=== PATIENT | female | born 1985 | race Caucasian/White ===

== ENCOUNTER 2017-12-17 16:00 | Outpatient (RCR) | payer OTHER, SELFPAY ==
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
--- NOTE | 2017-08-26 15:08 | HP.PTREVAL_ITS ---
Daniel Cee, It has been my pleasure to treat EUGENIA DASH over the last 7 visits for L TKA. Please see the progress note below for an update on the physical therapy plan of care! Subjective: Pt. arrives today walking without AD. Pt. continues to have decreased knee flexion during swing phase and increased L lateral lean during L stance phase of gait. Pt. continues to report increased pain with prolonged walking. Objective/Function: ROM- 0-2-112 deg. Increased pain limiting further end ranges of motion. MMT: LLE- ankle 5/5 throughout; knee- flexion 4+/5, ext 4+/5 mild increase NW; hip- flexion 4/5, abd 4/5, ext 4/5. Pt. had suture tape over incision, she has area where she reports opening mid incision. Did not appear to be opening today. Instructed patient to keep eye on this. No issues with all ROM with tension on skin. GAIT- pt. ambulates without AD with slight lack in knee ext during stance phase, but decreased hip lateral translation. STAIRS: PT. is able to negotiate with reciprocal pattern to ascend and descend, functional weakness noted with descending. 1 HR to complete. Plan Plan: Cont. with POC with focus on ROM, and functional strengthening as tolerated. Progress pt. in walking routine. Goals Goal 1:: Pt. to be I with HEP. Goal Time Frame: 4-6 Weeks Goal Progress: Goal Met Goal 2:: Pt. to have increased ROM of L knee to 0-0-120deg allowing for increased ability to complete all functional monbility without restrictions. Goal Time Frame: 4-6 Weeks Goal Progress: Progressing Goal 3:: Pt. to have increased LLE strength to atleast 4/5 throughout effected musculature reducing stress applied to L knee with all functional mobility. Goal Time Frame: 4-6 Weeks Goal Progress: Goal Met Goal 4:: Pt. to sleep throughout the night without increase in symptoms allowing for increased quality of life. Goal Time Frame: 4-6 Weeks Goal Progress: Progressing Goal 5:: Pt. to ambulate without AD unlimited distances with normal gait pattern without increase in L knee pain. Goal Time Frame: 4-6 Weeks Goal Progress: Progressing Goal 6:: Pt. to negotiate steps with reciprocal pattern with 1 HR independently. Goal Time Frame: 4-6 Weeks Goal Progress: Progressing Anticipated Interventions Patient/Client Instruction: Educate patient on: Condition, Plan of Care, Risk Factors, Benefits of Fitness Program For the Purpose of:: To improve safety, To improve health and function, To foster healthy habits, To improve decision making, To facilitate caregiver knowledge, To improve self management, To prevent re-injury, To improve ability to perform tasks related to life management, To improve tolerance to ADL's Therapeutic Exercise to Include: Strength training, Power training, Endurance training, Balance training, Body mechanics, Postural training, Flexibilty training, Gait and locomotor training, Passive ROM, Active ROM For the Purpose of:: To decrease pain, To decrease swelling/inflammation, To increase ROM, To improve nutrient delivery to tissue, To increase oxygenation perfusion, To improve muscle performance and motor function, To improve ability to perform ADL's, To increase tolerance to activity/condition/position, To improve performance and independence with ADL's, To decrease level of supervision to perform tasks, To improve ability of physical actions for home/ community/work/leisure, To improve gait and locomotor functions, To improve health of tissue, To decrease soft tissue restriction, To increase flexibility/ ROM, To improve endurance, To improve balance, To improve safety with gait Manual Therapy Techniques to Include: Scar massage, Mobilization, Passive ROM, Soft tissue mobilization For the Purpose of:: To decrease pain, To decrease swelling/inflammation, To increase ROM, To improve nutrient delivery to tissue, To increase oxygenation perfusion IF ES: Yes Cryotherapy (ice pack, ice massage): Yes Vasopneumatic device: Yes For the Purpose of:: To decrease pain, To decrease swelling/inflammation, To increase ROM, To improve nutrient delivery to tissue, To increase oxygenation perfusion Please do not hesitate to contact me at [phone] by phone or Fax: if you have questions or concerns regarding this new plan of care! Sincerely, Dhaval Kohler
--- NOTE | 2017-12-30 07:46 | HP.PTDCSUM ---
HP - PT D/C Summary It has been my pleasure to treat EUGENIA DASH under orders from Daniel Cee, for the diagnosis of L TKA for a total of 18 visit(s). Discharge Date: 12/17/17 Please see the following information for a summary of their discharge status. - Subjective Subjective: Pt. reports I am doing so much better. I was able to go up and down the stairs at the [employer] without issues.' Pt. reprots being HEP compliant without issues. - Pain L knee Pain Intensity (Out of 10): 0 - Overall Improvement % Improvement: 90 - Objective Objective/Function: ROM- 0-0-124deg. No pain noted. MMT- 5/5 throughout no pain noted. Pt. is able to ambulate without issues with improved gait pattern. No AD. STAIRS: reciprocal pattern without HR. Pt. is no longer having pain and is being HEP compliant. - Goals Goal 1:: Pt. to be I with HEP. Goal Progress: Goal Met Goal 2:: Pt. to have increased ROM of L knee to 0-0-120deg allowing for increased ability to complete all functional monbility without restrictions. Goal Progress: Goal Met Goal 3:: Pt. to have increased LLE strength to atleast 4/5 throughout effected musculature reducing stress applied to L knee with all functional mobility. Goal Progress: Goal Met Goal 4:: Pt. to sleep throughout the night without increase in symptoms allowing for increased quality of life. Goal Progress: Goal Met Goal 5:: Pt. to ambulate without AD unlimited distances with normal gait pattern without increase in L knee pain. Goal Progress: Goal Met Goal 6:: Pt. to negotiate steps with reciprocal pattern with 1 HR independently. Goal Progress: Goal Met - Plan Plan: Pt. to be DC to HEP at this point in time. - D/C Information Discharge Comments: Pt. has met her goals with PT at this point in time. She progressed to expected ROM and increased stability/strength. Pt. is pleased and continues to be consistent with strengthening. Pt. will be DC to independent HEP and gyme exercises at this point in time. If there are questions or concerns regarding this patient's physical therapy, please feel free to call me at [phone]. Thank you for the referral of this patient. Sincerely, Dhaval Kohler
== END 2017-12-17 19:00 | disposition home or self-care (01) ==
LOC: PT 16:00
PROVIDERS: Family Provider Internal Medicine; PCP Internal Medicine; Visit Provider Orthopaedic Surgery
DX: Z98.890 Other specified postprocedural states (principal)
CPT/HCPCS: 97014; 97110; 97140; 97161; 97530; G0283

== ENCOUNTER 2018-11-11 11:00 | Outpatient (RCR) | payer OTHER, SELFPAY ==
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
--- NOTE | 2018-11-14 10:03 | HP.PTREVAL ---
Daniel Cee, DO, It has been my pleasure to treat EUGENIA DASH over the last 17 visits for R shoulder acromial decompression and debridment. Please see the progress note below for an update on the physical therapy plan of care! Subjective: Pt. has been making good progress with ROM and joint mobilizations. Pt. has recently made good progress. Pt. reports no pain this date. Pt. was able to make dinner without issues. Pt. reports icing some at home, but has been focusing more on heat. Pt. is conserned about her ability to continue with PT as she is running low on her available visits. Objective/Function: ROM R shoulder: flexion 160deg, abd 155deg, functional ER C3, functional IR L3. PROM: flexion 170deg mild increase NW at end range, abd 165deg mild increase NW at end range, ER 90deg with multiple degrees of abd. MMT: 4/5 throughout, mild increase NW with all testing. Pt. has progressed with multiple motions of AROM and PROM. Pt. is not fully pain free, but has made good strides going forward. Pt. reports being able to resume some daily activities, including making dinner. No N/T noted. Plan Plan: Asking for more PT visits through insurance. I would recommend more visits with priogressipon of joint mobilizations, PROM, stretching and AROM. Goals Goal 1:: Pt. to be I with HEP. Goal Time Frame: 4-6 Weeks Goal Progress: Progressing Goal 2:: Pt. to have full R shoulder ROM without increase in symptoms. Goal Time Frame: 4-6 Weeks Goal Progress: Progressing Goal 3:: Pt. to sleep throughout the night withotu increase in symptoms. Goal Time Frame: 4-6 Weeks Goal Progress: Progressing Goal 4:: Pt. to have increased strength of RUE by 1/2 grade of all effected musculature. Goal Time Frame: 4-6 Weeks Goal Progress: Progressing Goal 5:: Pt. to complete all ADls without increase in symptoms. Goal Time Frame: 4-6 Weeks Goal Progress: Progressing Anticipated Interventions Patient/Client Instruction: Educate patient on: Condition, Plan of Care, Risk Factors, Benefits of Fitness Program For the Purpose of:: To facilitate caregiver knowledge, To improve self management, To prevent re-injury, To improve ability to perform tasks related to life management, To improve tolerance to ADL's Therapeutic Exercise to Include: Strength training, Power training, Endurance training, Postural training, Flexibilty training, Passive ROM, Active ROM, Scapular Strength/Stabilization For the Purpose of:: To decrease pain, To decrease swelling/inflammation, To increase ROM, To improve nutrient delivery to tissue, To increase oxygenation perfusion, To improve muscle performance and motor function, To improve health of tissue, To decrease soft tissue restriction Manual Therapy Techniques to Include: Mobilization, Passive ROM, Soft tissue mobilization For the Purpose of:: To decrease pain, To decrease swelling/inflammation, To increase ROM TENS: Yes IF ES: Yes Cryotherapy (ice pack, ice massage): Yes Thermo therapy (hot pack): Yes For the Purpose of:: To decrease pain, To decrease swelling/inflammation, To increase ROM Please do not hesitate to contact me at [phone] by phone or if you have questions or concerns regarding this new plan of care! Sincerely, Dhaval Kohler DPT
== END 2018-11-11 19:00 | disposition home or self-care (01) ==
LOC: PT 11:00
PROVIDERS: Family Provider Internal Medicine; PCP Internal Medicine; Referring Provider Orthopaedic Surgery; Visit Provider Orthopaedic Surgery
DX: M25.511 Pain in right shoulder (principal); S43.491D Other sprain of right shoulder joint, subsequent encounter; S43.421D Sprain of right rotator cuff capsule, subsequent encounter; M65.811 Other synovitis and tenosynovitis, right shoulder
CPT/HCPCS: 97035; 97110; 97161

== ENCOUNTER 2018-11-30 15:44 | Emergency (ER) | payer OTHER, SELFPAY ==
[2018-11-30 15:44] VITALS: BP 155/98; PULSE 84; RESP 16; O2SAT 98
[2018-11-30 15:45] VITALS: BP 162/105; PULSE 82; RESP 16; TEMP 36.4; O2SAT 99; BMI 48.0
--- NOTE | 2018-11-30 16:27 | ED.DCSUM_ITS ---
History of Present Illness Chief Complaint: Abd Pain Informant: Patient Onset: Today Context: Gradual Onset Timing: Waxes and wanes Current Severity: Mild Maximum Severity: Severe Narrative: Patient presents with lower abdominal pain along the area where she believes her ovaries will be located. Pain started today. She denies vaginal discharge or bleeding. She does have an IUD in place. Patient does report dysuria and frequency. She also had some low back pain that was not reproducible with palpation. Past Medical History - Allergies and Home Meds Allergies/Adverse Reactions: Allergies baclofen Allergy (Verified 11/30/18 15:45) Unknown morphine Allergy (Verified 11/30/18 15:45) Unknown duloxetine [From Cymbalta] Adverse Reaction (Verified 11/30/18 15:45) Unknown ATB Adverse Reaction (Uncoded 11/30/18 15:45) Nausea/Vom/Diarrhea Primary Care Physician: Marlen Mary MD [Primary Care Provider] - Prior records reviewed: Yes Past Medical History: - - Reviewed Smoking Status: Never smoker Review of Systems General: Denies: Chills, Fever ENT: Denies: Bilateral ear pain Cardiovascular: Denies: Chest pain Respiratory: Denies: Dyspnea, Cough Gastrointestinal: Reports: Abdominal pain. Denies: Nausea, Vomiting, Diarrhea, Constipation Genitourinary: Reports: Dysuria, Frequency Musculoskeletal: Reports: Back pain Neurological: Denies: Headache, Weakness, Parasthesia Endocrine: Denies: Polyuria, Polydipsia Hematologic: Denies: Easy bleeding Allergy: Denies: Uticaria Physical Exam Vital Signs/Narrative: Vital Signs Temp Pulse Resp BP Pulse Ox 11/30/18 15:45 97.6 F L 82 16 162/105 H 99 11/30/18 15:44 84 16 155/98 H 98 Inital Vital Signs reviewed: Yes General: Well nourished, Well developed Head: Normocephalic ENT: Moist mucous membranes Cardiovascular: Regular rate, Regular rhythm Respiratory: No distress, CTA bilaterally Abdomen: Soft, Normal bowel sounds, Tender - Mild suprapubic tenderness. Back: Nontender Extremities: Nontender Skin: Normal color Neurological: Alert, Oriented x3 Psychological: Normal affect Diagnostic/Tx/Re-eval Impressions Pelvis X-Ray 11/30/18 16:52 IMPRESSION: Normal x-ray examination of the pelvis. Electronically Signed: Eliazar Queen MD at 17:10 EDT , Service support , 11/30/18 16:52 Pelvis 1 or 2 Views [RAD] Stat Laboratory Results 11/30/18 16:35 Urine Color Yellow Urine Clarity Clear Urine pH 7.0 Ur Specific [place] 1.005 Urine Protein 15 H Urine Glucose (UA) Normal Urine Ketones Negative Urine Occult Blood 150 H Urine Nitrite Negative Urine Bilirubin Negative Urine Urobilinogen Normal Ur Leukocyte Esterase Negative Urine RBC 10-25 SEEN Urine WBC 0 SEEN Ur Squamous Epith Cells 0 SEEN Urine Bacteria 0 SEEN Urine Mucus 0 SEEN - Medical Decision Making On repeat evaluation patient is resting comfortably. She does have some blood noted in her urine. Patient states earlier the pain was so severe she was rolling around on the floor. I question whether she may have passed a small kidney stone. We discussed the possibility of further imaging with CAT scan, but she would prefer to wait and return if pain worsens. She will follow-up with her PCP as well as her [facility] as well. ED Disposition - Plan for ED Patient: Disposition: Home or Assisted Living Diagnosis: Pelvic pain Instructions: PELVIC PAIN, Unknown Cause Referrals: Marlen Mary MD [Primary Care Provider] -
[2018-11-30 16:45] LABS: Bacteria 0 SEEN /hpf (None Seen); Mucous, Urine 0 SEEN /hpf (<or=2+); Squamous Epithelial Cells - UA 0 SEEN /hpf (5-10); White Blood Cells 0 SEEN /hpf (0-5)
--- NOTE | 2018-11-30 16:52 | RAD_ITS ---
STUDY: X-RAY - PELVIS REASON FOR EXAM: Female, 33 years old. Left-sided pelvic pain TECHNIQUE: One view of the pelvis was obtained. COMPARISON: None. FINDINGS: There is a non-specific bowel gas pattern. Normal visualized soft tissue structures. IUD projects just left of midline in the central pelvis. Normal bilateral iliac wings, sacroiliac joints and visualized sacrum. Normal visualized bilateral superior and inferior pubic rami. Normal pubic symphysis. Normal ischial tuberosities. Normal visualized right femoral head. Normal right acetabulum. Normal right hip joint. Normal visualized left femoral head. Normal left acetabulum. Normal left hip joint. RAD/Pelvis 1 or 2 Views IMPRESSION: Normal x-ray examination of the pelvis. Electronically Signed: Eliazar Queen MD at 17:10 EDT , Service support ,
[2018-11-30 17:07] LABS: Color, Urine Yellow (Yellow); Glucose, Dipstick Normal (Normal); Ketone-Dipstick Negative (Negative); Leukocyte Esterase-Dipstick Negative /ul (Negative); Nitrite-Dipstick Negative (Negative); Occult Blood-Urine 150 /ul (Negative); Protein-Dipstick 15 mg/dl (Negative); Specific Gravity, Urine 1.005 (1.002-1.030); Urine Bilirubin Dipstick Negative (Negative); Urine Clarity Clear (Clear); Urine Urobilinogen Normal (Normal)
[2018-11-30 17:15] LABS: Red Blood Cells-Urine 10-25 SEEN /hpf (0-5)
[2018-11-30 18:50] VITALS: BP 142/88; PULSE 76; RESP 16; O2SAT 97
[2018-11-30 18:52] VITALS: BP 142/88; PULSE 76; RESP 16; O2SAT 97
== END 2018-11-30 18:52 | disposition home or self-care (01) ==
PROVIDERS: Emergency Provider Emergency Medicine; Family Provider Internal Medicine; PCP Internal Medicine
DX: R10.2 Pelvic and perineal pain (principal); Z97.5 Presence of (intrauterine) contraceptive device
CPT/HCPCS: 72170; 81001; 99282

== ENCOUNTER 2018-12-06 16:38 | Emergency (ER) | payer OTHER, SELFPAY ==
[2018-12-06 16:39] VITALS: BP 159/111; PULSE 72; RESP 15; TEMP 36.6; O2SAT 97; BMI 47.8
--- NOTE | 2018-12-06 17:04 | CT_ITS ---
STUDY: CT ABDOMEN AND PELVIS WITHOUT CONTRAST REASON FOR EXAM: Female, 33 years old. Right flank pain RADIATION DOSAGE (If Supplied By Facility): CTDIvol = ( 23.77 ) mGy, DLP = ( 1253.11 ) mGycm TECHNIQUE: Transaxial images were obtained from the dome of the diaphragm to the symphysis pubis without oral contrast, and without intravenous contrast. Sagittal and coronal images were reconstructed. Individualized dose optimization techniques were used for this CT. COMPARISON: None. FINDINGS: The visualized lung bases are unremarkable. The visualized portions of the heart are within normal limits. There is decreased attenuation of the liver consistent with steatosis. Normal gallbladder and extrahepatic biliary system. Normal spleen. Severe pancreatic atrophy with linear fatty replacement of the pancreatic head. Normal bilateral adrenal glands. Mild right hydronephrosis with right perinephric fat stranding and edema. Proximal right hydroureter. Punctate 2 mm stone seen in the right UVJ. Additional nonobstructing 2 mm stone in the right lower pole kidney. Normal left kidney. Normal visualized stomach. Normal small intestine. Normal colon. The appendix is visualized and appears normal. Normal abdominal aorta. Normal inferior vena cava. Normal retroperitoneum. Normal urinary bladder. Normal visualized uterus. Metallic IUD in the endometrium. Normal abdominal wall. Normal osseous structures. CT/Abdomen/Pelvis without Cont IMPRESSION: Right hydronephrosis, right hydroureter and right perinephric fat stranding. Punctate stone seen at the right UVJ. Remainder as above Electronically Signed: Albaro Gaming DO at 18:35 EDT Tel , Service support ,
--- NOTE | 2018-12-06 17:05 | ED.VISSUMM ---
- ER Visit Summary Date of Service: 12/06/18 Chief Complaint: Right flank and right upper quadrant pain History of Present Illness: The patient is a 33 F who presents with right flank and right upper quadrant abdominal pain that began again today. Patient was seen here last week and was noted to have some blood in her urine. Patient had x-rays done at that time which were negative. Patient states that she thought she may have passed a kidney stone at her last visit. Patient states the pain became worse again today. Patient states the pain is over the right upper quadrant and right flank area. Patient states the pain improved a little bit with taking a hot shower. Patient denies any nausea or vomiting. Patient denies any diarrhea, melena, or hematochezia. Patient does admit to some dysuria but denies any hematuria. Patient states she is currently on her menstrual cycle. Patient states she has an IUD in place as well. Physical Examination: Vital signs are stable except for mildly elevated blood pressure 159/111. Patient is afebrile. Patient is in no acute distress. Oral mucosa is pink and moist. Neck is supple. Trachea is midline. There is no JVD noted. Heart was regular rate and rhythm. Lungs are clear and equal bilaterally. Abdomen is soft. Bowel sounds are normal. There is right upper quadrant tenderness. There is some right CVA tenderness as well. There is no rebound or guarding noted. Cranial nerves II through XII are intact. There are no focal motor or sensory deficits noted. Test Results: CBC shows a mild leukocytosis of 12.5. Urinalysis shows 10-25 red blood cells with occult blood of 250. Creatinine was slightly elevated at 1.36. CT scan of the abdomen and pelvis was obtained. There is a punctate stone at the right UVJ with hydronephrosis and hydroureter. Emergency Department Course and Treatment: Patient was given an injection of Toradol. Patient was given IV fluids. Patient states her pain improved after the Toradol. Patient states pain started to return. Patient was given a dose of Dilaudid here. Patient was instructed to drink plenty of fluids at home. Patient was instructed to continue her pain medicine at home. Patient was given a prescription for Zofran. Patient was instructed to follow-up with her primary care physician in 5 to 7 days. Patient understood and was agreeable with the plan. All questions were answered. Disposition: Discharge home Impression: Right ureteral calculus This note was generated with [employer] dictation software. It may contain incorrect words, spelling, and punctuation that were not noted in review of the chart prior to signing ED Disposition - Plan for ED Patient: Disposition: Home or Assisted Living Diagnosis: Right distal ureteral calculus Instructions: KIDNEY STONE w/ Colic Prescriptions: Ondansetron [Zofran Odt] 4 mg PO Q8H PRN PRN #10 tab PRN Reason: Nausea Prescription Printed Referrals: Marlen Mary MD [Primary Care Provider] - 5-7 Days
[2018-12-06 17:13] LABS: Absolute Lymphocyte Count 2.44 X10^3/uL (0.83-4.51); Absolute Neutrophil Count 8.9 X10^3/uL (2.0-7.7); Basophil# 0.07 X10^3/uL; Basophil% 0.6 % (0-1); Eosinophil# 0.13 X10^3/uL; Hematocrit 41.7 % (37-47); Hemoglobin 13.7 g/dL (12.0-15.0); Lymphocyte # 2.44 X10^3/ul (4.0); Lymphocyte % 19.6 % (19-41); Mean Corp Hgb Conc 32.9 g/dL (32-36); Mean Corpuscular Hgb 26.8 pg (27.0-32.0); Mean Corpuscular Volume 81.6 fL (81-99); Mean Platelet Vol. 9.5 fl (6.2-12.0); Monocyte# 0.89 X10^3/uL; Monocyte% 7.1 % (0-10); NRBC Flagged by Analyzer 0 % (0-5); Neutrophil # 8.87 X10^3/uL (2.7-7.7); Neutrophil % 71.2 % (47-70); Platelet Count 339 K/mm3 (150-450); RBC Distribution Width SD 38.7 fl (35.1-43.9); Red Blood Count 5.11 M/mm3 (4.2-5.4); White Blood Count 12.5 K/mm3 (4.4-11.0)
[2018-12-06] MEDS: Ketorolac 30 MG/ML Syringe IV (17:14)
[2018-12-06] MEDS: Ondansetron 4 MG/2 ML Vial IV (17:14)
[2018-12-06] MEDS: 0.9% Normal Saline 1,000 ML 250 ML IV (17:14)
[2018-12-06 17:18] VITALS: TEMP 37
[2018-12-06 17:19] LABS: Mucous, Urine 0 SEEN /hpf (<or=2+)
[2018-12-06 17:20] LABS: Color, Urine Yellow (Yellow); Glucose, Dipstick Normal (Normal); Ketone-Dipstick Negative (Negative); Leukocyte Esterase-Dipstick 25 /ul (Negative); Nitrite-Dipstick Negative (Negative); Occult Blood-Urine 250 /ul (Negative); Protein-Dipstick 30 mg/dl (Negative); Specific Gravity, Urine 1.025 (1.002-1.030); Urine Bilirubin Dipstick Negative (Negative); Urine Clarity Sl. Cloudy (Clear); Urine Urobilinogen Normal (Normal)
[2018-12-06 17:26] LABS: Bacteria RARE /hpf (None Seen); Red Blood Cells-Urine 10-25 SEEN /hpf (0-5); Squamous Epithelial Cells - UA 5-10 SEEN /hpf (5-10); White Blood Cells 0-5 SEEN /hpf (0-5)
[2018-12-06 17:30] LABS: Anion Gap 8 (5-15); BUN 26 mg/dL (7-18); BUN/Creat Ratio 19.1 RATIO (10-20); Calcium,Total 9.6 mg/dL (8.5-10.1); Chloride 106 mmol/L (98-107); Creatinine, Serum 1.36 mg/dL (0.55-1.02); EST Glomerular Filtration Rate 47 mL/min (>60); Est Glom Filt Rate - Afr Amer 57 mL/min (>60); Estimated Creatinine Clearance 47.76 ml/min; Glucose 97 mg/dL (74-106); Potassium 4.1 mmol/L (3.5-5.1); Sodium Level 138 mmol/L (136-145)
[2018-12-06 17:53] LABS: Internal QC Validated? YES +Cl - CLEAR BKGD; Pregnancy, Serum, hCG Quali. NEGATIVE Negative
[2018-12-06 18:50] VITALS: BP 166/109; PULSE 72; RESP 16; O2SAT 98
[2018-12-06] MEDS: HYDROmorphone 0.5 MG/0.5 ML SYRINGE IV (19:29)
[2018-12-06 20:11] VITALS: BP 151/78; PULSE 92; RESP 18; O2SAT 99
--- NOTE | 2018-12-06 20:12 | ED.RN ---
THIS NURSE REVIEWED D/C INSTRUCTIONS WITH PT. PT VERBALIZED UNDERSTANDING OF INSTRUCTIONS. IV D/C. IV CATHETER INTACT. PT TOLERATED WELL. PT DENIES FURTHER NEEDS OR QUESTIONS AT THIS TIME
== END 2018-12-06 20:13 | disposition home or self-care (01) ==
PROVIDERS: Emergency Provider Emergency Medicine; Family Provider Internal Medicine; PCP Internal Medicine
DX: N13.2 Hydronephrosis with renal and ureteral calculous obstruction (principal); I10 Essential (primary) hypertension; M79.7 Fibromyalgia; Z97.5 Presence of (intrauterine) contraceptive device; Z79.82 Long term (current) use of aspirin; Z79.899 Other long term (current) drug therapy
CPT/HCPCS: 74176; 80048; 81001; 84703; 85025; 96361; 96374; 96375; 99283; J7030; A4216; J2405

== ENCOUNTER 2020-04-05 18:58 | Emergency (ER) | payer OTHER, SELFPAY ==
[2020-04-05 18:59] VITALS: BP 175/110; PULSE 76; RESP 18; TEMP 36.1; O2SAT 100; BMI 48.8
--- NOTE | 2020-04-05 19:26 | ED.DCSUM_ITS ---
- ER Visit Summary Date of Service: 04/05/20 Chief Complaint: Right flank pain History of Present Illness: The patient is a 34 F presenting with right flank pain. She states this started suddenly a couple of hours ago. She has history of kidney stones and states this feels similar. She has nausea with no vomiting. She denies urinary complaints. Denies fever. She tried methadone at home that she takes chronically for pain. Denies other complaints. Physical Examination: Vitals are stable. Patient is afebrile. Alert no acute distress. HEENT exam is unremarkable. Neck is supple. Lungs are clear and equal bilaterally. Heart is regular rate and rhythm. Abdomen is soft nontender nondistended. No guarding or rebound Back: Right CVA tenderness Extremities are unremarkable. Skin is warm and dry. No focal neurologic deficit. Remainder of exam is unremarkable. Emergency Department Course and Treatment: Patient was given Dilaudid, Zofran IV with improvement. Urinalysis shows 25-50 white blood cells, 10-25 red blood cells, 2+ bacteria. Urine culture was sent. CT abdomen pelvis shows 2 mm right UVJ calculus with mild hydronephrosis. Right nephrolithiasis. On reevaluation, patient is resting comfortably. She is already on methadone at home for chronic pain. She will continue to take this for pain. She states she has Zofran at home for nausea. She is given a prescription for Keflex. She has a listed allergy to unknown antibiotic but states she has taken Keflex in the past. She is given a dose of Toradol in the ED. She is comfortable with discharge home. Advised to follow-up with her primary care physician and urology. Advised return to ED for worsening complaints. Disposition: Discharge home Impression: Urolithiasis This note was generated with [employer] dictation software. It may contain incorrect words, spelling, and punctuation that were not noted in review of the chart prior to signing ED Disposition - Plan for ED Patient: Instructions: ED Renal Stone w Colic Prescriptions: Cephalexin [Keflex] 500 mg PO Q6 #40 cap Prescription Printed Referrals: Joselito Fishman MD [STAFF PHYSICIAN] - Marlen Mary MD [Primary Care Provider] -
[2020-04-05] MEDS: Ondansetron 4 MG/2 ML Vial IV (19:47)
[2020-04-05] MEDS: HYDROmorphone 1 MG/ML Syringe IV (19:47)
--- NOTE | 2020-04-05 19:51 | CT_ITS ---
STUDY: CT ABDOMEN AND PELVIS WITHOUT CONTRAST REASON FOR EXAM: Female, 34 years old. right sided flank pain that radiates to back. hx of kidney stones RADIATION DOSAGE (If Supplied By Facility): CTDIvol = ( 24.17 ) mGy, DLP = ( 1195.79 ) mGycm TECHNIQUE: Transaxial images were obtained from the dome of the diaphragm to the symphysis pubis without oral contrast, and without intravenous contrast. Sagittal and coronal images were reconstructed. Individualized dose optimization techniques were used for this CT. COMPARISON: None. FINDINGS: The visualized lung bases are unremarkable. The visualized portions of the heart are within normal limits. There is decreased attenuation of the liver consistent with steatosis. Normal gallbladder and extrahepatic biliary system. Normal spleen. There is diffuse atrophy of the pancreas. Normal bilateral adrenal glands. Small punctate calculi in the bilateral kidneys. There is mild right hydronephrosis with a 2 mm calculus in the region of the right UVJ. Normal visualized stomach. Normal small intestine. Normal colon. The appendix is visualized and appears normal. Normal abdominal aorta. Normal inferior vena cava. Normal retroperitoneum. Normal urinary bladder. IUD noted within the uterus. Normal abdominal wall. Normal osseous structures. CT/Abdomen/Pelvis without Cont IMPRESSION: 2 mm right UVJ calculus with mild hydronephrosis. Right nephrolithiasis. Electronically Signed: Eliazar Queen MD (Brooks) at 20:11 EST , Service support ,
[2020-04-05 19:54] LABS: Mucous, Urine 0 SEEN /hpf (<or=2+)
[2020-04-05 20:12] LABS: Color, Urine Yellow (Yellow); Glucose, Dipstick Normal (Normal); Ketone-Dipstick Negative (Negative); Leukocyte Esterase-Dipstick Negative /ul (Negative); Nitrite-Dipstick Negative (Negative); Occult Blood-Urine 250 /ul (Negative); Protein-Dipstick 15 mg/dl (Negative); Urine Bilirubin Dipstick Negative (Negative); Urine Clarity Clear (Clear); Urine Urobilinogen Normal (Normal)
[2020-04-05 20:21] LABS: White Blood Cells 25-50 SEEN /hpf (0-5)
[2020-04-05 20:22] LABS: Bacteria 2+ /hpf (None Seen); Red Blood Cells-Urine 10-25 SEEN /hpf (0-5); Squamous Epithelial Cells - UA 5-10 SEEN /hpf (5-10)
--- NOTE | 2020-04-05 21:23 | ED.DEP ---
ED Disposition - Plan for ED Patient: Instructions: ED Renal Stone w Colic Prescriptions: Cephalexin [Keflex] 500 mg PO Q6 #40 cap Prescription Printed Referrals: Marlen Mary MD [Primary Care Provider] - Joselito Fishman MD [STAFF PHYSICIAN] -
[2020-04-05] MEDS: Cephalexin 250 MG Capsule 500 MG PO (21:55)
[2020-04-05] MEDS: Ketorolac 30 MG/ML Syringe IV (21:55)
[2020-04-05 21:59] VITALS: BP 161/94; PULSE 72; RESP 16; O2SAT 100
--- NOTE | 2020-04-05 22:20 | ED.DEP ---
ED Disposition - Plan for ED Patient: Instructions: ED Renal Stone w Colic Prescriptions: Cephalexin [Keflex] 500 mg PO Q6 #40 cap Prescription Printed Ondansetron [Zofran Odt] 4 mg PO Q8H PRN PRN #10 tab PRN Reason: Nausea Prescription Printed Referrals: Joselito Fishman MD [STAFF PHYSICIAN] - Marlen Mary MD [Primary Care Provider] -
[2020-04-05 22:22] VITALS: BP 161/94; PULSE 72; RESP 16; O2SAT 100
== END 2020-04-05 22:24 | disposition home or self-care (01) ==
PROVIDERS: Emergency Provider Emergency Medicine; PCP Internal Medicine
DX: N13.2 Hydronephrosis with renal and ureteral calculous obstruction (principal); Z87.442 Personal history of urinary calculi
CPT/HCPCS: 74176; 81001; 87086; 87088; 96374; 96375; 99282; A4216; J2405

== ENCOUNTER 2022-07-10 03:03 | Emergency (ER) | payer BC, SELFPAY ==
[2022-07-10 03:04] VITALS: BP 154/139; PULSE 73; RESP 16; TEMP 36.8; O2SAT 97; BMI 46.4
--- NOTE | 2022-07-10 03:22 | CT_ITS ---
STUDY: CT ABDOMEN AND PELVIS WITH CONTRAST REASON FOR EXAM: Female, 37 years old. Left-sided abdominal pain with nausea and diarrhea. Hypertension. TECHNIQUE: IV Contrast: IV 100mL [id number] Enteric contrast: None administered. Axial images obtained. Coronal and sagittal reformatted images provided. Individualized dose optimization techniques were used for this CT. COMPARISON: 04/05/2020 CT abdomen pelvis. FINDINGS: Partially visualized lower chest: Lung bases unremarkable. Liver: Diffuse steatosis again demonstrated. No focal lesions. Gallbladder and biliary tree: No visible gallstones. No pericholecystic inflammation. No biliary ductal dilation. Pancreas: No pancreatic lesions or inflammation. Pancreatic body and head partially fatty replaced. Similar to prior. Spleen: Normal size, no splenic lesions. Adrenal glands: No concerning masses. Kidneys and ureters: Punctate 1 mm stone left UVJ with mild more proximal left hydronephrosis and hydroureter. 2 small residual stones in the lower pole of the left kidney, and 3 small nonobstructing stones in the lower and mid pole calyces of the right kidney. No right hydronephrosis or right ureteral stone. Bowel: Normal appendix. No obstruction or inflammation of the bowel. Urinary bladder: No other stones or wall thickening. Reproductive:Normal uterus and ovaries. IUD in place. Vascular: No abdominal aortic aneurysm. Retroperitoneal and peritoneal spaces: No ascites or free air. No retroperitoneal lesions. Osseous: No acute osseous abnormality. Abdominal and pelvic wall: No concerning findings. Any findings described in the findings sections and not included in the impression are incidental and do not require imaging follow-up. CT/Abdomen/Pelvis W IV Cont ONLY IMPRESSION: 1 mm left UVJ stone with mild obstruction. Small bilateral residual renal stones. Hepatic steatosis. Electronically Signed: George Ordonez MD at 5:47 EST Reading Location ID and State: [id number] MD Tel , Service support ,
--- NOTE | 2022-07-10 03:24 | ED.VIS.GI ---
HPI HPI - GI History of Present Illness Chief Complaint: Abd Pain Informant: patient and spouse/S.O. Narrative Narrative: Patient presents with abdominal pain, nausea vomiting and diarrhea. She states 1 month ago she had an episode where she had crampy abdominal pain with nausea vomiting diarrhea that lasted for 24 hours. She thought it was something she ate. It then recurred about 2 weeks ago. She was seen in urgent care. There is no specific solution. About 6 days ago and then came back. That second episode also lasted for 24 hours. She now is on Prilosec Pepcid and taking Phenergan which does help with the nausea. Her first episode of diarrhea was watery but now it is just poorly formed. No blood seen. She is still nauseated but has not vomited this week. But her appetite is down and she is not drinking a lot. She is eating only applesauce. No fevers. No chest pain. Of note, the patient did have an ulcer back when she was a teenager after knee injuries thought to be related to Celebrex. She is now been back on Celebrex for the last year or 2. [facility] Medical History Arthritis Back pain Fatigue Knee pain Migraines Shoulder pain Home Medications B-complex with vitamin C 1 cap PO QDAY 08/12/17 [History Last Taken Unknown] ascorbic acid (vitamin C) 500 mg chewable tablet 500 mg PO QDAY 08/12/17 [History Last Taken Unknown] aspirin 81 mg chewable tablet PO 08/12/17 [History Last Taken Unknown] atenolol 25 mg tablet 25 mg PO ONCE 08/12/17 [History Last Taken Unknown] biotin 1 mg capsule 1 mg PO QDAY 08/12/17 [History Last Taken Unknown] bupropion HCl 150 mg 24 hr tablet, extended release (Wellbutrin XL) 150 mg PO QAM 08/12/17 [History Last Taken Unknown] celecoxib 50 mg capsule (Celebrex) 100 mg PO BID 08/12/17 [History Last Taken Unknown] cetirizine 10 mg capsule (Allergy Relief (cetirizine)) 10 mg PO QDAY 08/12/17 [History Last Taken Unknown] cholecalciferol (vitamin D3) 25 mcg (1,000 unit) capsule 1,000 unit PO ONCE 08/12/17 [History Last Taken Unknown] desoximetasone 0.05 % topical cream (Topicort) 1 applic topical QDAY 08/12/17 [History Last Taken Unknown] diclofenac sodium 1 % topical gel (Voltaren) 2 g topical ONCE 08/12/17 [History Last Taken Unknown] gabapentin 100 mg capsule (Neurontin) 100 mg PO QDAY 08/12/17 [History Last Taken Unknown] hydrochlorothiazide 12.5 mg capsule 12.5 mg PO QAM 08/12/17 [History Last Taken Unknown] hydroxyzine HCl 25 mg tablet 25 mg PO 6XD 08/12/17 [History Last Taken Unknown] levonorgestrel 21 mcg/24 hours (8 yrs) 52 mg intrauterine device (Mirena) 1 insert intrauterine ONCE 08/12/17 [History Last Taken Unknown] lidocaine 5 % topical patch (Lidoderm) 1 patch topical ONCE 08/12/17 [History Last Taken Unknown] melatonin 10 mg capsule 10 mg PO HS PRN 08/12/17 [History Last Taken Unknown] methadone 5 mg tablet 5 mg PO Q6H 08/12/17 [History Last Taken Unknown] multivitamin 1 cap PO QAM 08/12/17 [History Last Taken Unknown] pregabalin 25 mg capsule (Lyrica) 50 mg PO TID 08/12/17 [History Last Taken Unknown] tizanidine 2 mg capsule (Zanaflex) 2 mg PO ONCE 08/12/17 [History Last Taken Unknown] topiramate 25 mg tablet (Topamax) 25 mg PO QDAY 08/12/17 [History Last Taken Unknown] zolpidem 5 mg tablet (Ambien) 5 mg PO HS PRN 08/12/17 [History Last Taken Unknown] ondansetron 4 mg disintegrating tablet 4 mg PO Q8H PRN PRN Nausea #10 tabs 12/06/18 [Rx Last Taken Unknown] cephalexin 500 mg capsule 500 mg PO Q6 #40 caps 04/05/20 [Rx Last Taken Unknown] ondansetron 4 mg disintegrating tablet 4 mg PO Q8H PRN PRN Nausea #10 tabs 04/05/20 [Rx Last Taken Unknown] ondansetron 4 mg disintegrating tablet 4 mg PO Q8H PRN PRN Nausea #10 tabs 07/10/22 [Rx Last Taken Unknown] tamsulosin 0.4 mg capsule (Flomax) 0.4 mg PO DAILY #7 caps 07/10/22 [Rx Last Taken Unknown] Allergy/AdvReac Type Severity Reaction Status Date / Time baclofen Allergy Unknown Verified 04/05/20 18:59 morphine Allergy Unknown Verified 04/05/20 18:59 duloxetine [From Cymbalta] AdvReac Unknown Verified 04/05/20 18:59 ATB AdvReac Nausea/Vom/ Uncoded 04/05/20 18:59 Diarrhea Family History Father Hypertension Arthritis Mother Asthma Arthritis Surgical History History of partial knee replacement History of tonsillectomy Hx of knee surgery Social History Smoking Status: Never smoker alcohol intake: current alcohol intake frequency: holidays/special occasions only ROS ROS ED Constitutional Constitutional ED: Denies fever(s) ENT ENT ED: Denies rhinorrhea Cardiovascular Cardiovascular: Denies chest pain or palpitations Respiratory/Chest Respiratory/Chest: Denies cough or dyspnea Gastrointestinal Gastrointestinal: Reports abdominal pain, diarrhea, nausea, vomiting and other Details: See history of present illness. ; Denies constipation or melena Genitourinary Genitourinary ED: Reports dysuria and urinary frequency; Denies hematuria Musculoskeletal Musculoskeletal: Denies back pain Integumentary Denies rash Neurologic Neurologic: Denies paresthesias Endocrine Endocrinology: Denies polydipsia or polyuria Hematologic/Lymphatic Hematologic/Lymphatic: Denies easy bleeding or easy bruising Allergic/Immunologic Allergic/Immunologic ED: Denies urticaria EXAM Physical Exam Narrative Exam Narrative: Patient is sitting up in bed. Awake alert appropriate. She is nontoxic in appearance. HEENT shows minimally dry mucous membranes. No sign of trauma. Lungs are clear bilaterally Heart is regular no murmur gallop or rub. Abdomen is obese. There is some mild nonfocal tenderness or longer left side. It varies somewhat. No rebound or guarding. No masses able to be felt. shows no notable suprapubic or CVA tenderness. She has had kidney stones but does not think this is like 1 of those. Extremities show no tenderness. No asymmetry. Neurologically patient awake alert appropriate with no focal deficit. Const Vital Signs: 07/10/22 03:04 Temperature 98.3 F Temperature Source Temporal Pulse Rate 73 Respiratory Rate 16 Blood Pressure 154/139 H Blood Pressure Mean 144 Pulse Ox 97 Oxygen Delivery Method Room Air MDM MDM MDM Narrative Medical decision making narrative: My independent interpretation of the patient's CT of the abdomen is suspicious for some mild left hydro-. There is questions of a distal small UVJ stone. Final reading by radiology does state that there is that small 1 mm UVJ stone. When I talk with her she then states she has had kidney stones before but was not sure if this was the same. Her blood work shows normal CBC. Her electrolytes are normal. Glucose is minimally up at 115. Lipase in the test are normal at is negative. Urine is negative pending final micro. I think her symptoms are likely due to the stone. She states she got excellent improvement with the fentanyl. She states she has gotten good relief from pain with Toradol. I will give her a dose of Toradol because it is longer lasting. This patient is on prescribed gabapentin and prescribed methadone routinely. I did access and review her online prescribing report by the [facility]. Because she gets regular prescriptions I really cannot give her further scripts to go. She needs to contact her primary prescriber. I will add some Flomax. I will also add some Zofran. She is already on nonsteroidal. We discussed reasons to return and follow-up. However, this stone statistically has a very high probability of passing. Lab Data Attestation: I reviewed the patient's lab results. Labs: Laboratory Results - last 24 hr 07/10/22 07/10/22 07/10/22 03:13 03:13 03:13 WBC 8.8 RBC 5.31 Hgb 14.3 Hct 44.4 MCV 83.6 MCH 26.9 L MCHC 32.2 RDW Std Deviation 39.7 RDW Coeff of Maria 13.2 Plt Count 335 MPV 10.1 Immature Gran % (Auto) 0.500 Neut % (Auto) 62.7 Lymph % (Auto) 27.7 [place] % (Auto) 6.7 Eos % (Auto) 1.7 Baso % (Auto) 0.7 Absolute Neuts (auto) 5.5 Absolute Lymphs (auto) 2.44 Nucleated RBC % 0 Sodium 138 Potassium 3.7 Chloride 107 Carbon Dioxide 26.0 Anion Gap 5 BUN 16 Creatinine 1.02 Estim Creat Clear Calc 61.25 Est GFR (MDRD) Af Amer 78 Est GFR (MDRD) Non-Af 64 BUN/Creatinine Ratio 15.7 Glucose 115 H Calcium 9.7 Total Bilirubin 0.80 AST 26 ALT 43 Alkaline Phosphatase 94 Total Protein 8.2 Albumin 4.0 Globulin 4.2 Albumin/Globulin Ratio 1.0 Lipase 100 Serum , Qual NEGATIVE Urine Color Urine Clarity Urine pH Ur Specific [place] Urine Protein Urine Glucose (UA) Urine Ketones Urine Occult Blood Urine Nitrite Urine Bilirubin Urine Urobilinogen Ur Leukocyte Esterase 07/10/22 06:20 WBC RBC Hgb Hct MCV MCH MCHC RDW Std Deviation RDW Coeff of Maria Plt Count MPV Immature Gran % (Auto) Neut % (Auto) Lymph % (Auto) [place] % (Auto) Eos % (Auto) Baso % (Auto) Absolute Neuts (auto) Absolute Lymphs (auto) Nucleated RBC % Sodium Potassium Chloride Carbon Dioxide Anion Gap BUN Creatinine Estim Creat Clear Calc Est GFR (MDRD) Af Amer Est GFR (MDRD) Non-Af BUN/Creatinine Ratio Glucose Calcium Total Bilirubin AST ALT Alkaline Phosphatase Total Protein Albumin Globulin Albumin/Globulin Ratio Lipase Serum , Qual Urine Color Yellow Urine Clarity Clear Urine pH 7.0 Ur Specific [place] 1.010 Urine Protein Negative Urine Glucose (UA) Normal Urine Ketones Negative Urine Occult Blood 10 H Urine Nitrite Negative Urine Bilirubin Negative Urine Urobilinogen Normal Ur Leukocyte Esterase Negative Radiography Diagnostic Testing: Clinical Impression(s) from Imaging Studies Abdomen/Pelvis CT 07/10/22 03:22 IMPRESSION: 1 mm left UVJ stone with mild obstruction. Small bilateral residual renal stones. Hepatic steatosis. Electronically Signed: George Ordonez MD at 5:47 EST Reading Location ID and State: [facility] [place] Tel , Service support , Discharge Plan Triage Chief Complaint: Abd Pain ED Provider: Tone Rutledge Dx/Rx/DC Orders Clinical Impression: Kidney stone on left side Instructions: ED Kidney Stone w/ Colic Prescriptions: New tamsulosin [Flomax] 0.4 mg capsule 0.4 mg PO DAILY Qty: 7 0RF ondansetron [ondansetron] 4 mg tablet,disintegrating 4 mg PO Q8H PRN PRN (Reason: Nausea) Qty: 10 0RF No Action topiramate [Topamax] 25 mg tablet 25 mg PO QDAY pregabalin [Lyrica] 25 mg capsule 50 mg PO TID bupropion HCl [Wellbutrin XL] 150 mg tablet extended release 24 hr 150 mg PO QAM tizanidine [Zanaflex] 2 mg capsule 2 mg PO ONCE lidocaine [Lidoderm] 5 % adhesive patch,medicated 1 patch TOPICAL ONCE atenolol 25 mg tablet 25 mg PO ONCE gabapentin [Neurontin] 100 mg capsule 100 mg PO QDAY levonorgestrel [Mirena] 20 mcg/24 hr (5 years) intrauterine device 1 insert Intrauterine ONCE methadone 5 mg tablet 5 mg PO Q6H celecoxib [Celebrex] 50 mg capsule 100 mg PO BID aspirin 81 mg tablet,chewable PO zolpidem [Ambien] 5 mg tablet 5 mg PO HS PRN hydroxyzine HCl 25 mg tablet 25 mg PO 6XD hydrochlorothiazide 12.5 mg capsule 12.5 mg PO QAM multivitamin capsule capsule 1 cap PO QAM cholecalciferol (vitamin D3) 1,000 unit capsule 1,000 unit PO ONCE biotin 1 mg capsule 1 mg PO QDAY ascorbic acid (vitamin C) 500 mg tablet,chewable 500 mg PO QDAY B-complex with vitamin C capsule capsule 1 cap PO QDAY melatonin 10 mg capsule 10 mg PO HS PRN cetirizine [Allergy Relief (cetirizine)] 10 mg capsule 10 mg PO QDAY desoximetasone [Topicort] 0.05 % cream 1 applic TOPICAL QDAY diclofenac sodium [Voltaren] 1 % gel 2 g TOPICAL ONCE ondansetron 4 MG tablet 4 mg PO Q8H PRN PRN (Reason: Nausea) Qty: 10 0RF cephalexin 500 MG capsule 500 mg PO Q6 Qty: 40 0RF ondansetron 4 MG tablet 4 mg PO Q8H PRN PRN (Reason: Nausea) Qty: 10 0RF Primary Care Provider: Marlen Mary Referrals: Shara Bautista MD [Med Staff - Active Staff] - 3-5 Days if not improving Marlen Mary MD [Primary Care Provider] - As Needed Disposition Disposition: Home, Self Care
[2022-07-10] MEDS: Ondansetron 4 MG/2 ML Vial IV (03:33)
[2022-07-10 03:34] LABS: Absolute Lymphocyte Count 2.44 X10^3/uL (0.83-4.51); Absolute Neutrophil Count 5.5 X10^3/uL (2.0-7.7); Basophil# 0.06 X10^3/uL; Basophil% 0.7 % (0-1); Eosinophil# 0.15 X10^3/uL; Eosinophils% 1.7 % (0-5); Hematocrit 44.4 % (37-47); Hemoglobin 14.3 g/dL (12.0-15.0); Lymphocyte # 2.44 X10^3/ul (0.83-4.51); Lymphocyte % 27.7 % (19-41); Mean Corp Hgb Conc 32.2 g/dL (32-36); Mean Corpuscular Hgb 26.9 pg (27.0-32.0); Mean Corpuscular Volume 83.6 fL (81-99); Mean Platelet Vol. 10.1 fl (6.2-12.0); Monocyte# 0.59 X10^3/uL; Monocyte% 6.7 % (0-10); NRBC Flagged by Analyzer 0 % (0-5); Neutrophil # 5.54 X10^3/uL (2.7-7.7); Neutrophil % 62.7 % (47-70); Platelet Count 335 K/mm3 (150-450); RBC Distribution Width CV 13.2 % (11.6-14.6); RBC Distribution Width SD 39.7 fl (35.1-43.9); Red Blood Count 5.31 M/mm3 (4.2-5.4); White Blood Count 8.8 K/mm3 (4.4-11.0)
[2022-07-10] MEDS: 0.9% Normal Saline 1,000 ML 1000 ML IV (03:34)
[2022-07-10] MEDS: fentaNYL 100 MCG/2 ML Ampul 50 MCG IV (03:53)
[2022-07-10 03:58] LABS: AST(SGOT) 26 U/L (15-37); Alanine Aminotransfer ALT/SGPT 43 U/L (13-56); Alkaline Phosphatase 94 U/L (45-117); Anion Gap 5 (5-15); BUN 16 mg/dL (7-18); BUN/Creat Ratio 15.7 RATIO (10-20); Calcium,Total 9.7 mg/dL (8.5-10.1); Chloride 107 mmol/L (98-107); Creatinine, Serum 1.02 mg/dL (0.55-1.02); EST Glomerular Filtration Rate 64 mL/min (>60); Est Glom Filt Rate - Afr Amer 78 mL/min (>60); Estimated Creatinine Clearance 61.25 ml/min; Globulin 4.2 g/dL (2.2-4.2); Glucose 115 mg/dL (74-106); Lipase 100 U/L (73-393); Potassium 3.7 mmol/L (3.5-5.1); Protein, Total 8.2 g/dL (6.4-8.2); Sodium Level 138 mmol/L (136-145)
[2022-07-10 04:28] LABS: Internal QC Validated? YES +Cl - CLEAR BKGD; Pregnancy, Serum, hCG Quali. NEGATIVE Negative
[2022-07-10 06:30] LABS: Bacteria 0 SEEN /hpf (None Seen); Mucous, Urine 0 SEEN /hpf (<or=2+); Red Blood Cells-Urine 0 SEEN /hpf (0-5); Squamous Epithelial Cells - UA 0 SEEN /hpf (5-10); White Blood Cells 0 SEEN /hpf (0-5)
[2022-07-10 06:31] LABS: Color, Urine Yellow (Yellow); Glucose, Dipstick Normal (Normal); Ketone-Dipstick Negative (Negative); Leukocyte Esterase-Dipstick Negative /ul (Negative); Nitrite-Dipstick Negative (Negative); Occult Blood-Urine 10 /ul (Negative); Protein-Dipstick Negative (Negative); Urine Bilirubin Dipstick Negative (Negative); Urine Clarity Clear (Clear); Urine Urobilinogen Normal (Normal)
[2022-07-10] MEDS: Ketorolac 15 MG/ML Vial IV (07:06)
== END 2022-07-10 07:09 | disposition home or self-care (01) ==
PROVIDERS: Emergency Provider Emergency Medicine; PCP Internal Medicine; Visit Provider Emergency Medicine
DX: N20.2 Calculus of kidney with calculus of ureter (principal)
CPT/HCPCS: 74177; 80053; 81001; 83690; 84703; 85025; 96361; 96374; 96375; 99282; Q9967; A4216; J2405

== ENCOUNTER 2024-11-09 00:38 | Emergency (ER) | payer BC, OTHER, SELFPAY ==
[2024-11-09 00:40] VITALS: BP 175/110; PULSE 68; RESP 24; TEMP 36.8; O2SAT 97
[2024-11-09 00:42] VITALS: BMI 47.5
--- NOTE | 2024-11-09 01:02 | CT_ITS ---
PROCEDURE: ABDOMEN/PELVIS WITHOUT CONT 11/09/2024 REASON FOR EXAM: RIGHT FLANK PAIN TECHNIQUE: ABDOMEN/PELVIS WITHOUT CONT Noncontrast technique limits evaluation of the abdominal and pelvic viscera. Coronal and Sagittal reconstruction series were provided. One or more dose reduction techniques were used (e.g., Automated exposure control, adjustment of the mA and/or kV according to patient size, use of iterative reconstruction technique). RADIATION DOSE SUMMARY: CTDlvol: 24 mGy DLP: 1258 mGycm COMPARISON: 07/10/2022 FINDINGS: 3 mm noncalcified left base nodule. 2 mm noncalcified right base nodule. Normal heart size. Liver is upper limits of normal for size with diffuse hepatic steatosis. Normal gallbladder. Diffuse fatty replacement of the pancreas. Normal spleen, adrenal glands. Bilateral renal calcifications measuring up to 5 mm. On the right, mild proximal hydronephrosis. 3 mm proximal ureteral stone. Normal bladder. IUD in uterus. Normal ovaries. No retroperitoneal or pelvic adenopathy. No free air. Nonobstructed bowel. Normal appendix. No acute large bowel findings. No acute abdominal wall findings. CT/Abdomen/Pelvis without Cont IMPRESSION: 3 mm proximal right ureteral stone, mild upstream hydronephrosis. Reading Location: [place] [address]
--- NOTE | 2024-11-09 01:04 | EX.ED.DYSGE1 ---
HPI History of Present Illness Chief Complaint: Flank Pain Detail of Chief Complaint: Right flank pain Informant: patient Narrative Narrative: Patient presents with right flank pain that started about an hour ago. She states she had pain yesterday as well and came and sat in the hospital parking lot but the pain eased so she went home. She was seen in the emergency department about a week ago and had a CT scan when she had pain on her left side and had a small 1 mm UVJ stone at that time. She that time also was noted to have some small stones in the right kidney. Patient yesterday describes some frequency. Urine was dark yesterday. She denies fever. She has had some nausea but no vomiting. Currently rates her pain an 8 out of 10. [facility] Medical History Arthritis Back pain Fatigue Knee pain Migraines Shoulder pain Home Medications ?Medication ?Instructions ?Recorded ?Last Taken ?Type B-complex with vitamin C 1 cap PO QDAY 08/12/17 Unknown History bupropion HCl 150 mg 24 hr tablet, 300 mg PO QAM 08/12/17 Unknown History extended release (Wellbutrin XL) celecoxib 50 mg capsule (Celebrex) 100 mg PO BID 08/12/17 Unknown History cetirizine 10 mg capsule (Allergy 10 mg PO QDAY 08/12/17 Unknown History Relief (cetirizine)) cholecalciferol (vitamin D3) 25 1,000 unit PO ONCE 08/12/17 Unknown History mcg (1,000 unit) capsule hydroxyzine HCl 25 mg tablet 25 mg PO Q4H 08/12/17 Unknown History levonorgestrel (Mirena) 1 insert intrauterine ONCE 08/12/17 Unknown History melatonin 10 mg capsule 10 mg PO HS PRN sleep 08/12/17 Unknown History methadone 5 mg tablet 5 mg PO Q6H 08/12/17 Unknown History pregabalin 25 mg capsule (Lyrica) 100 mg PO TID 08/12/17 Unknown History tizanidine 2 mg capsule (Zanaflex) 4 mg PO ONCE 08/12/17 Unknown History zolpidem 5 mg tablet (Ambien) 5 mg PO HS PRN sleep 08/12/17 Unknown History ondansetron 4 mg disintegrating 4 mg PO Q8H PRN PRN Nausea #10 tabs 12/06/18 Unknown Rx tablet tamsulosin 0.4 mg capsule (Flomax) 0.4 mg PO DAILY #7 caps 07/10/22 Unknown Rx atenolol 100 mg tablet 100 mg PO DAILY 11/09/24 Unknown History buspirone 30 mg tablet 30 mg PO BID 11/09/24 Unknown History diphenhydramine HCl 50 mg capsule 50 mg PO QHS 11/09/24 Unknown History (Banophen) eszopiclone 3 mg tablet 3 mg PO QHS 11/09/24 Unknown History furosemide 20 mg tablet (Lasix) 20 mg PO DAILY 11/09/24 Unknown History gabapentin 600 mg tablet 1,200 mg PO BID 11/09/24 Unknown History ketorolac 10 mg tablet 10 mg PO Q8H PRN pain 1 day #10 11/09/24 Unknown Rx tabs levothyroxine 25 mcg capsule 25 mcg PO DAILY 11/09/24 Unknown History omeprazole 40 mg capsule,delayed 40 mg PO DAILY 11/09/24 Unknown History release promethazine 25 mg tablet 25 mg PO Q6H PRN nausea and 11/09/24 Unknown History vomiting sertraline 100 mg tablet 100 mg PO DAILY 11/09/24 Unknown History sucralfate 1 gram tablet 1 g PO BID 11/09/24 Unknown History sulfamethoxazole 800 1 tab PO BID #6 tabs 11/09/24 Unknown Rx mg-trimethoprim 160 mg tablet (Bactrim DS) topiramate 100 mg tablet (Topamax) 100 mg PO DAILY 11/09/24 Unknown History Allergy/AdvReac Type Severity Reaction Status Date / Time baclofen Allergy Unknown Verified 11/09/24 00:39 morphine Allergy Unknown Verified 11/09/24 00:39 duloxetine (From Cymbalta) AdvReac Unknown Verified 11/09/24 00:39 Family History Father Hypertension Arthritis Mother Asthma Arthritis Surgical History History of partial knee replacement History of tonsillectomy Hx of knee surgery Social History Smoking Status: Never smoker alcohol intake: current alcohol intake frequency: holidays/special occasions only ROS ROS ED Review of Systems ROS Unobtainable: other Constitutional Constitutional ED: Reports lethargy; Denies chills, fever(s), sweats or weight loss Eyes Eyes: Denies blurry vision, change in vision or diplopia ENT ENT ED: Denies rhinorrhea or sore throat Cardiovascular Cardiovascular: Denies chest pain, orthopnea or racing heartbeat Respiratory/Chest Respiratory/Chest: Denies cough, dyspnea, dyspnea on exertion, orthopnea or sputum Gastrointestinal Gastrointestinal: Reports abdominal pain and nausea; Denies diarrhea or vomiting Genitourinary Genitourinary ED: Denies dysuria, hematuria or urinary frequency Musculoskeletal Musculoskeletal: Reports back pain; Denies arthralgias, myalgias or neck pain Integumentary Denies abscess, Abrasions or rash Neurologic Neurologic: Denies headache(s) or weakness Psychiatric Psychiatric: Denies anxiety, depression or suicidal thoughts Endocrine Endocrinology: Denies polydipsia, polyphagia or polyuria Hematologic/Lymphatic Hematologic/Lymphatic: Denies easy bleeding, easy bruising or lymphadenopathy Allergic/Immunologic Allergic/Immunologic ED: Denies mouth swelling, tongue swelling or urticaria EXAM Physical Exam Const Vital Signs: 11/09/24 00:40 Temperature 98.2 F Temperature Source Oral Pulse Rate 68 Respiratory Rate 24 H Blood Pressure 175/110 H Blood Pressure Mean 131 Pulse Ox 97 Oxygen Delivery Method Room Air Positive well nourished and well developed General Appearance ED: well developed and NAD HEENT Reports TM's clear and moist mucous membranes normocephalic and atraumatic; Negative for trauma or tenderness Tympanic Membrane ED: Yes TM's clear Eyes PERRL and EOMs intact bilaterally General Eye ED: Negative for pale conjunctiva or scleral icterus Neck no lymphadenopathy, supple and no JVD General: Negative for tenderness Chest Wall inspection of chest normal and palpation of chest normal Chest: Negative for tenderness Resp normal respiratory effort and clear to auscultation bilaterally Effort and Inspection: Negative for respiratory distress or pain with movement Auscultation: Negative for rhonchi, wheezes or diminished lung sounds Cardio regular rate, regular rhythm, S1 normal heart sound, S2 normal heart sound and no murmurs Peripheral Pulses: pulses 2+ throughout GI normal to inspection, nondistended, normoactive bowel sounds, soft to palpation, non-tender, non-distended and no masses Back/Spine no thoracic nor lumbar tenderness Back/Spine Narrative: Mild CVA tenderness on the right Extremity normal to inspection General Extremety ED: Negative for edema General Extremity: Negative for edema Neuro oriented x3, CN's II-XII intact bilaterally, no sensory deficits noted and gait normal Sensorium / Orientation: awake, alert, oriented to person, oriented to place and oriented to time Motor Exam: strength 5/5 throughout and strength abnormal Psych mental status grossly normal Skin no rashes or lesions noted and no wounds MDM MDM MDM Narrative Medical decision making narrative: Patient with history of kidney stones presents with right flank pain that began yesterday. She complains of some urinary frequency. She has had some nausea. IV line established on arrival. She was medicated with Dilaudid as well as Toradol and Zofran. She had good pain relief with that. CBC with differential obtained showed white count 7.8 with hemoglobin 13.8 and platelet count of 292. Chemistries unremarkable. hCG was negative. Urinalysis positive for greater than 100 RBCs and 10-25 WBCs with +3 bacteria and +[address] scan of the abdomen pelvis showed a 3 mm right proximal ureteral stone with mild upstream hydronephrosis. This point patient will be sent home with urine strainers as well as a prescription for Toradol as she does take methadone. Patient will also be covered with 3 days of Bactrim antibiotic. Advised the follow-up with her urologist whom she has an appointment within 12 days. She is to return if worsening pain, fever, vomiting, or condition worsening way. Lab Data Attestation: I reviewed the patient's lab results. Labs: Laboratory Results - last 24 hr 11/09/24 11/09/24 01:05 01:15 WBC 7.8 RBC 4.98 Hgb 13.8 Hct 41.6 MCV 83.5 MCH 27.7 MCHC 33.2 RDW Std Deviation 40.2 RDW Coeff of Maria 13.3 Plt Count 292 MPV 10.1 Immature Gran % (Auto) 0.500 Neut % (Auto) 55.0 Lymph % (Auto) 32.9 [place] % (Auto) 8.0 Eos % (Auto) 3.0 Baso % (Auto) 0.6 Absolute Neuts (auto) 4.3 Absolute Lymphs (auto) 2.56 Nucleated RBC % 0 Sodium 139 Potassium 3.8 Chloride 106 Carbon Dioxide 21.7 Anion Gap 12 BUN 17 Creatinine 0.90 Estim Creat Clear Calc 103.99 Est GFR (MDRD) Non-Af 82 BUN/Creatinine Ratio 18.7 Glucose 123 H Calcium 9.6 Serum , Qual NEGATIVE Urine Color Yellow Urine Clarity Clear Urine pH 6.0 Ur Specific [place] 1.025 Urine Protein 30 H Urine Glucose (UA) Normal Urine Ketones Negative Urine Occult Blood 250 H Urine Nitrite Negative Urine Bilirubin Negative Urine Urobilinogen Normal Ur Leukocyte Esterase 25 H Urine RBC > 100 SEEN Urine WBC 10-25 SEEN Ur Squamous Epith Cells 10-25 SEEN Calcium Oxalate Crystal 3+ Urine Bacteria 3+ Urine Mucus 4+ Radiography Diagnostic Testing: Clinical Impression(s) from Imaging Studies Abdomen/Pelvis CT 11/09/24 01:02 IMPRESSION: 3 mm proximal right ureteral stone, mild upstream hydronephrosis. Reading Location: [place] [id number] Discharge Plan Triage Chief Complaint: Flank Pain ED Provider: Fatimah Villalobos Dx/Rx/DC Orders Clinical Impression: Urolithiasis Instructions: ED Kidney Stone with Pain Prescriptions: New ketorolac 10 mg tablet 10 mg PO Q8H PRN (Reason: pain) 1 Days Qty: 10 0RF sulfamethoxazole-trimethoprim [Bactrim DS] 800-160 mg tablet 1 tab PO BID Qty: 6 0RF No Action pregabalin [Lyrica] 25 mg capsule 100 mg PO TID bupropion HCl [Wellbutrin XL] 150 mg tablet extended release 24 hr 300 mg PO QAM tizanidine [Zanaflex] 2 mg capsule 4 mg PO ONCE levonorgestrel [Mirena] 20 mcg/24 hr (5 years) intrauterine device 1 insert Intrauterine ONCE methadone 5 mg tablet 5 mg PO Q6H celecoxib [Celebrex] 50 mg capsule 100 mg PO BID zolpidem [Ambien] 5 mg tablet 5 mg PO HS PRN (Reason: sleep) hydroxyzine HCl 25 mg tablet 25 mg PO Q4H cholecalciferol (vitamin D3) 1,000 unit capsule 1,000 unit PO ONCE B-complex with vitamin C capsule 1 cap PO QDAY melatonin 10 mg capsule 10 mg PO HS PRN (Reason: sleep) cetirizine [Allergy Relief (cetirizine)] 10 mg capsule 10 mg PO QDAY ondansetron 4 MG tablet 4 mg PO Q8H PRN PRN (Reason: Nausea) Qty: 10 0RF tamsulosin [Flomax] 0.4 mg capsule 0.4 mg PO DAILY Qty: 7 0RF eszopiclone 3 mg tablet 3 mg PO QHS omeprazole 40 mg capsule,delayed release(DR/EC) 40 mg PO DAILY sertraline 100 mg tablet 100 mg PO DAILY atenolol 100 mg tablet 100 mg PO DAILY gabapentin 600 mg tablet 1,200 mg PO BID levothyroxine 25 mcg capsule 25 mcg PO DAILY topiramate [Topamax] 100 mg tablet 100 mg PO DAILY buspirone 30 mg tablet 30 mg PO BID sucralfate 1 gram tablet 1 g PO BID diphenhydramine HCl [Banophen] 50 mg capsule 50 mg PO QHS promethazine 25 mg tablet 25 mg PO Q6H PRN (Reason: nausea and vomiting) furosemide [Lasix] 20 mg tablet 20 mg PO DAILY Primary Care Provider: Marlen Mary Referrals: Marlen Mary MD [Primary Care Provider] - Activity Restrictions/Additional Instructions: Keep your appointment with urology Print Language: Uzbek Disposition Disposition: Home, Self Care
[2024-11-09] MEDS: 0.9% Normal Saline (1000mL) 1,000 ML 150 ML IV (01:15)
[2024-11-09] MEDS: HYDROmorphone 1 MG/ML Syringe 0.5 MG IV (01:16)
[2024-11-09] MEDS: Ketorolac 30 MG/ML Syringe IV (01:16)
[2024-11-09 01:28] LABS: Absolute Lymphocyte Count 2.56 X10^3/uL (0.83-4.51); Absolute Neutrophil Count 4.3 X10^3/uL (2.0-7.7); Basophil# 0.05 X10^3/uL; Basophil% 0.6 % (0-1); Eosinophil# 0.23 X10^3/uL; Hematocrit 41.6 % (37-47); Hemoglobin 13.8 g/dL (12.0-15.0); Lymphocyte # 2.56 X10^3/ul (0.83-4.51); Lymphocyte % 32.9 % (19-41); Mean Corp Hgb Conc 33.2 g/dL (32-36); Mean Corpuscular Hgb 27.7 pg (27.0-32.0); Mean Corpuscular Volume 83.5 fL (81-99); Mean Platelet Vol. 10.1 fl (6.2-12.0); Monocyte# 0.62 X10^3/uL; NRBC Flagged by Analyzer 0 % (0-5); Neutrophil # 4.27 X10^3/uL (2.7-7.7); Platelet Count 292 K/mm3 (150-450); RBC Distribution Width CV 13.3 % (11.6-14.6); RBC Distribution Width SD 40.2 fl (35.1-43.9); Red Blood Count 4.98 M/mm3 (4.2-5.4); White Blood Count 7.8 K/mm3 (4.4-11.0)
[2024-11-09 01:32] LABS: Color, Urine Yellow (Yellow); Glucose, Dipstick Normal (Normal); Ketone-Dipstick Negative (Negative); Leukocyte Esterase-Dipstick 25 /ul (Negative); Nitrite-Dipstick Negative (Negative); Occult Blood-Urine 250 /ul (Negative); Protein-Dipstick 30 mg/dl (Negative); Specific Gravity, Urine 1.025 (1.002-1.030); Urine Bilirubin Dipstick Negative (Negative); Urine Clarity Clear (Clear); Urine Urobilinogen Normal (Normal)
--- OUTSIDE RECORDS SUMMARY | 2024-11-09 01:42 | XMS RPT_ITS | CCD ---
Author Organization [facility] Care Team Providers Care Chief Investigator Name Role Phone Daniel Cee Attending Unavailable Talampas, Anila Primary Care Unavailable Rodampas Anila MARROQUIN Primary Care Provider Anila Campos MD Primary Care Provider Anila Campos MD Primary Care Provider Anila Campos MD Primary Care Provider Moore SENIOR MAINFRAME PROGRAMMER ANALYST.SEBD TEACHER, Jude Unavailable Johny SENIOR MAINFRAME PROGRAMMER ANALYST.PLATE MAKER, Nadine Unavailable Johny SENIOR MAINFRAME PROGRAMMER ANALYST.PLATE MAKER, Nadine Unavailable Johny SENIOR MAINFRAME PROGRAMMER ANALYST.PLATE MAKER, Nadine Unavailable Johny SENIOR MAINFRAME PROGRAMMER ANALYST.PLATE MAKER, Nadine Unavailable TALAMPAS, ANILA D Primary Care Unavailable PREBISH, BONNIE Attending Unavailable TALAMPAS, ANILA D Primary Care Unavailable PREBISH, BONNIE Attending Unavailable SANDY BHARDWAJ Attending Unavailab le TALAMPAS, ANILA D Primary Care Unavailable PREBISH, BONNIE Attending Unavailable TALAMPAS, ANILA D Primary Care Unavailable MEEK LI Attending Unavailable TALAMPAS, ANILA D Primary Care Unavailable PREBISH, BONNIE Referring Unavailable TALAMPAS, ANILA D Primary Care Unavailable PREBISH, BONNIE Attending Unavailable TALAMPAS, ANILA D Primary Care Unavailable MEEK LI Attending Unavailable PREBISH, BONNIE Referring Unavailable TALAMPAS, ANILA D Primary Care Unavailable PREBISH, BONNIE Attending Unavailable MEEK LI Attending Unavailable TALAMPAS, ANILA D Primary Care Unavailable PREBISH, BONNIE Referring Unavailable Moore SENIOR MAINFRAME PROGRAMMER ANALYST.SEBD TEACHER, Jude Unavailable TALAMPAS, ANILA D Attending Unavailable TALAMPAS, ANILA D Primary Care Unavailable TALAMPAS, ANILA D Primary Care Unavailable SANDY BHARDWAJ Referring Unavailab le TALAMPAS, ANILA D Primary Care Unavailable LENNOX GRAY Referring Unavailable TALAMPAS, ANILA D Primary Care Unavailable TALAMPAS, ANILA D Referring Unavailable TALAMPAS, ANILA D Primary Care Unavailable TALAMPAS, ANILA D Attending Unavailable TALAMPAS, ANILA D Primary Care Unavailable SANDY BHARDWAJ Referring Unavailab le TALAMPAS, ANILA D Primary Care Unavailable TALAMPAS, ANILA D Attending Unavailable TALAMPAS, ANILA D Primary Care Unavailable TALAMPAS, ANILA D Primary Care Unavailable TALAMPAS, ANILA D Attending Unavailable TALAMPAS, ANILA D Primary Care Unavailable MOOREJUDE Attending Unavailable TALAMPAS, ANILA D Primary Care Unavailable MOORE, JUDE Referring Unavailable TALAMPAS, ANILA D Primary Care Unavailable NADINE MCCLAIN Attending Unavailable TALAMPAS, ANILA D Primary Care Unavailable NADINE MCCLAIN Referring Unavailable TALAMPAS, ANILA D Primary Care Unavailable PROVIDER, UNKNOWN Referring Unavailable TALAMPAS, ANILA D Primary Care Unavailable Talampas, Anila D Primary Care Unavailable Ungur, Remus Attending Unavailable Allergies Allergy Classification Reported Allergen(s) Allergy Type Date of Onset Reaction(s) Facility (17 sources) Arnica extract; Translations: [ARNICA (ARNICA [place])] Drug Allergy 9 [facility] (20 sources) Baclofen; Translations: [BACLOFEN] Drug Allergy 4 Vomiting, [facility] (20 sources) DULoxetine; Translations: [DULOXETINE] Drug Allergy 6 Unknown [facility] Work Phone: (20 sources) metaxalone; Translations: [METAXALONE] Drug Allergy 0 Intolerance [facility] Work Phone: (20 sources) Morphine; Translations: [MORPHINE] Drug Allergy 5 Vomiting, Unknown [facility] Work Phone: (20 sources) Arnica [place] Extract Drug Allergy 9 [facility] (1 source) ATB Propensity to adverse reactions 0 Nausea/Vom/Diar nani [facility] (1 source) Baclofen Drug Allergy 5 [facility] (1 source) DULoxetine Drug Allergy 5 [facility] (1 source) Morphine Drug Allergy 5 [facility] Medications Current Medications Medication Drug Class(es) Dates Sig (Normalized) Sig (Original) amoxicillin 875 mg oral tablet (20 sources) Penicillin-class Antibacterial Start: 04-18-2022 End: 04-28-2022 take 1 tablet by mouth twice daily amoxicillin (AMOXIL) 875 mg tablet Take 1 tablet by mouth twice daily for 10 days. For sinus infection as directed 20 tablet 0 04/18/2022 04/28/2022 Active Start: 07-14-2019 Amoxicillin 50 0 mg tablet TAKE 4 PILLS 1 HOUR PRIOR TO DENTAL PROCEDURE 4 tablet 3 07/14/2019 Active Comment on above: TAKE 4 PILLS 1 HOUR PRIOR TO DENTAL PROCEDURE Take 1 tablet by renae th twice daily for 10 days. For sinus infection as directed amoxicillin 875 mg / clavulanate 125 mg oral tablet (6 sources) Penicillin-class Antibacterial Start: 4 End: 4 take 1 tablet by mouth twice daily amoxicillin-clavul anate potassium (AUGMENTIN) 875-125 mg per tablet Take 1 tablet by mouth two times a day for 5 days. 10 tablet 04/28/2024 05/03/2024 Active Start: 02-01-2023 End: 02-04-2023 take 1 tablet by mouth twice daily amoxicillin-clavulanic acid (AUGMENTIN) 875-125 mg per tablet Take 1 tablet by mouth twice daily for 3 days. 6 tablet 0 02/01/2023 02/04/2023 Comment on above: Take 1 tablet by renae th twice daily for 3 days. ascorbic acid 500 mg chewable tablet (1 source) Vitamin C Start: 8 take 500 mg by mouth once daily Ascorbic Acid (Vitamin C) Active 500 MG PO daily August 11, 2017 11:00pm aspirin 81 mg chewable tablet (1 source) Platelet Aggregation Inhibitor, Nonsteroidal Anti-inflammatory Drug Start: 8 Aspirin Active PO August 11, 2017 11:00pm atenolol 100 mg oral tablet (20 sources) beta-Adrenergic Marisela Start: 4 End: 4 take 1 tablet by mouth once daily as needed for headache, then take 1 tablet by mouth once daily as needed for headache atenolol (TENORMIN) 100 mg tablet Take 1 tablet by mouth once daily. May also take 1 tablet once daily as needed (Extra dose as needed for breakthrough headache). 180 tablet 3 04/30/2024 Active Start: 06-20-2022 End: 06-02-2023 take 1 tablet by mouth once daily as needed for headache, then take 1 tablet by mouth once daily as needed for headache atenolol (TENORMIN) 100 mg tablet Take 1 tablet by mouth once daily. May also take 1 tablet once daily as needed (Extra dose as needed for breakthrough headache). 180 tablet 3 06/20/2022 06/02/2023 Discontinued Start: 04-28-2021 End: 05-29-2022 atenolol (TENORMIN) 100 mg t ablet Take one-half (1/2) to one (1) tablet daily to prevent migraine headache 90 tablet 3 05/29/2022 Active Start: 08-12-2017 take 25 mg by mouth once Ateno lol Active 25 MG PO ONCE August 11, 2017 11:00pm Comment on above: Take 1 tablet by renae th once daily. May also take 1 tablet once daily as needed (Extra dose as needed for breakthrough headache). Take one-half (1/2) to one (1) tablet daily to prevent migraine headache Take 1 tablet by renae th once daily. Take one-half (1/2) to one (1) tablet daily to prevent migraine headache B-complex with vitamin C capsule (1 source) Start: 08-13-19 18 take 1 capsule by mouth once daily B-complex with vitamin C capsule Active 1 CAP PO daily August 11, 2017 11:00pm biotin 1 mg oral capsule (1 source) Start: 08-13-19 18 take 1 mg by mouth once daily Biotin Active 1 MG PO daily August 11, 2017 11:00pm 24 hr buPROPion hydrochloride 300 mg extended release oral tablet (20 sources) Aminoketone Start: 06-04-19 24 End: 05-04-20 24 take 1 tablet by mouth once daily buPROPion XL (WELLBUTRIN XL) 300 mg 24 hr tablet Indications: Depression, unspecified depression type Take 1 tablet by mouth once daily. (Note: cannot take budeprion) 30 tablet 11 05/04/2024 Active Start: 06-05-2021 End: 06-02-2023 take 1 tablet by mouth once daily buPROPion XL (WELLBUTRIN XL) 300 mg 24 hr tablet Indications: Depression, unspecified depression type Take 1 tablet by mouth once daily. (Note: cannot take budeprion) 90 tablet 3 05/29/2022 06/02/2023 Discontinued Start: 08-12-2017 take 1 tablet by renae th once daily in the morning Bupropion Hcl (Wellbutrin Xl) 150 mg tablet extended release 24 hr Active 150 MG PO EVERY MORNING August 11, 2017 11:00pm Comment on above: Take 1 tablet by renae th once daily. (Note: cannot take budeprion) busPIRone hydrochloride 30 mg oral tablet (20 sources) Start: End: take 1 tablet by mouth twice daily busPIRone HCl 30 mg tablet Take 1 tablet by mouth two times a day. Awaiting for mail away pharmacy to send script. 180 tablet 3 04/30/2024 Active Start: 06-04-2023 End: 10-12-2023 take 1 tablet by mouth twice daily busPIRone HCl 30 mg tablet Take 1 tablet by mouth two times a day. Awaiting for mail away pharmacy to send script. 60 tablet 0 06/04/2023 10/12/2023 Discontinued Start: 04-30-2023 End: 05-01-2023 take 1 tablet by mouth twice daily busPIRone HCl 30 mg tablet Take 1 tablet by mouth two times a day. 180 tablet 3 04/30/2023 05/01/2023 Discontinued Start: 02-01-2023 End: 04-10-2023 take 1 tablet by mouth twice daily busPIRone HCl 30 mg tablet Indications: Anxiety Take 1 tablet by mouth two times a day. 60 tablet 1 04/10/2023 Active Start: 01-11-2023 End: 02-01-2023 take 1 tablet by mouth three times daily busPIRone (BUSPAR) 10 mg tablet Indications: Anxiety Take 1 tablet by mouth three times daily. 90 tablet 2 01/11/2023 02/01/2023 Discontinued Start: 09-21-2022 End: 01-11-2023 take 1 tablet by mouth twice daily busPIRone (BUSPAR) 5 mg tablet Take 1 tablet by mouth twice daily. 60 tablet 2 09/21/2022 01/11/2023 Discontinued Comment on above: Take 1 tablet by renae th twice daily. Take 1 tablet by renae th three times daily. Take 1 tablet by renae th two times a day. Take 1 tablet by renae th two times a day. Awaiting for mail away pharmacy to send script. celecoxib 200 mg oral capsule (20 sources) Nonsteroidal Anti-inflammatory Drug Start: End: take 1 capsule by mouth twice daily celecoxib (CELEBREX) 200 mg capsule Indications: Generalized OA Take 1 capsule by mouth two times a day. 180 capsule 3 04/30/2024 Active Start: 06-04-2023 End: 09-27-2023 take 1 capsule by mouth twice daily celecoxib (CELEBREX) 200 mg capsule Take 1 capsule by mouth two times a day. 180 capsule 3 06/04/2023 09/27/2023 Discontinued Start: 06-20-2022 End: 06-02-2023 take 1 capsule by mouth twice daily celecoxib (CELEBREX) 200 mg capsule Take 1 capsule by mouth twice daily. 180 capsule 3 06/20/2022 06/02/2023 Discontinued Start: 09-27-2021 End: 03-21-2022 take 1 capsule by mouth twice daily celecoxib (CELEBREX) 200 mg capsule Take 1 capsule by mouth twice daily. 60 capsule 5 03/21/2022 Active Start: 04-01-2021 take 1 capsule by mo [facility] twice daily celecoxib (CELEBREX) 200 mg capsule Take 1 capsule by mouth twice daily. 60 capsule 5 04/01/2021 Active Start: 08-12-2017 take 2 capsules by m [facility] twice daily Celecoxib (Celebrex) 50 mg capsule Active 100 MG PO TWICE A DAY August 11, 2017 11:00pm Comment on above: Take 1 capsule by mo uth twice daily. Take 1 capsule by mo uth two times a day. cephalexin 500 mg oral capsule (1 source) Cephalosporin Antibacterial Start: 04-05-20 take 500 mg by mouth every six hours Cephalexin Active 500 MG PO EVERY 6 HOURS 40 November 24th, 2020 12:00am cetirizine hydrochloride 10 mg oral capsule (20 sources) Histamine-1 Receptor Antagonist Start: 08-13-19 18 take 1 capsule by mouth once daily Cetirizine (Allergy Relief (Cetirizine)) 10 mg capsule Active 10 MG PO daily August 11, 2017 11:00pm Start: 07-09-2017 cetirizine (ZY RTEC) 10 mg tablet Takes 1 tab daily as needed 07/09/2017 Active Comment on above: Takes 1 tab daily as needed cholecalciferol 0.025 mg oral capsule (20 sources) Vitamin D Start: 8 take 1000 [IU] by mouth once Cholecalciferol (Vitamin D3) Active 1000 UNIT PO ONCE August 11, 2017 11:00pm Start: 11-25-2013 take 1 capsule by [facility] once daily Cholecalciferol, Vitamin D3, 5,000 unit cap Take 1 capsule by mouth once daily. 11/25/2013 Active Comment on above: Take 1 capsule by [facility] once daily. diclofenac sodium 0.01 mg/mg topical gel (20 sources) Nonsteroidal Anti-inflammatory Drug Start: 8 apply 2 g topically once Diclofenac Sodium (Voltaren) 1 % gel Active 2 GM TOPICAL ONCE August 11, 2017 11:00pm Start: 07-02-2017 apply 4 g topically four times daily diclofenac sodium (VOLTAREN) 1 % topical gel Indications: Primary osteoarthritis of both knees Apply 4 g to affected area four times daily. For knees 100 g 11 07/02/2017 Active Comment on above: Apply 4 g to affecte d area four times daily. For knees diphenhydrAMINE hydrochloride 25 mg oral capsule (20 sources) Histamine-1 Receptor Antagonist take 2 capsules by mouth every twenty-four hours as needed diphenhydrAMINE (BENADRYL) 25 mg capsule Take 50 mg by mouth at bedtime as needed. Active Comment on above: Take 50 mg by mouth at bedtime as needed. enteric contrast (will be provided with radiology test) (1 source) Start: End: enteric contrast (will be provided with radiology test) Indications: Abdominal pain, left lateral For CT ABD/PEL W IVCON Routine order Administer, As Directed One Time Only, via Oral, Rectal, both Oral and Rectal, Enteric Tube, Stoma or Indwelling Catheter, Enteric Contrast as designated per enteric contrast guidelines 1 Each 0 11/01/2022 11/02/2022 Active Comment on above: For CT ABD/PEL W IVC ON Routine order Administer, As Directed One Time Only, via Oral, Rectal, both Oral and Rectal, Enteric Tube, Stoma or Indwelling Catheter, Enteric Contrast as designated per enteric contrast guidelines eszopiclone 2 mg oral tablet (20 sources) Start: 024 End: 025 take 1 tablet by mouth at bedtime as needed eszopiclone (LUNESTA) 2 mg Indications: Psychophysiological insomnia Take 1 tablet by mouth at bedtime as needed for up to 180 days. 90 tablet 1 02/25/2024 08/23/2024 Active Start: 09-27-2023 End: 11-26-2023 take 1 tablet by mouth at bedtime as needed eszopiclone (LUNESTA) 2 mg Indications: Psychophysiological insomnia Take 1 tablet by mouth at bedtime as needed for up to 60 days. 30 tablet 1 09/27/2023 11/26/2023 eszopiclone (DELIA ESTA) 3 mg tab Take by mouth daily at bedtime. Active furosemide 20 mg oral tablet (20 sources) Loop Diuretic Start: 04-28-2021 take 1 tablet by mouth once daily as needed for edema furosemide (LASIX) 20 mg tablet Take 1 tablet by mouth once daily as needed (fluid retention and swelling). 30 tablet 1 04/28/2021 Active Comment on above: Take 1 tablet by renae once daily as needed (fluid retention and swelling). gabapentin 600 mg oral tablet (20 sources) Anti-epileptic Agent Start: 05-29-2022 End: 11-25-2022 take 1 tablet by mouth four times daily gabapentin (NEURONTIN) 600 mg tablet Indications: Chondromalacia of patella Take 1 tablet by mouth four times daily for 180 days. 120 tablet 5 05/29/2022 11/25/2022 Active Start: 03-31-2022 End: 04-25-2025 take 2 tablets by mouth twice daily gabapentin (NEURONTIN) 600 mg tablet Indications: Generalized OA Take 2 tablets by mouth two times a day for 360 days. 360 tablet 3 04/30/2024 04/25/2025 Active Start: 04-01-2021 End: 03-26-2022 take 2 tablets by mouth twice daily gabapentin (NEURONTIN) 600 mg tablet Indications: Generalized OA Take 2 tablets by mouth twice daily for 180 days. 120 tablet 5 09/27/2021 03/21/2022 Discontinued Start: 08-12-2017 take 1 capsule by [facility] once daily Gabapentin (Neurontin) 100 mg capsule Active 100 MG PO daily August 11, 2017 11:00pm Comment on above: Take 2 tablets by [facility] twice daily for 180 days. Take 2 tablets by [facility] twice daily for 180 days. Do not start before March 31, 2022. Take 1 tablet by [facility] four times daily for 180 days. Take 2 tablets by [facility] two times a day for 180 days. hydrOXYzine hydrochloride 50 mg oral tablet (20 sources) Antihistamine Start: 06-07-19 End: 04-30-20 24 take 25-50 mg by mouth every four hours as needed hydrOXYzine HCl (ATARAX) 50 mg tablet Take 0.5-1 tablets by mouth every 4 hours as needed for itching/rash. For 90 days 140 tablet 3 04/30/2024 Active Start: 05-29-2022 End: 05-29-2022 take 25-50 mg by mouth every four hours as needed hydrOXYzine HCl (ATARAX) 50 mg tablet Take 0.5-1 tablets by mouth every 4 hours as needed for itching/rash. 140 tablet 3 05/29/2022 Active Start: 07-07-2021 End: 03-21-2022 take 25-50 mg by mouth every four hours as needed hydrOXYzine HCl (ATARAX) 50 mg tablet Take 0.5-1 tablets by mouth every 4 hours as needed for itching/rash. 90 tablet 11 07/07/2021 03/21/2022 Discontinued Start: 08-12-2017 Hydroxyzine Hc l Active 25 MG PO 6 times per day August 11, 2017 11:00pm Comment on above: Take 0.5-1 tablets b y mouth every 4 hours as needed for itching/rash. Take 0.5-1 tablets b y mouth every 4 hours as needed for itching/rash. For 90 days iv contrast (will be provided with radiology test) (1 source) Start: 2022 End: 2022 iv contrast (will be provided with radiology test) Indications: Abdominal pain, left lateral CT ABD/PEL -Inject, intravenously, once for 1 dose.No IV access, insert saline lock prior to the beginning of sedation, infusion, injection of imaging exam. Discontinue saline lock post exam. If Pt. has a central line or IVAD, may access for administration according to line specific nursing protocol. Once exam is complete flush line and de-access according to line specific nursing protocol in the CT contrast administration guidelines link. 1 Each 0 11/01/2022 11/02/2022 Active Comment on above: CT ABD/PEL -Inject, intravenously, once for 1 dose.No IV access, insert saline lock prior to the beginning of sedation, infusion, injection of imaging exam. Discontinue saline lock post exam. If Pt. has a central line or IVAD, may access for administration according to line specific nursing protocol. Once exam is complete flush line and de-access according to line specific nursing protocol in the CT contrast administration guidelines link. levonorgestrel 0.684491 mg/hr intrauterine system (1 source) Progestin, Progestin-containing Intrauterine Device Start: 2017 Levonorgestrel (Mirena) 20 mcg/24 hr (5 years) intrauterine device Active 1 INSERT INTRA-UTER ONCE August 11, 2017 11:00pm levothyroxine sodium 0.025 mg oral tablet (20 sources) l-Thyroxine Start: 2023 End: 2023 take 1 tablet by mouth once daily for thyroid dysfunction levothyroxine (SYNTHROID) 25 mcg tablet Indications: Elevated TSH Take 1 tablet by mouth once daily. Take on empty stomach. For thyroid. 90 tablet 3 04/30/2024 Active melatonin 10 mg oral capsule (20 sources) Start: 2017 take 10 mg by mouth at bedtime Melatonin Active 10 MG PO BEDTIME August 11, 2017 11:00pm Start: 07-09-2017 take 1 tablet by renae th once daily at bedtime melatonin 5 mg tablet Take 1 tablet by mouth daily at bedtime. 07/09/2017 Active Comment on above: Take 1 tablet by renae th daily at bedtime. methadone hydrochloride 5 mg oral tablet (20 sources) Opioid Agonist Start: 5 End: take 1 tablet by mouth three times daily as needed methadone (DOLOPHINE) 5 mg tablet Indications: Generalized OA , Primary osteoarthritis of both knees , Morbid obesity with BMI of 45.0-49.9, adult (HCC) , Plantar fasciitis of right foot , Chronic midline low back pain with bilateral sciatica , Kidney stone Take 1 tablet by mouth three times a day as needed for up to 30 days. Patient should start on November 20, 2024. 90 tablet 11/20/2024 12/20/2024 Active Start: 07-04-2024 End: 08-03-2024 take 1 tablet by mouth three times daily as needed methadone (DOLOPHINE) 5 mg tablet Indications: Generalized OA , Primary osteoarthritis of both knees , Morbid obesity with BMI of 45.0-49.9, adult (HCC) , Plantar fasciitis of right foot , Chronic midline low back pain with bilateral sciatica , Kidney stone Take 1 tablet by mouth three times a day as needed for up to 30 days. Patient should start on July 04, 2024. 85 tablet 07/04/2024 07/28/2024 Discontinued Start: 03-19-2024 End: 2024 take 1 tablet by mouth three times daily as needed methadone (DOLOPHINE) 5 mg tablet Indications: Generalized OA , Primary osteoarthritis of both knees , Morbid obesity with BMI of 45.0-49.9, adult (HCC) , Plantar fasciitis of right foot , Chronic midline low back pain with bilateral sciatica , Kidney stone Take 1 tablet by mouth three times a day as needed for up to 30 days. Patient should start on May 24, 2024. 85 tablet 05/24/2024 2024 Discontinued Start: 09-14-2023 End: 02-28-2024 take 1 tablet by mouth three times daily as needed methadone (DOLOPHINE) 5 mg tablet Indications: Generalized OA , Primary osteoarthritis of both knees , Morbid obesity with BMI of 45.0-49.9, adult (HCC) , Plantar fasciitis of right foot , Chronic midline low back pain with bilateral sciatica , Kidney stone Take 1 tablet by mouth three times a day as needed for up to 30 days. 85 tablet 01/01/2024 01/29/2024 Discontinued Start: 08-08-2023 End: 07-31-2023 take 1 tablet by mouth three times daily as needed methadone (DOLOPHINE) 5 mg tablet Indications: Generalized OA , Primary osteoarthritis of both knees , Morbid obesity with BMI of 45.0-49.9, adult (HCC) , Plantar fasciitis of right foot , Chronic midline low back pain with bilateral sciatica , Kidney stone Take 1 tablet by mouth three times a day as needed for up to 30 days. Do not start before August 08, 2023. 85 tablet 0 08/08/2023 07/31/2023 Discontinued Start: 08-08-2023 End: 09-07-2023 take 1 tablet by mouth three times daily as needed methadone (DOLOPHINE) 5 mg tablet Indications: Generalized OA , Primary osteoarthritis of both knees , Morbid obesity with BMI of 45.0-49.9, adult (HCC) , Plantar fasciitis of right foot , Chronic midline low back pain with bilateral sciatica , Kidney stone Take 1 tablet by mouth three times a day as needed for up to 30 days. Do not start before August 08, 2023. 85 tablet 0 08/08/2023 09/07/2023 Active Start: 08-08-2023 End: 07-31-2023 take 1 tablet by mouth three times daily as needed methadone (DOLOPHINE) 5 mg tablet Indications: Generalized OA , Primary osteoarthritis of both knees , Morbid obesity with BMI of 45.0-49.9, adult (HCC) , Plantar fasciitis of right foot , Chronic midline low back pain with bilateral sciatica , Kidney stone Take 1 tablet by mouth three times a day as needed for up to 30 days. Do not start before August 08, 2023. 85 tablet 0 08/08/2023 07/31/2023 Discontinued Start: 08-08-2023 End: 07-31-2023 take 1 tablet by mouth three times daily as needed methadone (DOLOPHINE) 5 mg tablet Indications: Generalized OA , Primary osteoarthritis of both knees , Morbid obesity with BMI of 45.0-49.9, adult (HCC) , Plantar fasciitis of right foot , Chronic midline low back pain with bilateral sciatica , Kidney stone Take 1 tablet by mouth three times a day as needed for up to 30 days. Do not start before August 08, 2023. 85 tablet 0 08/08/2023 07/31/2023 Discontinued Start: 03-12-2023 End: 09-27-2023 take 1 tablet by mouth three times daily as needed methadone (DOLOPHINE) 5 mg tablet Indications: Generalized OA , Primary osteoarthritis of both knees , Morbid obesity with BMI of 45.0-49.9, adult (HCC) , Plantar fasciitis of right foot , Chronic midline low back pain with bilateral sciatica , Kidney stone Take 1 tablet by mouth three times a day as needed for up to 30 days. 85 tablet 0 05/22/2023 09/27/2023 Discontinued Start: 06-20-2022 End: 03-03-2023 take 1 tablet by mouth three times daily as needed methadone (DOLOPHINE) 5 mg tablet Indications: Generalized OA , Primary osteoarthritis of both knees , Morbid obesity with BMI of 45.0-49.9, adult (HCC) , Plantar fasciitis of right foot , Chronic midline low back pain with bilateral sciatica , Kidney stone Take 1 tablet by mouth three times daily as needed for up to 30 days. 85 tablet 10/17/2022 11/25/2022 Discontinued Start: 06-17-2022 End: 05-29-2022 methadone (DOLOPHINE) 5 mg t ablet Indications: Generalized OA , Primary osteoarthritis of both knees , Morbid obesity with BMI of 45.0-49.9, adult (HCC) , Plantar fasciitis of right foot , Chronic midline low back pain with bilateral sciatica Take 1 tablet by mouth three times daily as needed for up to 30 days. Do not start before June 17, 2022. 85 tablet 0 06/17/2022 05/29/2022 Discontinued Start: 04-18-2022 End: 07-17-2022 take 1 tablet by mouth three times daily as needed methadone (DOLOPHINE) 5 mg tablet Indications: Generalized OA , Primary osteoarthritis of both knees , Morbid obesity with BMI of 45.0-49.9, adult (HCC) , Plantar fasciitis of right foot , Chronic midline low back pain with bilateral sciatica Take 1 tablet by mouth three times daily as needed for up to 30 days. 85 tablet 0 05/29/2022 06/20/2022 Discontinued Start: 07-07-2021 End: 04-05-2022 take 1 tablet by mouth three times daily as needed methadone (DOLOPHINE) 5 mg tablet Indications: Generalized OA , Primary osteoarthritis of both knees , Morbid obesity with BMI of 45.0-49.9, adult (HCC) , Plantar fasciitis of right foot , Chronic midline low back pain with bilateral sciatica Take 1 tablet by mouth three times daily as needed for up to 30 days. Do not start before March 06, 2022. 85 tablet 0 03/06/2022 03/21/2022 Discontinued Start: 08-12-2017 take 5 mg by mouth e very six hours Methadone Active 5 MG PO EVERY 6 HOURS August 11, 2017 11:00pm Comment on above: Take 1 tablet by renae th three times daily as needed for up to 30 days. Take 1 tablet by renae th three times daily as needed for up to 30 days. Do not start before August 06, 2021. Take 1 tablet by renae th three times daily as needed for up to 30 days. Do not start before December 02, 2021. Take 1 tablet by renae th three times daily as needed for up to 30 days. Do not start before October 03, 2021. Take 1 tablet by renae th three times daily as needed for up to 30 days. Do not start before November 02, 2021. Take 1 tablet by renae th three times daily as needed for up to 30 days. Do not start before February 04, 2022. Take 1 tablet by renae th three times daily as needed for up to 30 days. Do not start before March 06, 2022. Take 1 tablet by renae th three times daily as needed for up to 30 days. Do not start before April 18, 2022. Take 1 tablet by renae th three times daily as needed for up to 30 days. Do not start before May 18, 2022. Take 1 tablet by renae th three times daily as needed for up to 30 days. Do not start before June 17, 2022. Take 1 tablet by renae th three times a day as needed for up to 30 days. Take 1 tablet by renae th three times a day as needed for up to 30 days. Do not start before June 21, 2023. Take 1 tablet by renae th three times a day as needed for up to 30 days. Do not start before July 21, 2023. Take 1 tablet by renae th three times a day as needed for up to 30 days. Do not start before August 08, 2023. methylPREDNISolone (6 sources) Corticosteroid Start: 2023 End: 2023 methylPREDNISolone (MEDROL, LESTER,) 4 mg Dose-Pack As lester directs 21 tablet 04/23/2024 04/29/2024 Active mometasone furoate 0.05 mg/actuat metered dose nasal spray (20 sources) Corticosteroid Start: 2024 take 2 spray(s) nasal route once daily mometasone (NASONEX) 50 mcg/actuation nasal spray Use 2 Sprays in each nostril once daily. 17 g 3 07/28/2024 Active Start: 01-15-2018 take 2 spray(s) by out once daily mometasone (NASONEX) 50 mcg/actuation nasal spray Indications: Allergic rhinitis, unspecified seasonality, unspecified trigger Use 2 Sprays in the nose once daily. Rinse mouth after use. 1 Bottle 5 01/15/2018 Active Comment on above: Use 2 Sprays in the nose once daily. Rinse mouth after use. dzdfkzla-ipx-kjlef acid-biotin 66.7-1,000 mcg tab (20 sources) Start: 12-26-19 17 sgnnbqez-nej-uwkqh acid-biotin 66.7-1,000 mcg tab Take by mouth. 0 12/25/2016 Active Comment on above: Take by mouth. multivitamin capsule (1 source) Start: 08-13-19 18 take 1 capsule by mouth once daily in the morning multivitamin capsule Active 1 CAP PO EVERY MORNING August 11, 2017 11:00pm nirmatrelvir tablet 300 mg (150 mg x 2) and ritonavir tablet 100 mg in a dose pack (PAXLOVID) (1 source) Start: 08-21-19 23 End: 08-26-19 23 nirmatrelvir tablet 300 mg (150 mg x 2) and ritonavir tablet 100 mg in a dose pack (PAXLOVID) Indications: COVID-19 Administer TWO pink nirmatrelvir 150 mg tablets and ONE white ritonavir 100 mg tablet for a total of three tablets twice daily. 30 tablet 0 08/20/2022 08/25/2022 Active Comment on above: Administer TWO pink nirmatrelvir 150 mg tablets and ONE white ritonavir 100 mg tablet for a total of three tablets twice daily. omeprazole 40 mg delayed release oral capsule (20 sources) Proton Pump Inhibitor Start: 06-04-19 24 End: 12-23-20 24 take 1 capsule by mouth once daily omeprazole (PRILOSEC) 40 mg capsule Indications: Gastritis without bleeding, unspecified chronicity, unspecified gastritis type Take 1 capsule by mouth once daily. 30 capsule 11 05/04/2024 Active Start: 11-29-2020 End: 06-02-2023 take 1 capsule by mouth once daily omeprazole (PRILOSEC) 40 mg capsule Indications: Gastritis without bleeding, unspecified chronicity, unspecified gastritis type Take 1 capsule by mouth once daily. 90 capsule 3 05/29/2022 06/02/2023 Discontinued Comment on above: Take 1 capsule by mo uth once daily. ondansetron 4 mg disintegrating oral tablet (20 sources) Serotonin-3 Receptor Antagonist Start: 09-08-19 take 1 tablet by mouth every six hours as needed ondansetron orally disintegrating (ZOFRAN ODT) 4 mg disintegrating tablet Take 1 tablet by mouth every 6 hours as needed for nausea/vomiting. 120 tablet 1 09/07/2022 Active Start: 12-06-2018 take 4 mg by mouth e very eight hours as needed Ondansetron Active 4 MG PO EVERY 8 HOURS NEEDED July 10, 2022 12:00am Comment on above: Take 1 tablet by renae every 6 hours as needed for nausea/vomiting. pregabalin 100 mg oral capsule (20 sources) Start: 06-04-19 End: 04-22-20 take 1 capsule by mouth twice daily pregabalin (LYRICA) 100 mg capsule Indications: Generalized OA Take 1 capsule by mouth two times a day for 180 days. Patient should start on October 24, 2024. 180 capsule 1 10/24/2024 04/22/2025 Active Start: 10-06-2021 End: 05-25-2023 take 1 capsule by mouth twice daily pregabalin (LYRICA) 100 mg capsule Indications: Generalized OA Take 1 capsule by mouth twice daily for 180 days. Do not start before July 07, 2022. 180 capsule 3 07/07/2022 11/25/2022 Discontinued Start: 04-01-2021 End: 09-28-2021 take 1 capsule by mouth twice daily pregabalin (LYRICA) 100 mg capsule Indications: Generalized OA Take 1 capsule by mouth twice daily for 180 days. 60 capsule 5 04/01/2021 09/28/2021 Active Start: 08-12-2017 take 2 capsules by [facility] three times daily Pregabalin (Lyrica) 25 mg capsule Active 50 MG PO THREE TIMES A DAY August 11, 2017 11:00pm Comment on above: Take 1 capsule by mo [facility] twice daily for 180 days. Take 1 capsule by mo [facility] twice daily for 180 days. Do not start before October 06, 2021. Take 1 capsule by [facility] twice daily for 180 days. Do not start before March 31, 2022. Take 1 capsule by [facility] twice daily for 30 days. Take 1 capsule by [facility] twice daily for 180 days. Do not start before July 07, 2022. Take 1 capsule by [facility] two times a day for 180 days. Take 1 capsule by [facility] two times a day for 30 days. promethazine hydrochloride 25 mg oral tablet (20 sources) Phenothiazine Start: 07-06-19 take 1 tablet by mouth every six hours as needed promethazine (PHENERGAN) 25 mg tablet Take 1 tablet by mouth every 6 hours as needed for nausea/vomiting. 60 tablet 1 07/06/2022 Active Start: 05-31-2022 End: 06-03-2022 take 1 tablet by mouth every eight hours as needed for nausea and nausea promethazine (PHENERGAN) 25 mg tablet Indications: Nausea Take 1 tablet by mouth every 8 hours as needed for up to 3 days. 9 tablet 0 05/31/2022 06/03/2022 Comment on above: Take 1 tablet by renae every 8 hours as needed for up to 3 days. Take 1 tablet by renae every 6 hours as needed for nausea/vomiting. sertraline 100 mg oral tablet (20 sources) Serotonin Reuptake Inhibitor Start: 07-30-2023 End: 05-04-2024 take 1 tablet by mouth once daily sertraline (ZOLOFT) 100 mg tablet Indications: Anxiety Take 1 tablet by mouth once daily. 30 tablet 11 05/04/2024 Active Start: 01-11-2023 End: 07-30-2023 take 1 tablet by mouth once daily sertraline (ZOLOFT) 50 mg tablet Indications: Anxiety Take 1 tablet by mouth once daily. 90 tablet 3 04/30/2023 06/02/2023 Discontinued Comment on above: Take 1 tablet by renae once daily. Start with a half pill daily up to x2 weeks then if tolerating well increase this to a whole pill daily Take 1 tablet by renae once daily. Start half pill daily x2 weeks then increase to a whole pill daily Take 1 tablet by renae once daily. sucralfate 1000 mg oral tablet (20 sources) Aluminum Complex Start: 06-04-2023 take 1 tablet by mouth at bedtime sucralfate (CARAFATE) 1 gram tablet Take 1 tablet by mouth before meals and at bedtime. 56 tablet 1 06/04/2023 Active Start: 06-20-2022 End: 06-02-2023 take 1 tablet by mouth at bedtime sucralfate (CARAFATE) 1 gram tablet Take 1 tablet by mouth before meals and at bedtime. 56 tablet 1 06/20/2022 06/02/2023 Discontinued Start: 11-29-2020 End: 01-05-2022 take 1 tablet by mouth at bedtime sucralfate (CARAFATE) 1 gram tablet Take 1 tablet by mouth before meals and at bedtime. 56 tablet 1 01/05/2022 Active Comment on above: Take 1 tablet by renae before meals and at bedtime. tamsulosin hydrochloride 0.4 mg oral capsule (8 sources) alpha-Adrenergic Marisela Start: 5 take 1 capsule by mouth once daily at bedtime tamsulosin (FLOMAX) 0.4 mg Take 1 capsule by mouth daily at bedtime. 30 capsule 10/30/2024 Active Start: 07-30-2022 End: 08-20-2022 take 1 capsule by mouth once daily tamsulosin (FLOMAX) 0.4 mg Indications: Kidney stones Take 1 capsule by mouth once daily. 30 capsule 1 07/30/2022 08/20/2022 Discontinued (Course of therapy completed) Start: 07-10-2022 take 1 capsule by [facility] once daily Tamsulosin (Flomax) 0.4 mg capsule Active 0.4 MG PO DAILY July 10, 2022 12:00am Comment on above: Take 1 capsule by [facility] once daily. tiZANidine 4 mg oral tablet (20 sources) Central alpha-2 Adrenergic Agonist Start: 3 End: 12-19-202 4 take 2 tablets by mouth once daily at bedtime as needed for muscle spasms, then take 0.5-1 tablets by mouth twice daily as needed for muscle spasms tiZANidine (ZANAFLEX) 4 mg tablet Indications: Generalized OA , Primary osteoarthritis of both knees Take 2 tablets by mouth daily at bedtime. May also take 0.5-1 tablets two times a day as needed (muscle spasms during the day). For 90 days. 270 tablet 3 04/30/2024 Active Start: 07-07-2021 End: 05-29-2022 take 2 tablets by mouth once daily at bedtime as needed for muscle spasms, then take 0.5-1 tablets by mouth twice daily as needed for muscle spasms tiZANidine (ZANAFLEX) 4 mg tablet Indications: Generalized OA , Primary osteoarthritis of both knees Take 2 tablets by mouth daily at bedtime. May also take 0.5-1 tablets twice daily as needed (muscle spasms during the day). 270 tablet 3 05/30/2022 Active Start: 08-12-2017 take 1 capsule by mouth once T izanidine (Zanaflex) 2 mg capsule Active 2 MG PO ONCE August 11, 2017 11:00pm Comment on above: TAKE TWO TABLETS BY MOUTH DAILY AT BEDTIME, MAY TAKE 1/2-1 tablet TWICE DAILY during THE DAY max 24mg PER DAY Take 2 tablets by mo uth daily at bedtime. May also take 0.5-1 tablets twice daily as needed (muscle spasms during the day). Take 2 tablets by mo uth daily at bedtime. May also take 0.5-1 tablets twice daily as needed (muscle spasms during the day). For 90 days. Take 2 tablets by mo uth daily at bedtime. May also take 0.5-1 tablets two times a day as needed (muscle spasms during the day). For 90 days. topiramate 100 mg oral tablet (20 sources) Start: 06-07-2022 End: 04-30-2024 take 1 tablet by mouth once daily at bedtime topiramate (TOPAMAX) 100 mg tablet Indications: Migraine without aura and without status migrainosus, not intractable Take 1 tablet by mouth daily at bedtime. 90 tablet 3 04/30/2024 Active Start: 05-29-2022 End: 05-29-2022 take 3 tablets by mouth once daily at bedtime topiramate (TOPAMAX) 50 mg tablet Take 3 tablets by mouth daily at bedtime. 270 tablet 3 05/29/2022 Active Start: 04-28-2021 End: 03-21-2022 take 1 tablet by mouth once daily at bedtime topiramate (TOPAMAX) 100 mg tablet Indications: Migraine without aura and without status migrainosus, not intractable Take 1 tablet by mouth daily at bedtime. 30 tablet 11 03/21/2022 Active Start: 08-12-2017 take 1 tablet by renae th once daily Topiramate (Topamax) 25 mg tablet Active 25 MG PO daily August 11, 2017 11:00pm Comment on above: Take 1 tablet by renae th daily at bedtime. Take 3 tablets by mo uth daily at bedtime. 1 ml triamcinolone acetonide 40 mg/ml injection (1 source) Corticosteroid Start: 06-05-19 End: 07-05-19 triamcinolone acetonide 60 mg injection (KeNALog 40) Vitamin B Complex (20 sources) Start: 04-21-20 vitamin b complex(B COMPLETE TAB) Take one(1) tablet daily. 0 04/21/2009 Active Comment on above: Take one(1) tablet d aily. zolpidem tartrate 10 mg oral tablet (20 sources) gamma-Aminobutyric Acid-ergic Agonist Start: 07-29-19 End: 08-28-19 take 0.5-1 tablets by mouth every 30 days at bedtime as needed zolpidem (AMBIEN) 10 mg Indications: Primary insomnia Take 0.5-1 tablets by mouth at bedtime as needed for up to 30 days. Taken instead of Lunesta if not able to sleep more than 6 hours of sleep. 30 tablet 07/28/2024 Active Start: 06-04-2023 End: 11-05-2023 take 0.5-1 tablets by mouth every 30 days at bedtime as needed zolpidem (AMBIEN) 10 mg Indications: Primary insomnia Take 0.5-1 tablets by mouth at bedtime as needed for up to 30 days. Take if not able to sleep more than 6 hours of sleep 30 tablet 0 06/04/2023 11/05/2023 Discontinued Start: 01-31-2021 End: 06-02-2023 take 0.5-1 tablets by mouth every 30 days at bedtime as needed zolpidem (AMBIEN) 10 mg Indications: Primary insomnia Take 0.5-1 tablets by mouth at bedtime as needed for up to 30 days. Take if not able to sleep more than 6 hours of sleep 30 tablet 09/21/2022 06/02/2023 Discontinued Start: 08-12-2017 take 1 tablet by renae th at bedtime Zolpidem (Ambien) 5 mg tablet Active 5 MG PO BEDTIME August 11, 2017 11:00pm Comment on above: Take 0.5-1 tablets b y mouth at bedtime as needed for up to 30 days. Take if not able to sleep more than 6 hours of sleep Completed/Discontinued Medications Medication Drug Class(es) Dates Sig (Normalized) Sig (Original) 0.9% NaCl 10 mL flush (2 sources) Start: 08-24-2024 End: 08-24-2024 0.9% NaCl 10 mL flush Start: 08-24-2024 End: 08-24-2024 10 mL, OTHER, ONCE, 1 dose, On Sat08/24/24 at 1500 azithromycin 250 mg oral tablet (4 sources) Macrolide Antimicrobial Start: 04-30-2024 End: 05-05-2024 take 2 tablets by mouth once daily, then take 1 tablet by mouth once daily azithromycin (ZITHROMAX) 250 mg tablet Take 2 tablets by mouth once daily for 1 day, THEN 1 tablet once daily for 4 days. 6 tablet 04/30/2024 05/05/2024 20 ml bupivacaine hydrochloride 7.5 mg/ml injection (4 sources) Amide Local Anesthetic Start: 07-13-2024 End: 07-13-2024 bupivacaine(PF) 0.75 % (7.5 mg/mL) 7.5 mg injection (MARCAINE PF) Start: 07-13-2024 End: 07-13-2024 7.5 mg, OTHER, ONCE, 1 dose, On Sat07/13/24 at 1300 Start: 07-01-2024 End: 07-01-2024 bupivacaine(PF) 0.75 % (7.5 mg/mL) 7.5 mg injection (MARCAINE PF) Start: 07-01-2024 End: 07-01-2024 7.5 mg, OTHER, ONCE, 1 dose, On Sat07/01/24 at 1030 codeine phosphate 2 mg/ml / guaiFENesin 20 mg/ml oral solution (7 sources) Opioid Agonist Start: 04-28-2024 End: 05-04-2024 take 5 mL by mouth four times daily as needed for cough codeine-guaiFENesin (GUAIFENESIN AC) 10-100 mg/5 mL syrup Indications: Acute cough Take 5 mL by mouth four times a day as needed for cough for up to 6 days. 118 mL 04/28/2024 05/04/2024 desoximetasone 0.0025 mg/mg topical ointment (16 sources) Corticosteroid Start: 07-14-2019 desoximetasone (TOPICORT) 0.25 % Indications: Hand eczema Apply 1 application to affected area twice daily as needed. 60 g 0 07/14/2019 Active Start: 08-12-2017 Desoximetasone (Topicort) 0.05 % cream Active 1 APPLIC TOPICAL daily August 11, 2017 11:00pm Comment on above: Apply 1 application to affected area twice daily as needed. 1 ml dexamethasone phosphate 10 mg/ml injection (2 sources) Corticosteroid Start: 08-24-2024 End: 08-24-2024 dexAMETHasone sodium phosphate 10 mg injection (DECADRON) Start: 08-24-2024 End: 08-24-2024 10 mg, OTHER, ONCE, 1 dose, On Sat08/24/24 at 1500, Administer over 5 minutes. doxycycline monohydrate 100 mg oral tablet (4 sources) Tetracycline-class Drug Start: 04-28-2024 End: 05-03-2024 take 1 tablet by mouth twice daily doxycycline monohydrate 100 mg tablet Take 1 tablet by mouth two times a day for 5 days. 10 tablet 04/28/2024 04/30/2024 Discontinued (Adverse Reaction) famotidine 40 mg oral tablet (20 sources) Histamine-2 Receptor Antagonist Start: 07-06-2022 End: 04-30-2024 take 1 tablet by mouth once daily famotidine (PEPCID) 40 mg tablet Take 1 tablet by mouth once daily. 30 tablet 1 07/06/2022 04/30/2024 Discontinued (Course of therapy completed) Comment on above: Take 1 tablet by renae th once daily. hydroCHLOROthiazide 25 mg oral tablet (9 sources) Thiazide Diuretic Start: 09-07-2020 End: 03-21-2022 take 1 tablet by mouth once daily as needed hydroCHLOROthiazide (HYDRODIURIL, ESIDRIX) 25 mg tablet Take 1 tablet by mouth once daily. as needed for swelling 30 tablet 0 09/07/2020 03/21/2022 Discontinued (Other) Start: 08-12-2017 take 12.5 mg by mout h once daily in the morning Hydrochlorothiazide Active 12.5 MG PO EVERY MORNING August 11, 2017 11:00pm Comment on above: Take 1 tablet by renae th once daily. as needed for swelling iohexol 300 mg injection (OMNIPAQUE 300) (2 sources) Start: 08-24-2024 End: 08-24-2024 iohexol 300 mg injection (OMNIPAQUE 300) Start: 08-24-2024 End: 08-24-2024 300 mg, OTHER, ONCE, 1 dose, On Sat08/24/24 at 1500 ketoconazole 20 mg/ml topical cream (15 sources) Azole Antifungal Start: 03-11-2020 ketoconazole (NIZORAL) 2 % cream Indications: Rash and nonspecific skin eruption Apply 1 application to affected area twice daily. As directed 30 g 0 03/11/2020 Active Comment on above: Apply 1 application to affected area twice daily. As directed ketorolac tromethamine 10 mg oral tablet (1 source) Nonsteroidal Anti-inflammatory Drug, Cyclooxygenase Inhibitor Start: 05-01-2023 End: 04-30-2023 take 1 tablet by mouth every six hours as needed for pain keTORolac (TORADOL) 10 mg tablet Indications: Chronic midline low back pain without sciatica Take 1 tablet by mouth every 6 hours as needed for pain for up to 4 days. Do not take Celebrex while taking this. 16 tablet 05/01/2023 04/30/2023 Discontinued Start: 05-01-2023 End: 04-30-2023 take 1 tablet by mouth every six hours as needed for pain keTORolac (TORADOL) 10 mg tablet Indications: Chronic midline low back pain without sciatica Take 1 tablet by mouth every 6 hours as needed for pain for up to 4 days. Do not take Celebrex while taking this. 16 tablet 05/01/2023 04/30/2023 Discontinued 10 ml lidocaine hydrochloride 10 mg/ml injection (20 sources) Antiarrhythmic, Amide Local Anesthetic Start: 08-24-2024 End: 08-24-2024 lidocaine (PF) 10 mg/mL (1 %) 100 mg injection (XYLOCAINE) Start: 08-24-2024 End: 08-24-2024 100 mg, OTHER, ONCE, 1 dose, On Sat08/24/24 at 1500 Start: 07-13-2024 End: 07-13-2024 lidocaine (PF) 10 mg/mL (1 % ) 100 mg injection (XYLOCAINE) Start: 07-13-2024 End: 07-13-2024 100 mg, OTHER, ONCE, 1 dose, On Sat07/13/24 at 1300 Start: 07-01-2024 End: 07-01-2024 lidocaine (PF) 10 mg/mL (1 % ) 100 mg injection (XYLOCAINE) Start: 07-01-2024 End: 07-01-2024 100 mg, OTHER, ONCE, 1 dose, On Sat07/01/24 at 1030 Start: 07-07-2021 apply 1 dose transde rmal route every twenty-four hours, then apply 1 dose transdermal route every twelve hours lidocaine (LIDODERM) 5 % Apply 1 Patch as directed every 24 hours. Remove old patch after 12 hours prior to placing new patch. Location: back or leg 30 Patch 2 07/07/2021 Active Start: 06-12-2018 End: 03-21-2022 lidocaine viscous (XYLOCAINE ) 2 % solution Indications: Acute pharyngitis, unspecified etiology Gargle and swallow 5 cc every 3 hours as needed for sore throat. If 2% not available, okay to give 4% solution. 250 mL 0 06/12/2018 03/21/2022 Discontinued Start: 08-12-2017 apply 1 dose topically once Li docaine (Lidoderm) 5 % adhesive patch,medicated Active 1 PATCH TOPICAL ONCE August 11, 2017 11:00pm Comment on above: Gargle and swallow 5 cc every 3 hours as needed for sore throat. If 2% not available, okay to give 4% solution. Apply 1 Patch as dir ected every 24 hours. Remove old patch after 12 hours prior to placing new patch. Location: back or leg metaxalone 800 mg oral tablet (14 sources) Start: End: take 400-800 mg by mouth every twelve hours as needed metaxalone (SKELAXIN) 800 mg tablet Take 0.5-1 tablets by mouth two times a day as needed for pain (muscle spasm). 30 tablet 1 09/27/2023 03/31/2024 Discontinued qnihkjcf-tfo-lvggx acid-biotin (HAIR,SKIN AND NAILS,FA-BIOTIN,) 66.7-1,000 mcg tab (5 sources) Start: phccgtiu-tnb-mepxs acid-biotin (HAIR,SKIN AND NAILS,FA-BIOTIN,) 66.7-1,000 mcg tab Take by mouth. 0 12/25/2016 Active Comment on above: Take by mouth. naloxone hydrochloride 40 mg/ml nasal spray (20 sources) Opioid Antagonist Start: End: naloxone 4 mg/actuation nasal spray (NARCAN) Use 1 spray in one nostril. May repeat every 2 to 3 minutes as needed in alternating nostrils until medical assistance becomes available. 1 Box 0 12/30/2018 08/20/2022 Discontinued (Course of therapy completed) Comment on above: Use 1 spray in one n ostril. May repeat every 2 to 3 minutes as needed in alternating nostrils until medical assistance becomes available. predniSONE 10 mg oral tablet (2 sources) Start: End: predniSONE (DELTASONE) 10 mg tablet Indications: Chronic midline low back pain with bilateral sciatica Take 4 tabs daily x 3 days, then 3 tabs x 3 days, 2 tabs x 3 days, then 1 tab x3 days with food. 30 tablet 01/29/2024 02/10/2024 sulfamethoxazole 800 mg / trimethoprim 160 mg oral tablet (3 sources) Dihydrofolate Reductase Inhibitor Antibacterial, Sulfonamide Antimicrobial Start: 025 End: take 1 tablet by mouth twice daily at mealtime sulfamethoxazole-tr imethoprim (BACTRIM DS) 800-160 mg per tablet Take 1 tablet by mouth two times a day for 3 days. Take with food 6 tablet 10/30/2024 11/02/2024 Problems Active Problems Problem Classification Problem Date Documented Da te Episodic/Chronic Abdominal pain (11 sources) Abdominal pain; Translations: [Unspecified abdominal pain] Onset: 5 Episodic Administrative/social admission (1 source) Advice given; Translations: [Other specified counseling] Episodic Anxiety disorders (8 sources) Anxiety; Translations: [Anxiety disorder, unspecified] Chronic Asthma (20 sources) Unspecified asthma, uncomplicated; Translations: [Asthma, unspecified type, unspecified] 11-03-2009 Chronic Calculus of urinary tract (20 sources) Ureteric stone of lower third of ureter; Translations: [Calculus of ureter] Onset: 5 12-07-2018 Episodic Cardiac dysrhythmias (20 sources) Paroxysmal supraventricular tachycardia; Translations: [Supraventricular tachycardia] 05-17-2005 Chronic Diabetes mellitus without complication (2 sources) Increased glucose level; Translations: [Other abnormal glucose] Episodic Gastritis and duodenitis (5 sources) Gastritis; Translations: [Gastritis, unspecified, without bleeding] Episodic Genitourinary symptoms and ill-defined conditions (8 sources) Urgent desire to urinate; Translations: [Urgency of urination] Onset: 5 Episodic Headache; including migraine (20 sources) Refractory migraine; Translations: [Migraine, unspecified, intractable, without status migrainosus] Onset: 5 Resolved: 0 03-26-2016 Chronic Immunizations and screening for infectious disease (1 source) Needs influenza immunization; Translations: [Encounter for immunization] 01-29-2024 Episodic Joint disorders and dislocations; trauma-related (20 sources) Chondromalacia of patella; Translations: [Chondromalacia patellae, unspecified knee] Onset: 6 05-18-2005 Chronic Miscellaneous mental health disorders (5 sources) Primary insomnia; Translations: [Primary insomnia] Chronic Mood disorders (20 sources) Depressive disorder; Translations: [Depression] Onset: 6 03-26-2016 Chronic Nausea and vomiting (3 sources) Nausea; Translations: [Nausea] Onset: 5 Episodic Nonmalignant breast conditions (8 sources) Lump in upper inner quadrant of right breast; Translations: [Unspecified lump in the right breast, upper inner quadrant] Onset: 5 08-14-2024 Episodic Nutritional deficiencies (5 sources) Vitamin D deficiency; Translations: [Vitamin D deficiency, unspecified] Chronic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 Note from payer: GRAYSON Case: [id number], Status: Denied. Notification: Completed. Payer: Wyatt Electronic appeal: Not supported View History Notes Time User Attachment Attachment received from payer. 03/23/2024 2:44 PM Cchs, Rx Priorauth In Document Pharmacy Benefits Open Encounter NIMISHA BEAL BB [facility]-N [id number] ([facility]) Covered: Retail, Mail Order, Specialty Unknown: Long-Term Care BIN: [id number] : 1985 Group ID: [id number] PCN: [id number] Legal sex: F Group name: [facility] [employer] Address: [address] [place], [place] [id number] Medication Being Authorized methadone (DOLOPHINE) 5 mg tablet Take 1 tablet by mouth three times a day as needed for up to 30 days. Dispense: 85 tablet Refills: 0 Start: 03/19/2024 End: 04/18/2024 Class: Normal Diagnoses: Generalized OA; Primary osteoarthritis of both knees; Morbid obesity with BMI of 45.0-49.9, adult (HCC); Plantar fasciitis of right foot; Chronic midline low back pain with bilateral sciatica; Kidney stone This order has been released to its destination. To be filled at: [facility] [address] [place] [address] Liliane Juan - [phone] Allergies As of Date: 03/23/2024 Noted Allergy Reaction ARNICA (ARNICA MONTANA) 04/14/2019 2 - Rash BACLOFEN 11/25/2013 11 - Vomiting 16 - Unknown DULOXETINE 01/07/2006 16 - Unknown Comments: numbness and tingling MORPHINE 01/11/2005 11 - Vomiting 16 - Unknown SKELAXIN (METAXALONE) 05/08/2010 5 - Intolerance Comments: headache; also made her sleepy for 3 days and then woke up with a headache Date Reviewed: 01/29/2024 Reviewed by: Tamela Chiu LPN - Fully Assessed Reason for Visit: Insurance Authorization [1693] Prescriptions as of 03/23/2024 - methadone (DOLOPHINE) 5 mg tablet Take 1 tablet by mouth three times a day as needed for up to 30 days. - eszopiclone (LUNESTA) 2 mg Take 1 tablet by mouth at bedtime as needed for up to 180 days. - pregabalin (LYRICA) 100 mg capsule Take 1 capsule by mouth two times a day for 180 days. - celecoxib (CELEBREX) 200 mg capsule Take 1 capsule by mouth two times a day. - busPIRone HCl 30 mg tablet Take 1 tablet by mouth two times a day. Awaiting for mail away pharmacy to send script. - sertraline (ZOLOFT) 100 mg tablet Take 1 tablet by mouth once daily. - levothyroxine (SYNTHROID) 25 mcg tablet Take 1 tablet by mouth once daily. Take on empty stomach. For thyroid. - metaxalone (SKELAXIN) 800 mg tablet Take 0.5-1 tablets by mouth two times a day as needed for pain (muscle spasm). - gabapentin (NEURONTIN) 600 mg tablet Take 2 tablets by mouth two times a day for 360 days. - omeprazole (PRILOSEC) 40 mg capsule Take 1 capsule by mouth once daily. - buPROPion XL (WELLBUTRIN XL) 300 mg 24 hr tablet Take 1 tablet by mouth once daily. (Note: cannot take budeprion) - sucralfate (CARAFATE) 1 gram tablet Take 1 tablet by mouth before meals and at bedtime. - atenolol (TENORMIN) 100 mg tablet Take 1 tablet by mouth once daily. May also take 1 tablet once daily as needed (Extra dose as needed for breakthrough headache). - topiramate (TOPAMAX) 100 mg tablet Take 1 tablet by mouth daily at bedtime. - tiZANidine (ZANAFLEX) 4 mg tablet Take 2 tablets by mouth daily at bedtime. May also take 0.5-1 tablets two times a day as needed (muscle spasms during the day). For 90 days. - hydrOXYzine HCl (ATARAX) 50 mg tablet Take 0.5-1 tablets by mouth every 4 hours as needed for itching/rash. For 90 days - diphenhydrAMINE (BENADRYL) 25 mg capsule Take 50 mg by mouth at bedtime as needed. - ondansetron orally disintegrating (ZOFRAN ODT) 4 mg disintegrating tablet Take 1 tablet by mouth every 6 hours as needed for nausea/vomiting. - promethazine (PHENERGAN) 25 mg tablet Take 1 tablet by mouth every 6 hours as needed for nausea/vomiting. - famotidine (PEPCID) 40 mg tablet Take 1 tablet by mouth once daily. - furosemide (LASIX) 20 mg tablet Take 1 tablet by mouth once daily as needed (fluid retention and swelling). - Omeprazole Magnesium (PRILOSEC OTC) 20 mg tablet (Discontinued) Take 1 tablet by mouth daily before breakfast. 1/2 hr before meal. - Amoxicillin 500 mg tablet TAKE 4 PILLS 1 HOUR PRIOR TO DENTAL PROCEDURE - cetirizine (ZYRTEC) 10 mg tablet Takes 1 tab daily as needed - melatonin 5 mg tablet Take 1 tablet by mouth daily at bedtime. - diclofenac sodium (VOLTAREN) 1 % topical gel Apply 4 g to affected area four times daily. For knees - [id number]-sfw-qmmgs a (more content not included)... Normal [facility] 02-03-2024 [facility] Telephone (INTMWS) NIMISHA BEAL ([id number]) 1985 F Date Time Provider Department 02/03/24 ANILA CAMPOS INTMWS During your visit today, we recorded the following information about you: Annika Schulz LPN 02/03/2024 2:03 PM Signed Electronic PA rec'd and completed for methadone 5mg. This was completed 01/29/24. Rec'd fax from [facility]. They report they need more info. To call them at [phone]. This was done. Answered their questions the PA number /call reference number is [id number]. They will fax a response. It could take 132.32 hours for a response. Annika Schulz LPN 02/03/2024 2:43 PM Signed Denial rec'd. Note from payer: GRAYSON Case: [id number], Status: Denied. Notification: Completed. Payer: Wyatt Electronic appeal: Not supported View History Notes Time User Attachment Attachment received from payer. 02/03/2024 2:08 PM Cchs, Rx Priorauth In Document Pharmacy Benefits Open Encounter CORNELIUSNIMISHA GLEZ BB [facility] [id number] ([facility]) Covered: Retail, Mail Order, Specialty Unknown: Long-Term Care BIN: [id number] : 1985 Group ID: [id number] PCN: WG Legal sex: F Group name: [employer] [employer] Address: [address] [place] [address] Medication Being Authorized methadone (DOLOPHINE) 5 mg tablet Take 1 tablet by mouth three times a day as needed for up to 30 days. Dispense: 85 tablet Refills: 0 Start: 01/29/2024 End: 02/28/2024 Class: Normal Diagnoses: Generalized OA; Primary osteoarthritis of both knees; Morbid obesity with BMI of 45.0-49.9, adult (HCC); Plantar fasciitis of right foot; Chronic midline low back pain with bilateral sciatica; Kidney stone This order has been released to its destination. To be filled at: [facility] [address] [place], [place] Pt notified via my chart. Allergies As of Date: 02/03/2024 Noted Allergy Reaction ARNICA (ARNICA MONTANA) 04/14/2019 2 - Rash BACLOFEN 11/25/2013 11 - Vomiting 16 - Unknown DULOXETINE 01/07/2006 16 - Unknown Comments: numbness and tingling MORPHINE 01/11/2005 11 - Vomiting 16 - Unknown SKELAXIN (METAXALONE) 05/08/2010 5 - Intolerance Comments: headache; also made her sleepy for 3 days and then woke up with a headache Date Reviewed: 01/29/2024 Reviewed by: Tamela Chiu LPN - Fully Assessed Reason for Visit: Insurance Authorization [1693] Prescriptions as of 02/25/2024 - methadone (DOLOPHINE) 5 mg tablet Take 1 tablet by mouth three times a day as needed for up to 30 days. - pregabalin (LYRICA) 100 mg capsule Take 1 capsule by mouth two times a day for 180 days. - celecoxib (CELEBREX) 200 mg capsule Take 1 capsule by mouth two times a day. - busPIRone HCl 30 mg tablet Take 1 tablet by mouth two times a day. Awaiting for mail away pharmacy to send script. - sertraline (ZOLOFT) 100 mg tablet Take 1 tablet by mouth once daily. - levothyroxine (SYNTHROID) 25 mcg tablet Take 1 tablet by mouth once daily. Take on empty stomach. For thyroid. - metaxalone (SKELAXIN) 800 mg tablet Take 0.5-1 tablets by mouth two times a day as needed for pain (muscle spasm). - gabapentin (NEURONTIN) 600 mg tablet Take 2 tablets by mouth two times a day for 360 days. - omeprazole (PRILOSEC) 40 mg capsule Take 1 capsule by mouth once daily. - buPROPion XL (WELLBUTRIN XL) 300 mg 24 hr tablet Take 1 tablet by mouth once daily. (Note: cannot take budeprion) - sucralfate (CARAFATE) 1 gram tablet Take 1 tablet by mouth before meals and at bedtime. - atenolol (TENORMIN) 100 mg tablet Take 1 tablet by mouth once daily. May also take 1 tablet once daily as needed (Extra dose as needed for breakthrough headache). - topiramate (TOPAMAX) 100 mg tablet Take 1 tablet by mouth daily at bedtime. - tiZANidine (ZANAFLEX) 4 mg tablet Take 2 tablets by mouth daily at bedtime. May also take 0.5-1 tablets two times a day as needed (muscle spasms during the day). For 90 days. - hydrOXYzine HCl (ATARAX) 50 mg tablet Take 0.5-1 tablets by mouth every 4 hours as needed for itching/rash. For 90 days - diphenhydrAMINE (BENADRYL) 25 mg capsule Take 50 mg by mouth at bedtime as needed. - ondansetron orally disintegrating (ZOFRAN ODT) 4 mg disintegrating tablet Take 1 tablet by mouth every 6 hours as needed for nausea/vomiting. - promethazine (PHENERGAN) 25 mg tablet Take 1 tablet by mouth every 6 hours as needed for nausea/vomiting. - famotidine (PEPCID) 40 mg tablet Take 1 tablet by mouth once daily. - furosemide (LASIX) 20 mg tablet Take 1 tablet by mouth once daily as needed (fluid retention and swelling). - Omeprazole Magnesium (PRILOSEC OTC) 20 mg tablet (Discontinued) Take 1 tablet by mouth daily before breakfast. 1/2 hr before meal. - Amoxicillin 500 mg tablet TAKE 4 PILLS 1 HOUR PRIOR TO DENTAL PROCEDURE - cetirizine (ZYRTEC) 10 mg tablet Tony (more content not included)... Normal [facility] CNOVon 01-29-2024 CNOV Office Visit (INTMWS ) NIMISHA BEAL ([id number]) 1985 F Date Time Provider Department 01/29/24 3:40 PM ANILA CAMPOS INTMWS During your visit today, we recorded the following information about you: Pulse Blood pressure Weight 94/minute 133/81 116.6 kg Anila Campos MD 03/08/2024 6:21 PM Signed This note was created using Jobzellariter. Subjective Nimisha Beal is a 38 year old female. Patient presents with: Recheck: medication follow up Immunizations: Flu vaccination SUBJECTIVE: Nimisha Beal is a 38 year old year old lady here today for follow up appointment for review of medical conditions. The patient is a 38-year-old female with a history of chronic back pain, presenting for a regular check-up and management of worsening back pain. The patient reports chronic back pain localized to the lower lumbar spine, described as a distinct and severe pain that radiates from the rib cage down to the tailbone area. The pain is bilateral and has been progressively worsening, with daily flare-ups. She notes that some days are relatively better, but the pain is consistently present. The pain is exacerbated by activities such as walking and standing for extended periods. She recounts a recent episode at a store where the pain became so severe that her vision went fuzzy, and she experienced a sensation similar to an electric shock, followed by a spasm that rendered her immobile. These episodes are becoming more frequent, leading to a fear of leaving the house due to the potential inability to return to the car or complete errands. The patient has been taking methadone and Zanaflex for pain management but reports needing to increase the dosage due to the severity of the pain. She has not filled her prescription for Skelaxin due to insurance authorization issues. She is also on gabapentin 200 mg BID and pregabalin 25 mg BID, with the latter needing a refill as it times out today. She expresses frustration with the increasing medication regimen and is seeking alternative solutions. She has tried using an inversion table at home but reports that it does not provide relief and may potentially worsen the pain. The patient has a history of mild osteophyte formation in the spine, as noted in previous imaging studies. She has not yet seen a painting contractor and is considering this option. She has not tried prednisone or Solu-Medrol for pain management but has used prednisone in the past for other conditions such as bronchitis and poison tiara. In addition to back pain, the patient reports tightness in her shoulders with popping and catching sensations, as well as numbness in the outer two fingers, which she attributes to potential nerve pinching. She also experiences tightness in her rib cage, which she can usually alleviate with stretching. The patient has been trying to lose weight and reports a gradual decrease in weight since 2021, with her current weight stable between 240-257 lbs. She has been attempting to move more but finds it challenging due to the back pain. She also reports symptoms of rhinitis, including nasal drip and a sensation of something moving in her chest, which occurs every few days. She is unsure if these symptoms are related to environmental factors or her cat's bladder issues, which have led to frequent urination on the carpet. The patient recently acquired a new bed, which she hopes will help with her back and neck issues. She expresses a desire for a more effective treatment plan to manage her pain and improve her quality of life. 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 Depressive disorder, not elsewhere classified 01/28/2006 Encounter for insertion or removal of intrauterine contraceptive device 03/01/2003; 02/2008 Was replaced in 02/2008; due 2013 Generalized osteoarthrosis, unspecified site 05/18/2005 Kidney stone Migraine, unspecified, with intractable migraine, so stated, without mention of status migrainosus Migraine Morbid obesity with BMI of 45.0-49.9, adult (HCC) Obesity Paroxysmal supraventricular tachycardia (HCC) Supraventricular tachycardia PMH - PAST MEDICAL HISTORY OF Heel Spurs Sciatica 05/18/2005 Unspecified asthma(493.90) Current Outpatient Medications Medication Sig celecoxib (CELEBREX) 200 mg capsule Take 1 capsule by mouth two times a day. methadone (DOLOPHINE) 5 mg tablet Take 1 tablet by mouth three times a day as needed for up to 30 days. busPIRone HCl 30 mg tablet Take 1 tablet by mouth two times a day. Awaiting for mail away pharmacy to send script. sertraline (ZOLOFT) 100 mg tablet Take 1 tablet by mouth once daily. levothyroxine (SYNTHROID) 25 mcg tablet Take 1 tablet by mouth once daily. Take on empty stomach. For thyroid. gabapentin (NEURONTIN) 600 mg tablet Take 2 tablets (more content not included)... Normal [facility] 01-21-2024 [facility] Telephone (INTMWS) NIMISHA BEAL ([id number]) 1985 F Date Time Provider Department 01/21/24 ANILA CAMPOS INTMWS During your visit today, we recorded the following information about you: Elisha Shannon 01/21/2024 9:28 AM Signed Patient wants to know why her Celebrex rx was discontinued. Said she tried to get a refill and was told the doctor discontinued it. Please advise at [phone]. Tamela Chiu LPN 01/21/2024 9:34 AM Signed Celebrex was discontinued on 09/27/23 during an office visit but no mention to as why it was discontinued. Nadine Mcclain APRN.DAMARIS 01/23/2024 8:42 AM Signed Please let her know I see no reason why this might have been discontinued, I will send in a new script. Мария Mcgraw LPN 01/23/2024 8:53 AM Signed Patient notified, verbalized understanding. Мария Mcgraw LPN Allergies As of Date: 01/21/2024 Noted Allergy Reaction ARNICA (ARNICA [place]) 04/14/2019 2 - Rash BACLOFEN 11/25/2013 11 - Vomiting 16 - Unknown DULOXETINE 01/07/2006 16 - Unknown Comments: numbness and tingling MORPHINE 01/11/2005 11 - Vomiting 16 - Unknown SKELAXIN (METAXALONE) 05/08/2010 5 - Intolerance Comments: headache; also made her sleepy for 3 days and then woke up with a headache Date Reviewed: 11/05/2023 Reviewed by: Nadine Mcclain APRN.PLATE MAKER - Fully Assessed Reason for Visit: Medication Question [2308] Primary Visit Diagnosis:Generalized OA [M15.9] Order(s):celecoxib (CELEBREX) 200 mg capsuleTake 1 capsule by mouth two times a day.Disp: 180 capsuleRfl: 3 Prescriptions as of 01/23/2024 - celecoxib (CELEBREX) 200 mg capsule Take 1 capsule by mouth two times a day. - methadone (DOLOPHINE) 5 mg tablet Take 1 tablet by mouth three times a day as needed for up to 30 days. - busPIRone HCl 30 mg tablet Take 1 tablet by mouth two times a day. Awaiting for mail away pharmacy to send script. - sertraline (ZOLOFT) 100 mg tablet Take 1 tablet by mouth once daily. - levothyroxine (SYNTHROID) 25 mcg tablet Take 1 tablet by mouth once daily. Take on empty stomach. For thyroid. - metaxalone (SKELAXIN) 800 mg tablet Take 0.5-1 tablets by mouth two times a day as needed for pain (muscle spasm). - gabapentin (NEURONTIN) 600 mg tablet Take 2 tablets by mouth two times a day for 360 days. - methadone (DOLOPHINE) 5 mg tablet Take 1 tablet by mouth three times a day as needed for up to 30 days. - pregabalin (LYRICA) 100 mg capsule Take 1 capsule by mouth two times a day for 180 days. - omeprazole (PRILOSEC) 40 mg capsule Take 1 capsule by mouth once daily. - buPROPion XL (WELLBUTRIN XL) 300 mg 24 hr tablet Take 1 tablet by mouth once daily. (Note: cannot take budeprion) - sucralfate (CARAFATE) 1 gram tablet Take 1 tablet by mouth before meals and at bedtime. - atenolol (TENORMIN) 100 mg tablet Take 1 tablet by mouth once daily. May also take 1 tablet once daily as needed (Extra dose as needed for breakthrough headache). - topiramate (TOPAMAX) 100 mg tablet Take 1 tablet by mouth daily at bedtime. - tiZANidine (ZANAFLEX) 4 mg tablet Take 2 tablets by mouth daily at bedtime. May also take 0.5-1 tablets two times a day as needed (muscle spasms during the day). For 90 days. - hydrOXYzine HCl (ATARAX) 50 mg tablet Take 0.5-1 tablets by mouth every 4 hours as needed for itching/rash. For 90 days - diphenhydrAMINE (BENADRYL) 25 mg capsule Take 50 mg by mouth at bedtime as needed. - ondansetron orally disintegrating (ZOFRAN ODT) 4 mg disintegrating tablet Take 1 tablet by mouth every 6 hours as needed for nausea/vomiting. - promethazine (PHENERGAN) 25 mg tablet Take 1 tablet by mouth every 6 hours as needed for nausea/vomiting. - famotidine (PEPCID) 40 mg tablet Take 1 tablet by mouth once daily. - furosemide (LASIX) 20 mg tablet Take 1 tablet by mouth once daily as needed (fluid retention and swelling). - Omeprazole Magnesium (PRILOSEC OTC) 20 mg tablet (Discontinued) Take 1 tablet by mouth daily before breakfast. 1/2 hr before meal. - Amoxicillin 500 mg tablet TAKE 4 PILLS 1 HOUR PRIOR TO DENTAL PROCEDURE - cetirizine (ZYRTEC) 10 mg tablet Takes 1 tab daily as needed - melatonin 5 mg tablet Take 1 tablet by mouth daily at bedtime. - diclofenac sodium (VOLTAREN) 1 % topical gel Apply 4 g to affected area four times daily. For knees - gzsiptqi-dib-myfel acid-biotin 66.7-1,000 mcg tab Take by mouth. - Cholecalciferol, Vitamin D3, 5,000 unit cap Take 1 capsule by mouth once daily. - vitamin b complex(B COMPLETE TAB) Take one(1) tablet daily. Problem List As Of Date 01/21/2024 Noted Resolved Mgrn Wo Aura w Intrc Mgrn [G43.019] 01/11/2005 11/03/2009 PAROX ATRIAL TACHYCARDIA [I47.10] Intractable migraine [G43.919] CHONDROMALACIA PATELLAE [M22.40] 05/18/2005 Spasm of Muscle [M62.838] 05/18/2005 11/03/2009 Primary osteoarthritis of both knees (more content not included)... [facility] NIMISHA BEAL ([id number]) 1985 F Date Time Provider Department 11/06/23 NADINE MCCLAIN INTLIEN During your visit today, we recorded the following information about you: Nadine Mcclain APRN.CNP 11/06/2023 9:05 AM Signed Addended by: NADINE MCCLAIN on: 11/06/2023 09:05 AM Modules accepted: Orders Allergies As of Date: 11/06/2023 Noted Allergy Reaction ARNICA (ARNICA [place]) 04/14/2019 2 - Rash BACLOFEN 11/25/2013 11 - Vomiting 16 - Unknown DULOXETINE 01/07/2006 16 - Unknown Comments: numbness and tingling MORPHINE 01/11/2005 11 - Vomiting 16 - Unknown SKELAXIN (METAXALONE) 05/08/2010 5 - Intolerance Comments: headache; also made her sleepy for 3 days and then woke up with a headache Date Reviewed: 11/05/2023 Reviewed by: Nadine Mcclain APRN.PLATE MAKER - Fully Assessed Reason for Visit: Results [95] Primary Visit Diagnosis:Elevated TSH [R79.89] Other Visit Diagnosis:Anxiety [F41.9] Order(s):busPIRone HCl 30 mg tabletTake 1 tablet by mouth two times a day. Awaiting for mail away pharmacy to send script.Disp: 180 tabletRfl: 3 sertraline (ZOLOFT) 100 mg tabletTake 1 tablet by mouth once daily.Disp: 90 tabletRfl: 3 levothyroxine (SYNTHROID) 25 mcg tabletTake 1 tablet by mouth once daily. Take on empty stomach. For thyroid.Disp: 30 tabletRfl: 2 Prescriptions as of 11/06/2023 - methadone (DOLOPHINE) 5 mg tablet Take 1 tablet by mouth three times a day as needed for up to 30 days. Do not start before November 13, 2023. - busPIRone HCl 30 mg tablet Take 1 tablet by mouth two times a day. Awaiting for mail away pharmacy to send script. - sertraline (ZOLOFT) 100 mg tablet Take 1 tablet by mouth once daily. - levothyroxine (SYNTHROID) 25 mcg tablet Take 1 tablet by mouth once daily. Take on empty stomach. For thyroid. - metaxalone (SKELAXIN) 800 mg tablet Take 0.5-1 tablets by mouth two times a day as needed for pain (muscle spasm). - eszopiclone (LUNESTA) 2 mg Take 1 tablet by mouth at bedtime as needed for up to 60 days. - gabapentin (NEURONTIN) 600 mg tablet Take 2 tablets by mouth two times a day for 360 days. - methadone (DOLOPHINE) 5 mg tablet Take 1 tablet by mouth three times a day as needed for up to 30 days. - pregabalin (LYRICA) 100 mg capsule Take 1 capsule by mouth two times a day for 180 days. - omeprazole (PRILOSEC) 40 mg capsule Take 1 capsule by mouth once daily. - buPROPion XL (WELLBUTRIN XL) 300 mg 24 hr tablet Take 1 tablet by mouth once daily. (Note: cannot take budeprion) - sucralfate (CARAFATE) 1 gram tablet Take 1 tablet by mouth before meals and at bedtime. - atenolol (TENORMIN) 100 mg tablet Take 1 tablet by mouth once daily. May also take 1 tablet once daily as needed (Extra dose as needed for breakthrough headache). - topiramate (TOPAMAX) 100 mg tablet Take 1 tablet by mouth daily at bedtime. - tiZANidine (ZANAFLEX) 4 mg tablet Take 2 tablets by mouth daily at bedtime. May also take 0.5-1 tablets two times a day as needed (muscle spasms during the day). For 90 days. - hydrOXYzine HCl (ATARAX) 50 mg tablet Take 0.5-1 tablets by mouth every 4 hours as needed for itching/rash. For 90 days - diphenhydrAMINE (BENADRYL) 25 mg capsule Take 50 mg by mouth at bedtime as needed. - ondansetron orally disintegrating (ZOFRAN ODT) 4 mg disintegrating tablet Take 1 tablet by mouth every 6 hours as needed for nausea/vomiting. - promethazine (PHENERGAN) 25 mg tablet Take 1 tablet by mouth every 6 hours as needed for nausea/vomiting. - famotidine (PEPCID) 40 mg tablet Take 1 tablet by mouth once daily. - furosemide (LASIX) 20 mg tablet Take 1 tablet by mouth once daily as needed (fluid retention and swelling). - Omeprazole Magnesium (PRILOSEC OTC) 20 mg tablet (Discontinued) Take 1 tablet by mouth daily before breakfast. 1/2 hr before meal. - Amoxicillin 500 mg tablet TAKE 4 PILLS 1 HOUR PRIOR TO DENTAL PROCEDURE - cetirizine (ZYRTEC) 10 mg tablet Takes 1 tab daily as needed - melatonin 5 mg tablet Take 1 tablet by mouth daily at bedtime. - diclofenac sodium (VOLTAREN) 1 % topical gel Apply 4 g to affected area four times daily. For knees - tkgddwic-gbr-zawzz acid-biotin 66.7-1,000 mcg tab Take by mouth. - Cholecalciferol, Vitamin D3, 5,000 unit cap Take 1 capsule by mouth once daily. - vitamin b complex(B COMPLETE TAB) Take one(1) tablet daily. Problem List As Of Date 11/06/2023 Noted Resolved Mgrn Wo Aura w Intrc Mgrn [G43.019] 01/11/2005 11/03/2009 PAROX ATRIAL TACHYCARDIA [I47.10] Intractable migraine [G43.919] CHONDROMALACIA PATELLAE [M22.40] 05/18/2005 Spasm of Muscle [M62.838] 05/18/2005 11/03/2009 Primary osteoarthritis of both knees [M17.0] 05/18/2005 SCIATICA [M54.30] 05/18/2005 Depression [F32.A] 01/28/2006 Pain in Soft Tissues of Limb [M79.609] 05/15/2006 11/03/2009 PLANTAR Fasciitis [M72.2] 05/24/2006 (more content not included)... Normal [facility] CBC W Auto Differential pane l (Bld)on 11-05-2023 Basophils (Bld) [#/Vol] 0.05 10*3/uL Normal <0.11 [facility] Comment on above: Order Comment: Speci men Type: BLOOD SPECIMENOrdering Facility: [facility] Address: [address] [place] [address] Performed By: #### 5 7021-8 ####[facility] LABCLIA [id number] [place] [address] [place] Basophils/100 WBC (Bld) 0.6 % Normal [facility] Comment on above: Order Comment: Speci men Type: BLOOD SPECIMENOrdering Facility: [facility] Address: [address] [place] [address]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 05-02-2023 IMPRESSION: Unremark able thoracic spine X-ray. Medical Administrative: [facility] Transcribe Date/Time: May 02 2023 1:07P Dictated by : NEWTON HUDDLESTON MD This examination was interpreted and the report reviewed and electronically signed by: NEWTON HUDDLESTON MD on May 02 2023 1:09PM EST DIVISION OF RADIOLOGY * * *Final Report* * * DATE OF EXAM: Apr 30 2023 4:30PM WOX [id number] - XR THORACIC 2V AP/LAT / PROCEDURE REASON: multiple diagnoses * * * * Physician Interpretation * * * * EXAM TITLE: XR THORACIC 2V AP/LAT EXAM DATE/TIME: 04/30/2023 4:30 PM COMPARISON: None. CLINICAL INDICATION/HISTORY: Mid back pain TECHNIQUE: AP and lateral views of the thoracic spine are presented FINDINGS: No fractures or subluxations are noted. The disc spaces are well preserved. There is minimal osteophyte formation. There is no paraspinal mass or bony destructive process. DIVISION OF RADIOLOGY Provider, [facility] - 05/02/2023 * * *Final Report* * * DATE OF EXAM: Apr 30 2023 4:30PM WOX [id number] - XR THORACIC 2V AP/LAT / PROCEDURE REASON: multiple diagnoses * * * * Physician Interpretation * * * * EXAM TITLE: XR THORACIC 2V AP/LAT EXAM DATE/TIME: 04/30/2023 4:30 PM COMPARISON: None. CLINICAL INDICATION/HISTORY: Mid back pain TECHNIQUE: AP and lateral views of the thoracic spine are presented FINDINGS: No fractures or subluxations are noted. The disc spaces are well preserved. There is minimal osteophyte formation. There is no paraspinal mass or bony destructive process. IMPRESSION IMPRESSION: Unremarkable thoracic spine X-ray. Medical Administrative: [facility] Transcribe Date/Time: May 02 2023 1:07P Dictated by : NEWTON HUDDLESTON MD This examination was interpreted and the report reviewed and electronically signed by: NEWTON HUDDLESTON MD on May 02 2023 1:09PM EST [facility] XR Thoracic spine AP and Lat eralOrdered By: [facility]cf Provider on 05-02-2023 [facility] No Panel Informationon 04-30 Radiology Study observation (narrative) [facility] CT ABD/PEL W IVCONon 023 [facility] XR Lumbar spine Views W flex ion and W extensionon 10-23-2022 IMPRESSION: Lumbar s pine mild degenerative changes. Medical Administrative: PSCLeatha Transcribe Date/Time: Oct 23 2022 5:13P Dictated by : NEWTON HUDDLESTON MD This examination was interpreted and the report reviewed and electronically signed by: NEWTON HUDDLESTON MD on Oct 23 2022 5:15PM EST DIVISION OF RADIOLOGY * * *Final Report* * * DATE OF EXAM: Oct 23 2022 4:53PM WOX [id number] - XR LUMBAR 4V AP/LAT/ FLEX/EXT / PROCEDURE REASON: Acute bilateral low back pain without sciatica * * * * Physician Interpretation * * * * EXAM TITLE: XR LUMBAR 4V AP/LAT/ FLEX/EXT EXAM DATE/TIME: 10/23/2022 4:53 PM COMPARISON: None. CLINICAL INDICATION/HISTORY: Low back pain. TECHNIQUE: AP, lateral, lateral extension, lateral flexion and cone down lateral views of the lumbar spine are presented. FINDINGS: There are five rhh-gnq-jnqkazc lumbar vertebrae. No acute fracture seen. There is minimal L4 on L5 anterolisthesis. No change in alignment of the lumbar spine with lateral extension and lateral flexion. The disc spaces are well preserved. There is mild osteophyte formation. DIVISION OF RADIOLOGY Provider, [facility] [place] - 10/23/2022 * * *Final Report* * * DATE OF EXAM: Oct 23 2022 4:53PM WOX [id number] - XR LUMBAR 4V AP/LAT/ FLEX/EXT / PROCEDURE REASON: Acute bilateral low back pain without sciatica * * * * Physician Interpretation * * * * EXAM TITLE: XR LUMBAR 4V AP/LAT/ FLEX/EXT EXAM DATE/TIME: 10/23/2022 4:53 PM COMPARISON: None. CLINICAL INDICATION/HISTORY: Low back pain. TECHNIQUE: AP, lateral, lateral extension, lateral flexion and cone down lateral views of the lumbar spine are presented. FINDINGS: There are five qdw-oux-ormggzn lumbar vertebrae. No acute fracture seen. There is minimal L4 on L5 anterolisthesis. No change in alignment of the lumbar spine with lateral extension and lateral flexion. The disc spaces are well preserved. There is mild osteophyte formation. IMPRESSION IMPRESSION: Lumbar spine mild degenerative changes. Medical Administrative: PSCB Transcribe Date/Time: Oct 23 2022 5:13P Dictated by : NEWTON HUDDLESTON MD This examination was interpreted and the report reviewed and electronically signed by: NEWTON HUDDLESTON MD on Oct 23 2022 5:15PM EST [facility] Radiology Study observation (narrative) [facility] XR Lumbar spine Views W flex ion and W extensionOrdered By: [facility]cf Provider on 10-23-2022 [facility] 2019 NOVEL CORONAVIRUS (COVI D-19)on 08-19-2022 SARS-CoV-2 (COVID-19) RNA RITO+probe Ql (Unsp spec) Positive [facility] US KIDNEY/BLADDERon 07-14-19 [facility] Absolute lymphocyte countOrd ered By: Dr. Rutledge on 07-10-2022 Lymphocytes Auto (Unsp spec) [#/Vol] 2.44 10*3/uL 0.83-4.51 [facility] Basophil percentageOrdered B y: Dr. Rutledge on 07-10-2022 Basophil percentage 0 SEEN /hpf 0-5 [facility] Basophils/100 WBC (Bld) 0.7 % 0-1 [facility] Bilirubin [Mass/Vol] 0.80 mg/dL 0.20-1.00 [facility] Comment on above: For patients on eltr ombopag therapy, use of [facility] [place] TBIL is not recommended. Chloride [Moles/Vol] 107 mmol/L 98-107 [facility] Eosinophils/100 WBC (Bld) 1.7 % 0-5 [facility] Glucose [Mass/Vol] 115 mg/dL 74-106 [facility] Comment on above: Fasting Glucose resu lt from 100 to 125 mg/dL suggests IMPAIRED HOMEOSTASIS per A.D.A. criteria. Neutrophils (Bld) [#/Vol] 5.5 10*3/uL 2.0-7.7 [facility] Neutrophils/100 WBC (Bld) 62.7 % 47-70 [facility] Potassium [Moles/Vol] 3.7 mmol/L 3.5-5.1 [facility] Protein [Mass/Vol] 8.2 g/dL 6.4-8.2 [facility] Sodium [Moles/Vol] 138 mmol/L 136-145 [facility] WBC (Bld) [#/Vol] 8.8 10*3/uL 4.4-11.0 [facility] Beta hCG serum qualOrdered B y: Dr. Rutledge on 07-10-2022 Beta HCG ( test) Ql Negative [facility] Bilirubin Test strip Ql (U)O rdered By: Dr. Rutledge on 07-10-2022 Bilirubin Ql (U) Negative Negative [facility] Blood erythrocytes count (nu mber/volume)Ordered By: Dr. Rutledge on 07-10-2022 RBC (Bld) [#/Vol] 5.31 10*6/uL 4.2-5.4 [facility] Blood hemoglobin measurement (mass/volume)Ordered By: Dr. Rutledge on 07-10-2022 Hemoglobin (Bld) [Mass/Vol] 14.3 g/dL 12.0-15.0 [facility] Blood lymphocytes/100 leukoc ytesOrdered By: Dr. Rutledge on 07-10-2022 Lymphocytes/100 WBC (Bld) 27.7 % 19-41 [facility] Blood monocytes/100 leukocyt esOrdered By: Dr. Rutledge on 07-10-2022 Monocytes/100 WBC (Bld) 6.7 % 0-10 [facility] Blood platelet mean volumeOr dered By: Dr. Rutledge on 07-10-2022 Platelet mean volume (Bld) [Entitic vol] 10.1 fL 6.2-12.0 [facility] Determination of erythrocyte mean corpuscular volume (MCV)Ordered By: Dr. Rutledge on 07-10-2022 MCV (RBC) [Entitic vol] 83.6 fL 81-99 [facility] Hematocrit Auto (Bld) [Volum e fraction]Ordered By: Dr. Rutledge on 07-10-2022 Hematocrit (Bld) [Volume fraction] 44.4 % 37-47 [facility] Ketones Test strip Ql (U)Ord ered By: Dr. Rutledge on 07-10-2022 Ketones Ql (U) Negative Negative [facility] Laboratory - Chemistry and C hemistry - challengeOrdered By: Dr. Rutledge on 07-10-2022 ALP [Catalytic activity/Vol] 94 U/L 45-117 [facility] ALT [Catalytic activity/Vol] 43 U/L 13-56 [facility] CO2 [Moles/Vol] 26.0 mmol/L 21.0-32.0 [facility] Globulin (S) [Mass/Vol] 4.2 g/dL 2.2-4.2 [facility] Lipase [Catalytic activity/Vol] 100 U/L 73-393 [facility] Urea nitrogen/Creatinine [Mass ratio] 15.7 mg/mg 10-20 [facility] - Hematology and Cell countsOrdered By: Dr. Rutledge on 07-10-2022 Erythrocyte distribution width (RBC) [Entitic vol] 39.7 fL 35.1-43.9 [facility] Erythrocyte distribution width (RBC) [Ratio] 13.2 % 11.6-14.6 [facility] Immature granulocytes/100 WBC (Bld) 0.500 % 0.0-0.9 [facility] Comment on above: IG% - Immature Granu locytes (promyelocytes, myelocytes and metamyelocytes) > 1% indicates that a LEFT SHIFT is Present. MCH (RBC) [Entitic mass] 26.9 pg 27.0-32.0 [facility] Nucleated RBC/100 WBC (Bld) [Ratio] 0 % 0-5 [facility] MCHC Auto (RBC) [Mass/Vol]Or dered By: Dr. Rutledge on 07-10-2022 MCHC (RBC) [Mass/Vol] 32.2 g/dL 32-36 [facility] Mucus LM Ql (Urine sed)Order ed By: Dr. Rutledge on 07-10-2022 Mucus Ql (Urine sed) 0 SEEN /hpf [facility] Nitrite Test strip Ql (U)Ord ered By: Dr. Rutledge on 07-10-2022 Nitrite Ql (U) Negative Negative [facility] No Panel InformationOrdered By: Dr. Rutledge on 07-10-2022 Estimated Creatinine Clearance Calc 61.25 ml/min [facility] Estimated GFR (MDRD) Amer 78 mL/min >60 [facility] Comment on above: GFR Calc Estimated GFR (MDRD) Non-Af Amer 64 mL/min >60 [facility] Comment on above: Non- GFR Calc Platelets bldOrdered By: Dr. Rutledge on 07-10-2022 Platelets (Bld) [#/Vol] 335 10*3/uL 150-450 [facility] Protein Test strip Ql (U)Ord ered By: Dr. Rutledge on 07-10-2022 Protein Ql (U) Negative Negative [facility] Serum or plasma albumin abhinav urement (mass/volume)Ordered By: Dr. Rutledge on 07-10-2022 Albumin [Mass/Vol] 4.0 g/dL 3.2-5.0 [facility] Serum or plasma albumin/glob ulin mass ratioOrdered By: Dr. Rutledge on 07-10-2022 Albumin/Globulin [Mass ratio] 1.0 {ratio} 0.9-2.4 [facility] Serum or plasma calcium abhinav urement (mass/volume)Ordered By: Dr. Rutledge on 07-10-2022 Calcium [Mass/Vol] 9.7 mg/dL 8.5-10.1 [facility] Serum or plasma creatinine m easurement (mass/volume)Ordered By: Dr. Rutledge on 07-10-2022 Creatinine [Mass/Vol] 1.02 mg/dL 0.55-1.02 [facility] Comment on above: The validity of the calculated GFR & GFRAA in patients over 70 years has not been determined. Clinical correlation is essential. Serum or plasma urea nitroge n measurement (mass/volume)Ordered By: Dr. Rutledge on 07-10-2022 Urea nitrogen [Mass/Vol] 16 mg/dL 7-18 [facility] Squamous epithelial cells de tection in urine sediment by light microscopyOrdered By: Dr. Rutledge on 07-10-2022 Epithelial cells.squamous LM Ql (Urine sed) 0 SEEN /hpf 5-10 [facility] Thin prep Papanicolaou smear with manual screeningOrdered By: Dr. Rutledge on 07-10-2022 Thin prep Papanicolaou smear with manual screening 26 U/L 15-37 [facility] Thin prep Papanicolaou smear with manual screening 5 5-15 [facility] Urine blood detectionOrdered By: Dr. Rutledge on 07-10-2022 RBC Ql (U) 10 /ul Negative [facility] RBC Ql (U) 0 SEEN /hpf 0-5 [facility] Urine clarityOrdered By: Dr. Rutledge on 07-10-2022 Clarity (U) Clear Clear [facility] Urine color determinationOrd ered By: Dr. Rutledge on 07-10-2022 Color (U) Yellow Yellow [facility] Urine glucose detectionOrder ed By: Dr. Rutledge on 07-10-2022 Glucose Ql (U) Normal mg/dl Normal [facility] Urine leukocyte esterase det ection by dipstickOrdered By: Dr. Rutledge on 07-10-2022 Leukocyte esterase Test strip Ql (U) Negative Negative [facility] Urine pHOrdered By: Dr. Sona gracia on 07-10-2022 pH (U) 7.0 [pH] 5.0 - 8.0 [facility] Urine sediment bacteria coun t by microscopy (number/high power field)Ordered By: Dr. Rutledge on 07-10-2022 Bacteria LM.HPF (Urine sed) [#/Area] 0 /[HPF] None Seen [facility] Urine specific gravity measu rementOrdered By: Dr. Rutledge on 07-10-2022 Specific gravity (U) [Rel density] 1.010 1.002-1.03 0 [facility] Urobilinogen Auto test strip Ql (U)Ordered By: Dr. Rutledge on 07-10-2022 Urobilinogen Ql (U) Normal mg/dl Normal [facility] UA DIP, URINE (POC)on 2022 BILIRUBIN UA (POCT) Negative Negative [facility] CLARITY UA (POCT) Cloudy [facility] COLOR UA (POCT) Yellow [facility] GLUCOSE UA (POCT) Negative Negative mg/dL [facility] HEMOGLOBIN/BLOOD UA (POCT) Negative Negative [facility] KETONE UA (POCT) Trace Negative mg/dL [facility] LEUKOCYTES [facility] (POCT) [facility] NITRITE UA (POCT) Negative Negative [facility] PH UA (POCT) 6.0 4.5 - 8.0 [facility] Protein Ql (U) 30 mg/dL Abnormal Negative mg/dL [facility] SPECIFIC GRAVITY UA (POCT) 1.010 1.005 - 1.030 [facility] UROBILINOGEN UA (POCT) 0.2 E.U./dL Normal E.U./dL [facility] XR FOOT GENERAL 3V AP/LAT/OB L RIGHTon 01-05-2022 [facility] XR Foot - right AP and Later al and obliqueon 01-05-2022 IMPRESSION: Calcaneal spurs. No acute bony process. Medical Administrative: JOSE Transcribe Date/Time: Jan 05 2022 5:11P Dictated by : CHIQUIS JAY MD This examination was interpreted and the report reviewed and electronically signed by: CHIQUIS JAY MD on Jan 05 2022 5:15PM [facility] DIVISION OF RADIOLOGY * * *Final Report* * * DATE OF EXAM: Jan 05 2022 5:09PM WOX [id number] - XR FOOT 3V AP/LAT/OBL RT / PROCEDURE REASON: Right foot pain * * * * Physician Interpretation * * * * EXAMINATION: XR FOOT 3V AP/LAT/OBL RT HISTORY: Right foot pain. Medial arch and heel pain. TECHNIQUE: XR FOOT 3V AP/LAT/OBL RT Laterality: RIGHT Number of different views (projections): 3 M: XB_1 COMPARISON: Comparison is made to prior foot study dated 15 May 2006 RESULT: Standing frontal radiographs of the bilateral feet with oblique and lateral weightbearing views of the right foot show no acute osseous, articular or soft tissue process. Joint spaces are preserved and there are no erosive changes. Lateral view demonstrates moderately large calcaneal spurs at the plantar fascial Achilles tendon insertions. DIVISION OF RADIOLOGY Provider, [facility] Demarco Jasmine - 01/05/2022 * * *Final Report* * * DATE OF EXAM: Jan 05 2022 5:09PM WOX [id number] - XR FOOT 3V AP/LAT/OBL RT / PROCEDURE REASON: Right foot pain * * * * Physician Interpretation * * * * EXAMINATION: XR FOOT 3V AP/LAT/OBL RT HISTORY: Right foot pain. Medial arch and heel pain. TECHNIQUE: XR FOOT 3V AP/LAT/OBL RT Laterality: RIGHT Number of different views (projections): 3 M: XB_1 COMPARISON: Comparison is made to prior foot study dated 15 May 2006 RESULT: Standing frontal radiographs of the bilateral feet with oblique and lateral weightbearing views of the right foot show no acute osseous, articular or soft tissue process. Joint spaces are preserved and there are no erosive changes. Lateral view demonstrates moderately large calcaneal spurs at the plantar fascial Achilles tendon insertions. IMPRESSION IMPRESSION: Calcaneal spurs. No acute bony process. Medical Administrative: PSCB Transcribe Date/Time: Jan 05 2022 5:11P Dictated by : CHIQUIS JAY MD This examination was interpreted and the report reviewed and electronically signed by: CHIQUIS JAY MD on Jan 05 2022 5:15PM EST [facility] Radiology Study observation (narrative) [facility] XR Foot - right AP and Later al and obliqueOrdered By: [facility] Provider on 01-05-2022 [facility] CBC panel Auto (Bld)on 10-04 Erythrocyte distribution width (RBC) [Ratio] 13.2 % 11.5 - 15.0 % [facility] Hematocrit (Bld) [Volume fraction] 43.9 % 36.0 - 46.0 % [facility] Hemoglobin (Bld) [Mass/Vol] 13.9 g/dL 11.5 - 15.5 g/dL [facility] MCH (RBC) [Entitic mass] 26.1 pg 26.0 - 34.0 pg [facility] MCHC (RBC) [Mass/Vol] 31.7 g/dL 30.5 - 36.0 g/dL [facility] MCV (RBC) [Entitic vol] 82.5 fL 80.0 - 100.0 fL [facility] Nucleated RBC (Bld) [#/Vol] 10*3/uL <0.01 k/uL [facility] Platelet mean volume (Bld) [Entitic vol] 10.4 fL 9.0 - 12.7 fL [facility] Platelets (Bld) [#/Vol] 347 10*3/uL 150 - 400 k/uL [facility] RBC (Bld) [#/Vol] 5.32 10*6/uL High 3.90 - 5.20 m/uL [facility] WBC (Bld) [#/Vol] 7.35 10*3/uL 3.70 - 11.00 k/uL [facility] Comprehensive metabolic 2000 panelon 10-04-2021 Albumin [Mass/Vol] 4.5 g/dL 3.9 - 4.9 g/dL [facility] ALP [Catalytic activity/Vol] 95 U/L 34 - 123 U/L [facility] ALT [Catalytic activity/Vol] 22 U/L 7 - 38 U/L [facility] Anion gap [Moles/Vol] 10 mmol/L 9 - 18 mmol/L [facility] AST [Catalytic activity/Vol] 21 U/L 13 - 35 U/L [facility] Bilirubin [Mass/Vol] 0.3 mg/dL 0.2 - 1 .3 mg/dL [facility] Calcium [Mass/Vol] 9.9 mg/dL 8.5 - 10. 2 mg/dL [facility] Chloride [Moles/Vol] 105 mmol/L 97 - 10 5 mmol/L [facility] CO2 [Moles/Vol] 25 mmol/L 22 - 30 mmol/L [facility] Creatinine [Mass/Vol] 0.82 mg/dL 0.58 - 0.96 mg/dL [facility] Estimated Glomerular Filtration Rate 94 mL/min/1.73m >=60 mL/min/1.7 3m [facility] Glucose [Mass/Vol] 101 mg/dL High 74 - 99 mg/dL [facility] Potassium [Moles/Vol] 3.9 mmol/L 3.7 - 5.1 mmol/L [facility] Protein [Mass/Vol] 7.6 g/dL 6.3 - 8.0 g/dL [facility] Sodium [Moles/Vol] 140 mmol/L 136 - 144 mmol/L [facility] Urea nitrogen [Mass/Vol] 24 mg/dL High 7 - 21 mg/dL [facility] T3 FREE BLDon 10-04-2021 Free T3 [Mass/Vol] 2.9 pg/mL 2.3 - 4.1 pg/mL [facility] T4 FREE/FREE THYROXon 2021 Free T4 [Mass/Vol] 1.1 ng/dL 0.9 - 1.7 ng/dL [facility] TSH BLDon 10-04-2021 TSH Qn 6.680 m[IU]/L High 0.270 - 4.200 mIU/L [facility] VITAMIN D 25 HYDROXYon 10-04 25-hydroxyvitamin D3 [Mass/Vol] 42.7 ng/mL 31.0 - 80.0 ng/mL [facility] ORon 08-29-2018 OPERATIVE REPORT Normal [facility] [place] OR DATE OF SERVICE: PREOPERATIVE DIAGNOSES: Adhesive capsulitis, impingement syndrome of the right shoulder. POSTOPERATIVE DIAGNOSES: Adhesive capsulitis, impingement syndrome of the right shoulder with partial thickness less than 20% tear of the subscapularis tendon. OPERATION: Exam under anesthesia, manipulation under anesthesia, diagnostic and operative arthroscopy of the right shoulder with extensive intra-articular and extra-articular debridement and subacromial decompression. SURGEON: Daniel Cee DO ASSISTANTS: Guerrero Chau, PGY5, Fang Caballero PA-C. ANESTHESIA: General with interscalene block for postoperative pain management. ESTIMATED BLOOD LOSS: Minimal. COMPLICATIONS: None. INDICATIONS: Nimisha is a 33-year-old white female with significant improvements with inflammatory processes involving her entire body, has had substantial problems with restricted motion and adhesive capsulitis that is chronic of the right shoulder without improvement with conservative modalities including physical therapy and injections. She is here for surgical intervention. We did discuss the procedure, risks, benefits, postoperative management, and rehabilitation efforts required postoperatively. She is aware of that and consent was signed. PROCEDURE: The patient was brought down to the OR, placed in a supine position with all bony prominences well padded. After induction of general anesthesia, exam and manipulation were performed under anesthesia. The 3 portals were infiltrated with 0.5 Marcaine with epinephrine; 20 mL were utilized. The right shoulder was then sterilely prepped and draped in the usual orthopedic fashion. A posterior portal was made. Then, under direct visualization, the anterior portal was made, intra-articularly revealed a significant amount of inflammatory processes anteriorly with a partial tear of the superior 20% of the subscapularis from the humeral head attachment. Biceps anchoring mechanism was intact. There were no abnormalities of the supraspinatus and infraspinatus tendons. We extensively debrided the adhesions, did a capsulorrhaphy. We then put the scope in the subacromial space and made a lateral portal. Here, we found a significant amount of inflammatory bursitis and adhesions in the subacromial chamber. These were extensively debrided until the rotator cuff mechanism was observed. Palpation produced no abnormalities. We then released the coracoacromial ligament. This exposed a downward sloping acromion and [facility] REC #: [id number] [place] [address] ADMIT DATE: DISCHARGE DATE: OPERATIVE REPORT ATTENDING PHY: Daniel Cee DO utilizing a 5.5 acromionizer bur through the lateral portal subacromial decompression was performed. No AC joint violation was noted. Instruments were removed. The 3 portals were closed with 4-0 nylon suture followed by a bulky dressing and a sling for comfortable. The patient tolerated the procedure quite well, was brought up out of anesthesia, transported to her bed and to the recovery room in stable condition. Daniel Cee DO [id number] SSI File#: [id number] Verified/Reviewed by 08/30/18 0842 LYKMI [facility] PATIENT [facility] MEDICAL REC #: [id number] [place] [id number] ADMIT DATE: DISCHARGE DATE: OPERATIVE REPORT ATTENDING PHY: Daniel Cee DO Normal [facility] URINE PREGNANCYon 08-29-2018 HCG.beta subunit ( test) Ql (U) Negative Normal NEGATIVE [facility] Comment on above: Order Comment: Jamaalu s: M Performed By: #### L [id number] #### [facility] [address] [id number] UR SPEC GRAV 1.025 Normal 1.005-1.03 0 [facility] Comment on above: Order Comment: Jamaalu s: M Performed By: #### L [id number] #### [facility] [id number] Basic Metabolic Panlon 08-15 Anion gap molar conc 11 mmol/L Normal 9-18 [facility] Comment on above: Performed By: #### B MP #### [facility] Routine Lab [address] [address] Calcium mass conc 9.6 mg/dL Normal 8.5-10.2 [facility] Comment on above: Performed By: #### B MP #### [facility] Routine Lab [address] [place] [address] Chloride molar conc 104 mmol/L Normal 97-105 [facility] Reference [facility] Comment on above: Performed By: #### B MP #### [facility] Routine Lab [address] [place], [place] [address] CO2 molar conc 23 mmol/L Normal 22-30 [facility] Reference Lab Comment on above: Performed By: #### B MP #### [facility] Routine Lab [address] [place], [place] [address] Creatinine mass conc 0.88 mg/dL Normal 0.58-0.96 [facility] Comment on above: Performed By: #### B MP #### [facility] Routine Lab [address] [place], [place] [address] eGFR- Amer. >60 Normal [facility] Reference Lab Comment on above: Performed By: #### B MP #### [facility] Routine Lab [address] [place], [place] [id number] GFR/1.73 sq M predicted among non-blacks MDRD vol rate/area (S/P/Bld) mL/min/{1.73_m2} Normal [facility] Reference Lab Comment on above: Performed By: #### B MP #### [facility] Routine Lab [address] [place] [address] Glucose mass conc 100 mg/dL High 74-99 [facility] Reference Lab Comment on above: Performed By: #### B MP #### [facility] Routine Lab [address] [place] [address] Potassium molar conc 3.8 mmol/L Normal 3.7-5.1 [facility] Comment on above: Performed By: #### B MP #### [facility] Routine Lab [address] [place] [address] Sodium molar conc 138 mmol/L Normal 136-144 [facility] Reference [facility] Comment on above: Performed By: #### B MP #### [facility] Routine Lab [address] [place] [id number] Urea nitrogen mass conc 18 mg/dL Normal 7-21 [facility] Reference Lab Comment on above: Performed By: #### B MP #### [facility] Routine Lab [address] [place] [address] Vital Signs Date Time Vital Sign Value Performing Clinician Facility 10-30-2024 12:01-0400 Body mass index (BMI) [Ratio] 45.41 kg/m2 Jude Moore APRN.SEBD TEACHER Work Phone: [facility] 10-30-2024 12:01-0400 Body weight 120 kg Jude Moore SENIOR MAINFRAME PROGRAMMER ANALYST.SEBD TEACHER Work Phone: [facility] 10-30-2024 12:01-0400 Diastolic blood pressure 82 mm[Hg] Jude Moore SENIOR MAINFRAME PROGRAMMER ANALYST.SEBD TEACHER Work Phone: [facility] 10-30-2024 12:01-0400 Heart rate 69 /min Jude Moore SENIOR MAINFRAME PROGRAMMER ANALYST.SEBD TEACHER Work Phone: [facility] 10-30-2024 12:01-0400 Respiratory rate 16 /min Jude Moore SENIOR MAINFRAME PROGRAMMER ANALYST.SEBD TEACHER Work Phone: [facility] 10-30-2024 12:01-0400 Systolic blood pressure 117 mm[Hg] Jude Moore SENIOR MAINFRAME PROGRAMMER ANALYST.SEBD TEACHER Work Phone: [facility] 08-24-2024 15:04-0400 Diastolic blood pressure 81 mm[Hg] Meek Li MD Work Phone: [facility] 08-24-2024 15:04-0400 Heart rate 74 /min Meek Li MD Work Phone: [facility] 08-24-2024 15:04-0400 Respiratory rate 18 /min Meek Li MD Work Phone: [facility] 08-24-2024 15:04-0400 SaO2% (BldA) [Mass fraction] 96 % Meek Li MD Work Phone: [facility] 08-24-2024 15:04-0400 Systolic blood pressure 125 mm[Hg] Meek Li MD Work Phone: [facility] 08-09-2024 11:52-0400 Body mass index (BMI) [Ratio] 46.47 kg/m2 Krislyn Aberegg PA Work Phone: [facility] 08-09-2024 11:52-0400 Body temperature 97.9 [degF] Krislyn Aberegg PA Work Phone: [facility] 08-09-2024 11:52-0400 Body weight 122.8 kg Krislyn Aberegg PA Work Phone: [facility] 08-09-2024 11:52-0400 Diastolic blood pressure 82 mm[Hg] Krislyn Aberegg PA Work Phone: [facility] 08-09-2024 11:52-0400 Heart rate 66 /min Krislyn Aberegg PA Work Phone: [facility] 08-09-2024 11:52-0400 Respiratory rate 16 /min Krislyn Aberegg PA Work Phone: [facility] 08-09-2024 11:52-0400 SaO2% (BldA) [Mass fraction] 97 % Krislyn Aberegg PA Work Phone: [facility] 08-09-2024 11:52-0400 Systolic blood pressure 142 mm[Hg] Krislyn Aberegg PA Work Phone: [facility] 07-28-2024 15:25-0400 Body height 162.6 cm Anila Campos MD Work Phone: [facility] 07-28-2024 15:25-0400 Body mass index (BMI) [Ratio] 45.79 kg/m2 Anila Campos MD Work Phone: [facility] 07-28-2024 15:25-0400 Body weight 121 kg Anila Campos MD Work Phone: [facility] 07-28-2024 15:25-0400 Diastolic blood pressure 80 mm[Hg] Anila Campos MD Work Phone: [facility] 07-28-2024 15:25-0400 Heart rate 78 /min Anila Campos MD Work Phone: [facility] 07-28-2024 15:25-0400 Respiratory rate 16 /min Anila Campos MD Work Phone: [facility] 07-28-2024 15:25-0400 Systolic blood pressure 140 mm[Hg] Anila Campos MD Work Phone: [facility] 07-16-2024 15:11-0500 Heart rate 72 /min Bonnie Prebish SENIOR MAINFRAME PROGRAMMER ANALYST.PLATE MAKER Work Phone: [facility] 07-16-2024 15:11-0500 Respiratory rate 16 /min Bonnie Prebish SENIOR MAINFRAME PROGRAMMER ANALYST.PLATE MAKER Work Phone: [facility] 07-16-2024 15:11-0500 SaO2% (BldA) [Mass fraction] 96 % Bonnie Prebish SENIOR MAINFRAME PROGRAMMER ANALYST.PLATE MAKER Work Phone: [facility] 07-13-2024 13:10-0500 Diastolic blood pressure 78 mm[Hg] Meek Li MD Work Phone: [facility] 07-13-2024 13:10-0500 Heart rate 71 /min Meek Li MD Work Phone: [facility] 07-13-2024 13:10-0500 Respiratory rate 18 /min Meek Li MD Work Phone: [facility] 07-13-2024 13:10-0500 SaO2% (BldA) [Mass fraction] 96 % Meek Li MD Work Phone: [facility] 07-13-2024 13:10-0500 Systolic blood pressure 119 mm[Hg] Meek Li MD Work Phone: [facility] 07-02-2024 15:20-0500 Heart rate 72 /min Bonnie Prebish SENIOR MAINFRAME PROGRAMMER ANALYST.PLATE MAKER Work Phone: [facility] 07-02-2024 15:20-0500 Respiratory rate 16 /min Bonnie Prebish SENIOR MAINFRAME PROGRAMMER ANALYST.PLATE MAKER Work Phone: [facility] 07-02-2024 15:20-0500 SaO2% (BldA) [Mass fraction] 98 % Bonnie Prebish SENIOR MAINFRAME PROGRAMMER ANALYST.PLATE MAKER Work Phone: [facility] 07-01-2024 10:48-0500 Diastolic blood pressure 89 mm[Hg] Meek Li MD Work Phone: [facility] 07-01-2024 10:48-0500 Heart rate 65 /min Meek Li MD Work Phone: [facility] 07-01-2024 10:48-0500 Respiratory rate 16 /min Meek Li MD Work Phone: [facility] 07-01-2024 10:48-0500 SaO2% (BldA) [Mass fraction] 97 % Meek Li MD Work Phone: [facility] 07-01-2024 10:48-0500 Systolic blood pressure 135 mm[Hg] Meek Li MD Work Phone: [facility] 04-30-2024 14:30-0500 Diastolic blood pressure 91 mm[Hg] Anila Campos MD Work Phone: [facility] 04-30-2024 14:30-0500 Heart rate 62 /min Anila Campos MD Work Phone: [facility] 04-30-2024 14:30-0500 Systolic blood pressure 158 mm[Hg] Anila Campos MD Work Phone: [facility] 04-30-2024 14:27-0500 Body mass index (BMI) [Ratio] 46.71 kg/m2 Anila Campos MD Work Phone: [facility] 04-30-2024 14:27-0500 Body temperature 97.39 [degF] Anila Campos MD Work Phone: [facility] 04-30-2024 14:27-0500 Body weight 119.6 kg Anila Campos MD Work Phone: [facility] 04-30-2024 14:27-0500 Respiratory rate 16 /min Anila Campos MD Work Phone: [facility] 04-30-2024 14:27-0500 SaO2% (BldA) [Mass fraction] 97 % Anila Campos MD Work Phone: [facility] 04-23-2024 15:36-0500 Heart rate 65 /min Bonnie Prebish SENIOR MAINFRAME PROGRAMMER ANALYST.PLATE MAKER Work Phone: [facility] 04-23-2024 15:36-0500 Respiratory rate 16 /min Bonnie Prebish SENIOR MAINFRAME PROGRAMMER ANALYST.PLATE MAKER Work Phone: [facility] 04-23-2024 15:36-0500 SaO2% (BldA) [Mass fraction] 96 % Bonnie Prebish SENIOR MAINFRAME PROGRAMMER ANALYST.PLATE MAKER Work Phone: [facility] 03-31-2024 13:54-0500 Body height 160 cm [facility] SENIOR MAINFRAME PROGRAMMER ANALYST.PLATE MAKER Work Phone: [facility] 03-31-2024 13:54-0500 Body mass index (BMI) [Ratio] 45.53 kg/m2 [facility] SENIOR MAINFRAME PROGRAMMER ANALYST.PLATE MAKER Work Phone: [facility] 03-31-2024 13:54-0500 Body weight 116.57 kg [facility] SENIOR MAINFRAME PROGRAMMER ANALYST.PLATE MAKER Work Phone: [facility] 01-29-2024 15:51-0400 Body mass index (BMI) [Ratio] 45.54 kg/m2 Anila Campos MD Work Phone: [facility] 01-29-2024 15:51-0400 Body weight 116.6 kg Anila Campos MD Work Phone: [facility] 01-29-2024 15:51-0400 Diastolic blood pressure 81 mm[Hg] Anila Campos MD Work Phone: [facility] 01-29-2024 15:51-0400 Heart rate 94 /min Anila Campos MD Work Phone: [facility] 01-29-2024 15:51-0400 SaO2% (BldA) [Mass fraction] 97 % Anila Campos MD Work Phone: [facility] 01-29-2024 15:51-0400 Systolic blood pressure 133 mm[Hg] Anila Campos MD Work Phone: [facility] 11-05-2023 15:16-0400 Body mass index (BMI) [Ratio] 45.35 kg/m2 Nadine Johny SENIOR MAINFRAME PROGRAMMER ANALYST.PLATE MAKER Work Phone: [facility] 11-05-2023 15:16-0400 Body weight 116.12 kg Nadine Johny SENIOR MAINFRAME PROGRAMMER ANALYST.PLATE MAKER Work Phone: [facility] 11-05-2023 15:16-0400 Diastolic blood pressure 86 mm[Hg] Nadine Johny SENIOR MAINFRAME PROGRAMMER ANALYST.PLATE MAKER Work Phone: [facility] 11-05-2023 15:16-0400 Heart rate 70 /min Nadine Johny SENIOR MAINFRAME PROGRAMMER ANALYST.PLATE MAKER Work Phone: [facility] 11-05-2023 15:16-0400 SaO2% (BldA) [Mass fraction] 98 % Nadine Johny SENIOR MAINFRAME PROGRAMMER ANALYST.PLATE MAKER Work Phone: [facility] 11-05-2023 15:16-0400 Systolic blood pressure 124 mm[Hg] Nadine Johny SENIOR MAINFRAME PROGRAMMER ANALYST.PLATE MAKER Work Phone: [facility] 09-27-2023 11:19-0400 Body height 160 cm Anila Campos MD Work Phone: [facility] 09-27-2023 11:19-0400 Body mass index (BMI) [Ratio] 44.99 kg/m2 Anila Campos MD Work Phone: [facility] 09-27-2023 11:19-0400 Body weight 115.21 kg Anila Campos MD Work Phone: [facility] 09-27-2023 11:19-0400 Diastolic blood pressure 72 mm[Hg] Anila Campos MD Work Phone: [facility] 09-27-2023 11:19-0400 Heart rate 72 /min Anila Campos MD Work Phone: [facility] 09-27-2023 11:19-0400 Respiratory rate 14 /min Anila Campos MD Work Phone: [facility] 09-27-2023 11:19-0400 SaO2% (BldA) [Mass fraction] 96 % Anila Campos MD Work Phone: [facility] 09-27-2023 11:19-0400 Systolic blood pressure 128 mm[Hg] Anila Campos MD Work Phone: [facility] 07-30-2023 15:34-0400 Body height 160 cm Nadine Johny SENIOR MAINFRAME PROGRAMMER ANALYST.PLATE MAKER Work Phone: [facility] 07-30-2023 15:34-0400 Body weight 115.49 kg Nadine Johny SENIOR MAINFRAME PROGRAMMER ANALYST.PLATE MAKER Work Phone: [facility] 07-30-2023 15:34-0400 Diastolic blood pressure 80 mm[Hg] Nadine Johny SENIOR MAINFRAME PROGRAMMER ANALYST.PLATE MAKER Work Phone: [facility] 07-30-2023 15:34-0400 Respiratory rate 16 /min Nadine Johny SENIOR MAINFRAME PROGRAMMER ANALYST.PLATE MAKER Work Phone: [facility] 07-30-2023 15:34-0400 Systolic blood pressure 134 mm[Hg] Nadine Johny SENIOR MAINFRAME PROGRAMMER ANALYST.PLATE MAKER Work Phone: [facility] 11-01-2022 13:17-0400 Body weight 119.3 kg Jude Moore SENIOR MAINFRAME PROGRAMMER ANALYST.SEBD TEACHER Work Phone: [facility] 11-01-2022 13:17-0400 Diastolic blood pressure 88 mm[Hg] Jude Moore SENIOR MAINFRAME PROGRAMMER ANALYST.SEBD TEACHER Work Phone: [facility] 11-01-2022 13:17-0400 Heart rate 73 /min Jude Moore SENIOR MAINFRAME PROGRAMMER ANALYST.SEBD TEACHER Work Phone: [facility] 11-01-2022 13:17-0400 Respiratory rate 16 /min Jude Moore SENIOR MAINFRAME PROGRAMMER ANALYST.SEBD TEACHER Work Phone: [facility] 11-01-2022 13:17-0400 SaO2% (BldA) [Mass fraction] 96 % Jude Moore SENIOR MAINFRAME PROGRAMMER ANALYST.SEBD TEACHER Work Phone: [facility] 11-01-2022 13:17-0400 Systolic blood pressure 122 mm[Hg] Jude Moore SENIOR MAINFRAME PROGRAMMER ANALYST.SEBD TEACHER Work Phone: [facility] 07-10-2022 03:04-0500 Body height 160.02 cm [facility] 07-10-2022 03:04-0500 Body mass index (BMI) [Ratio] 46.4 kg/m2 [facility] 07-10-2022 03:04-0500 Body temperature 98.3 [degF] [facility] 07-10-2022 03:04-0500 Body weight 118.9 kg [facility] 07-10-2022 03:04-0500 Diastolic blood pressure 139 mm[Hg] [facility] 07-10-2022 03:04-0500 Heart rate 73 /min [facility] 07-10-2022 03:04-0500 Respiratory rate 16 /min [facility] 07-10-2022 03:04-0500 SaO2% (BldA) [Mass fraction] 97 % [facility] 07-10-2022 03:04-0500 Systolic blood pressure 154 mm[Hg] [facility] 05-31-2022 17:14-0500 Body temperature 98.91 [degF] Cynthia Praisler-Wood SENIOR MAINFRAME PROGRAMMER ANALYST.PLATE MAKER Work Phone: [facility] 05-31-2022 17:14-0500 Diastolic blood pressure 86 mm[Hg] Cynthia Praisler-Wood SENIOR MAINFRAME PROGRAMMER ANALYST.PLATE MAKER Work Phone: [facility] 05-31-2022 17:14-0500 Heart rate 110 /min Cynthia Praisler-Wood SENIOR MAINFRAME PROGRAMMER ANALYST.PLATE MAKER Work Phone: [facility] 05-31-2022 17:14-0500 Respiratory rate 18 /min Cynthia Praisler-Wood SENIOR MAINFRAME PROGRAMMER ANALYST.PLATE MAKER Work Phone: [facility] 05-31-2022 17:14-0500 SaO2% (BldA) [Mass fraction] 98 % Cynthia Praisler-Wood SENIOR MAINFRAME PROGRAMMER ANALYST.PLATE MAKER Work Phone: [facility] 05-31-2022 17:14-0500 Systolic blood pressure 128 mm[Hg] Cynthia Praisler-Wood SENIOR MAINFRAME PROGRAMMER ANALYST.PLATE MAKER Work Phone: [facility] 03-21-2022 08:40-0500 Body weight 122.47 kg Anila Campos MD Work Phone: [facility] 03-21-2022 08:40-0500 Diastolic blood pressure 88 mm[Hg] Anila Campos MD Work Phone: [facility] 03-21-2022 08:40-0500 Heart rate 72 /min Anila Campos MD Work Phone: [facility] 03-21-2022 08:40-0500 SaO2% (BldA) [Mass fraction] 97 % Anila Campos MD Work Phone: [facility] 03-21-2022 08:40-0500 Systolic blood pressure 138 mm[Hg] Anila Campos MD Work Phone: [facility] 01-05-2022 15:33-0400 Body weight 124.56 kg Anila Campos MD Work Phone: [facility] 01-05-2022 15:33-0400 Diastolic blood pressure 88 mm[Hg] Anila Campos MD Work Phone: [facility] 01-05-2022 15:33-0400 Heart rate 70 /min Anila Campos MD Work Phone: [facility] 01-05-2022 15:33-0400 Systolic blood pressure 134 mm[Hg] Anila Campos MD Work Phone: [facility] 10-03-2021 14:49-0400 Body weight 122.47 kg Anila Campos MD Work Phone: [facility] 10-03-2021 14:49-0400 Diastolic blood pressure 90 mm[Hg] Anila Campos MD Work Phone: [facility] 10-03-2021 14:49-0400 Heart rate 76 /min Anila Campos MD Work Phone: [facility] 10-03-2021 14:49-0400 Systolic blood pressure 132 mm[Hg] Anila Campos MD Work Phone: [facility] Encounters Encounter Date Encounter Type Care Provider Facility Start: 11-09-2024 ambulatory Anila Campos Facilit y:[facility] Start: 11-02-2024 End: 11-02-2024 Follow-up encounter Jude Moore APRN.SEBD TEACHER Work Phone: [facility] [place] Start: 10-31-2024 ambulatory UNKNOWN PROVIDER Facili ty:[facility] Start: 10-31-2024 End: 10-31-2024 Subsequent hospital visit by physician Ct [facility] Radiology Comment on above: UTI symptoms [R39.9] Start: 10-30-2024 End: 10-30-2024 Office outpatient visit 25 minutes Jude Moore APRN.SEBD TEACHER Work Phone: [facility] [place] Comment on above: UTI symptoms (Primar y Dx); History of kidney stones; Acute left flank pain; Nausea; Family history of kidney stone Start: 10-30-2024 End: 10-30-2024 ambulatory Anila Campos MD Work Phone: [facility] [place] Comment on above: UTI Start: 10-19-2024 End: 10-19-2024 Office outpatient visit 25 minutes Anila Campos MD Work Phone: [facility] [place] Comment on above: Brachial neuritis of left upper extremity (Primary Dx); Primary osteoarthritis of both knees; Generalized OA; Plantar fasciitis of right foot; Chronic midline low back pain with bilateral sciatica; Kidney stone; Morbid obesity with BMI of 45.0-49.9, adult (HCC) Start: 10-19-2024 End: 10-19-2024 ambulatory ANILA CAMPOS Facility:[facility] Start: 09-23-2024 ambulatory ANILA CAMPOS Facilit y:[facility] Start: 09-23-2024 End: 09-23-2024 Subsequent hospital visit by physician Diagnostic Mammo [facility] M[facility] Comment on above: Mass of upper inner quadrant of right breast [N63.12] Start: 09-10-2024 End: 09-10-2024 Telephone encounter Bonnie Prebish SENIOR MAINFRAME PROGRAMMER ANALYST.PLATE MAKER Work Phone: [facility] [place] Comment on above: Appointment Start: 09-10-2024 End: 09-10-2024 Patient encounter procedure Bonnie Ricks APRN.PLATE MAKER Work Phone: [facility] Comment on above: Spinal stenosis of l umbar region with neurogenic claudication (Primary Dx); 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 or lower extremity pain; Lumbosacral spondylosis without myelopathy Start: 09-10-2024 End: 09-10-2024 Telemedicine consultation with patient Bonnie Ricks APRN.PLATE MAKER Work Phone: [facility] Start: 09-10-2024 End: 09-10-2024 ambulatory BONNIE RICKS Facility:[facility] Start: 08-24-2024 End: 08-24-2024 Patient encounter procedure Meek Li MD Work Phone: [facility] [place] Start: 08-24-2024 End: 08-24-2024 ambulatory Meek Li MD Work Phone: [facility] [place] Comment on above: Procedure (ilesi); B ack Pain (Lower - bilateral - left is worse) Start: 08-09-2024 End: 08-09-2024 ambulatory ANILA CAMPOS Facility:[facility] Start: 08-09-2024 End: 08-09-2024 Office outpatient visit 15 minutes Des GALICIA Work Phone: [facility] Comment on above: Not up to date with diphtheria-tetanus vaccination (Primary Dx); Abrasion of left hand, initial encounter Start: 07-29-2024 End: 07-29-2024 Refill Anila Campos MD Work Phone: [facility] [place] Comment on above: Med Change Request Start: 07-28-2024 End: 07-28-2024 ambulatory ANILA CAMPOS Facility:[facility] Start: 07-28-2024 End: 07-28-2024 Patient encounter status Anila Campos MD Work Phone: [facility] Start: 07-28-2024 End: 07-28-2024 Periodic preventive med est patient 40-64yrs Anila Campos MD Work Phone: [facility] [place] Comment on above: Routine medical exam (Primary Dx); Generalized OA; Primary insomnia; Primary osteoarthritis of both knees; Morbid obesity with BMI of 45.0-49.9, adult (HCC); Plantar fasciitis of right foot; Chronic midline low back pain with bilateral sciatica; Kidney stone; Chronic rhinitis; Mass of upper inner quadrant of right breast; Encounter for long-term current use of medication; Elevated TSH; Vitamin D deficiency Start: 07-16-2024 End: 07-16-2024 Patient encounter procedure Bonnie Ricks APRN.CNP Work Phone: [facility] Comment on above: Spinal stenosis of l umbar region with neurogenic claudication (Primary Dx); 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 or lower extremity pain; Lumbosacral spondylosis without myelopathy Start: 07-16-2024 End: 07-16-2024 ambulatory ANILA CAMPOS Facility:[facility] Start: 07-16-2024 End: 07-16-2024 Telephone encounter Bonnie Ricks APRN.CNP Work Phone: [facility] Comment on above: Injections Start: 07-13-2024 End: 07-13-2024 Patient encounter procedure Meek Li MD Work Phone: [facility] [place] Start: 07-13-2024 End: 07-13-2024 ambulatory Meek Li MD Work Phone: [facility] [place] Comment on above: Procedure (MBB L3-4 4-5) Start: 07-07-2024 End: 08-07-2024 ambulatory Anila Campos MD Work Phone: [facility] [place] Start: 07-03-2024 End: 07-03-2024 Telephone encounter Meek Li MD Work Phone: [facility] [place] Comment on above: Procedure Follow Up (MBB) Start: 07-02-2024 End: 07-02-2024 Patient encounter procedure Bonnie Renee FALUKNERN.PLATE MAKER Work Phone: [facility] Comment on above: Lumbosacral spondylo sis without myelopathy (Primary Dx); 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 or lower extremity pain; Spinal stenosis of lumbar region with neurogenic claudication Start: 07-02-2024 End: 07-02-2024 ambulatory ANILA CAMPOS Facility:[facility] Start: 07-01-2024 End: 07-01-2024 Patient encounter procedure Meek Li MD Work Phone: [facility] Start: 07-01-2024 End: 07-01-2024 ambulatory Meek Li MD Work Phone: [facility] [place] Comment on above: Procedure (MBB) Start: 2024 End: 2024 Refill Anila Campos MD Work Phone: [facility] [place] Comment on above: Refill Request Start: 05-27-2024 End: 06-15-2024 ambulatory Anila Campos MD Work Phone: [facility] [place] Start: 05-27-2024 End: 06-15-2024 Patient encounter procedure Anila Campos MD Work Phone: [facility] [place] Comment on above: [facility] Start: 05-07-2024 End: 05-07-2024 Telephone encounter Bonnie Renee FAULKNERN.PLATE MAKER Work Phone: [facility] [place] Comment on above: Injections (Question s ) Start: 05-05-2024 End: 05-05-2024 Telemedicine consultation with patient Bonnie Brandilavell SENIOR MAINFRAME PROGRAMMER ANALYST.PLATE MAKER Work Phone: [facility] [place] Start: 05-05-2024 End: 05-05-2024 ambulatory Bonnie Renee SENIOR MAINFRAME PROGRAMMER ANALYST.PLATE MAKER Work Phone: [facility] [place] Comment on above: Chronic midline thor acic back pain (Primary Dx); 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 or lower extremity pain; Lumbosacral spondylosis without myelopathy Start: 05-04-2024 End: 05-15-2024 Refill Anila Campos MD Work Phone: [facility] [place] Comment on above: Refill Request Start: 05-02-2024 End: 05-04-2024 ambulatory Anila Campos MD Work Phone: [facility] [place] Comment on above: Medication sent to [facility] Start: 04-30-2024 End: 04-30-2024 ambulatory ANILA CAMPOS Facility:[facility] Start: 04-30-2024 End: 04-30-2024 Office outpatient visit 25 minutes Anila Campos MD Work Phone: [facility] [place] Comment on above: Pneumonia of right u pper lobe due to infectious organism (Primary Dx); Depression, unspecified depression type; Generalized OA; Elevated TSH; Gastritis without bleeding, unspecified chronicity, unspecified gastritis type; Primary osteoarthritis of both knees; Anxiety; Migraine without aura and without status migrainosus, not intractable; Morbid obesity with BMI of 45.0-49.9, adult (HCC); Plantar fasciitis of right foot; Chronic midline low back pain with bilateral sciatica; Kidney stone; Epidural lipomatosis Start: 04-29-2024 End: 04-29-2024 Telephone encounter Dasha Garcia APRN.PLATE MAKER Work Phone: [facility] Comment on above: Results Start: 04-28-2024 End: 04-28-2024 ambulatory SANDY GARRETT DARIANA Facility:[facility] Start: 04-28-2024 End: 04-28-2024 Subsequent hospital visit by physician Mri Radio [facility] (I-Stat/1.5t) Work Phone: Radiology Comment on above: Spinal stenosis of l umbar region with neurogenic claudication [M48.062] Acute cough [R05.1] Start: 04-28-2024 End: 04-28-2024 Telephone encounter Dasha Garcia APRN.PLATE MAKER Work Phone: [facility] Comment on above: Results Insurance Authorizat ion Start: 04-26-2024 End: 04-26-2024 ambulatory ANILA D TALAMPAS Facility:[facility] Start: 04-23-2024 End: 04-23-2024 Patient encounter procedure Bonnie Pazlavell GAMEZ.PLATE MAKER Work Phone: [facility] Comment on above: Chronic midline thor acic back pain (Primary Dx); Lumbosacral spondylosis without myelopathy; Spinal stenosis of lumbar region with neurogenic claudication Start: 04-23-2024 End: 04-23-2024 ambulatory ANILA D TALAMPAS Facility:[facility] Start: 04-22-2024 End: 04-24-2024 Refill Anila Campos MD Work Phone: [facility] [place] Comment on above: Refill Request Start: 04-13-2024 End: 04-13-2024 ambulatory Sandy Bhardwaj APRN.PLATE MAKER Work Phone: [facility] [place] Comment on above: MRI Start: 04-13-2024 End: 04-13-2024 Subsequent hospital visit by physician Xr [facility] [place] Work Phone: Radiology Comment on above: Chronic midline thor acic back pain [M54.6, G89.29] Start: 04-01-2024 End: 04-01-2024 Telephone encounter Sandy Bhardwaj APRN.CNP Work Phone: [facility] [place] Comment on above: Appointment Start: 03-31-2024 End: 03-31-2024 Telemedicine consultation with patient Sandy Bhardwaj APRN.PLATE MAKER Work Phone: [facility] [place] Start: 03-31-2024 End: 03-31-2024 ambulatory Sandy Bhardwaj APRN.PLATE MAKER Work Phone: [facility] [place] Comment on above: Chronic midline thor acic back pain (Primary Dx); Lumbosacral spondylosis without myelopathy; Spinal stenosis of lumbar region with neurogenic claudication Start: 03-23-2024 End: 03-23-2024 Telephone encounter Anila Campos MD Work Phone: [facility] [place] Comment on above: Insurance Authorizat ion Start: 03-18-2024 End: 03-19-2024 Refill Anila Campos MD Work Phone: [facility] [place] Comment on above: Refill Request Start: 02-28-2024 End: 04-16-2024 ambulatory Anila Campos MD Work Phone: [facility] [place] Comment on above: My back Start: 02-25-2024 End: 02-26-2024 Refill Anila Campos MD Work Phone: [facility] [place] Comment on above: Refill Request Start: 02-03-2024 End: 02-03-2024 Telephone encounter Anila Campos MD Work Phone: [facility] [place] Comment on above: Insurance Authorizat ion Start: 01-29-2024 End: 01-29-2024 ambulatory ANILA CAMPOS Facility:[facility] Start: 01-29-2024 End: 01-29-2024 Office outpatient visit 25 minutes Anila Campos MD Work Phone: [facility] [place] Comment on above: Chronic midline low back pain with bilateral sciatica (Primary Dx); Morbid obesity with BMI of 45.0-49.9, adult (HCC); Rhinitis, unspecified type; Plantar fasciitis of right foot; Kidney stone; Primary osteoarthritis of both knees; Generalized OA; Need for influenza vaccination Start: 01-21-2024 End: 01-23-2024 Telephone encounter Anila Campos MD Work Phone: [facility] [place] Comment on above: Medication Question Start: 01-01-2024 End: 01-02-2024 Refill Anila Campos MD Work Phone: [facility] [place] Comment on above: Refill Request Start: 11-06-2023 Telephone encounter Nadine boyle APRN.CNP Work Phone: [facility] [place] Comment on above: Results Start: 11-05-2023 End: 11-05-2023 ambulatory NADINE JOHNY Facility:[facility] Start: 11-05-2023 End: 11-05-2023 Patient encounter procedure Nadine Johny SENIOR MAINFRAME PROGRAMMER ANALYST.PLATE MAKER Work Phone: [facility] [place] Comment on above: Chronic midline low back pain with bilateral sciatica (Primary Dx); Generalized OA; Primary osteoarthritis of both knees; Elevated TSH; Psychophysiological insomnia; Encounter for therapeutic drug monitoring Refill Request Start: 10-12-2023 Refill Nadine Pittr SENIOR MAINFRAME PROGRAMMER ANALYST.PLATE MAKER Work Phone: [facility] [place] Comment on above: Refill Request Start: 09-30-2023 Telephone encounter Anila stone MD Work Phone: [facility] [place] Comment on above: Insurance Authorizat ion Start: 09-27-2023 End: 09-27-2023 Office outpatient visit 25 minutes Anila Campos MD Work Phone: [facility] [place] Comment on above: Psychophysiological insomnia (Primary Dx); Generalized OA; Primary osteoarthritis of both knees; Morbid obesity with BMI of 45.0-49.9, adult (HCC); Plantar fasciitis of right foot; Chronic midline low back pain with bilateral sciatica; Kidney stone; Class 3 severe obesity due to excess calories with body mass index (BMI) of 45.0 to 49.9 in adult, unspecified whether serious comorbidity present (HCC) Start: 09-26-2023 Telephone encounter Anila stone MD Work Phone: [facility] [place] Comment on above: Anxiety/Insomnia Start: 09-25-2023 Refill Nadine Pittr SENIOR MAINFRAME PROGRAMMER ANALYST.PLATE MAKER Work Phone: [facility] Comment on above: Refill Request Start: 09-12-2023 Refill Anila miles MD Work Phone: [facility] [place] Comment on above: Refill Request Start: 07-31-2023 ambulatory Anila miles MD Work Phone: [facility] Start: 07-30-2023 End: 07-30-2023 Patient encounter procedure Nadine Mcclain APRN.PLATE MAKER Work Phone: [facility] [place] Comment on above: Anxiety (Primary Dx) ; Depression, unspecified depression type; Generalized OA; Primary osteoarthritis of both knees; Morbid obesity with BMI of 45.0-49.9, adult (HCC); Chronic midline low back pain with bilateral sciatica Refill Request Start: 07-02-2023 Orders Only Anila miles MD Work Phone: [facility] [place] Start: 04-30-2023 End: 04-30-2023 Subsequent hospital visit by physician Xr [facility] [place] Work Phone: Radiology Comment on above: Chronic midline low back pain with bilateral sciatica [M54.41, M54.42, G89.29] Start: 04-10-2023 Refill Anila miles MD Work Phone: [facility] [place] Comment on above: Refill Request Start: 02-10-2023 ambulatory Anila miles MD Work Phone: [facility] [place] Start: 02-10-2023 Follow-up encounter Anila stone MD Work Phone: [facility] [place] Comment on above: Surgery and follow u p on our plan Start: 02-02-2023 ambulatory Anila miles MD Work Phone: [facility] [place] Comment on above: My dad Start: 02-01-2023 End: 02-01-2023 Office outpatient visit 25 minutes Anila Campos MD Work Phone: [facility] [place] Comment on above: Anxiety (Primary Dx) ; Primary osteoarthritis of both knees; Hair thinning; Vitamin D deficiency; Elevated TSH; Elevated glucose; Generalized OA; Morbid obesity with BMI of 45.0-49.9, adult (HCC); Plantar fasciitis of right foot; Chronic midline low back pain with bilateral sciatica; Kidney stone; Encounter for long-term current use of medication Start: 01-11-2023 ambulatory Nadine Mcclain APRN.PLATE MAKER Work Phone: [facility] [place] Comment on above: Zoloft Start: 01-10-2023 ambulatory Anila miles MD Work Phone: [facility] [place] Comment on above: Anxiety Start: 12-31-2022 ambulatory Daniel salvador MD Work Phone: Urology Comment on above: Tst you suggested Start: 12-29-2022 Refill Anila miles MD Work Phone: [facility] [place] Comment on above: Refill Request Start: 11-25-2022 Refill Anila miles MD Work Phone: [facility] [place] Comment on above: Refill Request Start: 11-06-2022 End: 11-06-2022 Subsequent hospital visit by physician Ct Prep [facility] Cat Scan Comment on above: Abdominal pain, left lateral [R10.9] Start: 11-01-2022 End: 11-01-2022 Office outpatient visit 15 minutes Jude Moore APRN.CNS Work Phone: [facility] [place] Comment on above: Abdominal pain, left lateral (Primary Dx) Start: 10-23-2022 End: 10-23-2022 Subsequent hospital visit by physician Xr [facility] [place] Work Phone: Radiology Comment on above: Acute bilateral low back pain without sciatica [M54.50] Start: 10-17-2022 Refill Anila miles MD Work Phone: [facility] [place] Comment on above: Refill Request Start: 09-21-2022 End: 09-21-2022 Office outpatient visit 25 minutes Anila Campos MD Work Phone: [facility] [place] Comment on above: Generalized OA (Prim fernanda Dx); Post-COVID syndrome; Acute bilateral low back pain without sciatica; Anxiety; Primary insomnia; Elevated glucose; Encounter for long-term current use of medication; Elevated TSH; Vitamin D deficiency; Class 3 severe obesity due to excess calories with body mass index (BMI) of 45.0 to 49.9 in adult, unspecified whether serious comorbidity present (HCC) Start: 09-17-2022 Patient encounter procedure [facility] Prov ider [facility] Department Start: 09-14-2022 Refill Anila imles MD Work Phone: [facility] [place] Comment on above: Refill Request Start: 09-11-2022 Telephone encounter Daniel Lyn MD Work Phone: Urology Comment on above: Orders Start: 09-02-2022 ambulatory Anila miles MD Work Phone: [facility] [place] Comment on above: After covid Start: 08-20-2022 End: 08-20-2022 ambulatory Xenia Gaitan SENIOR MAINFRAME PROGRAMMER ANALYST.PLATE MAKER Work Phone: Telemedicine Comment on above: COVID-19 (Primary Dx ); Advice given about COVID-19 virus infection Start: 08-20-2022 End: 08-20-2022 Telemedicine consultation with patient Xenia Gaitan SENIOR MAINFRAME PROGRAMMER ANALYST.PLATE MAKER Work Phone: [facility] Start: 08-08-2022 Telephone encounter Anila stone MD Work Phone: [facility] [place] Comment on above: Insurance Authorizat ion (Methadone ) Refill Request Start: 07-16-2022 ambulatory Nadine Mcclain SENIOR MAINFRAME PROGRAMMER ANALYST.PLATE MAKER Work Phone: [facility] [place] Comment on above: Results Start: 07-16-2022 E-mail encounter fro m caregiver Nadine Mcclain SENIOR MAINFRAME PROGRAMMER ANALYST.PLATE MAKER Work Phone: [facility] Start: 07-13-2022 End: 07-13-2022 Subsequent hospital visit by physician [facility] Work Phone: Radiology Comment on above: Abdominal pain, unsp ecified abdominal location [R10.9] Start: 07-10-2022 End: 07-10-2022 [facility] Start: 07-09-2022 Telephone encounter Anila stone MD Work Phone: [facility] [place] Comment on above: Insurance Authorizat ion Start: 07-05-2022 Orders Only Anila miles MD Work Phone: [facility] [place] Start: 07-04-2022 Refill Nadine Johny SENIOR MAINFRAME PROGRAMMER ANALYST.PLATE MAKER Work Phone: [facility] [place] Comment on above: Refill Request Start: 07-02-2022 ambulatory Nadine Johny SENIOR MAINFRAME PROGRAMMER ANALYST.PLATE MAKER Work Phone: [facility] [place] Comment on above: Results Start: 07-02-2022 E-mail encounter fro m caregiver Nadine Pittr SENIOR MAINFRAME PROGRAMMER ANALYST.PLATE MAKER Work Phone: [facility] [place] Start: 06-20-2022 Refill Anila miles MD Work Phone: [facility] [place] Comment on above: Refill Request; Refi ll Request Start: 06-04-2022 Telephone encounter Cynthia Moreland APRN.PLATE MAKER Work Phone: [facility] Comment on above: Patient Update Start: 05-31-2022 End: 05-31-2022 Patient encounter procedure Cynthia Pham APRN.PLATE MAKER Work Phone: [facility] Comment on above: Diarrhea of presumed infectious origin (Primary Dx); Nausea; Urinary urgency Start: 05-29-2022 Refill Anila miles MD Work Phone: [facility] [place] Comment on above: Refill Request Start: 04-18-2022 ambulatory Anila miles MD Work Phone: [facility] [place] Comment on above: Sinus infection Start: 04-13-2022 ambulatory Anila miles MD Work Phone: [facility] [place] Comment on above: Handicap placard Start: 04-04-2022 ambulatory Nadine Johny SENIOR MAINFRAME PROGRAMMER ANALYST.PLATE MAKER Work Phone: [facility] [place] Comment on above: Results Start: 04-04-2022 E-mail encounter fro m caregiver Nadine Pittr SENIOR MAINFRAME PROGRAMMER ANALYST.PLATE MAKER Work Phone: [facility] [place] Start: 03-21-2022 Telephone encounter Anila stone MD Work Phone: [facility] [place] Comment on above: Insurance Authorizat ion Start: 03-21-2022 End: 03-21-2022 Office outpatient visit 40 minutes Anila Campos MD Work Phone: [facility] [place] Comment on above: Degenerative joint d isease of left acromioclavicular joint (Primary Dx); Generalized OA; Primary osteoarthritis of both knees; Morbid obesity with BMI of 45.0-49.9, adult (HCC); Plantar fasciitis of right foot; Chronic midline low back pain with bilateral sciatica; Migraine without aura and without status migrainosus, not intractable; Depression, unspecified depression type; Encounter for immunization; Elevated TSH; Hair thinning; Encounter for long-term current use of medication; Vitamin D deficiency Start: 02-27-2022 Telephone encounter Anila stone MD Work Phone: [facility] [place] Comment on above: Insurance Authorizat ion Start: 01-05-2022 End: 01-05-2022 Subsequent hospital visit by physician [facility] [place] Work Phone: Radiology Comment on above: Right foot pain [[id number] .671] Start: 01-05-2022 End: 01-05-2022 Office outpatient visit 25 minutes Anila Campos MD Work Phone: [facility] [place] Comment on above: Right foot pain (Cherry ana m Dx); Generalized OA; Primary osteoarthritis of both knees; Morbid obesity with BMI of 45.0-49.9, adult (HCC); Plantar fasciitis of right foot; Chronic midline low back pain with bilateral sciatica Start: 12-03-2021 Refill Anila miles MD Work Phone: [facility] [place] Comment on above: Refill Request Start: 10-03-2021 End: 10-03-2021 Office outpatient visit 25 minutes Anila Campos MD Work Phone: [facility] [place] Comment on above: Hair thinning (Prima ry Dx); Encounter for long-term current use of medication; Vitamin D deficiency; Gastritis without bleeding, unspecified chronicity, unspecified gastritis type; Generalized OA; Primary osteoarthritis of both knees; Morbid obesity with BMI of 45.0-49.9, adult (HCC); Plantar fasciitis of right foot; Chronic midline low back pain with bilateral sciatica Start: 08-28-2021 ambulatory Anila miles MD Work Phone: [facility] [place] Start: 08-28-2021 Patient encounter procedure Jemma Campos MD Work Phone: [facility] [place] Comment on above: Next appointment not scheduled again Refill Request Start: 01-31-2021 Refill Anila miles MD Work Phone: [facility] [place] Start: 08-29-2018 Evaluation and manag ement of inpatient [facility] Facility:[facility] Procedures Date Procedure Procedure Detail Performing Clinician Start: 10-31-2024 Ct abdomen & pelvis w/o contrast material Jude Moore SENIOR MAINFRAME PROGRAMMER ANALYST.SEBD TEACHER Work Phone: Start: 10-30-2024 Urnls dip stick/tabl et rgnt auto w/o microscopy Jude Moore SENIOR MAINFRAME PROGRAMMER ANALYST.SEBD TEACHER Work Phone: Start: 09-23-2024 Us breast uni real t jesika with image limited Tahir Easley MD Work Phone: Start: 09-23-2024 Digital breast tomos ynthesis bilateral Anila Campos MD Work Phone: Start: 04-28-2024 Mri spinal canal lum bar w/o contrast material Sandy Bhardwaj SENIOR MAINFRAME PROGRAMMER ANALYST.PLATE MAKER Work Phone: Start: 04-28-2024 Radiologic exam ches t 2 views Lennox Gray SENIOR MAINFRAME PROGRAMMER ANALYST.PLATE MAKER Work Phone: Start: 04-23-2024 Follow-up visit Follow Up BONNIE TELLES Start: 04-30-2023 Radex spine lumbosac ral 2/3 views Nadine Mcclain SENIOR MAINFRAME PROGRAMMER ANALYST.PLATE MAKER Work Phone: Start: 11-06-2022 Ct abdomen & pelvis w/contrast material Jude Moore SENIOR MAINFRAME PROGRAMMER ANALYST.SEBD TEACHER Work Phone: Start: 10-23-2022 Radex spine lumbosac ral minimum 4 views Anila Campos MD Work Phone: Start: 08-19-2022 2019 NOVEL CORONAVIR US (COVID-19) [facility] Provider Start: 07-13-2022 Us retroperitoneal r eal time w/image complete Nadine Mcclain PLATE MAKER Work Phone: Start: 07-10-2022 Computed tomography of abdomen and pelvis with intravenous contrast Start: 05-31-2022 Urnls dip stick/tabl et rgnt auto w/o microscopy [facility] Start: 03-21-2022 INFLUENZA VACCINE QUADRIVALENT 6 MO - 64 YRS IM Anila Campos MD Work Phone: Start: 01-05-2022 Radex foot complete minimum 3 views Anila Campos MD Work Phone: Plan of Treatment Date Care Activity Detail Author Start: 08-09-2034 Urine microalbumin profile DTa P,Tdap,Td Vaccine (3 - Td or Tdap) [facility] Start: 09-23-2025 Screening for malign ant neoplasm of breast Mammogram Screening [facility] Start: 08-03-2025 End: 08-03-2025 Patient encounter procedure 08/03/2025 3:40 PM EDT Office Visit [facility] [place] [address] [place], [place] [phone] Anila Campos MD [address] [place], [place] [phone] 3 MONTH FOLLOW UP [facility] [place] Comment on above: 3 MONTH FOLLOW UP Start: 04-30-2025 End: 04-30-2025 Patient encounter procedure 04/30/2025 4:40 PM EST Office Visit [facility] [place] [address] [place], [place] [phone] Anila Campos MD [address] [place], [place] [phone] 3 month follow up-med [facility] [place] Comment on above: 3 month follow up-me d Start: 01-29-2025 End: 01-29-2025 Patient encounter procedure 01/29/2025 3:40 PM EDT Office Visit [facility] [place] [address] [place] [address] Anila Campos MD [address] [place] [address] 3 month follow up [facility] [place] Comment on above: 3 month follow up Start: 12-17-2024 End: 12-17-2024 Patient encounter procedure 12/17/2024 3:30 PM EDT Office Visit [facility] [address] [place] [address] Bonnie Ricks APRN.PLATE MAKER [address] [place] [address] 3 mos ov [facility] Comment on above: 3 mos ov Start: 11-30-2024 End: 11-30-2024 Patient encounter procedure 11/30/2024 2:00 PM EDT Office Visit [facility] [address] [place] [address] Awais Villeda MD [address] [place] [address] FLANK PAIN [facility] Comment on above: FLANK PAIN Start: 10-31-2024 End: 10-31-2024 Patient encounter procedure 10/31/2024 2:00 PM EDT Appointment Radiology [address] [place] [address] UTI symptoms [R39.9]; History of kidney stones [Z87.442]; Acute left flank pain [R10.9] Radiology Comment on above: UTI symptoms [R39.9] ; History of kidney stones [Z87.442]; Acute left flank pain [R10.9] Start: 10-30-2024 End: 01-29-2025 Comprehensive metabolic 2000 panel - Serum or Plasma [facility] Comment on above: Expected: 10/30/2024 , Expires: 01/29/2025 Start: 10-19-2024 End: 10-19-2024 Patient encounter procedure 10/19/2024 4:20 PM EDT Office Visit [facility] [place] [address] [place] [address] Anila Campos MD [address] [place] [address] 3 month follow up [facility] [place] Comment on above: 3 month follow up Start: 09-27-2024 End: 12-27-2024 25-hydroxyvitamin D3 [Mass/volume] in Serum or Plasma VITAMIN D 25 HYDROXY Lab Routine Encounter for long-term current use of medication Vitamin D deficiency Expected: 09/27/2024 (Approximate), Expires: 12/27/2024 [facility] Comment on above: Expected: 09/27/2024 (Approximate), Expires: 12/27/2024 Start: 09-27-2024 End: 12-27-2024 CBC panel - Blood by Automated count COMPLETE BLOOD COUNT Lab Routine Encounter for long-term current use of medication Expected: 09/27/2024 (Approximate), Expires: 12/27/2024 [facility] Comment on above: Expected: 09/27/2024 (Approximate), Expires: 12/27/2024 Start: 09-27-2024 End: 12-27-2024 Comprehensive metabolic 2000 panel - Serum or Plasma COMPREHENSIVE METABOLIC PANEL Lab Routine Encounter for long-term current use of medication Expected: 09/27/2024 (Approximate), Expires: 12/27/2024 [facility] Comment on above: Expected: 09/27/2024 (Approximate), Expires: 12/27/2024 Start: 09-27-2024 End: 12-27-2024 Thyrotropin [Units/volume] in Serum or Plasma THYROID STIMULATING HORMONE Lab Routine Encounter for long-term current use of medication Elevated TSH Expected: 09/27/2024 (Approximate), Expires: 12/27/2024 [facility] Comment on above: Expected: 09/27/2024 (Approximate), Expires: 12/27/2024 Start: 09-27-2024 End: 12-27-2024 Thyroxine (T4) free [Mass/volume] in Serum or Plasma T4 FREE/FREE THYROXINE Lab Routine Encounter for long-term current use of medication Elevated TSH Expected: 09/27/2024 (Approximate), Expires: 12/27/2024 [facility] Comment on above: Expected: 09/27/2024 (Approximate), Expires: 12/27/2024 Start: 09-27-2024 End: 12-27-2024 TOXICOLOGY SCREEN, ROUTINE URINE TOXICOLOGY SCREEN, ROUTINE URINE Lab Routine Encounter for long-term current use of medication Expected: 09/27/2024 (Approximate), Expires: 12/27/2024 [facility] Comment on above: Expected: 09/27/2024 (Approximate), Expires: 12/27/2024 Start: 09-27-2024 End: 12-27-2024 Triiodothyronine (T3) Free [Mass/volume] in Serum or Plasma T3, FREE Lab Routine Encounter for long-term current use of medication Elevated TSH Expected: 09/27/2024 (Approximate), Expires: 12/27/2024 [facility] Comment on above: Expected: 09/27/2024 (Approximate), Expires: 12/27/2024 Start: 09-23-2024 End: 09-23-2024 Patient encounter procedure Mammogram Comment on above: Mass of upper inner quadrant of right breast [N63.12] Comp- Mass of upper inner quadrant of right breast [N63.12], Baseline Start: 09-10-2024 End: 09-10-2024 Follow-up encounter 09/10/2024 11:30 AM EDT [facility] [address] [place] [address] Bonnie Ricks APRN.PLATE MAKER [address] [place] [address] ILESI follow up [facility] Comment on above: ILESI follow up Start: 08-24-2024 End: 08-24-2024 ambulatory 08/24/2024 3:10 PM EDT Procedure [facility] [address] [place], [place] [address] Meek Li MD [address] [place] [address] ILESI w fluoro NONE at L4-5 [facility] Comment on above: ILESI w fluoro NONE at L4-5 Start: 07-28-2024 End: 07-28-2024 Patient encounter procedure [facility] [place] Comment on above: 3 month follow up-me ds Wellness/3 month fol low up-meds Okay per LDT Start: 07-16-2024 End: 07-16-2024 Patient encounter procedure 07/16/2024 3:15 PM EST Office Visit [facility] [address] [place], [place] [phone] Bonnie Ricks APRN.PLATE MAKER [address] [place], [place] [id number] follow up from 2nd B [facility] Comment on above: follow up from 2nd BB Start: 07-13-2024 End: 07-13-2024 ambulatory 07/13/2024 1:10 PM EST Procedure [facility] [address] [place] [address] Meek Li MD [address] [place] [address] Medial Branch Block (Diagnostic only, NO STEROIDS) under fluoroscopic guidance BILATERAL SIDES at L3-4 and L4-5 [facility] Comment on above: Medial Branch Block (Diagnostic only, NO STEROIDS) under fluoroscopic guidance BILATERAL SIDES at L3-4 and L4-5 Start: 07-02-2024 End: 07-02-2024 Patient encounter procedure 07/02/2024 3:30 PM EST [facility] [address] [place] [address] Bonnie Ricks APRN.PLATE MAKER [address] [place], [place] [phone] follow up from 1st MBB [facility] Comment on above: follow up from 1st M BB Start: 07-01-2024 End: 07-01-2024 ambulatory 07/01/2024 10:30 AM EST Procedure [facility] [address] [place] [address] Meek Li MD [address] [facility] [address] [facility] [address] [place], [place] [id number] AUTH [facility] [employer] (06/29/24 - 07/10/24) Medial Branch Block (Diagnostic only, NO STEROIDS) under fluoroscopic guidance BILATERAL SIDES at L3-4 and L4-5 [facility] Comment on above: AUTH GOOD CAD ( - 07/10/24) Medial Branch Block (Diagnostic only, NO STEROIDS) under fluoroscopic guidance BILATERAL SIDES at L3-4 and L4-5 Start: 06-29-2024 End: 06-29-2024 ambulatory 06/29/2024 2:30 PM EST Procedure [facility] [address] [facility] [address] [facility] [address] [place], [place] [phone] Meek Li MD [address] [facility] [address] [place], [place] [phone] Medial Branch Block (Diagnostic only, NO STEROIDS) under fluoroscopic guidance BILATERAL SIDES at L3-4 and L4-5 [facility] Comment on above: Medial Branch Block (Diagnostic only, NO STEROIDS) under fluoroscopic guidance BILATERAL SIDES at L3-4 and L4-5 Start: 05-05-2024 End: 05-05-2024 Follow-up encounter 05/05/2024 7:45 AM EST [facility] [address] [place], [place] [phone] Bonnie Ricks APRN.PLATE MAKER [address] [place] [address] Follow up MRI- OK per LP [facility] Comment on above: Follow up MRI- OK pe r LP Start: 04-30-2024 End: 04-30-2024 Patient encounter procedure 04/30/2024 2:20 PM EST Office Visit [facility] [place] [address] [facility] [place] [address] Anila Campos MD [address] [facility] [place] [address] 3 month follow u-[facility] [place] Comment on above: 3 month follow ujp-m eds Start: 04-29-2024 End: 04-29-2024 Patient encounter procedure 04/29/2024 4:00 PM EST Office Visit [facility] [place] [address] [facility] [place] [address] Anila Campos MD [address] [facility] [place] [address] 3 month follow u-[facility] [place] Comment on above: 3 month follow ujp-m eds Start: 04-28-2024 End: 04-28-2024 Patient encounter procedure 04/28/2024 4:00 PM EST Appointment Radiology [address] [place] [address] Spinal stenosis of lumbar region with neurogenic claudication [M48.062] Radiology Comment on above: Spinal stenosis of l umbar region with neurogenic claudication [M48.062] Start: 04-23-2024 End: 04-23-2024 Patient encounter procedure 04/23/2024 3:15 PM EST Office Visit [facility] [address] [place] [address] Bonnie Ricks APRN.PLATE MAKER [address] [place] [address] follow up following imaging [facility] Comment on above: follow up following imaging Start: 01-29-2024 End: 01-29-2024 Patient encounter procedure 01/29/2024 3:40 PM EDT Office Visit [facility] [place] [address] [place] [address] Anila Campos MD [address] [facility] [place] [place] [address] 3 month follow up-meds [facility] [place] Comment on above: 3 month follow up-tx ds Start: 01-12-2024 Covid-19 Vaccine () Covid-19 Vaccine () [facility] Start: 01-12-2024 Covid-19 Vaccine () Covid-19 Vaccine () [facility] Start: 01-12-2024 Influenza vaccination C [facility] Start: 01-07-2024 HPV TESTING HPV TESTING [facility] Start: 01-07-2024 PAP TESTING PAP TESTING [facility] Start: 01-07-2024 Screening for malign ant neoplasm of cervix [facility] Start: 11-10-2023 Influenza vaccination Influenza Vacc ine (#1) [facility] Comment on above: Postponed from 01/11 (Declined at this time) Start: 11-05-2023 End: 02-04-2024 CBC W Auto Differential panel - Blood [facility] Comment on above: Expected: 11/05/2023 , Expires: 02/04/2024 Start: 11-05-2023 End: 02-04-2024 Comprehensive metabolic 2000 panel - Serum or Plasma [facility] Comment on above: Expected: 11/05/2023 , Expires: 02/04/2024 Start: 11-05-2023 End: 02-04-2024 Thyrotropin [Units/volume] in Serum or Plasma [facility] Work Phone: Comment on above: Expected: 11/05/2023 , Expires: 02/04/2024 Start: 11-05-2023 End: 02-04-2024 Thyroxine (T4) free [Mass/volume] in Serum or Plasma [facility] Comment on above: Expected: 11/05/2023 , Expires: 02/04/2024 Start: 11-05-2023 End: 02-04-2024 TOXICOLOGY SCREEN, ROUTINE URINE [facility] Comment on above: Expected: 11/05/2023 , Expires: 02/04/2024 Start: 11-05-2023 End: 02-04-2024 Triiodothyronine (T3) Free [Mass/volume] in Serum or Plasma [facility] Comment on above: Expected: 11/05/2023 , Expires: 02/04/2024 Start: 11-01-2023 End: 11-01-2023 Patient encounter procedure 11/01/2023 4:40 PM EDT Office Visit [facility] [place] [address] [place], [place] [address] Anila Campos MD [address] [place] [address] 3 month follow up [facility] [place] Comment on above: 3 month follow up Start: 2023 Screening for malign ant neoplasm of breast Mammogram Screening [facility] Start: 03-03-2023 End: 05-03-2023 25-hydroxyvitamin D3 [Mass/volume] in Serum or Plasma VITAMIN D 25 HYDROXY Lab Routine Vitamin D deficiency Encounter for long-term current use of medication Expected: 03/03/2023 (Approximate), Expires: 05/03/2023 [facility] Work Phone: Comment on above: Expected: 03/03/2023 (Approximate), Expires: 05/03/2023 Start: 03-03-2023 End: 05-03-2023 CBC panel - Blood by Automated count CBC Lab Routine Encounter for long-term current use of medication Expected: 03/03/2023 (Approximate), Expires: 05/03/2023 [facility] Work Phone: Comment on above: Expected: 03/03/2023 (Approximate), Expires: 05/03/2023 Start: 03-03-2023 End: 05-03-2023 Comprehensive metabolic 2000 panel - Serum or Plasma COMP METABOLIC PANEL Lab Routine Encounter for long-term current use of medication Elevated glucose Expected: 03/03/2023 (Approximate), Expires: 05/03/2023 [facility] Work Phone: Comment on above: Expected: 03/03/2023 (Approximate), Expires: 05/03/2023 Start: 03-03-2023 End: 05-03-2023 Hemoglobin A1c in Blood HGB A1C Lab Routine Elevated glucose Expected: 03/03/2023 (Approximate), Expires: 05/03/2023 [facility] Work Phone: Comment on above: Expected: 03/03/2023 (Approximate), Expires: 05/03/2023 Start: 03-03-2023 End: 05-03-2023 Thyrotropin [Units/volume] in Serum or Plasma TSH BLD Lab Routine Hair thinning Elevated TSH Encounter for long-term current use of medication Expected: 03/03/2023 (Approximate), Expires: 05/03/2023 [facility] Work Phone: Comment on above: Expected: 03/03/2023 (Approximate), Expires: 05/03/2023 Start: 03-03-2023 End: 05-03-2023 Thyroxine (T4) free [Mass/volume] in Serum or Plasma T4 FREE/FREE THYROX Lab Routine Hair thinning Elevated TSH Encounter for long-term current use of medication Expected: 03/03/2023 (Approximate), Expires: 05/03/2023 [facility] Work Phone: Comment on above: Expected: 03/03/2023 (Approximate), Expires: 05/03/2023 Start: 03-03-2023 End: 05-03-2023 Triiodothyronine (T3) Free [Mass/volume] in Serum or Plasma T3 FREE BLD Lab Routine Hair thinning Elevated TSH Encounter for long-term current use of medication Expected: 03/03/2023 (Approximate), Expires: 05/03/2023 [facility] Work Phone: Comment on above: Expected: 03/03/2023 (Approximate), Expires: 05/03/2023 Start: 01-11-2023 Covid-19 Vaccine () Covid-19 Vaccine () [facility] Start: 01-11-2023 Influenza vaccination C [facility] Start: 12-31-2022 End: 03-02-2023 [facility] CKD PROGRAM [facility]ITH[facility] CKD PROGRAM Lab Routine Kidney stones Expected: 12/31/2022, Expires: 03/02/2023 [facility] Work Phone: Comment on above: Expected: 12/31/2022 , Expires: 03/02/2023 Start: 11-01-2022 End: 01-01-2023 CREATININE BLD CREATININE BLD Lab Routine Abdominal pain, left lateral Expected: 11/01/2022, Expires: 01/01/2023 [facility] Work Phone: Comment on above: Expected: 11/01/2022 , Expires: 01/01/2023 Start: 09-21-2022 End: 11-21-2022 25-hydroxyvitamin D3 [Mass/volume] in Serum or Plasma VITAMIN D 25 HYDROXY Lab Routine Encounter for long-term current use of medication Vitamin D deficiency Expected: 09/21/2022, Expires: 11/21/2022 [facility] Work Phone: Comment on above: Expected: 09/21/2022 , Expires: 11/21/2022 Start: 09-21-2022 End: 11-21-2022 Hemoglobin A1c in Blood HGB A1C Lab Routine Elevated glucose Encounter for long-term current use of medication Expected: 09/21/2022, Expires: 11/21/2022 [facility] Work Phone: Comment on above: Expected: 09/21/2022 , Expires: 11/21/2022 Start: 09-21-2022 End: 11-21-2022 Thyrotropin [Units/volume] in Serum or Plasma TSH BLD Lab Routine Encounter for long-term current use of medication Expected: 09/21/2022, Expires: 11/21/2022 [facility] Work Phone: Comment on above: Expected: 09/21/2022 , Expires: 11/21/2022 Start: 09-21-2022 End: 11-21-2022 Thyroxine (T4) free [Mass/volume] in Serum or Plasma T4 FREE/FREE THYROX Lab Routine Encounter for long-term current use of medication Elevated TSH Expected: 09/21/2022, Expires: 11/21/2022 [facility] Work Phone: Comment on above: Expected: 09/21/2022 , Expires: 11/21/2022 Start: 09-21-2022 End: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 status: Never Smokeless tobacco: Never Vaping Use Vaping status: Never Used Substance Use Topics Alcohol use: Yes Comment: Seldom Drug use: No Current Outpatient Medications on File Prior to Visit Medication Sig eszopiclone (LUNESTA) 3 mg tab Take by mouth daily at bedtime. [START ON 10/24/2024] pregabalin (LYRICA) 100 mg capsule Take 1 capsule by mouth two times a day for 180 days. Patient should start on October 24, 2024. zolpidem (AMBIEN) 10 mg Take 0.5-1 tablets by mouth at bedtime as needed for up to 30 days. Taken instead of Lunesta if not able to sleep more than 6 hours of sleep. methadone (DOLOPHINE) 5 mg tablet Take 1 tablet by mouth three times a day as needed for up to 30 days. Patient should start on August 05, 2024. [START ON 09/04/2024] methadone (DOLOPHINE) 5 mg tablet Take 1 tablet by mouth three times a day as needed for up to 30 days. Patient should start on September 04, 2024. mometasone (NASONEX) 50 mcg/actuation nasal spray Use 2 Sprays in each nostril once daily. buPROPion XL (WELLBUTRIN XL) 300 mg 24 hr tablet Take 1 tablet by mouth once daily. (Note: cannot take budeprion) omeprazole (PRILOSEC) 40 mg capsule Take 1 capsule by mouth once daily. sertraline (ZOLOFT) 100 mg tablet Take 1 tablet by mouth once daily. atenolol (TENORMIN) 100 mg tablet Take 1 tablet by mouth once daily. May also take 1 tablet once daily as needed (Extra dose as needed for breakthrough headache). celecoxib (CELEBREX) (more content not included)... [facility] 08-24-2024 History of Present illness Narrative [facility] Date: 08/24/2024 Patient name: Nimisha Beal Physician performing procedure: Meek Li MD Diagnosis: (M48.062) Spinal stenosis of lumbar region with neurogenic claudication (primary encounter diagnosis) Procedure: Epidural Steroid Injection - Interlaminar Approach (ILESI) under fluoroscopic guidance MIDLINE at L4-5 Injectate: A total of 5 ml volume was injected The injectate consisted of: 1 ml of Dexamethasone (10mg/ml), 1 ml of Lidocaine 1%, The remainder consisting of Normal Saline Comments: None Improvement after today's procedure: as per nursing report HPI: Nimisha Beal is an 39 year old FEMALE who presents today, in pain, for the procedure noted above. Review of Systems: Pertinent Positives: MSK: pain in the region being treated Neuro: no weakness or numbness in the region being treated Skin: Negative (No itching) Eyes: Negative (No blurred or double vision) Respiratory: Negative (No Cough, Unrdsyyet-pb-hgwygz, Dyspnea on exertion, wheezing) Cardiovascular: Negative (No Chest Pain, Tightness, Pressure, Palpitations) Gastrointestinal: Negative (No Abdominal pain, Nausea, Vomiting, Constipation, Diarrhea) Genitourinary: Negative (No dysuria) Hematologic: Negative (No bleeding, bruising) OB: is Denied or Not Applicable Endocrine: Negative (No hot/cold intolerance) Psychiatric: Negative (No depression, anxiety or suicidal ideation) 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 Depressive disorder, not elsewhere classified 01/28/2006 Encounter for insertion or removal of intrauterine contraceptive device 03/01/2003; 02/2008 Was replaced in 02/2008; due 2013 Generalized osteoarthrosis, unspecified site 05/18/2005 Kidney stone Migraine, unspecified, with intractable migraine, so stated, without mention of status migrainosus Migraine Morbid obesity with BMI of 45.0-49.9, adult (HCC) Obesity Paroxysmal supraventricular tachycardia (HCC) Supraventricular tachycardia PMH - PAST MEDICAL HISTORY OF Heel Spurs Sciatica 05/18/2005 Unspecified asthma(493.90) PAST SURGICAL HISTORY Procedure Laterality Date IUD INSERTION (RN FLOAT DEPT)_*FL 03/11/08 mirena IUD REMOVAL (RN FLOAT DEPT)_*FL 03/11/08 PAST SURGICAL HISTORY OF Left left knee surgery x6, MCL repair and extensive surgery on left lower leg and knee cap PAST SURGICAL HISTORY OF 2002 Heart ablation PAST SURGICAL HISTORY OF Left Knee surgery (Dr. Daniel Cee) PAST SURGICAL HISTORY OF 08/2018 right shoulder repair TONSILLECTOMY PRIMARY/SECONDARY <AGE 10 Tonsillectomy FAMILY HISTORY Problem Relation Age of Onset Hypertension Mother Plus High Cholesterol Arthritis Mother Asthma Mother Arthritis Father Hypertension Father and high cholesterol Osteoporosis Maternal Grandmother Heart Maternal Grandmother MVP Diabetes Maternal Grandfather Heart Maternal Grandfather [place] X-2, arrythmia, a fib, pacemaker Hypertension Paternal Grandmother Plus High Cholesterol Coronary Artery Disease Paternal Grandmother Cancer Paternal Grandfather lung and brain Breast Cancer Paternal Aunt 2 paternal great aunts Heart Maternal Uncle pacemaker Social History Tobacco Use Smoking status: Never Smokeless tobacco: Never Vaping Use Vaping status: Never Used Substance Use Topics Alcohol use: Yes Comment: Seldom Drug use: No Current Outpatient Medications on File Prior to Visit Medication Sig eszopiclone (LUNESTA) 3 mg tab Take by mouth daily at bedtime. [START ON 10/24/2024] pregabalin (LYRICA) 100 mg capsule Take 1 capsule by mouth two times a day for 180 days. Patient should start on October 24, 2024. zolpidem (AMBIEN) 10 mg Take 0.5-1 tablets by mouth at bedtime as needed for up to 30 days. Taken instead of Lunesta if not able to sleep more than 6 hours of sleep. methadone (DOLOPHINE) 5 mg tablet Take 1 tablet by mouth three times a day as needed for up to 30 days. Patient should start on August 05, 2024. [START ON 09/04/2024] methadone (DOLOPHINE) 5 mg tablet Take 1 tablet by mouth three times a day as needed for up to 30 days. Patient should start on September 04, 2024. mometasone (NASONEX) 50 mcg/actuation nasal spray Use 2 Sprays in each nostril once daily. buPROPion XL (WELLBUTRIN XL) 300 mg 24 hr tablet Take 1 tablet by mouth once daily. (Note: cannot take budeprion) omeprazole (PRILOSEC) 40 mg capsule Take 1 capsule by mouth once daily. sertraline (ZOLOFT) 100 mg tablet Take 1 tablet by mouth once daily. atenolol (TENORMIN) 100 mg tablet Take 1 tablet by mouth once daily. May also take 1 tablet once daily as needed (Extra dose as needed for breakthrough headache). celecoxib (CELEBREX) 200 mg capsule Take 1 capsule by mouth two times a day. gabapentin (NEURONTIN) 600 mg tablet Take 2 tablets by mouth two times a day for 360 days. hydrOXYzine HCl (ATARAX) 50 mg tablet Take 0.5-1 tablets by mouth every 4 hours as needed for itching/rash. For 90 days levothyroxine (SYNTHROID) 25 mcg tablet Take 1 tablet by mouth once daily. Take on empty stomach. For thyroid. tiZANidine (ZANAFLEX) 4 mg tablet Take 2 tablets by mouth daily at bedtime. May also take 0.5-1 tablets two times a day as needed (muscle spasms during the day). For 90 days. topiramate (TOPAMAX) 100 mg tablet Take 1 tablet by mouth daily at bedtime. busPIRone HCl 30 mg tablet Take 1 tablet by mouth two times a day. Awaiting for mail away pharmacy to send script. sucralfate (CARAFATE) 1 gram tablet Take 1 tablet by mouth before meals and at bedtime. diphenhydrAMINE (BENADRYL) 25 mg capsule Take 50 mg by mouth at bedtime as needed. ondansetron orally disintegrating (ZOFRAN ODT) 4 mg disintegrating tablet Take 1 tablet by mouth every 6 hours as needed for nausea/vomiting. promethazine (PHENERGAN) 25 mg tablet Take 1 tablet by mouth every 6 hours as needed for nausea/vomiting. furosemide (LASIX) 20 mg tablet Take 1 tablet by mouth once daily as needed (fluid retention and swelling). Amoxicillin 500 mg tablet TAKE 4 PILLS 1 HOUR PRIOR TO DENTAL PROCEDURE cetirizine (ZYRTEC) 10 mg tablet Takes 1 tab daily as needed melatonin 5 mg tablet Take 1 tablet by mouth daily at bedtime. diclofenac sodium (VOLTAREN) 1 % topical gel Apply 4 g to affected area four times daily. For knees jimcdtcm-aye-iktjr acid-biotin 66.7-1,000 mcg tab Take by mouth. Cholecalciferol, Vitamin D3, 5,000 unit cap Take 1 capsule by mouth once daily. vitamin b complex(B COMPLETE TAB) Take one(1) tablet daily. [DISCONTINUED] Omeprazole Magnesium (PRILOSEC OTC) 20 mg tablet Take 1 tablet by mouth daily before breakfast. 1/2 hr before meal. No current facility-administered medications on file prior to visit. Objective Exam: Vitals: As per nursing documentation Constitutional: Normal Appearance, Oriented to Time, Place and Person Head: No lacerations, no external signs of trauma Eyes: Conjunctiva clear. No discharge from the eyes Cardiovascular: Appears well-perfused Pulmonary: Non-labored respirations Abdominal: Non-distended Skin: No visible rashes or ecchymosis Psychiatric: Mood appropriate for given condition Neurological: Gross movements are limited by pain, but otherwise unremarkable Data Reviewed: Nursing note and vitals reviewed. Additional imaging reviewed as appropriate Assessment and Plan: As noted above [facility] protocol documentation / Pre-Procedure Checklist: Consent: Obtained in writing prior to procedure I had a nice discussion with the patient today about their current pain and the pathology that could be causing it We discussed different treatment options, including risks, benefits and alternatives. We agreed to proceed as previously discussed, or the plan was modified in accordance with the comments noted above Unless stated otherwise in the procedure note, the risks include but are not limited to infection, allergic reaction, increased pain, lack of therapeutic benefit, steroid reaction, nerve damage, paralysis, stroke, epidural hematoma, syncope, headache, respiratory or cardiac arrest, pneumothorax, and scar formation Once the plan was agreed upon, the patient gave written consent to proceed and was transported into the procedure room Surgical/Procedure pause or Time Out : Time Out was led by the physician in the procedure room, with the patient and all staff present and participating The following information was verified during the Time Out process: Patient name, patient date of , procedure site (marked), laterality, anticoagulants and allergies Procedure: The patient was prepped and draped in a sterile fashion in the prone position after informed consent was signed and all the patient's questions were answered including the risks, benefits, alternative treatment options, and prognosis. The risks are as mentioned above. Using the approach mentioned above, the region overlying the inferior lamina was localized under fluoroscopic visualization and the soft tissues overlying this structure were infiltrated with 2-4 cc. of 1% Lidocaine without Epinephrine. A #20 gauge, 4.5 inch Tuohy needle was inserted into the epidural space using the approach mentioned above. The epidural space was localized using loss of resistance after negative aspirate for air, blood, and CSF. A 2 cc volume of Omnipaque 300 was injected into the epidural space and the flow of contrast was observed to be epidural. Needle placement was confirmed with AP, oblique, and contralateral oblique imaging. The above injectate was injected without complication. Please see the nursing note for exact times (time out, procedure start, procedure end). After careful removal of the needle, there was minimal bleeding. The injection site was covered with appropriate sterile dressing. The patient was noted to have tolerated the procedure well and was discharged after an appropriate period of post-procedure observation. The patient was instructed to contact us if there were any complications. The patient was advised to follow-up with the requesting physician within one to two weeks or as per their requested follow-up plan. Post procedure visit summary with written instructions was offered to the patient. Meek Li MD Pain Management [facility] Order has been placed in the patient's chart with the following parameters for discharge from the physician: Patient is alert and oriented Vitals: Diastolic/Systolic +/- 20mmHg Respirations: 12-18 Pulse: 60-100 SpO2 is greater than or equal to 90% Patient has no nausea or vomiting Patient has no dizziness Pain level is +/- 2 from initial evaluation Dressing, dry and intact with no evidence of bleeding Criteria has been met, patient is okay to be discharged per the physician. Physician has gone in and evaluated the patient. Dressing dry and intact. No drainage noted. The patient denies nausea, numbness, tingling, weakness, shortness of breath, dizziness, or headache. Pain level 0/10. Vital signs within normal limits. Patient denied needing walked out by clinical staff and denied needing a wheelchair. Patient given discharge instructions and sent to transportation via ambulatory method. Patient left in good condition. Procedure to be performed: L4/L5 LUMBAR INTERLAMINAR EPIDURAL INJECTION Patient was wheeled on stretcher from pre op bay to procedure room and assisted onto the procedure tablePatient s procedure was performed [facility] Pause completed at each level by provider to verify correct level and laterality placement Pressure was applied to patient s injection site(s) and bleeding was minimal. Patient had no complaint of shortness of breath, dizziness, headache, numbness, tingling, weakness or complications from procedure. Patient was assisted from the procedure table onto the stretcher and wheeled into a post op bay. Patient was advised a clinician will be to obtain another set of vitals. Time Out: 1456 Confirmed patient name, date of , procedure site, laterality, and allergies Procedure Start: 1459 Procedure End: 1501 Review of Systems Constitutional: Positive for activity change. Negative for chills, fever and unexpected weight change. Gastrointestinal: Negative for bowel retention or incontinence Genitourinary: Negative for difficulty urinating. Negative for bladder retention or incontinence Musculoskeletal: Positive for arthralgias, back pain, gait problem and myalgias. Negative for joint swelling, neck pain and neck stiffness. Neurological: Positive for weakness, numbness and headaches. Psychiatric/Behavioral: Positive for dysphoric mood and sleep disturbance. Negative for suicidal ideas. The patient is nervous/anxious. Diver Assistant's Name: amanda Are you on a blood thinner: n If yes, is a hold required: n Last dose of blood thinner: n INR Result today: n Do you require a Lovenox bridge:n Are you a diabetic:n Are you/or could you be : n Are you taking Xanax for the procedure: n Are you currently on a steroid? n Are you currently on an antibiotic: n documented in this encounter [facility] 08-24-2024 Note HNO ID: [id number] Author: CELIA HU LPN Service: ? Author Type: LICENSED NURSE Type: Progress Notes Filed: 08/24/2024 15:14 Note Text: Order has been placed in the patient's chart with the following parameters for discharge from the physician: Patient is alert and oriented Vitals: Diastolic/Systolic +/- 20mmHg Respirations: 12-18 Pulse: 60-100 SpO2 is greater than or equal to 90% Patient has no nausea or vomiting Patient has no dizziness Pain level is +/- 2 from initial evaluation Dressing, dry and intact with no evidence of bleeding Criteria has been met, patient is okay to be discharged per the physician. Physician has gone in and evaluated the patient. Dressing dry and intact. No drainage noted. The patient denies nausea, numbness, tingling, weakness, shortness of breath, dizziness, or headache. Pain level 0/10. Vital signs within normal limits. Patient denied needing walked out by clinical staff and denied needing a wheelchair. Patient given discharge instructions and sent to transportation via ambulatory method. Patient left in good condition. [facility] 08-24-2024 Note HNO ID: [id number] Author: RISHBAH ZHU LPN Service: ? Author Type: LICENSED NURSE Type: Progress Notes Filed: 08/24/2024 15:14 Note Text: Procedure to be performed: L4/L5 LUMBAR INTERLAMINAR EPIDURAL INJECTION Patient was wheeled on stretcher from pre op bay to procedure room and assisted onto the procedure tablePatient?s procedure was performed in [facility]. Pause completed at each level by provider to verify correct level and laterality placement Pressure was applied to patient?s injection site(s) and bleeding was minimal. Patient had no complaint of shortness of breath, dizziness, headache, numbness, tingling, weakness or complications from procedure. Patient was assisted from the procedure table onto the stretcher and wheeled into a post op bay. Patient was advised a clinician will be to obtain another set of vitals. Time Out: 1456 Confirmed patient name, date of , procedure site, laterality, and allergies Procedure Start: 145 Procedure End: 1501 [facility] 08-24-2024 Instructions Celia Hu LPN - 08/24/2024 2:48 PM EDT PROCEDURE DISCHARGE INSTRUCTIONS 08/24/2024 Nimisha Enoch Beal 1985 Physician: Meek Li MD Procedure: LUMBAR INTERLAMINAR EPIDURAL INJECTION Post Procedure Instructions: If sedation not given, no driving for 3 hours after the procedure., Rest the day of the procedure., You may resume normal activities the day after the procedure, as tolerated., Pain should gradually subside over the next 2-3 weeks., Avoid movements that may aggravate pain., Apply cold compresses to injection site if needed., If medically acceptable, take over the counter anti-inflammatories such as ibuprofen or Aleve if needed for post procedure discomfort., and No hot baths, hot tubs or hot compresses for 24 hours. If you have any of the following signs or symptoms, please call our office at Fever and/or chills Swelling and/or drainage from injection site New pain that is different than your normal pain (other than soreness at the site of the procedure) Stiff neck Shortness of breath Severe increase in pain Motor dysfunctions, such as difficulty walking, bowel or bladder dysfunction and/or incontinence Headache that is severe, light sensitive or develops when changing positions (positional headache) Nausea and/or vomiting accompanied by headache that started 24-48 hours after the procedure If you have any emergent concerns, please call 911 or go to your local emergency room. Please also contact our office to let us know you will be seeking emergency care and why. documented in this encounter [facility] 08-24-2024 Note HNO ID: [id number] Author: JENN VERA LPN Service: ? Author Type: LICENSED NURSE Type: Progress Notes Filed: 08/24/2024 15:14 Note Text: Review of Systems Constitutional: Positive for activity change. Negative for chills, fever and unexpected weight change. Gastrointestinal: Negative for bowel retention or incontinence Genitourinary: Negative for difficulty urinating. Negative for bladder retention or incontinence Musculoskeletal: Positive for arthralgias, back pain, gait problem and myalgias. Negative for joint swelling, neck pain and neck stiffness. Neurological: Positive for weakness, numbness and headaches. Psychiatric/Behavioral: Positive for dysphoric mood and sleep disturbance. Negative for suicidal ideas. The patient is nervous/anxious. [facility] 08-24-2024 Note HNO ID: [id number] Author: JENN VERA LPN Service: ? Author Type: LICENSED NURSE Type: Progress Notes Filed: 08/24/2024 15:14 Note Text: Diver Assistant's Name: amanda Are you on a blood thinner: n If yes, is a hold required: n Last dose of blood thinner: n INR Result today: n Do you require a Lovenox bridge:n Are you a diabetic:n Are you/or could you be : n Are you taking Xanax for the procedure: n Are you currently on a steroid? n Are you currently on an antibiotic: n [facility] 08-09-2024 History of Present illness Narrative Images from the original note were not included. [facility] Subjective Nimisha Beal is a 39 year old female. Patient presents with: Laceration: left hand with selvin metal x 1 day, last tetanus 04/23 HPI 39-year-old female presents for tetanus vaccination. Patient states that she cut her hand on a selvin fence yesterday. She was not wearing gloves. She had small abrasion to the hand. No active bleeding. No pain in the hand. She states the area was itching slightly last night. She is not up-to-date on tetanus, last tetanus was in 2011. She is here today to update that. No fevers. 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 Depressive disorder, not elsewhere classified 01/28/2006 Encounter for insertion or removal of intrauterine contraceptive device 03/01/2003; 02/2008 Was replaced in 02/2008; due 2013 Generalized osteoarthrosis, unspecified site 05/18/2005 Kidney stone Migraine, unspecified, with intractable migraine, so stated, without mention of status migrainosus Migraine Morbid obesity with BMI of 45.0-49.9, adult (HCC) Obesity Paroxysmal supraventricular tachycardia (HCC) Supraventricular tachycardia PMH - PAST MEDICAL HISTORY OF Heel Spurs Sciatica 05/18/2005 Unspecified asthma(493.90) PAST SURGICAL HISTORY Procedure Laterality Date IUD INSERTION (RN FLOAT DEPT)_*FL 03/11/08 mirena IUD REMOVAL (RN FLOAT DEPT)_*FL 03/11/08 PAST SURGICAL HISTORY OF Left left knee surgery x6, MCL repair and extensive surgery on left lower leg and knee cap PAST SURGICAL HISTORY OF 2002 Heart ablation PAST SURGICAL HISTORY OF Left Knee surgery (Dr. Daniel Cee) PAST SURGICAL HISTORY OF 08/2018 right shoulder repair TONSILLECTOMY PRIMARY/SECONDARY <AGE 10 Tonsillectomy ALLERGIES Arnica (Arnica [place]), Baclofen, Duloxetine, Morphine, and Skelaxin [Metaxalone] MEDICATIONS [START ON 10/24/2024] pregabalin (LYRICA) 100 mg capsule Take 1 capsule by mouth two times a day for 180 days. Patient should start on October 24, 2024. zolpidem (AMBIEN) 10 mg Take 0.5-1 tablets by mouth at bedtime as needed for up to 30 days. Taken instead of Lunesta if not able to sleep more than 6 hours of sleep. methadone (DOLOPHINE) 5 mg tablet Take 1 tablet by mouth three times a day as needed for up to 30 days. Patient should start on August 05, 2024. [START ON 09/04/2024] methadone (DOLOPHINE) 5 mg tablet Take 1 tablet by mouth three times a day as needed for up to 30 days. Patient should start on September 04, 2024. mometasone (NASONEX) 50 mcg/actuation nasal spray Use 2 Sprays in each nostril once daily. buPROPion XL (WELLBUTRIN XL) 300 mg 24 hr tablet Take 1 tablet by mouth once daily. (Note: cannot take budeprion) omeprazole (PRILOSEC) 40 mg capsule Take 1 capsule by mouth once daily. sertraline (ZOLOFT) 100 mg tablet Take 1 tablet by mouth once daily. atenolol (TENORMIN) 100 mg tablet Take 1 tablet by mouth once daily. May also take 1 tablet once daily as needed (Extra dose as needed for breakthrough headache). celecoxib (CELEBREX) 200 mg capsule Take 1 capsule by mouth two times a day. gabapentin (NEURONTIN) 600 mg tablet Take 2 tablets by mouth two times a day for 360 days. hydrOXYzine HCl (ATARAX) 50 mg tablet Take 0.5-1 tablets by mouth every 4 hours as needed for itching/rash. For 90 days levothyroxine (SYNTHROID) 25 mcg tablet Take 1 tablet by mouth once daily. Take on empty stomach. For thyroid. tiZANidine (ZANAFLEX) 4 mg tablet Take 2 tablets by mouth daily at bedtime. May also take 0.5-1 tablets two times a day as needed (muscle spasms during the day). For 90 days. topiramate (TOPAMAX) 100 mg tablet Take 1 tablet by mouth daily at bedtime. busPIRone HCl 30 mg tablet Take 1 tablet by mouth two times a day. Awaiting for mail away pharmacy to send script. eszopiclone (LUNESTA) 2 mg Take 1 tablet by mouth at bedtime as needed for up to 180 days. sucralfate (CARAFATE) 1 gram tablet Take 1 tablet by mouth before meals and at bedtime. diphenhydrAMINE (BENADRYL) 25 mg capsule Take 50 mg by mouth at bedtime as needed. ondansetron orally disintegrating (ZOFRAN ODT) 4 mg disintegrating tablet Take 1 tablet by mouth every 6 hours as needed for nausea/vomiting. promethazine (PHENERGAN) 25 mg tablet Take 1 tablet by mouth every 6 hours as needed for nausea/vomiting. furosemide (LASIX) 20 mg tablet Take 1 tablet by mouth once daily as needed (fluid retention and swelling). Amoxicillin 500 mg tablet TAKE 4 PILLS 1 HOUR PRIOR TO DENTAL PROCEDURE cetirizine (ZYRTEC) 10 mg tablet Takes 1 tab daily as needed melatonin 5 mg tablet Take 1 tablet by mouth daily at bedtime. diclofenac sodium (VOLTAREN) 1 % topical gel Apply 4 g to affected area four times daily. For knees jevqszkz-voy-sgqun acid-biotin 66.7-1,000 mcg tab Take by mouth. Cholecalciferol, Vitamin D3, 5,000 unit cap Take 1 capsule by mouth once daily. vitamin b complex(B COMPLETE TAB) Take one(1) tablet daily. [DISCONTINUED] Omeprazole Magnesium (PRILOSEC OTC) 20 mg tablet Take 1 tablet by mouth daily before breakfast. 1/2 hr before meal. FAMILY HISTORY Problem Relation Age of Onset Hypertension Mother Plus High Cholesterol Arthritis Mother Asthma Mother Arthritis Father Hypertension Father and high cholesterol Osteoporosis Maternal Grandmother Heart Maternal Grandmother MVP Diabetes Maternal Grandfather Heart Maternal Grandfather [place] X-2, arrythmia, a fib, pacemaker Hypertension Paternal Grandmother Plus High Cholesterol Coronary Artery Disease Paternal Grandmother Cancer Paternal Grandfather lung and brain Breast Cancer Paternal Aunt 2 paternal great aunts Heart Maternal Uncle pacemaker Social History Tobacco Use Smoking status: Never Smokeless tobacco: Never Vaping Use Vaping status: Never Used Substance Use Topics Alcohol use: Yes Comment: Seldom Drug use: No Review of Systems Constitutional: Negative for chills and fever. Skin: Positive for wound. Neurological: Negative for numbness. Objective BP 142/82 Pulse 66 Temp 36.6 C (97.9 F) Resp 16 Wt 122.8 kg (270 lb 11.6 oz) LMP 02/10/2015 SpO2 97% BMI 46.47 kg/m Physical Exam Vitals and nursing note reviewed. Constitutional: General: She is not in acute distress. Appearance: Normal appearance. She is not toxic-appearing. Cardiovascular: Rate and Rhythm: Normal rate and regular rhythm. Pulmonary: Effort: Pulmonary effort is normal. Breath sounds: Normal breath sounds. Skin: General: Skin is warm and dry. Findings: Abrasion present. Comments: Approximately 0.5 cm superficial abrasion/scratch to the dorsum of the left hand. Normal ROM of the hand. 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 No tenderness. No bruising. No drainage. No fluctuance or abscess Neurological: Mental Status: She is alert. {ASSESSMENT/PLAN: 1. Not up to date with diphtheria-tetanus vaccination - ICD9: V49.89, ICD10: Z28.39 (primary diagnosis) -Tetanus updated today. -Wound shows no signs of infection. Wound care instructions given. Keep area clean and dry, may apply apply triple antibiotic ointment as needed. 2. Abrasion of left hand, initial encounter - ICD9: 914.0, ICD10: S60.512A -See above Diagnosis and treatment plan were discussed and questions were answered to the patient's satisfaction. Pt acknowledged understanding of concepts and follow up plan. Specific signs and symptoms that would indicate the need for higher level of care were discussed in detail warranting prompt ER evaluation. GRAYSON Shannon History and Record Review External record(s) reviewed: immunization history. Differential Diagnoses - Abrasion is more likely for the following reason(s): suggested by H&P - Cellulitis/skin infection is less likely for the following reason(s): H&P not suggestive Disposition The patient was discharged. Procedures documented in this encounter [facility] 08-09-2024 Note HNO ID: [id number] Author: DES LOWERY PA Service: ? Author Type: Physician Hand Loom Weaver Type: Progress Notes Filed: 08/09/2024 12:01 Note Text: [facility] Subjective Nimisha Beal is a 39 year old female. Patient presents with: Laceration: left hand with selvin metal x 1 day, last tetanus 04/23 HPI 39-year-old female presents for tetanus vaccination. Patient states that she cut her hand on a selvin fence yesterday. She was not wearing gloves. She had small abrasion to the hand. No active bleeding. No pain in the hand. She states the area was itching slightly last night. She is not up-to-date on tetanus, last tetanus was in 2011. She is here today to update that. No fevers. 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 Depressive disorder, not elsewhere classified 01/28/2006 Encounter for insertion or removal of intrauterine contraceptive device 03/01/2003; 02/2008 Was replaced in 02/2008; due 2013 Generalized osteoarthrosis, unspecified site 05/18/2005 Kidney stone Migraine, unspecified, with intractable migraine, so stated, without mention of status migrainosus Migraine Morbid obesity with BMI of 45.0-49.9, adult (HCC) Obesity Paroxysmal supraventricular tachycardia (HCC) Supraventricular tachycardia PMH - PAST MEDICAL HISTORY OF Heel Spurs Sciatica 05/18/2005 Unspecified asthma(493.90) PAST SURGICAL HISTORY Procedure Laterality Date IUD INSERTION (RN FLOAT DEPT)_*FL 03/11/08 mirena IUD REMOVAL (RN FLOAT DEPT)_*FL 03/11/08 PAST SURGICAL HISTORY OF Left left knee surgery x6, MCL repair and extensive surgery on left lower leg and knee cap PAST SURGICAL HISTORY OF 2002 Heart ablation PAST SURGICAL HISTORY OF Left Knee surgery (Dr. Daniel Cee) PAST SURGICAL HISTORY OF 08/2018 right shoulder repair TONSILLECTOMY PRIMARY/SECONDARY Tonsillectomy ALLERGIES Arnica (Arnica [place]), Baclofen, Duloxetine, Morphine, and Skelaxin [Metaxalone] MEDICATIONS [START ON 10/24/2024] pregabalin (LYRICA) 100 mg capsule Take 1 capsule by mouth two times a day for 180 days. Patient should start on October 24, 2024. zolpidem (AMBIEN) 10 mg Take 0.5-1 tablets by mouth at bedtime as needed for up to 30 days. Taken instead of Lunesta if not able to sleep more than 6 hours of sleep. methadone (DOLOPHINE) 5 mg tablet Take 1 tablet by mouth three times a day as needed for up to 30 days. Patient should start on August 05, 2024. [START ON 09/04/2024] methadone (DOLOPHINE) 5 mg tablet Take 1 tablet by mouth three times a day as needed for up to 30 days. Patient should start on September 04, 2024. mometasone (NASONEX) 50 mcg/actuation nasal spray Use 2 Sprays in each nostril once daily. buPROPion XL (WELLBUTRIN XL) 300 mg 24 hr tablet Take 1 tablet by mouth once daily. (Note: cannot take budeprion) omeprazole (PRILOSEC) 40 mg capsule Take 1 capsule by mouth once daily. sertraline (ZOLOFT) 100 mg tablet Take 1 tablet by mouth once daily. atenolol (TENORMIN) 100 mg tablet Take 1 tablet by mouth once daily. May also take 1 tablet once daily as needed (Extra dose as needed for breakthrough headache). celecoxib (CELEBREX) 200 mg capsule Take 1 capsule by mouth two times a day. gabapentin (NEURONTIN) 600 mg tablet Take 2 tablets by mouth two times a day for 360 days. hydrOXYzine HCl (ATARAX) 50 mg tablet Take 0.5-1 tablets by mouth every 4 hours as needed for itching/rash. For 90 days levothyroxine (SYNTHROID) 25 mcg tablet Take 1 tablet by mouth once daily. Take on empty stomach. For thyroid. tiZANidine (ZANAFLEX) 4 mg tablet Take 2 tablets by mouth daily at bedtime. May also take 0.5-1 tablets two times a day as needed (muscle spasms during the day). For 90 days. topiramate (TOPAMAX) 100 mg tablet Take 1 tablet by mouth daily at bedtime. busPIRone HCl 30 mg tablet Take 1 tablet by mouth two times a day. Awaiting for mail away pharmacy to send script. eszopiclone (LUNESTA) 2 mg Take 1 tablet by mouth at bedtime as needed for up to 180 days. sucralfate (CARAFATE) 1 gram tablet Take 1 tablet by mouth before meals and at bedtime. diphenhydrAMINE (BENADRYL) 25 mg capsule Take 50 mg by mouth at bedtime as needed. ondansetron orally disintegrating (ZOFRAN ODT) 4 mg disintegrating tablet Take 1 tablet by mouth every 6 hours as needed for nausea/vomiting. promethazine (PHENERGAN) 25 mg tablet Take 1 tablet by mouth every 6 hours as needed for nausea/vomiting. furosemide (LASIX) 20 mg tablet Take 1 tablet by mouth once daily as needed (fluid retention and swelling). Amoxicillin 500 mg tablet TAKE 4 PILLS 1 HOUR PRIOR TO DENTAL PROCEDURE cetirizine (ZYRTEC) 10 mg tablet Takes 1 tab daily as needed melatonin 5 mg tablet Take 1 tablet by mouth daily at bedtime. diclofenac sodium (VOLTAREN) 1 % topical gel Apply 4 g to affected area four times daily. For knees [id number] acid-biotin 66.7-1,000 mcg tab (more content not included)... [facility] 07-29-2024 Telephone encounter Note [facility] pharmacy aware and no new scripts are needed at this time. [facility] 07-29-2024 Miscellaneous Notes [facility] pharmacy aware and no new scripts are needed at this time. Patient takes both medications. Not sure what to do with the medication pended. Does she need this filled now? Please review pharmacy's question as is they are asking if pt is taking both gabapentin and pregabalin. documented in this encounter [facility] 07-29-2024 Telephone encounter Note Patient takes both medications. Not sure what to do with the medication pended. Does she need this filled now? [facility] 07-29-2024 Telephone encounter Note Please review pharmacy's question as is they are asking if pt is taking both gabapentin and pregabalin. [facility] 07-28-2024 Note HNO ID: [id number] Author: ANILA CAMPOS MD Service: ? Author Type: Physician Type: Progress Notes Filed: 08/14/2024 00:10 Note Text: This note was created using Jobzellariter. Subjective Nimisha Beal is a 39 year old female. HISTORY Nimisha Beal is a 39 year old lady here for yearly exam and follow up appointment. Juan is a 39-year-old female with a history of chronic back pain, presenting for a wellness visit and 3-month follow-up. Juan reports an increased need for methadone to manage her chronic back pain. She recently underwent two rounds of lidocaine-like injections targeting the two problematic joints in her back. The first round provided over 80% relief, allowing her to clean her entire basement, but the second round was only about 25% effective. Due to the insufficient relief from the second round, her treatment plan is being adjusted to include an epidural with prednisone. She notes that as she tries to increase her activity level, she finds herself taking more methadone. She typically takes 2 pills per day, but occasionally needs 3 pills twice a week and 4 pills once a week. She denies experiencing any respiratory issues, mental effects, or other side effects from the increased methadone use. She is also taking Lyrica, with her last 90-day supply filled on July 26. She requests a refill for Ambien, which she takes approximately once a week, usually half a pill, and sometimes the other half if needed to go back to sleep. She prefers Ambien over Lunesta due to less hangover effect, noting that Lunesta causes her to sleep longer each day if taken consecutively, so she limits its use to once or twice a week. Juan reports chronic post-nasal drip for over 3 months, which she describes as thick and bothersome. She has tried various antihistamines, including Claritin, Zyrtec, Martha, and Xyzal, with minimal relief. She also tried Mucinex, which loosened the mucus but did not reduce its production. She denies facial pressure or throat clearing but continues to cough up mucus. She suspects the symptoms may have been exacerbated by a new cat, which has since been rehomed, but the symptoms persist despite thorough cleaning of her home. She also reports a firm spot in her right breast, which she noticed a few days ago, along with a much softer spot. She experiences some tenderness under her arm but denies any lumps or bumps elsewhere. She has not had a mammogram in over a year and acknowledges the need for one. She mentions that her mother had thick breast tissue, which made certain tests difficult. Additionally, she reports that her thumbs are starting to hurt, affecting her ability to do crafts. She also notes frequent urination but tries to drink as much water as possible during the day. She mentions that her vision is okay but probably needs to be checked, as her eyes get really tired. She has not had an eye exam in 7-8 years. She also reports that her TSH levels increased after starting levothyroxine, which she took for about a week before discontinuing due to headaches. She also mentions that her vitamin D levels were previously low. 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 Depressive disorder, not elsewhere classified 01/28/2006 Encounter for insertion or removal of intrauterine contraceptive device 03/01/2003; 02/2008 Was replaced in 02/2008; due 2013 Generalized osteoarthrosis, unspecified site 05/18/2005 Kidney stone Migraine, unspecified, with intractable migraine, so stated, without mention of status migrainosus Migraine Morbid obesity with BMI of 45.0-49.9, adult (HCC) Obesity Paroxysmal supraventricular tachycardia (HCC) Supraventricular tachycardia PMH - PAST MEDICAL HISTORY OF Heel Spurs Sciatica 05/18/2005 Unspecified asthma(493.90) Current Outpatient Medications Medication Sig buPROPion XL (WELLBUTRIN XL) 300 mg 24 hr tablet Take 1 tablet by mouth once daily. (Note: cannot take budeprion) omeprazole (PRILOSEC) 40 mg capsule Take 1 capsule by mouth once daily. sertraline (ZOLOFT) 100 mg tablet Take 1 tablet by mouth once daily. atenolol (TENORMIN) 100 mg tablet Take 1 tablet by mouth once daily. May also take 1 tablet once daily as needed (Extra dose as needed for breakthrough headache). celecoxib (CELEBREX) 200 mg capsule Take 1 capsule by mouth two times a day. gabapentin (NEURONTIN) 600 mg tablet Take 2 tablets by mouth two times a day for 360 days. hydrOXYzine HCl (ATARAX) 50 mg tablet Take 0.5-1 tablets by mouth every 4 hours as needed for itching/rash. For 90 days levothyroxine (SYNTHROID) 25 mcg tablet Take 1 tablet by mouth once daily. Take on empty stomach. For thyroid. tiZANidine (ZANAFLEX) 4 mg tablet Take 2 tablets by mouth daily at bedtime. May also take 0.5-1 tablets two times a day as needed (muscle spasms during the day). For 90 days. topiramate (TOPAMAX) 100 mg ta (more content not included)... [facility] 07-28-2024 History of Present illness Narrative Images from the original note were not included. This note was created using Jobzellariter. Subjective Nimisha Beal is a 39 year old female. HISTORY Nimisha Beal is a 39 year old lady here for yearly exam and follow up appointment. Juan is a 39-year-old female with a history of chronic back pain, presenting for a wellness visit and 3-month follow-up. Juan reports an increased need for methadone to manage her chronic back pain. She recently underwent two rounds of lidocaine-like injections targeting the two problematic joints in her back. The first round provided over 80% relief, allowing her to clean her entire basement, but the second round was only about 25% effective. Due to the insufficient relief from the second round, her treatment plan is being adjusted to include an epidural with prednisone. She notes that as she tries to increase her activity level, she finds herself taking more methadone. She typically takes 2 pills per day, but occasionally needs 3 pills twice a week and 4 pills once a week. She denies experiencing any respiratory issues, mental effects, or other side effects from the increased methadone use. She is also taking Lyrica, with her last 90-day supply filled on July 26. She requests a refill for Ambien, which she takes approximately once a week, usually half a pill, and sometimes the other half if needed to go back to sleep. She prefers Ambien over Lunesta due to less hangover effect, noting that Lunesta causes her to sleep longer each day if taken consecutively, so she limits its use to once or twice a week. Juan reports chronic post-nasal drip for over 3 months, which she describes as thick and bothersome. She has tried various antihistamines, including Claritin, Zyrtec, Martha, and Xyzal, with minimal relief. She also tried Mucinex, which loosened the mucus but did not reduce its production. She denies facial pressure or throat clearing but continues to cough up mucus. She suspects the symptoms may have been exacerbated by a new cat, which has since been rehomed, but the symptoms persist despite thorough cleaning of her home. She also reports a firm spot in her right breast, which she noticed a few days ago, along with a much softer spot. She experiences some tenderness under her arm but denies any lumps or bumps elsewhere. She has not had a mammogram in over a year and acknowledges the need for one. She mentions that her mother had thick breast tissue, which made certain tests difficult. Additionally, she reports that her thumbs are starting to hurt, affecting her ability to do crafts. She also notes frequent urination but tries to drink as much water as possible during the day. She mentions that her vision is okay but probably needs to be checked, as her eyes get really tired. She has not had an eye exam in 7-8 years. She also reports that her TSH levels increased after starting levothyroxine, which she took for about a week before discontinuing due to headaches. She also mentions that her vitamin D levels were previously low. 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 Depressive disorder, not elsewhere classified 01/28/2006 Encounter for insertion or removal of intrauterine contraceptive device 03/01/2003; 02/2008 Was replaced in 02/2008; due 2013 Generalized osteoarthrosis, unspecified site 05/18/2005 Kidney stone Migraine, unspecified, with intractable migraine, so stated, without mention of status migrainosus Migraine Morbid obesity with BMI of 45.0-49.9, adult (HCC) Obesity Paroxysmal supraventricular tachycardia (HCC) Supraventricular tachycardia PMH - PAST MEDICAL HISTORY OF Heel Spurs Sciatica 05/18/2005 Unspecified asthma(493.90) Current Outpatient Medications Medication Sig buPROPion XL (WELLBUTRIN XL) 300 mg 24 hr tablet Take 1 tablet by mouth once daily. (Note: cannot take budeprion) omeprazole (PRILOSEC) 40 mg capsule Take 1 capsule by mouth once daily. sertraline (ZOLOFT) 100 mg tablet Take 1 tablet by mouth once daily. atenolol (TENORMIN) 100 mg tablet Take 1 tablet by mouth once daily. May also take 1 tablet once daily as needed (Extra dose as needed for breakthrough headache). celecoxib (CELEBREX) 200 mg capsule Take 1 capsule by mouth two times a day. gabapentin (NEURONTIN) 600 mg tablet Take 2 tablets by mouth two times a day for 360 days. hydrOXYzine HCl (ATARAX) 50 mg tablet Take 0.5-1 tablets by mouth every 4 hours as needed for itching/rash. For 90 days levothyroxine (SYNTHROID) 25 mcg tablet Take 1 tablet by mouth once daily. Take on empty stomach. For thyroid. tiZANidine (ZANAFLEX) 4 mg tablet Take 2 tablets by mouth daily at bedtime. May also take 0.5-1 tablets two times a day as needed (muscle spasms during the day). For 90 days. topiramate (TOPAMAX) 100 mg tablet Take 1 tablet by mouth daily at bedtime. busPIRone HCl 30 mg tablet Take 1 tablet by mouth two times a day. Awaiting for mail away pharmacy to send script. eszopiclone (LUNESTA) 2 mg Take 1 tablet by mouth at bedtime as needed for up to 180 days. sucralfate (CARAFATE) 1 gram tablet Take 1 tablet by mouth before meals and at bedtime. ondansetron orally disintegrating (ZOFRAN ODT) 4 mg disintegrating tablet Take 1 tablet by mouth every 6 hours as needed for nausea/vomiting. promethazine (PHENERGAN) 25 mg tablet Take 1 tablet by mouth every 6 hours as needed for nausea/vomiting. furosemide (LASIX) 20 mg tablet Take 1 tablet by mouth once daily as needed (fluid retention and swelling). Amoxicillin 500 mg tablet TAKE 4 PILLS 1 HOUR PRIOR TO DENTAL PROCEDURE cetirizine (ZYRTEC) 10 mg tablet Takes 1 tab daily as needed melatonin 5 mg tablet Take 1 tablet by mouth daily at bedtime. diclofenac sodium (VOLTAREN) 1 % topical gel Apply 4 g to affected area four times daily. For knees igymltty-xkv-frsut acid-biotin 66.7-1,000 mcg tab Take by mouth. Cholecalciferol, Vitamin D3, 5,000 unit cap Take 1 capsule by mouth once daily. vitamin b complex(B COMPLETE TAB) Take one(1) tablet daily. [START ON 10/24/2024] pregabalin (LYRICA) 100 mg capsule Take 1 capsule by mouth two times a day for 180 days. Patient should start on October 24, 2024. zolpidem (AMBIEN) 10 mg Take 0.5-1 tablets by mouth at bedtime as needed for up to 30 days. Taken instead of Lunesta if not able to sleep more than 6 hours of sleep. methadone (DOLOPHINE) 5 mg tablet Take 1 tablet by mouth three times a day as needed for up to 30 days. Patient should start on August 05, 2024. [START ON 09/04/2024] methadone (DOLOPHINE) 5 mg tablet Take 1 tablet by mouth three times a day as needed for up to 30 days. Patient should start on September 04, 2024. mometasone (NASONEX) 50 mcg/actuation nasal spray Use 2 Sprays in each nostril once daily. diphenhydrAMINE (BENADRYL) 25 mg capsule Take 50 mg by mouth at bedtime as needed. No current facility-administered medications for this visit. ALLERGIES Allergen Reactions Arnica (Arnica Chao* Rash Baclofen Vomiting, Unknown Duloxetine Unknown numbness and tingling Morphine Vomiting, Unknown Skelaxin [Metaxalon* Intolerance headache; also made her sleepy for 3 days and then woke up with a headache FAMILY HISTORY Problem Relation Age of Onset Hypertension Mother Plus High Cholesterol Arthritis Mother Asthma Mother Arthritis Father Hypertension Father and high cholesterol Osteoporosis Maternal Grandmother Heart Maternal Grandmother MVP Diabetes Maternal Grandfather Heart Maternal Grandfather [place] X-2, arrythmia, a fib, pacemaker Hypertension Paternal Grandmother Plus High Cholesterol Coronary Artery Disease Paternal Grandmother Cancer Paternal Grandfather lung and brain Breast Cancer Paternal Aunt 2 paternal great aunts Heart Maternal Uncle pacemaker Social History Tobacco Use Smoking status: Never Smokeless tobacco: Never Vaping Use Vaping status: Never Used Substance Use Topics Alcohol use: Yes Comment: Seldom Drug use: No Review of Systems Objective BP 140/80 Pulse 78 Resp 16 Ht 162.6 cm (5' 4) Wt 121 kg (266 lb 12.1 oz) LMP 02/10/2015 BMI 45.79 kg/m Physical Exam Vitals reviewed. Constitutional: Appearance: She is well-developed. HENT: Head: Normocephalic and atraumatic. Right Ear: External ear normal. Left Ear: External ear normal. Nose: Nose normal. Eyes: Conjunctiva/sclera: Conjunctivae normal. Neck: Thyroid: No thyromegaly. Cardiovascular: Rate and Rhythm: Normal rate and regular rhythm. Pulses: Normal pulses. Heart sounds: Normal heart sounds. No murmur heard. No friction rub. No gallop. Pulmonary: Effort: Pulmonary effort is normal. Breath sounds: Normal breath sounds. Chest: Breasts: Right: Mass (lump at about 1 o'clock, mild tenderness) and tenderness present. No swelling, bleeding, inverted nipple, nipple discharge or skin change. Left: Normal. Abdominal: General: Bowel sounds are normal. There is no distension. Palpations: Abdomen is soft. There is no mass. Tenderness: There is no abdominal tenderness. Musculoskeletal: General: No deformity. Normal range of motion. Right lower leg: No edema. Lymphadenopathy: Cervical: No cervical adenopathy. Upper Body: Right upper body: No supraclavicular, axillary or pectoral adenopathy. Left upper body: No supraclavicular, axillary or pectoral adenopathy. Skin: General: Skin is warm and dry. Coloration: Skin is not jaundiced or pale. Findings: No rash. Neurological: General: No focal deficit present. Mental Status: She is alert and oriented to person, place, and time. Cranial Nerves: No cranial nerve deficit. Sensory: No sensory deficit. Motor: No abnormal muscle tone. Coordination: Coordination normal. Deep Tendon Reflexes: Reflexes normal. Psychiatric: Mood and Affect: Mood normal. Behavior: Behavior normal. Thought Content: Thought content normal. Judgment: Judgment normal. Assessment and Plan # Routine medical exam (Z00.00) - Completed comprehensive physical examination. - Discussed current medications and health concerns. - Scheduled follow-up appointment for January. # Generalized OA (M15.9) - Continue current management. # Primary insomnia (F51.01) - Refilled Lunesta; patient reports using it once or twice a week due to hangover effects. - Refilled Ambien 10 mg, instructed to take half a pill as needed, approximately once a week. # Primary osteoarthritis of both knees (M17.0) - Continue current management. # Morbid obesity with BMI of 45.0-49.9, adult (HCC) (E66.01) - Encouraged gradual weight loss through healthy dietary changes and regular physical activity. - Discussed the importance of maintaining a healthy weight to alleviate pressure on joints and improve overall health. # Plantar fasciitis of right foot (M72.2) - Continue current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 Type: Physician Type: Progress Notes Filed: 07/13/2024 15:22 Note Text: [facility] Date: 07/13/2024 Patient name: Nimisha Beal Physician performing procedure: Meek Li MD Diagnosis: (M47.817) Lumbosacral spondylosis without myelopathy (primary encounter diagnosis) Procedure: Medial Branch Block (Diagnostic only, NO STEROIDS) under fluoroscopic guidance BILATERAL SIDES at L3-4 and L4-5 Injectate: A total of 6 ml volume was injected The injectate consisted of: 6 ml of 0.75% Bupivacaine Comments: None Improvement after today's procedure: as per nursing report HPI: Nimisha Beal is a 39 year old year old female who presents today, in pain, for the procedure noted above. Review of Systems: Pertinent Positives: MSK: pain in the region being treated Neuro: no weakness or numbness in the region being treated Skin: Negative (No itching) Eyes: Negative (No blurred or double vision) Respiratory: Negative (No Cough, Vtsxlfoyv-wi-ydidab, Dyspnea on exertion, wheezing) Cardiovascular: Negative (No Chest Pain, Tightness, Pressure, Palpitations) Gastrointestinal: Negative (No Abdominal pain, Nausea, Vomiting, Constipation, Diarrhea) Genitourinary: Negative (No dysuria) Hematologic: Negative (No bleeding, bruising) OB: is Denied or Not Applicable Endocrine: Negative (No hot/cold intolerance) Psychiatric: Negative (No depression, anxiety or suicidal ideation) 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 Depressive disorder, not elsewhere classified 01/28/2006 Encounter for insertion or removal of intrauterine contraceptive device 03/01/2003; 02/2008 Was replaced in 02/2008; due 2013 Generalized osteoarthrosis, unspecified site 05/18/2005 Kidney stone Migraine, unspecified, with intractable migraine, so stated, without mention of status migrainosus Migraine Morbid obesity with BMI of 45.0-49.9, adult (HCC) Obesity Paroxysmal supraventricular tachycardia (HCC) Supraventricular tachycardia PMH - PAST MEDICAL HISTORY OF Heel Spurs Sciatica 05/18/2005 Unspecified asthma(493.90) PAST SURGICAL HISTORY Procedure Laterality Date IUD INSERTION (RN FLOAT DEPT)_*FL 03/11/08 mirena IUD REMOVAL (RN FLOAT DEPT)_*FL 03/11/08 PAST SURGICAL HISTORY OF Left left knee surgery x6, MCL repair and extensive surgery on left lower leg and knee cap PAST SURGICAL HISTORY OF 2002 Heart ablation PAST SURGICAL HISTORY OF Left Knee surgery (Dr. Daniel Cee) PAST SURGICAL HISTORY OF 08/2018 right shoulder repair TONSILLECTOMY PRIMARY/SECONDARY Tonsillectomy FAMILY HISTORY Problem Relation Age of Onset Hypertension Mother Plus High Cholesterol Arthritis Mother Asthma Mother Arthritis Father Hypertension Father and high cholesterol Osteoporosis Maternal Grandmother Heart Maternal Grandmother MVP Diabetes Maternal Grandfather Heart Maternal Grandfather [place] X-2, arrythmia, a fib, pacemaker Hypertension Paternal Grandmother Plus High Cholesterol Coronary Artery Disease Paternal Grandmother Cancer Paternal Grandfather lung and brain Breast Cancer Paternal Aunt 2 paternal great aunts Heart Maternal Uncle pacemaker Social History Tobacco Use Smoking status: Never Smokeless tobacco: Never Vaping Use Vaping status: Never Used Substance Use Topics Alcohol use: Yes Comment: Seldom Drug use: No Current Outpatient Medications on File Prior to Visit Medication Sig [START ON 07/04/2024] methadone (DOLOPHINE) 5 mg tablet Take 1 tablet by mouth three times a day as needed for up to 30 days. Patient should start on July 04, 2024. buPROPion XL (WELLBUTRIN XL) 300 mg 24 hr tablet Take 1 tablet by mouth once daily. (Note: cannot take budeprion) omeprazole (PRILOSEC) 40 mg capsule Take 1 capsule by mouth once daily. sertraline (ZOLOFT) 100 mg tablet Take 1 tablet by mouth once daily. atenolol (TENORMIN) 100 mg tablet Take 1 tablet by mouth once daily. May also take 1 tablet once daily as needed (Extra dose as needed for breakthrough headache). celecoxib (CELEBREX) 200 mg capsule Take 1 capsule by mouth two times a day. gabapentin (NEURONTIN) 600 mg tablet Take 2 tablets by mouth two times a day for 360 days. hydrOXYzine HCl (ATARAX) 50 mg tablet Take 0.5-1 tablets by mouth every 4 hours as needed for itching/rash. For 90 days tiZANidine (ZANAFLEX) 4 mg tablet Take 2 tablets by mouth daily at bedtime. May also take 0.5-1 tablets two times a day as needed (muscle spasms during the day). For 90 days. pregabalin (LYRICA) 100 mg capsule Take 1 capsule by mouth two times a day for 180 days. topiramate (TOPAMAX) 100 mg tablet Take 1 tablet by mouth daily at bedtime. busPIRone HCl 30 mg tablet Take 1 tablet by mouth two times a day. Awaiting (more content not included)... [facility] 07-13-2024 History of Present illness Narrative [facility] Date: 07/13/2024 Patient name: Nimisha Beal Physician performing procedure: Meek Li MD Diagnosis: (M47.817) Lumbosacral spondylosis without myelopathy (primary encounter diagnosis) Procedure: Medial Branch Block (Diagnostic only, NO STEROIDS) under fluoroscopic guidance BILATERAL SIDES at L3-4 and L4-5 Injectate: A total of 6 ml volume was injected The injectate consisted of: 6 ml of 0.75% Bupivacaine Comments: None Improvement after today's procedure: as per nursing report HPI: Nimisha Beal is a 39 year old year old female who presents today, in pain, for the procedure noted above. Review of Systems: Pertinent Positives: MSK: pain in the region being treated Neuro: no weakness or numbness in the region being treated Skin: Negative (No itching) Eyes: Negative (No blurred or double vision) Respiratory: Negative (No Cough, Ojhevjgte-ri-alqjsb, Dyspnea on exertion, wheezing) Cardiovascular: Negative (No Chest Pain, Tightness, Pressure, Palpitations) Gastrointestinal: Negative (No Abdominal pain, Nausea, Vomiting, Constipation, Diarrhea) Genitourinary: Negative (No dysuria) Hematologic: Negative (No bleeding, bruising) OB: is Denied or Not Applicable Endocrine: Negative (No hot/cold intolerance) Psychiatric: Negative (No depression, anxiety or suicidal ideation) 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 Depressive disorder, not elsewhere classified 01/28/2006 Encounter for insertion or removal of intrauterine contraceptive device 03/01/2003; 02/2008 Was replaced in 02/2008; due 2013 Generalized osteoarthrosis, unspecified site 05/18/2005 Kidney stone Migraine, unspecified, with intractable migraine, so stated, without mention of status migrainosus Migraine Morbid obesity with BMI of 45.0-49.9, adult (HCC) Obesity Paroxysmal supraventricular tachycardia (HCC) Supraventricular tachycardia PMH - PAST MEDICAL HISTORY OF Heel Spurs Sciatica 05/18/2005 Unspecified asthma(493.90) PAST SURGICAL HISTORY Procedure Laterality Date IUD INSERTION (RN FLOAT DEPT)_*FL 03/11/08 mirena IUD REMOVAL (RN FLOAT DEPT)_*FL 03/11/08 PAST SURGICAL HISTORY OF Left left knee surgery x6, MCL repair and extensive surgery on left lower leg and knee cap PAST SURGICAL HISTORY OF 2002 Heart ablation PAST SURGICAL HISTORY OF Left Knee surgery (Dr. Daniel Cee) PAST SURGICAL HISTORY OF 08/2018 right shoulder repair TONSILLECTOMY PRIMARY/SECONDARY <AGE 12 Tonsillectomy FAMILY HISTORY Problem Relation Age of Onset Hypertension Mother Plus High Cholesterol Arthritis Mother Asthma Mother Arthritis Father Hypertension Father and high cholesterol Osteoporosis Maternal Grandmother Heart Maternal Grandmother MVP Diabetes Maternal Grandfather Heart Maternal Grandfather [place] X-2, arrythmia, a fib, pacemaker Hypertension Paternal Grandmother Plus High Cholesterol Coronary Artery Disease Paternal Grandmother Cancer Paternal Grandfather lung and brain Breast Cancer Paternal Aunt 2 paternal great aunts Heart Maternal Uncle pacemaker Social History Tobacco Use Smoking status: Never Smokeless tobacco: Never Vaping Use Vaping status: Never Used Substance Use Topics Alcohol use: Yes Comment: Seldom Drug use: No Current Outpatient Medications on File Prior to Visit Medication Sig [START ON 07/04/2024] methadone (DOLOPHINE) 5 mg tablet Take 1 tablet by mouth three times a day as needed for up to 30 days. Patient should start on July 04, 2024. buPROPion XL (WELLBUTRIN XL) 300 mg 24 hr tablet Take 1 tablet by mouth once daily. (Note: cannot take budeprion) omeprazole (PRILOSEC) 40 mg capsule Take 1 capsule by mouth once daily. sertraline (ZOLOFT) 100 mg tablet Take 1 tablet by mouth once daily. atenolol (TENORMIN) 100 mg tablet Take 1 tablet by mouth once daily. May also take 1 tablet once daily as needed (Extra dose as needed for breakthrough headache). celecoxib (CELEBREX) 200 mg capsule Take 1 capsule by mouth two times a day. gabapentin (NEURONTIN) 600 mg tablet Take 2 tablets by mouth two times a day for 360 days. hydrOXYzine HCl (ATARAX) 50 mg tablet Take 0.5-1 tablets by mouth every 4 hours as needed for itching/rash. For 90 days tiZANidine (ZANAFLEX) 4 mg tablet Take 2 tablets by mouth daily at bedtime. May also take 0.5-1 tablets two times a day as needed (muscle spasms during the day). For 90 days. pregabalin (LYRICA) 100 mg capsule Take 1 capsule by mouth two times a day for 180 days. topiramate (TOPAMAX) 100 mg tablet Take 1 tablet by mouth daily at bedtime. busPIRone HCl 30 mg tablet Take 1 tablet by mouth two times a day. Awaiting for mail away pharmacy to send script. eszopiclone (LUNESTA) 2 mg Take 1 tablet by mouth at bedtime as needed for up to 180 days. sucralfate (CARAFATE) 1 gram tablet Take 1 tablet by mouth before meals and at bedtime. diphenhydrAMINE (BENADRYL) 25 mg capsule Take 50 mg by mouth at bedtime as needed. ondansetron orally disintegrating (ZOFRAN ODT) 4 mg disintegrating tablet Take 1 tablet by mouth every 6 hours as needed for nausea/vomiting. promethazine (PHENERGAN) 25 mg tablet Take 1 tablet by mouth every 6 hours as needed for nausea/vomiting. cetirizine (ZYRTEC) 10 mg tablet Takes 1 tab daily as needed melatonin 5 mg tablet Take 1 tablet by mouth daily at bedtime. jusxgniv-ues-ttewk acid-biotin 66.7-1,000 mcg tab Take by mouth. Cholecalciferol, Vitamin D3, 5,000 unit cap Take 1 capsule by mouth once daily. vitamin b complex(B COMPLETE TAB) Take one(1) tablet daily. levothyroxine (SYNTHROID) 25 mcg tablet Take 1 tablet by mouth once daily. Take on empty stomach. For thyroid. (Patient not taking: Reported on 07/01/2024) furosemide (LASIX) 20 mg tablet Take 1 tablet by mouth once daily as needed (fluid retention and swelling). (Patient not taking: Reported on 07/01/2024) [DISCONTINUED] Omeprazole Magnesium (PRILOSEC OTC) 20 mg tablet Take 1 tablet by mouth daily before breakfast. 1/2 hr before meal. Amoxicillin 500 mg tablet TAKE 4 PILLS 1 HOUR PRIOR TO DENTAL PROCEDURE (Patient not taking: Reported on 07/01/2024) diclofenac sodium (VOLTAREN) 1 % topical gel Apply 4 g to affected area four times daily. For knees (Patient not taking: Reported on 07/01/2024) No current facility-administered medications on file prior to visit. Objective Exam: Vitals: As per nursing documentation Constitutional: Normal Appearance, Oriented to Time, Place and Person Head: No lacerations, no external signs of trauma Eyes: Conjunctiva clear. No discharge from the eyes Cardiovascular: Appears well-perfused Pulmonary: Non-labored respirations Abdominal: Non-distended Skin: No visible rashes or ecchymosis Psychiatric: Mood appropriate for given condition Neurological: Gross movements are limited by pain, but otherwise unremarkable Data Reviewed: Nursing note and vitals reviewed. Additional imaging reviewed as appropriate Assessment and Plan: As noted above [facility] protocol documentation / Pre-Procedure Checklist: Consent: Obtained in writing prior to procedure I had a nice discussion with the patient today about their current pain and the pathology that could be causing it We discussed different treatment options, including risks, benefits and alternatives. We agreed to proceed as previously discussed, or the plan was modified in accordance with the comments noted above Unless stated otherwise in the procedure note, the risks include but are not limited to infection, allergic reaction, increased pain, lack of therapeutic benefit, steroid reaction, nerve damage, paralysis, stroke, epidural hematoma, syncope, headache, respiratory or cardiac arrest, pneumothorax, and scar formation Once the plan was agreed upon, the patient gave written consent to proceed and was transported into the procedure room Surgical/Procedure pause or Time Out : Time Out was led by the physician in the procedure room, with the patient and all staff present and participating The following information was verified during the Time Out process: Patient name, patient date of , procedure site (marked), laterality, anticoagulants and allergies Procedure: The patient was prepped and draped in a sterile fashion in the prone position after informed consent was signed and all patient questions were answered including the risks, benefits, alternative treatment options, and prognosis. The risks are as mentioned above, with the exception of Pneumothorax. A 25 gauge, 5 inch spinal needle was inserted a few centimeters lateral to the pedicles of the remaining lumbar levels mentioned above and advanced ventral and medial through the muscles to the target point. Once the needle contacted periosteum at the superior-most medial edge of the transverse process, the C-arm was obliqued such that the axis of the lumbar facet joints could be fluoroscopically visualized, and the correct position of the needle confirmed. After contact with periosteum and negative aspirate for blood and CSF, a 1cc volume of the injectate noted above was placed. A needle was similarly directed to the other facet joint nerves mentioned above, with completion of the procedure at each level as described above. Please see the nursing note for exact times (time out, procedure start, procedure end). After careful removal of the needle, there was minimal bleeding. The injection site was covered with appropriate sterile dressing. The patient was noted to have tolerated the procedure well and was discharged after an appropriate period of post-procedure observation. The patient was instructed to contact us if there were any complications. The patient was advised to follow-up with the requesting physician within one to two weeks or as per their requested follow-up plan. Post procedure visit summary with written instructions was offered to the patient. Meek Li MD Pain Management [facility] Review of Systems Order has been placed in the patient's chart with the following parameters for discharge from the physician: Patient is alert and oriented Vitals: Diastolic/Systolic +/- 20mmHg Respirations: 12-18 Pulse: 60-100 SpO2 is greater than or equal to 90% Patient has no nausea or vomiting Patient has no dizziness Pain level is +/- 2 from initial evaluation Dressing, dry and intact with no evidence of bleeding Criteria has been met, patient is okay to be discharged per the physician. Physician has gone in and evaluated the patient. Dressing dry and intact. No drainage noted. The patient denies nausea, numbness, tingling, weakness, shortness of breath, dizziness, or headache. Pain level 3/10. Vital signs within normal limits. Patient denied needing walked out by clinical staff and denied needing a wheelchair. Patient given discharge instructions and sent to transportation via ambulatory method. Patient left in good condition. Procedure to be performed: L3/4 - L4/5 Bilateral Medial Branch Block without steroid Patient was wheeled on stretcher from pre op bay to procedure room and assisted onto the procedure tablePatient s procedure was performed [facility]. Pause completed at each level by provider to verify correct level and laterality placement Pressure was applied to patient s injection site(s) and bleeding was minimal. Patient had no complaint of shortness of breath, dizziness, headache, numbness, tingling, weakness or complications from procedure. Patient was assisted from the procedure table onto the stretcher and wheeled into a post op bay. Patient was advised a clinician will be to obtain another set of vitals. Time Out: 1259 Confirmed patient name, date of , procedure site, laterality, and allergies Procedure Start: 130 Procedure End: 1307 Diver Assistant's Name: Amanda Are you on a blood thinner: n If yes, is a hold required: n Last dose of blood thinner: n INR Result today: n Do you require a Lovenox bridge:n Are you a diabetic:n Are you/or could you be : n Are you taking Xanax for the procedure: n Are you currently on a steroid? n Are you currently on an antibiotic: n Review of Systems Constitutional: Positive for activity change. Negative for chills, fever and unexpected weight change. Genitourinary: Negative for difficulty urinating. Musculoskeletal: Positive for arthralgias, back pain and gait problem. Negative for joint swelling, myalgias, neck pain and neck stiffness. Neurological: Positive for numbness and headaches. Negative for weakness. Psychiatric/Behavioral: Positive for dysphoric mood. Negative for sleep disturbance and suicidal ideas. The patient is nervous/anxious. documented in this encounter [facility] 07-13-2024 Note HNO ID: [id number] Author: CELIA HU LPN Service: ? Author Type: LICENSED NURSE Type: Progress Notes Filed: 07/13/2024 15:22 Note Text: Review of Systems Order has been placed in the patient's chart with the following parameters for discharge from the physician: Patient is alert and oriented Vitals: Diastolic/Systolic +/- 20mmHg Respirations: 12-18 Pulse: 60-100 SpO2 is greater than or equal to 90% Patient has no nausea or vomiting Patient has no dizziness Pain level is +/- 2 from initial evaluation Dressing, dry and intact with no evidence of bleeding Criteria has been met, patient is okay to be discharged per the physician. Physician has gone in and evaluated the patient. Dressing dry and intact. No drainage noted. The patient denies nausea, numbness, tingling, weakness, shortness of breath, dizziness, or headache. Pain level 3/10. Vital signs within normal limits. Patient denied needing walked out by clinical staff and denied needing a wheelchair. Patient given discharge instructions and sent to transportation via ambulatory method. Patient left in good condition. [facility] 07-13-2024 Instructions Celia Hu LPN - 07/13/2024 12:48 PM EST PROCEDURE DISCHARGE INSTRUCTIONS 07/13/2024 Nimisha Beal 1985 Physician: Meek Li MD Procedure: BILATERAL L3/L4, L4/L5 LUMBAR MEDIAL BRANCH BLOCK (SERIES OF 2) Post Procedure Instructions: If sedation not given, no driving for 3 hours after the procedure., Perform activities that typically make you have pain and monitor your pain level during these activities for the next 3-4 hours., Apply cold compresses to injection site if needed., If medically acceptable, take over the counter anti-inflammatories such as ibuprofen or Aleve if needed for post procedure discomfort., No hot baths, hot tubs or hot compresses for 24 hours., and Increased pain the day after the procedure may occur. If you have any of the following signs or symptoms, please call our office at Fever and/or chills Swelling and/or drainage from injection site New pain that is different than your normal pain (other than soreness at the site of the procedure) Stiff neck Shortness of breath Severe increase in pain Motor dysfunctions, such as difficulty walking, bowel or bladder dysfunction and/or incontinence Headache that is severe, light sensitive or develops when changing positions (positional headache) Nausea and/or vomiting accompanied by headache that started 24-48 hours after the procedure If you have any emergent concerns, please call 911 or go to your local emergency room. Please also contact our office to let us know you will be seeking emergency care and why. documented in this encounter [facility] 07-13-2024 Note HNO ID: [id number] Author: JENN VERA LPN Service: ? Author Type: LICENSED NURSE Type: Progress Notes Filed: 07/13/2024 15:22 Note Text: Procedure to be performed: L3/4 - L4/5 Bilateral Medial Branch Block without steroid Patient was wheeled on stretcher from pre op bay to procedure room and assisted onto the procedure tablePatient?s procedure was performed in an [facility]. Pause completed at each level by provider to verify correct level and laterality placement Pressure was applied to patient?s injection site(s) and bleeding was minimal. Patient had no complaint of shortness of breath, dizziness, headache, numbness, tingling, weakness or complications from procedure. Patient was assisted from the procedure table onto the stretcher and wheeled into a post op bay. Patient was advised a clinician will be to obtain another set of vitals. Time Out: 1259 Confirmed patient name, date of , procedure site, laterality, and allergies Procedure Start: 1302 Procedure End: 1307 [facility] 07-13-2024 Note HNO ID: [id number] Author: KAMINI MENDES LPN Service: ? Author Type: LICENSED NURSE Type: Progress Notes Filed: 07/13/2024 15:22 Note Text: Diver Assistant's Name: Amanda Are you on a blood thinner: n If yes, is a hold required: n Last dose of blood thinner: n INR Result today: n Do you require a Lovenox bridge:n Are you a diabetic:n Are you/or could you be : n Are you taking Xanax for the procedure: n Are you currently on a steroid? n Are you currently on an antibiotic: n Review of Systems Constitutional: Positive for activity change. Negative for chills, fever and unexpected weight change. Genitourinary: Negative for difficulty urinating. Musculoskeletal: Positive for arthralgias, back pain and gait problem. Negative for joint swelling, myalgias, neck pain and neck stiffness. Neurological: Positive for numbness and headaches. Negative for weakness. Psychiatric/Behavioral: Positive for dysphoric mood. Negative for sleep disturbance and suicidal ideas. The patient is nervous/anxious. [facility] 07-07-2024 Note Patient Outreach (IN TMWS) NIMISHA BEAL ([id number]) 1985 F Date Time Provider Department 07/07/24 ANILA CAMPOS INTRAEANN During your visit today, we recorded the following information about you: Allergies As of Date: 07/07/2024 Noted Allergy Reaction ARNICA (ARNICA JOSHUA) 04/14/2019 2 - Rash BACLOFEN 11/25/2013 11 - Vomiting 16 - Unknown DULOXETINE 01/07/2006 16 - Unknown Comments: numbness and tingling MORPHINE 01/11/2005 11 - Vomiting 16 - Unknown SKELAXIN (METAXALONE) 05/08/2010 5 - Intolerance Comments: headache; also made her sleepy for 3 days and then woke up with a headache Date Reviewed: 07/02/2024 Reviewed by: Dasha Bright LPN - Fully Assessed Visit Diagnosis:Encounter for screening mammogram for breast cancer [Z12.31] Order(s):[facility] [place] SCREENING W BRITT [[id number]] Order #: [id number] FUTURE Prescriptions as of 08/07/2024 - pregabalin (LYRICA) 100 mg capsule Take 1 capsule by mouth two times a day for 180 days. Patient should start on October 24, 2024. - zolpidem (AMBIEN) 10 mg Take 0.5-1 tablets by mouth at bedtime as needed for up to 30 days. Taken instead of Lunesta if not able to sleep more than 6 hours of sleep. - methadone (DOLOPHINE) 5 mg tablet Take 1 tablet by mouth three times a day as needed for up to 30 days. Patient should start on August 05, 2024. - methadone (DOLOPHINE) 5 mg tablet Take 1 tablet by mouth three times a day as needed for up to 30 days. Patient should start on September 04, 2024. - mometasone (NASONEX) 50 mcg/actuation nasal spray Use 2 Sprays in each nostril once daily. - buPROPion XL (WELLBUTRIN XL) 300 mg 24 hr tablet Take 1 tablet by mouth once daily. (Note: cannot take budeprion) - omeprazole (PRILOSEC) 40 mg capsule Take 1 capsule by mouth once daily. - sertraline (ZOLOFT) 100 mg tablet Take 1 tablet by mouth once daily. - atenolol (TENORMIN) 100 mg tablet Take 1 tablet by mouth once daily. May also take 1 tablet once daily as needed (Extra dose as needed for breakthrough headache). - celecoxib (CELEBREX) 200 mg capsule Take 1 capsule by mouth two times a day. - gabapentin (NEURONTIN) 600 mg tablet Take 2 tablets by mouth two times a day for 360 days. - hydrOXYzine HCl (ATARAX) 50 mg tablet Take 0.5-1 tablets by mouth every 4 hours as needed for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 spondylosis without myelopathy (primary encounter diagnosis) Procedure: Medial Branch Block (Diagnostic only, NO STEROIDS) under fluoroscopic guidance BILATERAL SIDES at L3-4 and L4-5 Injectate: A total of 6 ml volume was injected The injectate consisted of: 6 ml of 0.75% Bupivacaine Comments: None Improvement after today's procedure: as per nursing report HPI: Nimisha Beal is a 39 year old year old female who presents today, in pain, for the procedure noted above. Review of Systems: Pertinent Positives: MSK: pain in the region being treated Neuro: no weakness or numbness in the region being treated Skin: Negative (No itching) Eyes: Negative (No blurred or double vision) Respiratory: Negative (No Cough, [id number], Dyspnea on exertion, wheezing) Cardiovascular: Negative (No Chest Pain, Tightness, Pressure, Palpitations) Gastrointestinal: Negative (No Abdominal pain, Nausea, Vomiting, Constipation, Diarrhea) Genitourinary: Negative (No dysuria) Hematologic: Negative (No bleeding, bruising) OB: is Denied or Not Applicable Endocrine: Negative (No hot/cold intolerance) Psychiatric: Negative (No depression, anxiety or suicidal ideation) 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 Depressive disorder, not elsewhere classified 01/28/2006 Encounter for insertion or removal of intrauterine contraceptive device 03/01/2003; 02/2008 Was replaced in 02/2008; due 2013 Generalized osteoarthrosis, unspecified site 05/18/2005 Kidney stone Migraine, unspecified, with intractable migraine, so stated, without mention of status migrainosus Migraine Morbid obesity with BMI of 45.0-49.9, adult (HCC) Obesity Paroxysmal supraventricular tachycardia (HCC) Supraventricular tachycardia PMH - PAST MEDICAL HISTORY OF Heel Spurs Sciatica 05/18/2005 Unspecified asthma(493.90) PAST SURGICAL HISTORY Procedure Laterality Date IUD INSERTION (RN FLOAT DEPT)_*FL 03/11/08 mirena IUD REMOVAL (RN FLOAT DEPT)_*FL 03/11/08 PAST SURGICAL HISTORY OF Left left knee surgery x6, MCL repair and extensive surgery on left lower leg and knee cap PAST SURGICAL HISTORY OF 2003 Heart ablation PAST SURGICAL HISTORY OF Left Knee surgery (Dr. Daniel Cee) PAST SURGICAL HISTORY OF 08/2018 right shoulder repair TONSILLECTOMY PRIMARY/SECONDARY Tonsillectomy FAMILY HISTORY Problem Relation Age of Onset Hypertension Mother Plus High Cholesterol Arthritis Mother Asthma Mother Arthritis Father Hypertension Father and high cholesterol Osteoporosis Maternal Grandmother Heart Maternal Grandmother MVP Diabetes Maternal Grandfather Heart Maternal Grandfather [place] X-2, arrythmia, a fib, pacemaker Hypertension Paternal Grandmother Plus High Cholesterol Coronary Artery Disease Paternal Grandmother Cancer Paternal Grandfather lung and brain Breast Cancer Paternal Aunt 2 paternal great aunts Heart Maternal Uncle pacemaker Social History Tobacco Use Smoking status: Never Smokeless tobacco: Never Vaping Use Vaping status: Never Used Substance Use Topics Alcohol use: Yes Comment: Seldom Drug use: No Current Outpatient Medications on File Prior to Visit Medication Sig [START ON 07/04/2024] methadone (DOLOPHINE) 5 mg tablet Take 1 tablet by mouth three times a day as needed for up to 30 days. Patient should start on July 04, 2024. buPROPion XL (WELLBUTRIN XL) 300 mg 24 hr tablet Take 1 tablet by mouth once daily. (Note: cannot take budeprion) omeprazole (PRILOSEC) 40 mg capsule Take 1 capsule by mouth once daily. sertraline (ZOLOFT) 100 mg tablet Take 1 tablet by mouth once daily. atenolol (TENORMIN) 100 mg tablet Take 1 tablet by mouth once daily. May also take 1 tablet once daily as needed (Extra dose as needed for breakthrough headache). celecoxib (CELEBREX) 200 mg capsule Take 1 capsule by mouth two times a day. gabapentin (NEURONTIN) 600 mg tablet Take 2 tablets by mouth two times a day for 360 days. hydrOXYzine HCl (ATARAX) 50 mg tablet Take 0.5-1 tablets by mouth every 4 hours as needed for itching/rash. For 90 days tiZANidine (ZANAFLEX) 4 mg tablet Take 2 tablets by mouth daily at bedtime. May also take 0.5-1 tablets two times a day as needed (muscle spasms during the day). For 90 days. pregabalin (LYRICA) 100 mg capsule Take 1 capsule by mouth two times a day for 180 days. topiramate (TOPAMAX) 100 mg tablet Take 1 tablet by mouth daily at bedtime. busPIRone HCl 30 mg tablet Take 1 tablet by mouth two times a day. Awaiting (more content not included)... [facility] 07-01-2024 History of Present illness Narrative [facility] Date: 07/01/2024 Patient name: Nimisha Beal Physician performing procedure: Meek Li MD Diagnosis: (M47.817) Lumbosacral spondylosis without myelopathy (primary encounter diagnosis) Procedure: Medial Branch Block (Diagnostic only, NO STEROIDS) under fluoroscopic guidance BILATERAL SIDES at L3-4 and L4-5 Injectate: A total of 6 ml volume was injected The injectate consisted of: 6 ml of 0.75% Bupivacaine Comments: None Improvement after today's procedure: as per nursing report HPI: Nimisha Beal is a 39 year old year old female who presents today, in pain, for the procedure noted above. Review of Systems: Pertinent Positives: MSK: pain in the region being treated Neuro: no weakness or numbness in the region being treated Skin: Negative (No itching) Eyes: Negative (No blurred or double vision) Respiratory: Negative (No Cough, Prgyatxgf-ww-[id number], Dyspnea on exertion, wheezing) Cardiovascular: Negative (No Chest Pain, Tightness, Pressure, Palpitations) Gastrointestinal: Negative (No Abdominal pain, Nausea, Vomiting, Constipation, Diarrhea) Genitourinary: Negative (No dysuria) Hematologic: Negative (No bleeding, bruising) OB: is Denied or Not Applicable Endocrine: Negative (No hot/cold intolerance) Psychiatric: Negative (No depression, anxiety or suicidal ideation) 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 Depressive disorder, not elsewhere classified 01/28/2006 Encounter for insertion or removal of intrauterine contraceptive device 03/01/2003; 02/2008 Was replaced in 02/2008; due 2013 Generalized osteoarthrosis, unspecified site 05/18/2005 Kidney stone Migraine, unspecified, with intractable migraine, so stated, without mention of status migrainosus Migraine Morbid obesity with BMI of 45.0-49.9, adult (HCC) Obesity Paroxysmal supraventricular tachycardia (HCC) Supraventricular tachycardia PMH - PAST MEDICAL HISTORY OF Heel Spurs Sciatica 05/18/2005 Unspecified asthma(493.90) PAST SURGICAL HISTORY Procedure Laterality Date IUD INSERTION (RN FLOAT DEPT)_*FL 03/11/08 mirena IUD REMOVAL (RN FLOAT DEPT)_*FL 03/11/08 PAST SURGICAL HISTORY OF Left left knee surgery x6, MCL repair and extensive surgery on left lower leg and knee cap PAST SURGICAL HISTORY OF 2002 Heart ablation PAST SURGICAL HISTORY OF Left Knee surgery (Dr. Daniel Cee) PAST SURGICAL HISTORY OF 08/2018 right shoulder repair TONSILLECTOMY PRIMARY/SECONDARY <AGE 12 Tonsillectomy FAMILY HISTORY Problem Relation Age of Onset Hypertension Mother Plus High Cholesterol Arthritis Mother Asthma Mother Arthritis Father Hypertension Father and high cholesterol Osteoporosis Maternal Grandmother Heart Maternal Grandmother MVP Diabetes Maternal Grandfather Heart Maternal Grandfather [place] X-2, arrythmia, a fib, pacemaker Hypertension Paternal Grandmother Plus High Cholesterol Coronary Artery Disease Paternal Grandmother Cancer Paternal Grandfather lung and brain Breast Cancer Paternal Aunt 2 paternal great aunts Heart Maternal Uncle pacemaker Social History Tobacco Use Smoking status: Never Smokeless tobacco: Never Vaping Use Vaping status: Never Used Substance Use Topics Alcohol use: Yes Comment: Seldom Drug use: No Current Outpatient Medications on File Prior to Visit Medication Sig [START ON 07/04/2024] methadone (DOLOPHINE) 5 mg tablet Take 1 tablet by mouth three times a day as needed for up to 30 days. Patient should start on July 04, 2024. buPROPion XL (WELLBUTRIN XL) 300 mg 24 hr tablet Take 1 tablet by mouth once daily. (Note: cannot take budeprion) omeprazole (PRILOSEC) 40 mg capsule Take 1 capsule by mouth once daily. sertraline (ZOLOFT) 100 mg tablet Take 1 tablet by mouth once daily. atenolol (TENORMIN) 100 mg tablet Take 1 tablet by mouth once daily. May also take 1 tablet once daily as needed (Extra dose as needed for breakthrough headache). celecoxib (CELEBREX) 200 mg capsule Take 1 capsule by mouth two times a day. gabapentin (NEURONTIN) 600 mg tablet Take 2 tablets by mouth two times a day for 360 days. hydrOXYzine HCl (ATARAX) 50 mg tablet Take 0.5-1 tablets by mouth every 4 hours as needed for itching/rash. For 90 days tiZANidine (ZANAFLEX) 4 mg tablet Take 2 tablets by mouth daily at bedtime. May also take 0.5-1 tablets two times a day as needed (muscle spasms during the day). For 90 days. pregabalin (LYRICA) 100 mg capsule Take 1 capsule by mouth two times a day for 180 days. topiramate (TOPAMAX) 100 mg tablet Take 1 tablet by mouth daily at bedtime. busPIRone HCl 30 mg tablet Take 1 tablet by mouth two times a day. Awaiting for mail away pharmacy to send script. eszopiclone (LUNESTA) 2 mg Take 1 tablet by mouth at bedtime as needed for up to 180 days. sucralfate (CARAFATE) 1 gram tablet Take 1 tablet by mouth before meals and at bedtime. diphenhydrAMINE (BENADRYL) 25 mg capsule Take 50 mg by mouth at bedtime as needed. ondansetron orally disintegrating (ZOFRAN ODT) 4 mg disintegrating tablet Take 1 tablet by mouth every 6 hours as needed for nausea/vomiting. promethazine (PHENERGAN) 25 mg tablet Take 1 tablet by mouth every 6 hours as needed for nausea/vomiting. cetirizine (ZYRTEC) 10 mg tablet Takes 1 tab daily as needed melatonin 5 mg tablet Take 1 tablet by mouth daily at bedtime. fvmjdoii-zgq-dtzav acid-biotin 66.7-1,000 mcg tab Take by mouth. Cholecalciferol, Vitamin D3, 5,000 unit cap Take 1 capsule by mouth once daily. vitamin b complex(B COMPLETE TAB) Take one(1) tablet daily. levothyroxine (SYNTHROID) 25 mcg tablet Take 1 tablet by mouth once daily. Take on empty stomach. For thyroid. (Patient not taking: Reported on 07/01/2024) furosemide (LASIX) 20 mg tablet Take 1 tablet by mouth once daily as needed (fluid retention and swelling). (Patient not taking: Reported on 07/01/2024) [DISCONTINUED] Omeprazole Magnesium (PRILOSEC OTC) 20 mg tablet Take 1 tablet by mouth daily before breakfast. 1/2 hr before meal. Amoxicillin 500 mg tablet TAKE 4 PILLS 1 HOUR PRIOR TO DENTAL PROCEDURE (Patient not taking: Reported on 07/01/2024) diclofenac sodium (VOLTAREN) 1 % topical gel Apply 4 g to affected area four times daily. For knees (Patient not taking: Reported on 07/01/2024) No current facility-administered medications on file prior to visit. Objective Exam: Vitals: As per nursing documentation Constitutional: Normal Appearance, Oriented to Time, Place and Person Head: No lacerations, no external signs of trauma Eyes: Conjunctiva clear. No discharge from the eyes Cardiovascular: Appears well-perfused Pulmonary: Non-labored respirations Abdominal: Non-distended Skin: No visible rashes or ecchymosis Psychiatric: Mood appropriate for given condition Neurological: Gross movements are limited by pain, but otherwise unremarkable Data Reviewed: Nursing note and vitals reviewed. Additional imaging reviewed as appropriate Assessment and Plan: As noted above [facility] protocol documentation / Pre-Procedure Checklist: Consent: Obtained in writing prior to procedure I had a nice discussion with the patient today about their current pain and the pathology that could be causing it We discussed different treatment options, including risks, benefits and alternatives. We agreed to proceed as previously discussed, or the plan was modified in accordance with the comments noted above Unless stated otherwise in the procedure note, the risks include but are not limited to infection, allergic reaction, increased pain, lack of therapeutic benefit, steroid reaction, nerve damage, paralysis, stroke, epidural hematoma, syncope, headache, respiratory or cardiac arrest, pneumothorax, and scar formation Once the plan was agreed upon, the patient gave written consent to proceed and was transported into the procedure room Surgical/Procedure pause or Time Out : Time Out was led by the physician in the procedure room, with the patient and all staff present and participating The following information was verified during the Time Out process: Patient name, patient date of , procedure site (marked), laterality, anticoagulants and allergies Procedure: The patient was prepped and draped in a sterile fashion in the prone position after informed consent was signed and all patient questions were answered including the risks, benefits, alternative treatment options, and prognosis. The risks are as mentioned above, with the exception of Pneumothorax. A 25 gauge, 5 inch spinal needle was inserted a few centimeters lateral to the pedicles of the remaining lumbar levels mentioned above and advanced ventral and medial through the muscles to the target point. Once the needle contacted periosteum at the superior-most medial edge of the transverse process, the C-arm was obliqued such that the axis of the lumbar facet joints could be fluoroscopically visualized, and the correct position of the needle confirmed. After contact with periosteum and negative aspirate for blood and CSF, a 1cc volume of the injectate noted above was placed. A needle was similarly directed to the other facet joint nerves mentioned above, with completion of the procedure at each level as described above. Please see the nursing note for exact times (time out, procedure start, procedure end). After careful removal of the needle, there was minimal bleeding. The injection site was covered with appropriate sterile dressing. The patient was noted to have tolerated the procedure well and was discharged after an appropriate period of post-procedure observation. The patient was instructed to contact us if there were any complications. The patient was advised to follow-up with the requesting physician within one to two weeks or as per their requested follow-up plan. Post procedure visit summary with written instructions was offered to the patient. Meek Li MD Pain Management [facility] Order has been placed in the patient's chart with the following parameters for discharge from the physician: Patient is alert and oriented Vitals: Diastolic/Systolic +/- 20mmHg Respirations: 12-18 Pulse: 60-100 SpO2 is greater than or equal to 90% Patient has no nausea or vomiting Patient has no dizziness Pain level is +/- 2 from initial evaluation Dressing, dry and intact with no evidence of bleeding Criteria has been met, patient is okay to be discharged per the physician. Physician has gone in and evaluated the patient. Dressing dry and intact. No drainage noted. The patient denies nausea, numbness, tingling, weakness, shortness of breath, dizziness, or headache. Pain level 2/10. Vital signs within normal limits. Patient denied needing walked out by clinical staff and denied needing a wheelchair. Patient given discharge instructions and sent to transportation via ambulatory method. Patient left in good condition. Procedure to be performed: BILATERAL L3/L4, L4/L5 LUMBAR MEDIAL BRANCH BLOCK Patient was walked from exam room to procedure room and assisted onto the procedure tablePatient s procedure was performed [facility] Pause completed at each level by provider to verify correct level and laterality placement Pressure was applied to patient s injection site(s) and bleeding was minimal. Patient had no complaint of shortness of breath, dizziness, headache, numbness, tingling, weakness or complications from procedure. Patient was assisted from the procedure table and walked back to exam room. Patient was advised a clinician will be to obtain another set of vitals. Time Out: 1035 Confirmed patient name, date of , procedure site, laterality, and allergies Procedure Start: 1038 Procedure End: 1043 Diver Assistant's Name: Amanda Are you on a blood thinner: no If yes, is a hold required: no Last dose of blood thinner: no INR Result today: no Do you require a Lovenox bridge:no Are you a diabetic:no Are you/or could you be : no Are you taking Xanax for the procedure: no Are you currently on a steroid? no Are you currently on an antibiotic: no Review of Systems Constitutional: Positive for activity change. Negative for chills, fever and unexpected weight change. Gastrointestinal: Negative for bowel retention or incontinence Genitourinary: Negative for difficulty urinating. Negative for bladder retention or incontinence Musculoskeletal: Positive for arthralgias, back pain and joint swelling. Negative for gait problem, myalgias, neck pain and neck stiffness. Neurological: Positive for numbness and headaches. Negative for weakness. Psychiatric/Behavioral: Positive for dysphoric mood. Negative for sleep disturbance and suicidal ideas. The patient is nervous/anxious. documented in this encounter [facility] 07-01-2024 Note HNO ID: [id number] Author: KAMINI MENDES LPN Service: ? Author Type: LICENSED NURSE Type: Progress Notes Filed: 07/01/2024 11:08 Note Text: Order has been placed in the patient's chart with the following parameters for discharge from the physician: Patient is alert and oriented Vitals: Diastolic/Systolic +/- 20mmHg Respirations: 12-18 Pulse: 60-100 SpO2 is greater than or equal to 90% Patient has no nausea or vomiting Patient has no dizziness Pain level is +/- 2 from initial evaluation Dressing, dry and intact with no evidence of bleeding Criteria has been met, patient is okay to be discharged per the physician. Physician has gone in and evaluated the patient. Dressing dry and intact. No drainage noted. The patient denies nausea, numbness, tingling, weakness, shortness of breath, dizziness, or headache. Pain level 2/10. Vital signs within normal limits. Patient denied needing walked out by clinical staff and denied needing a wheelchair. Patient given discharge instructions and sent to transportation via ambulatory method. Patient left in good condition. [facility] 07-01-2024 Note HNO ID: [id number] Author: RISHABH ZHU LPN Service: ? Author Type: LICENSED NURSE Type: Progress Notes Filed: 07/01/2024 11:08 Note Text: Procedure to be performed: BILATERAL L3/L4, L4/L5 LUMBAR MEDIAL BRANCH BLOCK Patient was walked from exam room to procedure room and assisted onto the procedure tablePatient?s procedure was performed in an [facility]. Pause completed at each level by provider to verify correct level and laterality placement Pressure was applied to patient?s injection site(s) and bleeding was minimal. Patient had no complaint of shortness of breath, dizziness, headache, numbness, tingling, weakness or complications from procedure. Patient was assisted from the procedure table and walked back to exam room. Patient was advised a clinician will be to obtain another set of vitals. Time Out: 1035 Confirmed patient name, date of , procedure site, laterality, and allergies Procedure Start: 1038 Procedure End: 1043 [facility] 07-01-2024 Note HNO ID: [id number] Author: CASTILLO HERNANDEZ LPN Service: ? Author Type: LICENSED NURSE Type: Progress Notes Filed: 07/01/2024 11:08 Note Text: Diver Assistant's Name: Amanda Are you on a blood thinner: no If yes, is a hold required: no Last dose of blood thinner: no INR Result today: no Do you require a Lovenox bridge:no Are you a diabetic:no Are you/or could you be : no Are you taking Xanax for the procedure: no Are you currently on a steroid? no Are you currently on an antibiotic: no [facility] 07-01-2024 Note HNO ID: [id number] Author: CASTILLO HERNANDEZ LPN Service: ? Author Type: LICENSED NURSE Type: Progress Notes Filed: 07/01/2024 11:08 Note Text: Review of Systems Constitutional: Positive for activity change. Negative for chills, fever and unexpected weight change. Gastrointestinal: Negative for bowel retention or incontinence Genitourinary: Negative for difficulty urinating. Negative for bladder retention or incontinence Musculoskeletal: Positive for arthralgias, back pain and joint swelling. Negative for gait problem, myalgias, neck pain and neck stiffness. Neurological: Positive for numbness and headaches. Negative for weakness. Psychiatric/Behavioral: Positive for dysphoric mood. Negative for sleep disturbance and suicidal ideas. The patient is nervous/anxious. [facility] 07-01-2024 Instructions Kamini Mendes LPN - 07/01/2024 10:00 AM EST PROCEDURE DISCHARGE INSTRUCTIONS 07/01/2024 Nimisha Beal 1985 Physician: Meek Li MD Procedure: Facet Joint Injection/Medial Branch Block Post Procedure Instructions: If sedation not given, no driving for 3 hours after the procedure., Perform activities that typically make you have pain and monitor your pain level during these activities for the next 3-4 hours., Apply cold compresses to injection site if needed., If medically acceptable, take over the counter anti-inflammatories such as ibuprofen or Aleve if needed for post procedure discomfort., No hot baths, hot tubs or hot compresses for 24 hours., and Increased pain the day after the procedure may occur. If you have any of the following signs or symptoms, please call our office at Fever and/or chills Swelling and/or drainage from injection site New pain that is different than your normal pain (other than soreness at the site of the procedure) Stiff neck Shortness of breath Severe increase in pain Motor dysfunctions, such as difficulty walking, bowel or bladder dysfunction and/or incontinence Headache that is severe, light sensitive or develops when changing positions (positional headache) Nausea and/or vomiting accompanied by headache that started 24-48 hours after the procedure If you have any emergent concerns, please call 911 or go to your local emergency room. Please also contact our office to let us know you will be seeking emergency care and why. documented in this encounter [facility] 2024 Telephone encounter Note The following approved medication requests have been transmitted electronically. Requested Prescriptions Signed Prescriptions Disp Refills methadone (DOLOPHINE) 5 mg tablet 85 tablet 0 Sig: Take 1 tablet by mouth three times a day as needed for up to 30 days. Patient should start on July 04, 2024. Authorizing Provider: ANILA CAMPOS MD [facility] 2024 Miscellaneous Notes The following approved medication requests have been transmitted electronically. Requested Prescriptions Signed Prescriptions Disp Refills methadone (DOLOPHINE) 5 mg tablet 85 tablet 0 Sig: Take 1 tablet by mouth three times a day as needed for up to 30 days. Patient should start on July 04, 2024. Authorizing Provider: ANILA CAMPOS MD Prescription Refill Information The patient has been identified by name and date of : Yes Caregiver verified no other encounters exist for this prescription request: Yes Caregiver confirmed with patient/requestor that no other refills are due, in the near future, with this provider at this time: Yes The last office visit in the department: 04/30/2024 Does the patient have a future office visit with this provider/department: Yes, 07/28/2024 Requested Prescriptions Pending Prescriptions Disp Refills methadone (DOLOPHINE) 5 mg tablet 85 tablet 0 Sig: Take 1 tablet by mouth three times a day as needed for up to 30 days. RAMANDEEP King 2024 11:08 AM documented in this encounter [facility] 2024 Telephone encounter Note Prescription Refill Information The patient has been identified by name and date of : Yes Caregiver verified no other encounters exist for this prescription request: Yes Caregiver confirmed with patient/requestor that no other refills are due, in the near future, with this provider at this time: Yes The last office visit in the department: 04/30/2024 Does the patient have a future office visit with this provider/department: Yes, 07/28/2024 Requested Prescriptions Pending Prescriptions Disp Refills methadone (DOLOPHINE) 5 mg tablet 85 tablet 0 Sig: Take 1 tablet by mouth three times a day as needed for up to 30 days. RAMANDEEP King 2024 11:08 AM [facility] 06-15-2024 Telephone encounter Note Appointment has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 transmitted electronically. Requested Prescriptions Signed Prescriptions Disp Refills buPROPion XL (WELLBUTRIN XL) 300 mg 24 hr tablet 30 tablet 11 Sig: Take 1 tablet by mouth once daily. (Note: cannot take budeprion) Authorizing Provider: ANILA CAMPOS omeprazole (PRILOSEC) 40 mg capsule 30 capsule 11 Sig: Take 1 capsule by mouth once daily. Authorizing Provider: ANILA CAMPOS sertraline (ZOLOFT) 100 mg tablet 30 tablet 11 Sig: Take 1 tablet by mouth once daily. Authorizing Provider: ANILA CAMPOS MD Per patient's My Chart message: The Lyrica and gabapentin went through with no problem. I'm going to be using a slightly different program within [facility] to do 3 of the meds so those need to be 30 day not 90 day. Sertraline (Zoloft), Wellbutrin, and Omeprazole. I apologize for my confusion. Hopefully once this is set up there won't be too many issues and it'll run smoothly henceforth. Fingers crossed. Thank you for everything. You're so good to us. And the advair does help quite a bit. Thanks -Ali Prescription Refill Information The patient has been identified by name and date of : Yes Caregiver verified no other encounters exist for this prescription request: Yes Caregiver confirmed with patient/requestor that no other refills are due, in the near future, with this provider at this time: Yes The last office visit in the department: 04/30/24 Does the patient have a future office visit with this provider/department: Yes 07/28/24 Requested Prescriptions Pending Prescriptions Disp Refills buPROPion XL (WELLBUTRIN XL) 300 mg 24 hr tablet 30 tablet 11 Sig: Take 1 tablet by mouth once daily. (Note: cannot take budeprion) omeprazole (PRILOSEC) 40 mg capsule 30 capsule 11 Sig: Take 1 capsule by mouth once daily. sertraline (ZOLOFT) 100 mg tablet 30 tablet 11 Sig: Take 1 tablet by mouth once daily. Tamela Chiu LPN May 04, 2024 1:58 PM documented in this encounter [facility] 05-04-2024 Telephone encounter Note Per patient's My Chart message: The Lyrica and gabapentin went through with no problem. I'm going to be using a slightly different program within [facility] to do 3 of the meds so those need to be 30 day not 90 day. Sertraline (Zoloft), Wellbutrin, and Omeprazole. I apologize for my confusion. Hopefully once this is set up there won't be too many issues and it'll run smoothly henceforth. Fingers crossed. Thank you for everything. You're so good to us. And the advair does help quite a bit. Thanks -Ali Prescription Refill Information The patient has been identified by name and date of : Yes Caregiver verified no other encounters exist for this prescription request: Yes Caregiver confirmed with patient/requestor that no other refills are due, in the near future, with this provider at this time: Yes The last office visit in the department: 04/30/24 Does the patient have a future office visit with this provider/department: Yes 07/28/24 Requested Prescriptions Pending Prescriptions Disp Refills buPROPion XL (WELLBUTRIN XL) 300 mg 24 hr tablet 30 tablet 11 Sig: Take 1 tablet by mouth once daily. (Note: cannot take budeprion) omeprazole (PRILOSEC) 40 mg capsule 30 capsule 11 Sig: Take 1 capsule by mouth once daily. sertraline (ZOLOFT) 100 mg tablet 30 tablet 11 Sig: Take 1 tablet by mouth once daily. Tamela Chiu LPN May 04, 2024 1:58 PM [facility] 04-30-2024 Instructions Anila Campos MD - 04/30/2024 3:11 PM EST - Discontinue Doxycycline due to adverse effects. - Start taking Z-Lester (Azithromycin) as prescribed; sent to [facility]. - Continue taking Augmentin as prescribed. - Use Albuterol inhaler in the morning, before bedtime, and as needed throughout the day to keep airways open. - Use Advair inhaler as prescribed to reduce inflammation. - Monitor oxygen levels at home using a pulse oximeter; ensure levels stay above 88%. - Monitor for any worsening symptoms, such as increased fever, chills, or worsening cough. - Complete the last day of Prednisone as prescribed. - Resume taking Levothyroxine 25 mcg daily; sent to [facility]. - Refills for Atenolol, Bupropion, Celebrex, Gabapentin, Hydroxyzine, Omeprazole, Sertraline, Tizanidine, and Topamax sent to [facility]. - Methadone and Lunesta to be filled locally. - Next appointment with pain management on [place] Eve to discuss MRI results and potential epidural injections. - Follow-up appointment scheduled in January. documented in this encounter [facility] 04-30-2024 History of Present illness Narrative This note was created using [employer]. Subjective Nimisha Beal is a 38 year old female. Patient presents with: F/U 3 Month SUBJECTIVE: Nimisha Beal is a 38 year old year old lady here today for follow up appointment for review of medical conditions. Nimisha Beal is a 38-year-old female with a history of chronic back pain, presenting for follow-up on pneumonia and recent MRI results. Nimisha was recently diagnosed with right upper lobe pneumonia after experiencing bubbling in her chest for 18 hours, which prompted a visit to urgent care. She reports that the urgent care initially did not perform any diagnostic tests, leading to a delay in obtaining a chest x-ray until the following Saturday. Upon reviewing the x-ray results, Nimisha was promptly treated with Augmentin and doxycycline. However, she requests an alternative to doxycycline due to adverse effects, including nausea, emesis, and diarrhea, despite taking probiotics. She reports nocturnal diaphoresis, stating she wakes up drenched in sweat, but denies experiencing fevers or chills during the day. She notes that her cough has worsened, describing it as bubbling and audible from a distance. She has been using albuterol as needed and has access to Advair. She denies paroxysmal coughing and has been taking deep breaths regularly to expand her lung capacity. She is currently on her last day of a prednisone course, which she believes has improved her pulmonary symptoms. Nimisha also discusses recent MRI results, which revealed mild lumbar spondylosis, epidural lipomatosis, and facet arthropathy at L3-4 and L4-5. She has not yet discussed these results with her painting contractor, whom she is scheduled to see on Florence Cathleen. She mentions the possibility of epidural injections as a future treatment option. 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 Depressive disorder, not elsewhere classified 01/28/2006 Encounter for insertion or removal of intrauterine contraceptive device 03/01/2003; 02/2008 Was replaced in 02/2008; due 2013 Generalized osteoarthrosis, unspecified site 05/18/2005 Kidney stone Migraine, unspecified, with intractable migraine, so stated, without mention of status migrainosus Migraine Morbid obesity with BMI of 45.0-49.9, adult (HCC) Obesity Paroxysmal supraventricular tachycardia (HCC) Supraventricular tachycardia PMH - PAST MEDICAL HISTORY OF Heel Spurs Sciatica 05/18/2005 Unspecified asthma(493.90) Current Outpatient Medications Medication Sig codeine-guaiFENesin (GUAIFENESIN AC) 10-100 mg/5 mL syrup Take 5 mL by mouth four times a day as needed for cough for up to 6 days. amoxicillin-clavulanate potassium (AUGMENTIN) 875-125 mg per tablet Take 1 tablet by mouth two times a day for 5 days. doxycycline monohydrate 100 mg tablet Take 1 tablet by mouth two times a day for 5 days. methadone (DOLOPHINE) 5 mg tablet Take 1 tablet by mouth three times a day as needed for up to 30 days. eszopiclone (LUNESTA) 2 mg Take 1 tablet by mouth at bedtime as needed for up to 180 days. pregabalin (LYRICA) 100 mg capsule Take 1 capsule by mouth two times a day for 180 days. celecoxib (CELEBREX) 200 mg capsule Take 1 capsule by mouth two times a day. busPIRone HCl 30 mg tablet Take 1 tablet by mouth two times a day. Awaiting for mail away pharmacy to send script. sertraline (ZOLOFT) 100 mg tablet Take 1 tablet by mouth once daily. levothyroxine (SYNTHROID) 25 mcg tablet Take 1 tablet by mouth once daily. Take on empty stomach. For thyroid. gabapentin (NEURONTIN) 600 mg tablet Take 2 tablets by mouth two times a day for 360 days. omeprazole (PRILOSEC) 40 mg capsule Take 1 capsule by mouth once daily. buPROPion XL (WELLBUTRIN XL) 300 mg 24 hr tablet Take 1 tablet by mouth once daily. (Note: cannot take budeprion) sucralfate (CARAFATE) 1 gram tablet Take 1 tablet by mouth before meals and at bedtime. atenolol (TENORMIN) 100 mg tablet Take 1 tablet by mouth once daily. May also take 1 tablet once daily as needed (Extra dose as needed for breakthrough headache). topiramate (TOPAMAX) 100 mg tablet Take 1 tablet by mouth daily at bedtime. tiZANidine (ZANAFLEX) 4 mg tablet Take 2 tablets by mouth daily at bedtime. May also take 0.5-1 tablets two times a day as needed (muscle spasms during the day). For 90 days. hydrOXYzine HCl (ATARAX) 50 mg tablet Take 0.5-1 tablets by mouth every 4 hours as needed for itching/rash. For 90 days diphenhydrAMINE (BENADRYL) 25 mg capsule Take 50 mg by mouth at bedtime as needed. ondansetron orally disintegrating (ZOFRAN ODT) 4 mg disintegrating tablet Take 1 tablet by mouth every 6 hours as needed for nausea/vomiting. promethazine (PHENERGAN) 25 mg tablet Take 1 tablet by mouth every 6 hours as needed for nausea/vomiting. famotidine (PEPCID) 40 mg tablet Take 1 tablet by mouth once daily. furosemide (LASIX) 20 mg tablet Take 1 tablet by mouth once daily as needed (fluid retention and swelling). Amoxicillin 500 mg tablet TAKE 4 PILLS 1 HOUR PRIOR TO DENTAL PROCEDURE cetirizine (ZYRTEC) 10 mg tablet Takes 1 tab daily as needed melatonin 5 mg tablet Take 1 tablet by mouth daily at bedtime. diclofenac sodium (VOLTAREN) 1 % topical gel Apply 4 g to affected area four times daily. For knees gkwjjnxb-lbw-alguy acid-biotin 66.7-1,000 mcg tab Take by mouth. Cholecalciferol, Vitamin D3, 5,000 unit cap Take 1 capsule by mouth once daily. vitamin b complex(B COMPLETE TAB) Take one(1) tablet daily. No current facility-administered medications for this visit. Review of Systems Objective BP 158/91 Pulse 62 Temp 36.3 C (97.4 F) (Temporal) Resp 16 Wt 119.6 kg (263 lb 10.7 oz) LMP 02/10/2015 SpO2 97% BMI 46.71 kg/m Last 5 Encounter Wt Readings: Date: Wt: 04/30/2024 119.6 kg (263 lb 10.7 oz) 04/26/2024 120.3 kg (265 lb 3.4 oz) 03/31/2024 116.6 kg (257 lb) 01/29/2024 116.6 kg (257 lb 0.9 oz) 11/05/2023 116.1 kg (256 lb) No waist measurement recorded Estimated body mass index is 46.71 kg/m as calculated from the following: Height as of 03/31/24: 160 cm (5' 3). Weight as of this encounter: 119.6 kg (263 lb 10.7 oz). Last 5 Encounter BP Readings: Date: BP: 04/30/2024 158/91 04/26/2024 126/84 01/29/2024 133/81 11/05/2023 124/86 09/27/2023 128/72 Physical Exam Constitutional: Appearance: Normal appearance. HENT: Head: Normocephalic. Eyes: Conjunctiva/sclera: Conjunctivae normal. Cardiovascular: Rate and Rhythm: Normal rate and regular rhythm. Heart sounds: Normal heart sounds. Pulmonary: Effort: Pulmonary effort is normal. Breath sounds: Wheezing (Low pitched end expiration) and rales (RUL>NOLVIA) present. Skin: General: Skin is warm and dry. Neurological: General: No focal deficit present. Mental Status: She is alert and oriented to person, place, and time. Psychiatric: Mood and Affect: Mood normal. Behavior: Behavior normal. Thought Content: Thought content normal. Judgment: Judgment normal. Assessment and Plan # Pneumonia of right upper lobe due to infectious organism (J18.9) - Recent chest X-ray confirmed right upper lobe pneumonia. - Discontinued doxycycline due to intolerable side effects; initiated azithromycin (Z-Lester) with known tolerance. - Continue Augmentin as prescribed. - Advised use of albuterol inhaler scheduled in the morning, before bedtime, and as needed to maintain airway patency. - Continue Advair inhaler to reduce inflammation. - Monitor pulse oximetry at home, ensuring levels remain above 88%. - Encouraged use of Mucinex to aid in mucus expectoration. - Patient advised to monitor for worsening symptoms and to report any significant changes. # Depression, unspecified depression type (F32.A) - Refilled bupropion and sertraline; prescriptions sent to [facility]. # Generalized OA (M15.9) - Continue current management. # Elevated TSH (R79.89) - Resumed levothyroxine 25 mcg daily; prescription sent to [facility]. # Gastritis without bleeding, unspecified chronicity, unspecified gastritis type (K29.70) - Continue omeprazole; prescription sent to [facility]. # Primary osteoarthritis of both knees (M17.0) - Continue current management. # Anxiety (F41.9) - Refilled buspirone; prescription sent to [facility]. # Migraine without aura and without status migrainosus, not intractable (G43.009) - Refilled topiramate; prescription sent to [facility]. # Morbid obesity with BMI of 45.0-49.9, adult (HCC) (E66.01) - Continue current management. # Plantar fasciitis of right foot (M72.2) - Continue current management. # Chronic midline low back pain with bilateral sciatica (M54.41) # Epidural lipomatosis (D17.79) - Recent MRI shows mild lumbar spondylosis, epidural lipomatosis, and facet arthropathy at L3-4 and L4-5. - No high-grade canal or foraminal stenosis observed. - Follow-up with pain management scheduled for Mansoor Connolly to discuss potential epidural injections. - Continue current medications: gabapentin, celecoxib, and tizanidine; prescriptions sent to [facility]. # Kidney stone (N20.0) - Continue current management. Anila Campos MD documented in this encounter [facility] 04-30-2024 Note HNO ID: [id number] Author: ANILA CAMPOS MD Service: ? Author Type: Physician Type: Progress Notes Filed: 04/30/2024 15:16 Note Text: This note was created using Crispter. Subjective Nimisha Beal is a 38 year old female. Patient presents with: F/U 3 Month SUBJECTIVE: Nimisha Beal is a 38 year old year old lady here today for follow up appointment for review of medical conditions. Nimisha Beal is a 38-year-old female with a history of chronic back pain, presenting for follow-up on pneumonia and recent MRI results. Nimisha was recently diagnosed with right upper lobe pneumonia after experiencing bubbling in her chest for 18 hours, which prompted a visit to urgent care. She reports that the urgent care initially did not perform any diagnostic tests, leading to a delay in obtaining a chest x-ray until the following Saturday. Upon reviewing the x-ray results, Nimisha was promptly treated with Augmentin and doxycycline. However, she requests an alternative to doxycycline due to adverse effects, including nausea, emesis, and diarrhea, despite taking probiotics. She reports nocturnal diaphoresis, stating she wakes up drenched in sweat, but denies experiencing fevers or chills during the day. She notes that her cough has worsened, describing it as bubbling and audible from a distance. She has been using albuterol as needed and has access to Advair. She denies paroxysmal coughing and has been taking deep breaths regularly to expand her lung capacity. She is currently on her last day of a prednisone course, which she believes has improved her pulmonary symptoms. Nimisha also discusses recent MRI results, which revealed mild lumbar spondylosis, epidural lipomatosis, and facet arthropathy at L3-4 and L4-5. She has not yet discussed these results with her painting contractor, whom she is scheduled to see on Mansoor Connolly. She mentions the possibility of epidural injections as a future treatment option. 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 Depressive disorder, not elsewhere classified 01/28/2006 Encounter for insertion or removal of intrauterine contraceptive device 03/01/2003; 02/2008 Was replaced in 02/2008; due 2013 Generalized osteoarthrosis, unspecified site 05/18/2005 Kidney stone Migraine, unspecified, with intractable migraine, so stated, without mention of status migrainosus Migraine Morbid obesity with BMI of 45.0-49.9, adult (HCC) Obesity Paroxysmal supraventricular tachycardia (HCC) Supraventricular tachycardia PMH - PAST MEDICAL HISTORY OF Heel Spurs Sciatica 05/18/2005 Unspecified asthma(493.90) Current Outpatient Medications Medication Sig codeine-guaiFENesin (GUAIFENESIN AC) 10-100 mg/5 mL syrup Take 5 mL by mouth four times a day as needed for cough for up to 6 days. amoxicillin-clavulanate potassium (AUGMENTIN) 875-125 mg per tablet Take 1 tablet by mouth two times a day for 5 days. doxycycline monohydrate 100 mg tablet Take 1 tablet by mouth two times a day for 5 days. methadone (DOLOPHINE) 5 mg tablet Take 1 tablet by mouth three times a day as needed for up to 30 days. eszopiclone (LUNESTA) 2 mg Take 1 tablet by mouth at bedtime as needed for up to 180 days. pregabalin (LYRICA) 100 mg capsule Take 1 capsule by mouth two times a day for 180 days. celecoxib (CELEBREX) 200 mg capsule Take 1 capsule by mouth two times a day. busPIRone HCl 30 mg tablet Take 1 tablet by mouth two times a day. Awaiting for mail away pharmacy to send script. sertraline (ZOLOFT) 100 mg tablet Take 1 tablet by mouth once daily. levothyroxine (SYNTHROID) 25 mcg tablet Take 1 tablet by mouth once daily. Take on empty stomach. For thyroid. gabapentin (NEURONTIN) 600 mg tablet Take 2 tablets by mouth two times a day for 360 days. omeprazole (PRILOSEC) 40 mg capsule Take 1 capsule by mouth once daily. buPROPion XL (WELLBUTRIN XL) 300 mg 24 hr tablet Take 1 tablet by mouth once daily. (Note: cannot take budeprion) sucralfate (CARAFATE) 1 gram tablet Take 1 tablet by mouth before meals and at bedtime. atenolol (TENORMIN) 100 mg tablet Take 1 tablet by mouth once daily. May also take 1 tablet once daily as needed (Extra dose as needed for breakthrough headache). topiramate (TOPAMAX) 100 mg tablet Take 1 tablet by mouth daily at bedtime. tiZANidine (ZANAFLEX) 4 mg tablet Take 2 tablets by mouth daily at bedtime. May also take 0.5-1 tablets two times a day as needed (muscle spasms during the day). For 90 days. hydrOXYzine HCl (ATARAX) 50 mg tablet Take 0.5-1 tablets by mouth every 4 hours as needed for itching/rash. For 90 days diphenhydrAMINE (BENADRYL) 25 mg capsule Take 50 mg by mouth at bedtime as needed. ondansetron orally disintegrating (ZOFRAN ODT) 4 mg disintegrating tablet Take 1 tablet by mouth every 6 hours as needed for nausea/vomiting. promethazine (PHENERGAN) 25 mg tablet Take 1 (more content not included)... [facility] 04-28-2024 Telephone encounter Note Pt notified via my chart. [facility] 04-28-2024 Miscellaneous Notes Pt notified via my chart. Images from the original note were not included. Electronic PA rec'd and completed for methadone. This was approved. Pharmacy notified. Prior authorization approved Payer: Wyatt Note from payer: GRAYSON Case: [id number], Status: Approved, Coverage Starts on: 04/28/2024 12:00:00 AM, Coverage Ends on: 10/25/2024 12:00:00 AM. Approval Details Authorization number: [id number] Authorized from April 28, 2024 to October 25, 2024 Electronic appeal: Not supported View History Notes Time User Attachment Attachment received from payer. 04/28/2024 2:44 PM Cchs, Rx Priorauth In Document Pharmacy Benefits Open Encounter NIMISHA BEAL Ziyad WEBER BB CDH-N [id number] ([facility]) Covered: Retail, Mail Order, Specialty Unknown: Long-Term Care BIN: [id number] : 1985 Group ID: [id number] PCN: [id number] Legal sex: F Group name: [email or web address] Address: [address] [place], [place] [id number] Medication Being Authorized methadone (DOLOPHINE) 5 mg tablet Take 1 tablet by mouth three times a day as needed for up to 30 days. Dispense: 85 tablet Refills: 0 Start: 04/23/2024 End: 05/23/2024 Class: Normal Diagnoses: Generalized OA; Primary osteoarthritis of both knees; Morbid obesity with BMI of 45.0-49.9, adult (HCC); Plantar fasciitis of right foot; Chronic midline low back pain with bilateral sciatica; Kidney stone This order has been released to its destination. To be filled at: [facility] [address] [place] [id number] [address] [facility] - [phone] documented in this encounter [facility] 04-28-2024 Telephone encounter Note Images from the original note were not included. Electronic PA rec'd and completed for methadone. This was approved. Pharmacy notified. Prior authorization approved Payer: Wyatt Note from payer: GRAYSON Case: [id number], Status: Approved, Coverage Starts on: 04/28/2024 12:00:00 AM, Coverage Ends on: 10/25/2024 12:00:00 AM. Approval Details Authorization number: [id number] Authorized from April 28, 2024 to October 25, 2024 Electronic appeal: Not supported View History Notes Time User Attachment Attachment received from payer. 04/28/2024 2:44 PM Cchs, Rx Priorauth In Document Pharmacy Benefits Open Encounter NIMISHA BEAL Ziyad WEBER BB CDH-N [id number] ([facility]) Covered: Retail, Mail Order, Specialty Unknown: Long-Term Care BIN: [id number] : 1985 Group ID: [id number] PCN: [id number] Legal sex: F Group name: [email or web address] Address: [address] [place] [address] Medication Being Authorized methadone (DOLOPHINE) 5 mg tablet Take 1 tablet by mouth three times a day as needed for up to 30 days. Dispense: 85 tablet Refills: 0 Start: 04/23/2024 End: 05/23/2024 Class: Normal Diagnoses: Generalized OA; Primary osteoarthritis of both knees; Morbid obesity with BMI of 45.0-49.9, adult (HCC); Plantar fasciitis of right foot; Chronic midline low back pain with bilateral sciatica; Kidney stone This order has been released to its destination. To be filled at: [facility] [address] [place] [address] [address] [facility] - [phone] [facility] 04-28-2024 Telephone encounter Note Pt called back and message below given. Pt verbalizes understanding. Yolanda King LPN [facility] 04-28-2024 Miscellaneous Notes Pt called back and message below given. Pt verbalizes understanding. Yolanda King LPN CXR reveals pneumonia right upper lobe. Attempted to call. RX sent in. Urge message sent. documented in this encounter [facility] 04-28-2024 Telephone encounter Note CXR reveals pneumonia right upper lobe. Attempted to call. RX sent in. Urge message sent. [facility] [facility] 04-28-2024 History of Present illness Narrative Radiology Service Progress Note PATIENT NAME: Nimisha Beal DATE OF SERVICE: April 28, 2024 TIME: 3:49 PM PATIENT IDENTITY VERIFICATION COMPLETED USING TWO (2) IDENTIFIERS: Name and Date of confirmed by patient verbally. FALL SCREENING: Has the patient had 2 falls in the last year or 1 fall with injury or currently using an Ambulatory Assistive Device (Walker, Cane, Wheelchair, Crutches, etc.)? No PATIENT GENDER DATA: Female. status: : No status: NO. PATIENT RELEVANT IMPLANT DATA REVIEWED: Not Applicable PATIENT PRESENTS WITH AN IMPLANTABLE OR ATTACHED WIND PROJECT MANAGER: No RADIOLOGY DEPARTMENT: General X-ray: Exam(s) Completed: Chest X-Ray PERIPHERAL IV DATA: Not applicable SIGNED BY: RT Jim(Clara) April 28, 2024 3:49 PM documented in this encounter [facility] 04-28-2024 Note HNO ID: [id number] Author: PETTY CARDENAS RT(R) Service: ? Author Type: Technologist Type: Progress Notes Filed: 04/28/2024 15:49 Note Text: Radiology Service Progress Note PATIENT NAME: Nimisha Beal DATE OF SERVICE: April 28, 2024 TIME: 3:49 PM PATIENT IDENTITY VERIFICATION COMPLETED USING TWO (2) IDENTIFIERS: Name and Date of confirmed by patient verbally. FALL SCREENING: Has the patient had 2 falls in the last year or 1 fall with injury or currently using an Ambulatory Assistive Device (Walker, Cane, Wheelchair, Crutches, etc.)? No PATIENT GENDER DATA: Female. status: : No status: NO. PATIENT RELEVANT IMPLANT DATA REVIEWED: Not Applicable PATIENT PRESENTS WITH AN IMPLANTABLE OR ATTACHED WIND PROJECT MANAGER: No RADIOLOGY DEPARTMENT: General X-ray: Exam(s) Completed: Chest X-Ray PERIPHERAL IV DATA: Not applicable SIGNED BY: Petty Cardenas, RT(R) April 28, 2024 3:[address] [facility] 04-26-2024 Note HNO ID: [id number] Author: LENNOX GRAY APRN.PLATE MAKER Service: ? Author Type: Nurse Practitioner Type: Progress Notes Filed: 04/26/2024 11:48 Note Text: Subjective HPI Nontoxic-appearing female presents urgent care accompanied by significant other. Chief complaint breathing issues. Patient states last night when she exhales she heard a gurgling noise. States started again this morning. States after she coughed a gurgling noise has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 verified no other encounters exist for this prescription request: Yes Caregiver confirmed with patient/requestor that no other refills are due, in the near future, with this provider at this time: Yes The last office visit in the department: 01/29/24 Does the patient have a future office visit with this provider/department: Yes Requested Prescriptions Pending Prescriptions Disp Refills methadone (DOLOPHINE) 5 mg tablet 85 tablet 0 Sig: Take 1 tablet by mouth three times a day as needed for up to 30 days. Alejandro Wyatt MA March 19, 2024 8:08 AM documented in this encounter [facility] 03-19-2024 Telephone encounter Note Prescription Refill Information The patient has been identified by name and date of : Yes Caregiver verified no other encounters exist for this prescription request: Yes Caregiver confirmed with patient/requestor that no other refills are due, in the near future, with this provider at this time: Yes The last office visit in the department: 01/29/24 Does the patient have a future office visit with this provider/department: Yes Requested Prescriptions Pending Prescriptions Disp Refills methadone (DOLOPHINE) 5 mg tablet 85 tablet 0 Sig: Take 1 tablet by mouth three times a day as needed for up to 30 days. Alejandro Wyatt MA March 19, 2024 8:08 AM [facility] 02-26-2024 Telephone encounter Note Pt notified via my chart. [facility] 02-26-2024 Miscellaneous Notes Pt notified via my chart. The following approved medication requests have been transmitted electronically. Requested Prescriptions Signed Prescriptions Disp Refills eszopiclone (LUNESTA) 2 mg 90 tablet 1 Sig: Take 1 tablet by mouth at bedtime as needed for up to 180 days. Authorizing Provider: ANILA CAMPOS MD Per my chart message pt is asking for refill of lunesta. Thinks insurance will cover 90 day supply. Last saw pcp 01/29/24. Next appt 04/29/24. documented in this encounter [facility] 02-25-2024 Telephone encounter Note The following approved medication requests have been transmitted electronically. Requested Prescriptions Signed Prescriptions Disp Refills eszopiclone (LUNESTA) 2 mg 90 tablet 1 Sig: Take 1 tablet by mouth at bedtime as needed for up to 180 days. Authorizing Provider: ANILA CAMPOS MD [facility] 02-25-2024 Telephone encounter Note Per my chart message pt is asking for refill of lunesta. Thinks insurance will cover 90 day supply. Last saw pcp 01/29/24. Next appt 04/29/24. [facility] 02-03-2024 Telephone encounter Note Images from the original note were not included. Denial rec'd. Note from payer: GRAYSON Case: [id number], Status: Denied. Notification: Completed. Payer: [employer] Electronic appeal: Not supported View History Notes Time User Attachment Attachment received from payer. 02/03/2024 2:08 PM Cchs, Rx Priorauth In Document Pharmacy Benefits Open Encounter NIMISHA BEAL CDH-N [id number] ([facility]) Covered: Retail, Mail Order, Specialty Unknown: Long-Term Care BIN: [id number] : 1985 Group ID: [id number] PCN: [id number] Legal sex: F [facility] [employer] Address: [address] [place] [address] Medication Being Authorized methadone (DOLOPHINE) 5 mg tablet Take 1 tablet by mouth three times a day as needed for up to 30 days. Dispense: 85 tablet Refills: 0 Start: 01/29/2024 End: 02/28/2024 Class: Normal Diagnoses: Generalized OA; Primary osteoarthritis of both knees; Morbid obesity with BMI of 45.0-49.9, adult (HCC); Plantar fasciitis of right foot; Chronic midline low back pain with bilateral sciatica; Kidney stone This order has been released to its destination. To be filled at: [facility] [address] [place], [place] Pt notified via my chart. [facility] 02-03-2024 Miscellaneous Notes Images from the original note were not included. Denial rec'd. Note from payer: GRAYSON Case: [id number], Status: Denied. Notification: Completed. Payer: [employer] Electronic appeal: Not supported View History Notes Time User Attachment Attachment received from payer. 02/03/2024 2:08 PM Cchs, Rx Priorauth In Document Pharmacy Benefits Open Encounter NIMISHA BEAL - TIA BB CDH-N [id number] ([facility]) Covered: Retail, Mail Order, Specialty Unknown: Long-Term Care BIN: [id number] : 1985 Group ID: [id number] PCN: [id number] Legal sex: F Group [facility]: [facility]/[email or web address] Address: [address] [place] [address] Medication Being Authorized methadone (DOLOPHINE) 5 mg tablet Take 1 tablet by mouth three times a day as needed for up to 30 days. Dispense: 85 tablet Refills: 0 Start: 01/29/2024 End: 02/28/2024 Class: Normal Diagnoses: Generalized OA; Primary osteoarthritis of both knees; Morbid obesity with BMI of 45.0-49.9, adult (HCC); Plantar fasciitis of right foot; Chronic midline low back pain with bilateral sciatica; Kidney stone This order has been released to its destination. To be filled at: [facility] [address] [place] [address] Pt notified via my chart. Electronic PA rec'd and completed for methadone 5mg. This was completed 01/29/24. Rec'd fax from [employer]. They report they need more info. To call them at [phone]. This was done. Answered their questions the PA number /call reference number is [id number]. They will fax a response. It could take 132.32 hours for a response. documented in this encounter [facility] 02-03-2024 Telephone encounter Note Electronic PA rec'd and completed for methadone 5mg. This was completed 01/29/24. Rec'd fax from [employer]. They report they need more info. To call them at [phone]. This was done. Answered their questions the PA number /call reference number is [id number]. They will fax a response. It could take 132.32 hours for a response. [facility] 01-29-2024 Note HNO ID: [id number] Author: ANILA CAMPOS MD Service: ? Author Type: Physician Type: Progress Notes Filed: 03/08/2024 18:21 Note Text: This note was created using [employer]. Subjective Nimisha Beal is a 38 year old female. Patient presents with: Recheck: medication follow up Immunizations: Flu vaccination SUBJECTIVE: Nimisha Beal is a 38 year old year old lady here today for follow up appointment for review of medical conditions. The patient is a 38-year-old female with a history of chronic back pain, presenting for a regular check-up and management of worsening back pain. The patient reports chronic back pain localized to the lower lumbar spine, described as a distinct and severe pain that radiates from the rib cage down to the tailbone area. The pain is bilateral and has been progressively worsening, with daily flare-ups. She notes that some days are relatively better, but the pain is consistently present. The pain is exacerbated by activities such as walking and standing for extended periods. She recounts a recent episode at a store where the pain became so severe that her vision went fuzzy, and she experienced a sensation similar to an electric shock, followed by a spasm that rendered her immobile. These episodes are becoming more frequent, leading to a fear of leaving the house due to the potential inability to return to the car or complete errands. The patient has been taking methadone and Zanaflex for pain management but reports needing to increase the dosage due to the severity of the pain. She has not filled her prescription for Skelaxin due to insurance authorization issues. She is also on gabapentin 200 mg BID and pregabalin 25 mg BID, with the latter needing a refill as it times out today. She expresses frustration with the increasing medication regimen and is seeking alternative solutions. She has tried using an inversion table at home but reports that it does not provide relief and may potentially worsen the pain. The patient has a history of mild osteophyte formation in the spine, as noted in previous imaging studies. She has not yet seen a painting contractor and is considering this option. She has not tried prednisone or Solu-Medrol for pain management but has used prednisone in the past for other conditions such as bronchitis and poison tiara. In addition to back pain, the patient reports tightness in her shoulders with popping and catching sensations, as well as numbness in the outer two fingers, which she attributes to potential nerve pinching. She also experiences tightness in her rib cage, which she can usually alleviate with stretching. The patient has been trying to lose weight and reports a gradual decrease in weight since 2021, with her current weight stable between 240-257 lbs. She has been attempting to move more but finds it challenging due to the back pain. She also reports symptoms of rhinitis, including nasal drip and a sensation of something moving in her chest, which occurs every few days. She is unsure if these symptoms are related to environmental factors or her cat's bladder issues, which have led to frequent urination on the carpet. The patient recently acquired a new bed, which she hopes will help with her back and neck issues. She expresses a desire for a more effective treatment plan to manage her pain and improve her quality of life. 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 Depressive disorder, not elsewhere classified 01/28/2006 Encounter for insertion or removal of intrauterine contraceptive device 03/01/2003; 02/2008 Was replaced in 02/2008; due 2013 Generalized osteoarthrosis, unspecified site 05/18/2005 Kidney stone Migraine, unspecified, with intractable migraine, so stated, without mention of status migrainosus Migraine Morbid obesity with BMI of 45.0-49.9, adult (HCC) Obesity Paroxysmal supraventricular tachycardia (HCC) Supraventricular tachycardia PMH - PAST MEDICAL HISTORY OF Heel Spurs Sciatica 05/18/2005 Unspecified asthma(493.90) Current Outpatient Medications Medication Sig celecoxib (CELEBREX) 200 mg capsule Take 1 capsule by mouth two times a day. methadone (DOLOPHINE) 5 mg tablet Take 1 tablet by mouth three times a day as needed for up to 30 days. busPIRone HCl 30 mg tablet Take 1 tablet by mouth two times a day. Awaiting for mail away pharmacy to send script. sertraline (ZOLOFT) 100 mg tablet Take 1 tablet by mouth once daily. levothyroxine (SYNTHROID) 25 mcg tablet Take 1 tablet by mouth once daily. Take on empty stomach. For thyroid. gabapentin (NEURONTIN) 600 mg tablet Take 2 tablets by mouth two times a day for 360 days. methadone (DOLOPHINE) 5 mg tablet Take 1 tablet by mouth three times a day as needed for up to 30 days. pregabalin (LYRICA) 100 mg capsule Take 1 capsule by mouth two times a day for 180 days. omeprazole (more content not included)... [facility] 01-29-2024 History of Present illness Narrative Images from the original note were not included. This note was created using [employer]. Subjective Nimisha Beal is a 38 year old female. Patient presents with: Recheck: medication follow up Immunizations: Flu vaccination SUBJECTIVE: Nimisha Beal is a 38 year old year old lady here today for follow up appointment for review of medical conditions. The patient is a 38-year-old female with a history of chronic back pain, presenting for a regular check-up and management of worsening back pain. The patient reports chronic back pain localized to the lower lumbar spine, described as a distinct and severe pain that radiates from the rib cage down to the tailbone area. The pain is bilateral and has been progressively worsening, with daily flare-ups. She notes that some days are relatively better, but the pain is consistently present. The pain is exacerbated by activities such as walking and standing for extended periods. She recounts a recent episode at a store where the pain became so severe that her vision went fuzzy, and she experienced a sensation similar to an electric shock, followed by a spasm that rendered her immobile. These episodes are becoming more frequent, leading to a fear of leaving the house due to the potential inability to return to the car or complete errands. The patient has been taking methadone and Zanaflex for pain management but reports needing to increase the dosage due to the severity of the pain. She has not filled her prescription for Skelaxin due to insurance authorization issues. She is also on gabapentin 200 mg BID and pregabalin 25 mg BID, with the latter needing a refill as it times out today. She expresses frustration with the increasing medication regimen and is seeking alternative solutions. She has tried using an inversion table at home but reports that it does not provide relief and may potentially worsen the pain. The patient has a history of mild osteophyte formation in the spine, as noted in previous imaging studies. She has not yet seen a painting contractor and is considering this option. She has not tried prednisone or Solu-Medrol for pain management but has used prednisone in the past for other conditions such as bronchitis and poison tiara. In addition to back pain, the patient reports tightness in her shoulders with popping and catching sensations, as well as numbness in the outer two fingers, which she attributes to potential nerve pinching. She also experiences tightness in her rib cage, which she can usually alleviate with stretching. The patient has been trying to lose weight and reports a gradual decrease in weight since 2021, with her current weight stable between 240-257 lbs. She has been attempting to move more but finds it challenging due to the back pain. She also reports symptoms of rhinitis, including nasal drip and a sensation of something moving in her chest, which occurs every few days. She is unsure if these symptoms are related to environmental factors or her cat's bladder issues, which have led to frequent urination on the carpet. The patient recently acquired a new bed, which she hopes will help with her back and neck issues. She expresses a desire for a more effective treatment plan to manage her pain and improve her quality of life. 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 Depressive disorder, not elsewhere classified 01/28/2006 Encounter for insertion or removal of intrauterine contraceptive device 03/01/2003; 02/2008 Was replaced in 02/2008; due 2013 Generalized osteoarthrosis, unspecified site 05/18/2005 Kidney stone Migraine, unspecified, with intractable migraine, so stated, without mention of status migrainosus Migraine Morbid obesity with BMI of 45.0-49.9, adult (HCC) Obesity Paroxysmal supraventricular tachycardia (HCC) Supraventricular tachycardia PMH - PAST MEDICAL HISTORY OF Heel Spurs Sciatica 05/18/2005 Unspecified asthma(493.90) Current Outpatient Medications Medication Sig celecoxib (CELEBREX) 200 mg capsule Take 1 capsule by mouth two times a day. methadone (DOLOPHINE) 5 mg tablet Take 1 tablet by mouth three times a day as needed for up to 30 days. busPIRone HCl 30 mg tablet Take 1 tablet by mouth two times a day. Awaiting for mail away pharmacy to send script. sertraline (ZOLOFT) 100 mg tablet Take 1 tablet by mouth once daily. levothyroxine (SYNTHROID) 25 mcg tablet Take 1 tablet by mouth once daily. Take on empty stomach. For thyroid. gabapentin (NEURONTIN) 600 mg tablet Take 2 tablets by mouth two times a day for 360 days. methadone (DOLOPHINE) 5 mg tablet Take 1 tablet by mouth three times a day as needed for up to 30 days. pregabalin (LYRICA) 100 mg capsule Take 1 capsule by mouth two times a day for 180 days. omeprazole (PRILOSEC) 40 mg capsule Take 1 capsule by mouth once daily. buPROPion XL (WELLBUTRIN XL) 300 mg 24 hr tablet Take 1 tablet by mouth once daily. (Note: cannot take budeprion) sucralfate (CARAFATE) 1 gram tablet Take 1 tablet by mouth before meals and at bedtime. atenolol (TENORMIN) 100 mg tablet Take 1 tablet by mouth once daily. May also take 1 tablet once daily as needed (Extra dose as needed for breakthrough headache). topiramate (TOPAMAX) 100 mg tablet Take 1 tablet by mouth daily at bedtime. tiZANidine (ZANAFLEX) 4 mg tablet Take 2 tablets by mouth daily at bedtime. May also take 0.5-1 tablets two times a day as needed (muscle spasms during the day). For 90 days. hydrOXYzine HCl (ATARAX) 50 mg tablet Take 0.5-1 tablets by mouth every 4 hours as needed for itching/rash. For 90 days diphenhydrAMINE (BENADRYL) 25 mg capsule Take 50 mg by mouth at bedtime as needed. ondansetron orally disintegrating (ZOFRAN ODT) 4 mg disintegrating tablet Take 1 tablet by mouth every 6 hours as needed for nausea/vomiting. promethazine (PHENERGAN) 25 mg tablet Take 1 tablet by mouth every 6 hours as needed for nausea/vomiting. famotidine (PEPCID) 40 mg tablet Take 1 tablet by mouth once daily. furosemide (LASIX) 20 mg tablet Take 1 tablet by mouth once daily as needed (fluid retention and swelling). Amoxicillin 500 mg tablet TAKE 4 PILLS 1 HOUR PRIOR TO DENTAL PROCEDURE cetirizine (ZYRTEC) 10 mg tablet Takes 1 tab daily as needed melatonin 5 mg tablet Take 1 tablet by mouth daily at bedtime. diclofenac sodium (VOLTAREN) 1 % topical gel Apply 4 g to affected area four times daily. For knees [id number] acid-biotin 66.7-1,000 mcg tab Take by mouth. Cholecalciferol, Vitamin D3, 5,000 unit cap Take 1 capsule by mouth once daily. vitamin b complex(B COMPLETE TAB) Take one(1) tablet daily. metaxalone (SKELAXIN) 800 mg tablet Take 0.5-1 tablets by mouth two times a day as needed for pain (muscle spasm). (Patient not taking: Reported on 01/29/2024) No current facility-administered medications for this visit. Review of Systems Objective BP 133/81 Pulse 94 Wt 116.6 kg (257 lb 0.9 oz) LMP 02/10/2015 SpO2 97% BMI 45.54 kg/m Physical Exam Constitutional: Appearance: Normal appearance. HENT: Head: Normocephalic. Eyes: Conjunctiva/sclera: Conjunctivae normal. Cardiovascular: Rate and Rhythm: Normal rate and regular rhythm. Heart sounds: Normal heart sounds. Pulmonary: Effort: Pulmonary effort is normal. Breath sounds: Normal breath sounds. Musculoskeletal: Back: Right lower leg: No edema. Left lower leg: No edema. Skin: General: Skin is warm and dry. Neurological: General: No focal deficit present. Mental Status: She is alert and oriented to person, place, and time. Psychiatric: Mood and Affect: Mood normal. Behavior: Behavior normal. Thought Content: Thought content normal. Judgment: Judgment normal. Assessment and Plan # Chronic midline low back pain with bilateral sciatica (M54.41) - Pain is severe, with episodes causing visual disturbances and immobilization; pain radiates from the rib cage to the tailbone. - Current medications include methadone, gabapentin 2x daily, pregabalin 25 mg 2x daily, and Celebrex. - Increasing frequency and severity of pain episodes despite medication regimen. - Refill ordered for methadone and pregabalin; sent to [facility] in [place]. - Initiated prednisone taper (4, 3, 2, 1) to reduce inflammation. - Referral to Dr. Nolan Espinoza at the specialty center for pain management consultation and potential interventions such as trigger point injections. - Patient has an inversion table but reports no significant relief. - Follow-up to assess effectiveness of prednisone and discuss potential adjustments to methadone dosage if necessary. # Morbid obesity with BMI of 45.0-49.9, adult (HCC) (E66.01) - Weight is stable but trending downwards; patient is attempting to increase physical activity. - Continue current weight management efforts. # Rhinitis, unspecified type (J31.0) - Symptoms include nasal drip and intermittent respiratory discomfort. - Prednisone may also help alleviate rhinitis symptoms. # Plantar fasciitis of right foot (M72.2) - Condition is currently stable. # Kidney stone (N20.0) - No current episodes reported. # Primary osteoarthritis of both knees (M17.0) # Generalized OA (M15.9) - Pain is present but overshadowed by severe back pain. - Continue current pain management regimen. # Need for influenza vaccination (Z23) Anila Campos MD documented in this encounter [facility] 01-23-2024 Telephone encounter Note Patient notified, verbalized understanding. Мария Mcgraw LPN [facility] 01-23-2024 Miscellaneous Notes Patient notified, verbalized understanding. Мария Mcgraw LPN Please let her know I see no reason why this might have been discontinued, I will send in a new script. Celebrex was discontinued on 09/27/23 during an office visit but no mention to as why it was discontinued. Patient wants to know why her Celebrex rx was discontinued. Said she tried to get a refill and was told the doctor discontinued it. Please advise at [phone]. documented in this encounter [facility] 01-23-2024 Telephone encounter Note Please let her know I see no reason why this might have been discontinued, I will send in a new script. [facility] 01-21-2024 Telephone encounter Note Celebrex was discontinued on 09/27/23 during an office visit but no mention to as why it was discontinued. [facility] 01-21-2024 Telephone encounter Note Patient wants to know why her Celebrex rx was discontinued. Said she tried to get a refill and was told the doctor discontinued it. Please advise at [phone]. [facility] 01-01-2024 Telephone encounter Note The following approved medication requests have been transmitted electronically. Requested Prescriptions Signed Prescriptions Disp Refills methadone (DOLOPHINE) 5 mg tablet 85 tablet 0 Sig: Take 1 tablet by mouth three times a day as needed for up to 30 days. Authorizing Provider: ANILA CAMPOS MD [facility] 01-01-2024 Miscellaneous Notes The following approved medication requests have been transmitted electronically. Requested Prescriptions Signed Prescriptions Disp Refills methadone (DOLOPHINE) 5 mg tablet 85 tablet 0 Sig: Take 1 tablet by mouth three times a day as needed for up to 30 days. Authorizing Provider: ANILA CAMPOS MD Prescription Refill Information The patient has been identified by name and date of : Yes Caregiver verified no other encounters exist for this prescription request: Yes Caregiver confirmed with patient/requestor that no other refills are due, in the near future, with this provider at this time: Yes The last office visit in the department: 11/05/23 Does the patient have a future office visit with this provider/department: Yes Requested Prescriptions Pending Prescriptions Disp Refills methadone (DOLOPHINE) 5 mg tablet 85 tablet 0 Sig: Take 1 tablet by mouth three times a day as needed for up to 30 days. Natalia Gordillo LPN January 01, 2024 5:17 PM documented in this encounter [facility] 01-01-2024 Telephone encounter Note Prescription Refill Information The patient has been identified by name and date of : Yes Caregiver verified no other encounters exist for this prescription request: Yes Caregiver confirmed with patient/requestor that no other refills are due, in the near future, with this provider at this time: Yes The last office visit in the department: 11/05/23 Does the patient have a future office visit with this provider/department: Yes Requested Prescriptions Pending Prescriptions Disp Refills methadone (DOLOPHINE) 5 mg tablet 85 tablet 0 Sig: Take 1 tablet by mouth three times a day as needed for up to 30 days. Natalia Gordillo LPN January 01, 2024 5:17 PM [facility] 11-06-2023 Note Addended by: NADINE MCCLAIN on: 11/06/2023 09:05 AM Modules accepted: Orders [facility] 11-06-2023 Miscellaneous Notes Addended by: NADINE MCCLAIN on: 11/06/2023 09:05 AM Modules accepted: Orders documented in this encounter [facility] 11-06-2023 Telephone encounter Note The following approved medication requests have been transmitted electronically. Requested Prescriptions Signed Prescriptions Disp Refills methadone (DOLOPHINE) 5 mg tablet 85 tablet 0 Sig: Take 1 tablet by mouth three times a day as needed for up to 30 days. Do not start before November 13, 2023. Authorizing Provider: ANILA CAMPOS MD [facility] 11-06-2023 Miscellaneous Notes The following approved medication requests have been transmitted electronically. Requested Prescriptions Signed Prescriptions Disp Refills methadone (DOLOPHINE) 5 mg tablet 85 tablet 0 Sig: Take 1 tablet by mouth three times a day as needed for up to 30 days. Do not start before November 13, 2023. Authorizing Provider: ANILA CAMPOS MD Ok to wait for Dr. Campos return. Prescription Refill Information The patient has been identified by name and date of : Yes Caregiver verified no other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 FREE BLD 9. Vitamin D deficiency E55.9 VITAMIN D 25 HYDROXY 10. Class 3 severe obesity due to excess calories with body mass index (BMI) of 45.0 to 49.9 in adult, unspecified whether serious comorbidity present (HCC) E66.01 Z68.42 Above issues addressed with patient. Patient involved in shared decision making for management of medical issues. History and medications reviewed. Epic updated as needed Refills and/or prescriptions taken care of and meds adjusted as indicated after reviewed history, exam and labs. Health Maintenance reviewed. Updated record and/or ordered tests as recorded. Encouraged on efforts at healthy diet and regular exercise and adequate sleep. Weight dropping since not able to eat well because of nausea with COVID. 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 Anila Campos MD documented in this encounter [facility] 09-17-2022 Miscellaneous Notes PATIENT NOTIFIED OF SAME. Appointment scheduled 09/21/2022. Needs seen every 3 months but next appointment not made till October. See if can move appointment up and also add the next 3 months follow ups. The following approved medication requests have been transmitted electronically. Requested Prescriptions Signed Prescriptions Disp Refills methadone (DOLOPHINE) 5 mg tablet 85 tablet 0 Sig: Take 1 tablet by mouth three times daily as needed for up to 30 days. Authorizing Provider: ANILA CAMPOS MD Patient has been identified by name and date of : Yes, Provider Tyra Date 09/14/22 Time 9:18am Patient phones for refill(s): Requested Prescriptions Pending Prescriptions Disp Refills methadone (DOLOPHINE) 5 mg tablet 85 tablet 0 Sig: Take 1 tablet by mouth three times daily as needed for up to 30 days. Date of last office visit in primary care: 06/20/22 Last 2 Encounter Wt Readings: Date: Wt: 09/11/2022 117.9 kg (260 lb) 06/20/2022 120.7 kg (266 lb) Please advise. Thank you. Whit Quintana LPN documented in this encounter [facility] 09-11-2022 Miscellaneous Notes Litholink ready to sign. Xenia SEVERINO Eduardo garcia documented in this encounter [facility] 09-07-2022 Miscellaneous Notes documented in this encounter [facility] 08-20-2022 Instructions Xenia Gaitan APRN.PLATE MAKER - 08/20/2022 8:30 AM EDT COVID-19 UPDATED INFO 2021 - Recommend isolation (stay at least 6 ft away from others at all times, with extra care to avoid contact with elderly persons) and self-quarantine (stay at home, do not go to work, school or out in public) until test results return If You Test Positive for COVID-19 (Isolate) -- Everyone, regardless of vaccination status THEN YOU Stay home for 5 days; If you have no symptoms or your symptoms are resolving after 5 days, you can leave your house; Continue to wear a mask around others for 5 additional days; If you have a fever, continue to stay home until your fever resolves If You Were Exposed to Someone with COVID-19 (Quarantine) - If you: Have been boosted OR Completed the primary series of Pfizer or Moderna vaccine within the last 6 months OR Completed the primary series of J&J vaccine within the last 2 months THEN YOU Wear a mask around others for 10 days. Test on day 5, if possible. If you develop symptoms get a test and stay home. If you: Completed the primary series of Pfizer or Moderna vaccine over 6 months ago and are not boosted OR Completed the primary series of J&J over 2 months ago and are not boosted OR Are unvaccinated THEN YOU Stay home for 5 days; After that continue to wear a mask around others for 5 additional days; If you can t quarantine you must wear a mask for 10 days; Test on day 5 if possible; If you develop symptoms get a test and stay home For symptom relief: - Drink lots of fluids and get plenty of rest - Vaporizers, humidifiers, hot showers, and warm fluids help open respiratory and sinus passages - For fever and/or discomfort: OTC Tylenol (acetaminophen) or Motrin/Advil (ibuprofen) Please follow up with your primary care provider if you develop new symptoms or if you do not feel better in 7 days. PLEASE CALL 911 OR PROCEED TO THE NEAREST EMERGENCY DEPARTMENT IF DEVELOPING: - Blue lips or face - Cold, clammy or pale and mottled skin - Coughing up blood - Increased heart rate/palpitations - Little or no urine output - New onset confusion - Oxygen saturation <93% - Rash that does not choco with pressure - Severe chest pain or pressure - Severe shortness of breath/difficulty breathing at rest - Any abrupt change in illness/condition or concerning symptoms such as: lethargy (inability to wake or stay awake), signs of dehydration, fever greater than 102*F which is not responding to Tylenol or ibuprofen (Motrin, Advil), drooling, difficulty swallowing, difficulty breathing, shortness of breath, chest pain, evidence of airway compromise (tripod position, neck extension, retractions), bluish color around lips or extremities, seizures, changes in mental status, or other concerns. *This list is not all possible symptoms. Please seek medical attention for any other symptoms that are severe or concerning to you. FACT SHEET FOR PATIENTS, PARENTS, AND CAREGIVERS EMERGENCY USE AUTHORIZATION (EUA) OF PAXLOVID FOR CORONAVIRUS DISEASE 2019 (COVID-19) You are being given this Fact Sheet because your healthcare provider believes it is necessary to provide you with PAXLOVID for the treatment of xquq-ej-icekotzz coronavirus disease (COVID-19) caused by the SARS-CoV-2 virus. This Fact Sheet contains information to help you understand the risks and benefits of taking the PAXLOVID you have received or may receive. The U.S. Food and Drug Administration (FDA) has issued an Emergency Use Authorization (EUA) to make PAXLOVID available during the COVID-19 pandemic (for more details about an EUA please see What is an Emergency Use Authorization? at the end of this document). PAXLOVID is not an FDA-approved medicine in the [place]. Read this Fact Sheet for information about PAXLOVID. Talk to your healthcare provider about your options or if you have any questions. It is your choice to take PAXLOVID. What is COVID-19? COVID-19 is caused by a virus called a coronavirus. You can get COVID-19 through close contact with another person who has the virus. COVID-19 illnesses have ranged from very ionm-bq-bckbgk, including illness resulting in . While information so far suggests that most COVID-19 illness is mild, serious illness can happen and may cause some of your other medical conditions to become worse. Older people and people of all ages with severe, long lasting (chronic) medical conditions like heart disease, lung disease, and diabetes, for example seem to be at higher risk of being hospitalized for COVID-19. What is PAXLOVID? PAXLOVID is an investigational medicine used to treat hmim-xq-monboxkp COVID-19 in adults and children [12 years of age and older weighing at least 88 pounds (40 kg)] with positive results of direct SARS-CoV-2 viral testing, and who are at high risk for progression to severe COVID-19, including hospitalization or . PAXLOVID is investigational because it is still being studied. There is limited information about the safety and effectiveness of using PAXLOVID to treat people with clcw-ws-ueaaezek COVID-19. The FDA has authorized the emergency use of PAXLOVID for the treatment of bvjj-et-smkvdcob COVID-19 in adults and children [12 years of age and older weighing at least 88 pounds (40 kg)] with a positive test for the virus that causes COVID-19, and who are at high risk for progression to severe COVID-19, including hospitalization or , under an EUA. 1 Revised: 28 July 2021 What should I tell my healthcare provider before I take PAXLOVID? Tell your healthcare provider if you: Have any allergies Have liver or kidney disease Are or plan to become Are a child Have any serious illnesses Tell your healthcare provider about all the medicines you take, including prescription and oxqc-biq-voflrls medicines, vitamins, and herbal supplements. Some medicines may interact with PAXLOVID and may cause serious side effects. Keep a list of your medicines to show your healthcare provider and pharmacist when you get a new medicine. You can ask your healthcare provider or pharmacist for a list of medicines that interact with PAXLOVID. Do not start taking a new medicine without telling your healthcare provider. Your healthcare provider can tell you if it is safe to take PAXLOVID with other medicines. Tell your healthcare provider if you are taking combined hormonal contraceptive. PAXLOVID may affect how your control pills work. Females who are able to become should use another effective alternative form of contraception or an additional barrier method of contraception. Talk to your healthcare provider if you have any questions about contraceptive methods that might be right for you. How do I take PAXLOVID? PAXLOVID consists of 2 medicines: nirmatrelvir and ritonavir. Take 2 pink tablets of nirmatrelvir with 1 white tablet of ritonavir by mouth 2 times each day (in the morning and in the evening) for 5 days. For each dose, take all 3 tablets at the same time. If you have kidney disease, talk to your healthcare provider. You may need a different dose. Swallow the tablets whole. Do not chew, break, or crush the tablets. Take PAXLOVID with or without food. Do not stop taking PAXLOVID without talking to your healthcare provider, even if you feel better. If you miss a dose of PAXLOVID within 8 hours of the time it is usually taken, take it as soon as you remember. If you miss a dose by more than 8 hours, skip the missed dose and take the next dose at your regular time. Do not take 2 doses of PAXLOVID at the same time. If you take too much PAXLOVID, call your healthcare provider or go to the nearest hospital emergency room right away. If you are taking a ritonavir-or cobicistat-containing medicine to treat hepatitis C or Human Immunodeficiency Virus (HIV), you should continue to take your medicine as prescribed by your healthcare provider. Talk to your healthcare provider if you do not feel better or if you feel worse after 5 days. Who should generally not take PAXLOVID? Do not take PAXLOVID if: You are allergic to nirmatrelvir, ritonavir, or any of the ingredients in PAXLOVID You are taking any of the following medicines: Alfuzosin Pethidine, propoxyphene Ranolazine Amiodarone, dronedarone, flecainide, propafenone, quinidine Colchicine Lurasidone, pimozide, clozapine Dihydroergotamine, ergotamine, methylergonovine Lovastatin, simvastatin Sildenafil (Revatio ) for pulmonary arterial hypertension (PAH) Triazolam, oral midazolam Apalutamide Carbamazepine, phenobarbital, phenytoin Rifampin Nieves s Wort (hypericum perforatum) Taking PAXLOVID with these medicines may cause serious or life-threatening side effects or affect how PAXLOVID works. These are not the only medicines that may cause serious side effects if taken with PAXLOVID. PAXLOVID may increase or decrease the levels of multiple other medicines. It is very important to tell your healthcare provider about all of the medicines you are taking because additional laboratory tests or changes in the dose of your other medicines may be necessary while you are taking PAXLOVID. Your healthcare provider may also tell you about specific symptoms to watch out for that may indicate that you need to stop or decrease the dose of some of your other medicines. What are the important possible side effects of PAXLOVID? Possible side effects of PAXLOVID are: Allergic Reactions. Allergic reactions can happen in people taking PAXLOVID, even after only 1 dose. Stop taking PAXLOVID and call your healthcare provider right away if you get any of the following symptoms of an allergic reaction: hives trouble swallowing or breathing swelling of the mouth, lips, or face throat tightness hoarseness skin rash Liver Problems. Tell your healthcare provider right away if you have any of these signs and symptoms of liver problems: loss of appetite, yellowing of your skin and the whites of eyes (jaundice), dark-colored urine, pale colored stools and itchy skin, stomach area (abdominal) pain. Resistance to HIV Medicines. If you have untreated HIV infection, PAXLOVID may lead to some HIV medicines not working as well in the future. Other possible side effects include: altered sense of taste diarrhea high blood pressure muscle aches These are not all the possible side effects of PAXLOVID. Not many people have taken PAXLOVID. Serious and unexpected side effects may happen. PAXLOVID is still being studied, so it is possible that all of the risks are not known at this time. What other treatment choices are there? Veklury (remdesivir) is FDA-approved for the treatment of bkhm-jd-fhcxumcy COVID-19 in certain adults and children. Talk with your doctor to see if Veklury is appropriate for you. Like PAXLOVID, FDA may also allow for the emergency use of other medicines to treat people with COVID-19. Go to https://www.fda.gov/emergency-prep aredness-andresponse/ypa-qjxqs-fbg gthbtad-gkk-lresst-framework/emerg qimi-fyx-wguovvbqmzgve for information on the emergency use of other medicines that are authorized by FDA to treat people with COVID-19. Your healthcare provider may talk with you about clinical trials for which you may be eligible. It is your choice to be treated or not to be treated with PAXLOVID. Should you decide not to receive it or for your child not to receive it, it will not change your standard medical care. What if I am or ? There is economic development coordinator treating women or mothers with PAXLOVID. For a mother and unborn baby, the benefit of taking PAXLOVID may be greater than the risk from the treatment. If you are , discuss your options and specific situation with your healthcare provider. It is recommended that you use effective barrier contraception or do not have sexual activity while taking PAXLOVID. If you are , discuss your options and specific situation with your healthcare provider. How do I report side effects with PAXLOVID? Contact your healthcare provider if you have any side effects that bother you or do not go away. Report side effects to FDA MedWatch at www.fda.gov/medwatch or call 0-303-PJP1265 or you can report side effects to [employer]. at the contact information provided below. Website Fax number Telephone number [email or web address] Textbook Time How should I store PAXLOVID? Store PAXLOVID tablets at room temperature, between 68?F to 77?F (20?C to 25?C). How can I learn more about COVID-19? Ask your healthcare provider. Visit https://www.cdc.gov/COVID19. Contact your local or state public health department. What is an Emergency Use Authorization (EUA)? The [place] FDA has made PAXLOVID available under an emergency access mechanism called an Emergency Use Authorization (EUA). The EUA is supported by a Gold Frame Assembler of Health and Human Service (HHS) declaration that circumstances exist to justify the emergency use of drugs and biological products during the COVID-19 pandemic. PAXLOVID for the treatment of dpjq-na-adxhvhli COVID-19 in adults and children [12 years of age and older weighing at least 88 pounds (40 kg)] with positive results of direct SARS-CoV-2 viral testing, and who are at high risk for progression to severe COVID-19, including hospitalization or , has not undergone the same type of review as an FDA-approved product. In issuing an EUA under the COVID-19 public health emergency, the FDA has determined, among other things, that based on the total amount of scientific evidence available including data from adequate and well-controlled clinical trials, if available, it is reasonable to believe that the product may be effective for diagnosing, treating, or preventing COVID-19, or a serious or life-threatening disease or condition caused by COVID-19; that the known and potential benefits of the product, when used to diagnose, treat, or prevent such disease or condition, outweigh the known and potential risks of such product; and that there are no adequate, approved, and available alternatives. All of these criteria must be met to allow for the product to be used in the treatment of patients during the COVID-19 pandemic. The EUA for PAXLOVID is in effect for the duration of the COVID-19 declaration justifying emergency use of this product, unless terminated or revoked (after which the products may no longer be used under the EUA). Additional Information For general questions, visit the website or call the telephone number provided below. Website Telephone number [email or web address] (0-786-F97-PACK) You can also go to [email or web address].[email or web address] or call for more information. [employer] Distributed by [employer] [place] [address] [id number] Revised: 28 July 2021 documented in this encounter [facility] 08-20-2022 History of Present illness Narrative Images from the original note were not included. Telemedicine Evaluation for COVID-19 Infection Alternative video platform was used for evaluation of this patient. I have communicated my name and active licensure. The patient's identity and physical location were verified at the time of this visit. Either the patient or their legal international sales representative has been informed of the risks and benefits of -- and alternatives to -- treatment through a remote evaluation and consents to proceed with the evaluation remotely. SUBJECTIVE Nimisha Beal is a 37 year old female who presents with 4 days of symptoms that are stable. Patient took home COVID-19 test last night which was positive. Patient provided view of positive COVID-19 test: Symptoms include: Fever (?100.4F): No or Chills: Yes Cough: Yes Shortness of breath: No or Difficulty breathing: No Fatigue: Yes Muscle aches: Yes Headache: Yes New loss of smell or taste: No Sore throat: Yes Nasal congestion: Yes or Rhinorrhea: Yes Nausea: Yes or Vomiting: Yes - no episodes in past 24 hours; 08/18/2022 night 1 episode; Diarrhea: Yes - 2 episodes in past 24 hours; OTC meds/remedies that patient has tried: Zinc and Sudafed; Exposures: Sick contacts? No Family or close contacts with confirmed/probable COVID-19 in last 14 days? No She reports that she has never smoked. She has never used smokeless tobacco. 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 Depressive disorder, not elsewhere classified 01/28/2006 Encounter for insertion or removal of intrauterine contraceptive device 03/01/2003; 02/2008 Was replaced in 02/2008; due 2013 Generalized osteoarthrosis, unspecified site 05/18/2005 Kidney stone Migraine, unspecified, with intractable migraine, so stated, without mention of status migrainosus Migraine Morbid obesity with BMI of 45.0-49.9, adult (HCC) Obesity Paroxysmal supraventricular tachycardia (HCC) Supraventricular tachycardia PMH - PAST MEDICAL HISTORY OF Heel Spurs Sciatica 05/18/2005 Unspecified asthma(493.90) Current Outpatient Medications on File Prior to Visit Medication Sig methadone (DOLOPHINE) 5 mg tablet Take 1 tablet by mouth three times daily as needed for up to 30 days. methadone (DOLOPHINE) 5 mg tablet Take 1 tablet by mouth three times daily as needed for up to 30 days. tamsulosin (FLOMAX) 0.4 mg Take 1 capsule by mouth once daily. promethazine (PHENERGAN) 25 mg tablet Take 1 tablet by mouth every 6 hours as needed for nausea/vomiting. famotidine (PEPCID) 40 mg tablet Take 1 tablet by mouth once daily. pregabalin (LYRICA) 100 mg capsule Take 1 capsule by mouth twice daily for 30 days. pregabalin (LYRICA) 100 mg capsule Take 1 capsule by mouth twice daily for 180 days. Do not start before July 07, 2022. celecoxib (CELEBREX) 200 mg capsule Take 1 capsule by mouth twice daily. sucralfate (CARAFATE) 1 gram tablet Take 1 tablet by mouth before meals and at bedtime. atenolol (TENORMIN) 100 mg tablet Take 1 tablet by mouth once daily. May also take 1 tablet once daily as needed (Extra dose as needed for breakthrough headache). topiramate (TOPAMAX) 100 mg tablet Take 1 tablet by mouth daily at bedtime. gabapentin (NEURONTIN) 600 mg tablet Take 2 tablets by mouth twice daily for 180 days. tiZANidine (ZANAFLEX) 4 mg tablet Take 2 tablets by mouth daily at bedtime. May also take 0.5-1 tablets twice daily as needed (muscle spasms during the day). For 90 days. hydrOXYzine HCl (ATARAX) 50 mg tablet Take 0.5-1 tablets by mouth every 4 hours as needed for itching/rash. For 90 days omeprazole (PRILOSEC) 40 mg capsule Take 1 capsule by mouth once daily. buPROPion XL (WELLBUTRIN XL) 300 mg 24 hr tablet Take 1 tablet by mouth once daily. (Note: cannot take budeprion) furosemide (LASIX) 20 mg tablet Take 1 tablet by mouth once daily as needed (fluid retention and swelling). zolpidem (AMBIEN) 10 mg Take 0.5-1 tablets by mouth at bedtime as needed for up to 30 days. Take if not able to sleep more than 6 hours of sleep [DISCONTINUED] Omeprazole Magnesium (PRILOSEC OTC) 20 mg tablet Take 1 tablet by mouth daily before breakfast. 1/2 hr before meal. Amoxicillin 500 mg tablet TAKE 4 PILLS 1 HOUR PRIOR TO DENTAL PROCEDURE cetirizine (ZYRTEC) 10 mg tablet Takes 1 tab daily as needed melatonin 5 mg tablet Take 1 tablet by mouth daily at bedtime. diclofenac sodium (VOLTAREN) 1 % topical gel Apply 4 g to affected area four times daily. For knees [id number]-cyh-ylyhl acid-biotin 66.7-1,000 mcg tab Take by mouth. Cholecalciferol, Vitamin D3, 5,000 unit cap Take 1 capsule by mouth once daily. vitamin b complex(B COMPLETE TAB) Take one(1) tablet daily. No current facility-administered medications on file prior to visit. OBJECTIVE VIDEO EXAM (if available) GENERAL: well appearing, alert, in no acute distress HEENT: no conjunctival injection, pupils equal and moist mucous membranes PULMONARY: breathing comfortably on room air , no coughing noted, and no wheezing noted ASSESSMENT/PLAN (U07.1) COVID-19 (primary encounter diagnosis) (Z71.89) Advice given about COVID-19 virus infection - Discussed viral etiology and rationale for treatment - Symptomatic treatment with prn analgesia - Supportive care with fluids and rest - Advised to stay home from work and exercise social distancing until symptoms resolved; advised on return to work recommendations per CDC guidelines - Instructions given for self care and precautions - Follow-up with PCP (or available in-person care) in 1 week if no improvement or sooner if worsening or additional symptoms - Red flags discussed for need for in person care including emergency department Highly recommended that pt go to emergency department, calling ahead if possible, if any trouble breathing, persistent pain or pressure in chest, new confusion or inability to arouse, or bluish discoloration to lips or face Highly recommend pt refrain from close contact with elderly persons or persons with known immune compromise - Discussed symptom monitoring and supportive care - Red flag symptoms requiring follow up discussed Nirmatrelvir/Ritonavir (Paxlovid) Eligibility and Patient Discussion [facility] Formulary Restriction Criteria: Adult outpatients 18 years and older with ALL of the following: [x] Patient has symptoms for 5 days or less [x] Not requiring hospitalization at any time for management of COVID-19 [x] Not requiring supplemental oxygen or a change in baseline supplemental oxygen [x] Not utilized for pre-exposure or post-exposure prophylaxis for prevention of COVID-19 [x] Patient does not have severe renal impairment (eGFR < 30 mL/min) or severe hepatic impairment (Child-Frankel Class C) - CMP from June 2022 reviewed and no hepatic or renal impairment; [x] Meeting at least one of the criteria for high risk of progression to severe COVID-19: [] Age over 65 years [] Cancer [] Chronic kidney disease [] Chronic liver disease [] Chronic lung diseases, including cystic fibrosis [] Dementia or other neurological conditions [] Diabetes (type 1 or type 2) [] Disabilities, including Down syndrome and neurodevelopmental disorders [x] Heart conditions [] HIV infection [] Immunocompromised state [x] Mental health conditions [] Medical related technological dependence (tracheostomy, gastrostomy, or positive pressure ventilation (not related to COVID) [x] Overweight and obesity (BMI greater or equal to 25 for adults) [] Physical inactivity [] [] Sickle cell disease or thalassemia [] Smoking, current or former [] Solid organ or blood stem cell transplant [] Stroke or cerebrovascular disease [] Substance use disorders [] Tuberculosis [] People from racial and ethnic minority groups Criteria above are met: Yes Date of Symptom Onset: 08/16/2022 Patient received COVID vaccine: Yes Drug-Drug interactions reviewed: Yes. No drug interactions were identified. I have discussed the use of the investigational therapeutic, nirmatrelvir/ritonavir, for the treatment of mild to moderate COVID-19 and its use under Emergency Use Authorization with the patient. The patient was informed that nirmatrelvir/ritonavir is not an FDA approved drug and that it is authorized for use under this Emergency Use Authorization. The patient was also informed of the significant known benefits and potential risks of nirmatrelvir/ritonavir, and the extent to which such potential risks and benefits are unknown. The patient was informed that there is mandatory reporting of all medication errors and serious adverse events potentially related to nirmatrelvir/ritonavir treatment within 7 calendar days from the onset of the event and that events up to 28 days after completion of therapy need to be reported. The discussion included alternatives to receiving nirmatrelvir/ritonavir, including clinical trials, and potential the risks and benefits of those alternatives. The patient was provided electronically with the Fact Sheet for Patients, Parents and Caregivers. The patient was also instructed that in addition to the treatment with nirmatrelvir/ritonavir, he/she should continue to self-isolate and use infection control measures (e.g., wear mask, isolate, social distance, avoid sharing personal items, clean and disinfect high touch surfaces, and frequent handwashing) according to CDC guidelines. The patient stated understanding and gave verbal consent to proceeding with nirmatrelvir/ritonavir treatment. Xenia Gaitan APRN.CNP August 20, 2022 7:17 AM This patient encounter involved the screening or treatment of novel coronavirus infection (COVID-19). documented in this encounter [facility] 08-08-2022 Miscellaneous Notes Reviewed message under Refill encounter. Okay this month and next month refills Will adjust RX as needed to reflect how miguel needs per month. RX for methadone could lasts 1 to 3 or 2 months depending on issues for pain--lately needing more because of kidney stones The following approved medication requests have been transmitted electronically. Requested Prescriptions Signed Prescriptions Disp Refills methadone (DOLOPHINE) 5 mg tablet 85 tablet 0 Sig: Take 1 tablet by mouth three times daily as needed for up to 30 days. Authorizing Provider: ANILA CAMPOS methadone (DOLOPHINE) 5 mg tablet 85 tablet 0 Sig: Take 1 tablet by mouth three times daily as needed for up to 30 days. Authorizing Provider: ANILA CAMPOS MD Please review pt's message below. Patient has been identified by name and date of : Yes, Provider Dr. Campos Date 08/08/22 Time 8:12 am Patient phones for refill(s): Requested Prescriptions Pending Prescriptions Disp Refills methadone (DOLOPHINE) 5 mg tablet 85 tablet 0 Sig: Take 1 tablet by mouth three times daily as needed for up to 30 days. Date of last office visit in primary care: 06/20/22 next apt 11/06/22 Last 2 Encounter Wt Readings: Date: Wt: 06/20/2022 120.7 kg (266 lb) 05/31/2022 0 kg () Previous labs/tests for medication: Not applicable Please advise. Thank you. Yolanda King LPN documented in this encounter [facility] 08-08-2022 Miscellaneous Notes Electronic Pa completed and denied for Methadone Yuliet Negro Ma documented in this encounter [facility] 07-30-2022 Miscellaneous Notes documented in this encounter [facility] 07-13-2022 History of Present illness Narrative Radiology Service Progress Note PATIENT NAME: Nimisha Beal DATE OF SERVICE: July 13, 2022 TIME: 3:23 PM PATIENT IDENTITY VERIFICATION COMPLETED USING TWO (2) IDENTIFIERS: Name and Date of confirmed by patient verbally. FALL SCREENING: Has the patient had 2 falls in the last year or 1 fall with injury or currently using an Ambulatory Assistive Device (Walker, Cane, Wheelchair, Crutches, etc.)? No PATIENT GENDER DATA: Female. status: : No status: NO. PATIENT RELEVANT IMPLANT DATA REVIEWED: Not Applicable RADIOLOGY DEPARTMENT: Ultrasound PERIPHERAL IV DATA: Not applicable SIGNED BY: Dasha Cervantes RDMS RVT July 13, 2022 3:23 PM documented in this encounter [facility] 07-10-2022 Discharge summary Note Date/Time July 10, 2022 3:29am [facility] Medical Records Department [address] [place] [address] Emergency Department Summary 07/10/22 MR#: [id number] Acct: [id number] Name: NIMISHA BEAL Rep #:[id number] : 1985 37 From: Tone Rutledge MD PCP: Dr. Anila Campos MD Status:RE G ER Location: ED HPI HPI - GI History of Present Illness Chief Complaint: Abd Pain Informant: patient and spouse/S.O. Narrative Narrative: Patient presents with abdominal pain, nausea vomiting and diarrhea. She states 1 month ago she had an episode where she had crampy abdominal pain with nausea vomiting diarrhea that lasted for 24 hours. She thought it was something she ate. It then recurred about 2 weeks ago. She was seen in urgent care. There is no specific solution. About 6 days ago and then came back. That second episode also lasted for 24 hours. She now is on Prilosec Pepcid andtaking Phenergan which does help with the nausea. Her first episode of diarrheawas watery but now it is just poorly formed. No blood seen. She is still nauseated but has not vomited this week. But her appetite is down and she is not drinking a lot. She is eating only applesauce. No fevers. No chest pain. Of note, the patient did have an ulcer back when she was a teenager after knee injuries thought to be related to Celebrex. She is now been back on Celebrex for the last year or 2. [facility] Medical History Arthritis Back pain Fatigue Knee pain Migraines Shoulder pain Home Medications B-complex with vitamin C 1 cap PO QDAY 08/12/17 [History Last Taken Unknown] ascorbic acid (vitamin C) 500 mg chewable tablet 500 mg PO QDAY 08/12/17 [History Last Taken Unknown] aspirin 81 mg chewable tablet PO 08/12/17 [History Last Taken Unknown] atenolol 25 mg tablet 25 mg PO ONCE 08/12/17 [History Last Taken Unknown] biotin 1 mg capsule 1 mg PO QDAY 08/12/17 [History Last Taken Unknown] bupropion HCl 150 mg 24 hr tablet, extended release (Wellbutrin XL) 150 mg PO QAM 08/12/17 [History Last Taken Unknown] celecoxib 50 mg capsule (Celebrex) 100 mg PO BID 08/12/17 [History Last Taken Unknown] cetirizine 10 mg capsule (Allergy Relief (cetirizine)) 10 mg PO QDAY 08/12/17 [History Last Taken Unknown] cholecalciferol (vitamin D3) 25 mcg (1,000 unit) capsule 1,000 unit PO ONCE 08/12/17 [History Last Taken Unknown] desoximetasone 0.05 % topical cream (Topicort) 1 applic topical QDAY 08/12/17 [History Last Taken Unknown] diclofenac sodium 1 % topical gel (Voltaren) 2 g topical ONCE 08/12/17 [History Last Taken Unknown] gabapentin 100 mg capsule (Neurontin) 100 mg PO QDAY 08/12/17 [History Last Taken Unknown] hydrochlorothiazide 12.5 mg capsule 12.5 mg PO QAM 08/12/17 [History Last Taken Unknown] hydroxyzine HCl 25 mg tablet 25 mg PO 6XD 08/12/17 [History Last Taken Unknown] levonorgestrel 21 mcg/24 hours (8 yrs) 52 mg intrauterine device (Mirena) 1 insert intrauterine ONCE 08/12/17 [History Last Taken Unknown] lidocaine 5 % topical patch (Lidoderm) 1 patch topical ONCE 08/12/17 [History Last Taken Unknown] melatonin 10 mg capsule 10 mg PO HS PRN 08/12/17 [History Last Taken Unknown] methadone 5 mg tablet 5 mg PO Q6H 08/12/17 [History Last Taken Unknown] multivitamin 1 cap PO QAM 08/12/17 [History Last Taken Unknown] pregabalin 25 mg capsule (Lyrica) 50 mg PO TID 08/12/17 [History Last Taken Unknown] tizanidine 2 mg capsule (Zanaflex) 2 mg PO ONCE 08/12/17 [History Last Taken Unknown] topiramate 25 mg tablet (Topamax) 25 mg PO QDAY 08/12/17 [History Last Taken Unknown] zolpidem 5 mg tablet (Ambien) 5 mg PO HS PRN 08/12/17 [History Last Taken Unknown] ondansetron 4 mg disintegrating tablet 4 mg PO Q8H PRN PRN Nausea #10 tabs 12/06/18 [Rx Last Taken Unknown] cephalexin 500 mg capsule 500 mg PO Q6 #40 caps 04/05/20 [Rx Last Taken Unknown] ondansetron 4 mg disintegrating tablet 4 mg PO Q8H PRN PRN Nausea #10 tabs 04/05/20 [Rx Last Taken Unknown] ondansetron 4 mg disintegrating tablet 4 mg PO Q8H PRN PRN Nausea #10 tabs 07/10/22 [Rx Last Taken Unknown] tamsulosin 0.4 mg capsule (Flomax) 0.4 mg PO DAILY #7 caps 07/10/22 [Rx Last Taken Unknown] Allergy/AdvReac Type Severity Reaction Status Date / Time baclofen Allergy Unknown Verified 04/05/20 18:59 morphine Allergy Unknown Verified 04/05/20 18:59 duloxetine [From Cymbalta] AdvReac Unknown Verified 04/05/20 18:59 ATB AdvReac Nausea/Vom/ Uncoded 04/05/20 18:59 Diarrhea Family History Father Hypertension Arthritis Mother Asthma Arthritis Surgical History History of partial knee replacement History of tonsillectomy Hx of knee surgery Social History Smoking Status: Never smoker alcohol intake: current alcohol intake frequency: holidays/special occasions only ROS ROS ED Constitutional Constitutional ED: Denies fever(s) ENT ENT ED: Denies rhinorrhea Cardiovascular Cardiovascular: Denies chest pain or palpitations Respiratory/Chest Respiratory/Chest: Denies cough or dyspnea Gastrointestinal Gastrointestinal: Reports abdominal pain, diarrhea, nausea, vomiting and other Details: See history of present illness. ; Denies constipation or melena Genitourinary Genitourinary ED: Reports dysuria and urinary frequency; Denies hematuria Musculoskeletal Musculoskeletal: Denies back pain Integumentary Denies rash Neurologic Neurologic: Denies paresthesias Endocrine Endocrinology: Denies polydipsia or polyuria Hematologic/Lymphatic Hematologic/Lymphatic: Denies easy bleeding or easy bruising Allergic/Immunologic Allergic/Immunologic ED: Denies urticaria EXAM Physical Exam Narrative Exam Narrative: Patient is sitting up in bed. Awake alert appropriate. She is nontoxic in appearance. HEENT shows minimally dry mucous membranes. No sign of trauma. Lungs are clear bilaterally Heart is regular no murmur gallop or rub. Abdomen is obese. There is some mild nonfocal tenderness or longer left side. It varies somewhat. No rebound or guarding. No masses able to be felt. shows no notable suprapubic or CVA tenderness. She has had kidney stones butdoes not think this is like 1 of those. Extremities show no tenderness. No asymmetry. Neurologically patient awake alert appropriate with no focal deficit. Const Vital Signs: 07/10/22 03:04 Temperature 98.3 F Temperature Source Temporal Pulse Rate 73 Respiratory Rate 16 Blood Pressure 154/139 H Blood Pressure Mean 144 Pulse Ox 97 Oxygen Delivery Method Room Air MDM MDM MDM Narrative Medical decision making narrative: My independent interpretation of the patient's CT of the abdomen is suspicious for some mild left hydro-. There is questions of a distal small UVJ stone. Final reading by radiology does state that there is that small 1 mm UVJ stone. When I talk with her she then states she has had kidney stones before but was not sure if this was the same. Her blood work shows normal CBC. Her electrolytes are normal. Glucose is minimally up at 115. Lipase in the test are normal at is negative. Urine is negative pending final micro. I think her symptoms are likely due to the stone. She states she got excellent improvement with the fentanyl. She states she has gotten good relief from pain with Toradol. I will give her a dose of Toradol because it is longer lasting. This patient is on prescribed gabapentin and prescribed methadone routinely. I did access and review her online prescribing report by the [facility]. Because she gets regular prescriptions I really cannot give her further scripts to go. She needs to contact her primary prescriber. I will add some Flomax. Yohan also add some Zofran. She is already on nonsteroidal. We discussed reasons to return and follow-up. However, this stone statistically has a very high probability of passing. Lab Data Attestation: I reviewed the patient's lab results. Labs: Laboratory Results - last 24 hr 07/10/22 07/10/22 07/10/22 03:13 03:13 03:13 WBC 8.8 RBC 5.31 Hgb 14.3 Hct 44.4 MCV 83.6 MCH 26.9 L MCHC 32.2 RDW Std Deviation 39.7 RDW Coeff of Maria 13.2 Plt Count 335 MPV 10.1 Immature Gran % (Auto) 0.500 Neut % (Auto) 62.7 Lymph % (Auto) 27.7 Harding % (Auto) 6.7 Eos % (Auto) 1.7 Baso % (Auto) 0.7 Absolute Neuts (auto) 5.5 Absolute Lymphs (auto) 2.44 Nucleated RBC % 0 Sodium 138 Potassium 3.7 Chloride 107 Carbon Dioxide 26.0 Anion Gap 5 BUN 16 Creatinine 1.02 Estim Creat Clear Calc 61.25 Est GFR (MDRD) Af Amer 78 Est GFR (MDRD) Non-Af 64 BUN/Creatinine Ratio 15.7 Glucose 115 H Calcium 9.7 Total Bilirubin 0.80 AST 26 ALT 43 Alkaline Phosphatase 94 Total Protein 8.2 Albumin 4.0 Globulin 4.2 Albumin/Globulin Ratio 1.0 Lipase 100 Serum , Qual NEGATIVE Urine Color Urine Clarity Urine pH Ur Specific [place] Urine Protein Urine Glucose (UA) Urine Ketones Urine Occult Blood Urine Nitrite Urine Bilirubin Urine Urobilinogen Ur Leukocyte Esterase 07/10/22 06:20 WBC RBC Hgb Hct MCV MCH MCHC RDW Std Deviation RDW Coeff of Maria Plt Count MPV Immature Gran % (Auto) Neut % (Auto) Lymph % (Auto) Hard[place] % (Auto) Eos % (Auto) Baso % (Auto) Absolute Neuts (auto) Absolute Lymphs (auto) Nucleated RBC % Sodium Potassium Chloride Carbon Dioxide Anion Gap BUN Creatinine Estim Creat Clear Calc Est GFR (MDRD) Af Amer Est GFR (MDRD) Non-Af BUN/Creatinine Ratio Glucose Calcium Total Bilirubin AST ALT Alkaline Phosphatase Total Protein Albumin Globulin Albumin/Globulin Ratio Lipase Serum , Qual Urine Color Yellow Urine Clarity Clear Urine pH 7.0 Ur Specific [place] 1.010 Urine Protein Negative Urine Glucose (UA) Normal Urine Ketones Negative Urine Occult Blood 10 H Urine Nitrite Negative Urine Bilirubin Negative Urine Urobilinogen Normal Ur Leukocyte Esterase Negative Radiography Diagnostic Testing: Clinical Impression(s) from Imaging Studies Abdomen/Pelvis CT 07/10/22 03:22 IMPRESSION: 1 mm left UVJ stone with mild obstruction. Small bilateral residual renal stones. Hepatic steatosis. Electronically Signed: George Ordonez MD at 5:47 EST Reading Location ID and State: 1954 [place] Tel , Service support , Discharge Plan Triage Chief Complaint: Abd Pain ED Provider: Tone Rutledge Dx/Rx/DC Orders Clinical Impression: Kidney stone on left side Instructions: ED Kidney Stone w/ Colic Prescriptions: New tamsulosin [Flomax] 0.4 mg capsule 0.4 mg PO DAILY Qty: 7 0RF ondansetron [ondansetron] 4 mg tablet,disintegrating 4 mg PO Q8H PRN PRN (Reason: Nausea) Qty: 10 0RF No Action topiramate [Topamax] 25 mg tablet 25 mg PO QDAY pregabalin [Lyrica] 25 mg capsule 50 mg PO TID bupropion HCl [Wellbutrin XL] 150 mg tablet extended release 24 hr 150 mg PO QAM tizanidine [Zanaflex] 2 mg capsule 2 mg PO ONCE lidocaine [Lidoderm] 5 % adhesive patch,medicated 1 patch TOPICAL ONCE atenolol 25 mg tablet 25 mg PO ONCE gabapentin [Neurontin] 100 mg capsule 100 mg PO QDAY levonorgestrel [Mirena] 20 mcg/24 hr (5 years) intrauterine device 1 insert Intrauterine ONCE methadone 5 mg tablet 5 mg PO Q6H celecoxib [Celebrex] 50 mg capsule 100 mg PO BID aspirin 81 mg tablet,chewable PO zolpidem [Ambien] 5 mg tablet 5 mg PO HS PRN hydroxyzine HCl 25 mg tablet 25 mg PO 6XD hydrochlorothiazide 12.5 mg capsule 12.5 mg PO QAM multivitamin capsule capsule 1 cap PO QAM cholecalciferol (vitamin D3) 1,000 unit capsule 1,000 unit PO ONCE biotin 1 mg capsule 1 mg PO QDAY ascorbic acid (vitamin C) 500 mg tablet,chewable 500 mg PO QDAY B-complex with vitamin C capsule capsule 1 cap PO QDAY melatonin 10 mg capsule 10 mg PO HS PRN cetirizine [Allergy Relief (cetirizine)] 10 mg capsule 10 mg PO QDAY desoximetasone [Topicort] 0.05 % cream 1 applic TOPICAL QDAY diclofenac sodium [Voltaren] 1 % gel 2 g TOPICAL ONCE ondansetron 4 MG tablet 4 mg PO Q8H PRN PRN (Reason: Nausea) Qty: 10 0RF cephalexin 500 MG capsule 500 mg PO Q6 Qty: 40 0RF ondansetron 4 MG tablet 4 mg PO Q8H PRN PRN (Reason: Nausea) Qty: 10 0RF Primary Care Provider: Anila Campos Referrals: Shara Bautista MD [Med Staff - Active Staff] - 3-5 Days if not improving Anila Campos MD [Primary Care Provider] - As Needed Disposition Disposition: Home, Self Care What to do if you have Problems For any increased pain, shortness of breath, bleeding, nausea or vomiting, chestpain, or any unexpected problems, contact your Primary Care Provider. Call [facility] ([phone]) or report to the closest Emergency Room. Call 911 if necessary. 07/10/22 0648 <Electronically signed by Tone Rutledge MD> Cosigner Signature (if applicable): CC: Dr. Anila Campos MD ~ Signed [facility] Work Phone: [phone] Miscellaneous Notes* Telephone Encounter - Annika Schulz LPN - 07/09/2022 9:53 AM EST Electronic PA completed and denied for methadone.. [facility] Miscellaneous Notes* Telephone Encounter - Chiquis Silvestre CEE - 07/04/2022 8:48 AM EST Patient calling her mail away Lyrica rx had gotten cancelled by mistake and now needs short supply locally and new mail away rx sent please. Pending rx to file to both pharmacies. Please advise Patient has been identified by name and date of : Patient phones for refill(s): Requested Prescriptions Pending Prescriptions Disp Refills pregabalin (LYRICA) 100 mg capsule 60 capsule 0 Sig: Take 1 capsule by mouth twice daily for 30 days. pregabalin (LYRICA) 100 mg capsule 180 capsule 3 Sig: Take 1 capsule by mouth twice daily for 180 days. Do not start before July 07, 2022. Date of last office visit in primary care: 06/20/2022, has appt 11/06/2022 Last 2 Encounter Wt Readings: Date: Wt: 06/20/2022 120.7 kg (266 lb) 05/31/2022 0 kg () Previous labs/tests for medication: Not applicable Please advise. Thank you. Chiquis Rivers LPN [facility] Miscellaneous Notes* Telephone Encounter - Nadine Mcclain APRN.DAMARIS - 07/02/2022 12:55 PM EST [facility] Miscellaneous Notes* Telephone Encounter - Anila Campos MD - 06/20/2022 7:32 PM EST The following approved medication requests have been transmitted electronically. Requested Prescriptions Signed Prescriptions Disp Refills methadone (DOLOPHINE) 5 mg tablet 85 tablet 0 Sig: Take 1 tablet by mouth three times daily as needed for up to 30 days. Authorizing Provider: ANILA CAMPOS MD * Telephone Encounter - Tamela Chiu LPN - 06/20/2022 3:59 PM EST Last office visit: 06/20/22 Next appointment scheduled: 10/2022 Patient phones requesting refills as follows: Requested Prescriptions Pending Prescriptions Disp Refills methadone (DOLOPHINE) 5 mg tablet 85 tablet 0 Sig: Take 1 tablet by mouth three times daily as needed for up to 30 days. Please review and advise. Tamela Chiu LPN [facility] [facility] Miscellaneous Notes* Telephone Encounter - Cynthia Pham APRN.DAMARIS - 06/04/2022 11:51 AM EST I called patient to see how she was feeling. She states overall feeling better, diarrhea has improved. Still having some lower left abdominal pain. At 05/31 visit she complained of epigastric pain only. CBC, CMP ordered. If abnormal, follow up as appropriate. Cynthia Pham APRN.DAMARIS documented in this encounterSam[facility]01-19-[facility]23 Instructions* Patient Instructions* Carli Eaton - 05/31/2022 6:20 PM EST ASSESSMENT/PLAN: 1. Diarrhea of presumed infectious origin - ICD9: 009.3, ICD10: R19.7 (primary diagnosis) 2. Nausea - ICD9: 787.02, ICD10: R11.0 - PROMETHAZINE 25 MG TABLET Carli Eaton APRN- student DIARRHEA Diarrhea can be caused by many different conditions. The most common cause is viral illness. Food poisoning, bacterial infection, and reactions to medicine (especially antibiotics and antacids) may also be the cause. Most of the time diarrhea improves after 2-3 days of rest and oral fluid replacement. You should drink enough clear fluids (water, sodas, Gatorade) to prevent dehydration. Adults must drink at least 2-3 quarts daily. Try nutritious low fiber foods: bananas, rice, applesauce, toast,yogurt, noodles, white bread, skinned chicken or turkey, and fish. Avoid foods such as: ~ [place], fatty or fried foods ~ Raw vegetables and fruits ~ Strong spices ~ Whole grain cereals & breads, and nuts ~ Gas forming foods & beverages (beans, cabbage, carbonated drinks) 4. Limit foods or beverages with caffeine (such as coffee, strong tea, & sodas) and extremely hot or cold beverages. Medicine to control cramping and diarrhea may be helpful. If you have a fever or blood in the stool, however, these medicines should be avoided as they may prolong your illness. Antibiotics can speedrecovery from diarrhea due to some bacterial infections, but may cause complications. Please call the office if your diarrhea does not get better in 3 days, or if you have fever, blood in the stool, vomiting, or become more dehydrated. documented in this encounterSam[facility]01-19-2023 History of Present illness Narrative* Carli Angelito - 05/31/2022 5:41 PM EST Subjective Nimisha Beal is a 36 year old female who presents with almost 24 hours of diarrhea, chills, andnausea. Patient reports fluid intake of about 16 oz today and consumed a few bites of applesauce ontwo occasions. Denies episodes of vomiting but due to her nausea she has been nervous to increase her fluid intake. Reports similar episode a week ago in which she suspected food poisoning related toconsuming her parents farm raised eggs. Reports that her symptoms lasted 24 hours and she was able to increase her solids intake from there. Patient reports trying carafate and pepto-bismol without symptom relief. For her headache she took Excedrin and her headache resolved. Patient denies dizziness, seeing spots, or lightheadedness. Diarrhea The current episode started yesterday. The problem has not changed since onset.The stool consistency is described as Watery. There has been no fever. Associated symptoms include chills, headaches andmyalgias. Pertinent negatives include no abdominal pain, no vomiting and no cough. Review of Systems Constitutional: Positive for chills and malaise/fatigue. Negative for fever. HENT: Negative for congestion and sore throat. Respiratory: Negative for cough, shortness of breath and wheezing. Cardiovascular: Positive for palpitations (intermittent). Negative for chest pain. Gastrointestinal: Positive for diarrhea and nausea. Negative for abdominal pain, blood in stool, heartburn and vomiting. Genitourinary: Positive for frequency. Negative for dysuria. Musculoskeletal: Positive for myalgias. Neurological: Positive for headaches. Negative for dizziness. 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 Depressive disorder, not elsewhere classified 01/28/2006 Encounter for insertion or removal of intrauterine contraceptive device 03/01/2003; 02/2008 Was replaced in 02/2008; due 2013 Generalized osteoarthrosis, unspecified site 05/18/2005 Kidney stone Migraine, unspecified, with intractable migraine, so stated, without mention of status migrainosus Migraine Morbid obesity with BMI of 45.0-49.9, adult (HCC) Obesity Paroxysmal supraventricular tachycardia (HCC) Supraventricular tachycardia PMH - PAST MEDICAL HISTORY OF Heel Spurs Sciatica 05/18/2005 Unspecified asthma(493.90) PAST SURGICAL HISTORY Procedure Laterality Date IUD INSERTION (RN FLOAT DEPT)_*FL 03/11/08 mirena IUD REMOVAL (RN FLOAT DEPT)_*FL 03/11/08 PAST SURGICAL HISTORY OF Left left knee surgery x6, MCL repair and extensive surgery on left lower leg and knee cap PAST SURGICAL HISTORY OF 2002 Heart ablation PAST SURGICAL HISTORY OF Left Knee surgery (Dr. Daniel Cee) PAST SURGICAL HISTORY OF 08/2018 right shoulder repair TONSILLECTOMY PRIMARY/SECONDARY <AGE 10 Tonsillectomy ALLERGIES Arnica (Arnica [place]), Baclofen, Cymbalta [Duloxetine], Morphine, and Skelaxin [Metaxalone] MEDICATIONS tiZANidine (ZANAFLEX) 4 mg tablet Take 2 tablets by mouth daily at bedtime. May also take 0.5-1 tablets twice daily as needed (muscle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 structured with arch support helps. 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 Depressive disorder, not elsewhere classified 01/28/2006 Encounter for insertion or removal of intrauterine contraceptive device 03/01/2003; 02/2008 Was replaced in 02/2008; due 2013 Generalized osteoarthrosis, unspecified site 05/18/2005 Kidney stone Migraine, unspecified, with intractable migraine, so stated, without mention of status migrainosus Migraine Morbid obesity with BMI of 45.0-49.9, adult (HCC) Obesity Paroxysmal supraventricular tachycardia (HCC) Supraventricular tachycardia PMH - PAST MEDICAL HISTORY OF Heel Spurs Sciatica 05/18/2005 Unspecified asthma(493.90) Current Outpatient Medications Medication Sig omeprazole (PRILOSEC) 40 mg capsule Take 1 capsule by mouth once daily. sucralfate (CARAFATE) 1 gram tablet Take 1 tablet by mouth before meals and at bedtime. pregabalin (LYRICA) 100 mg capsule Take 1 capsule by mouth twice daily for 180 days. Do not start before October 06, 2021. tiZANidine (ZANAFLEX) 4 mg tablet TAKE TWO TABLETS BY MOUTH DAILY AT BEDTIME, MAY TAKE 1/2-1 tabletTWICE DAILY during THE DAY max 24mg PER DAY buPROPion XL (WELLBUTRIN XL) 300 mg 24 hr tablet Take 1 tablet by mouth once daily. (Note: cannot take budeprion) topiramate (TOPAMAX) 100 mg tablet Take 1 tablet by mouth daily at bedtime. zolpidem (AMBIEN) 10 mg Take 0.5-1 tablets by mouth at bedtime as needed for up to 30 days. Take ifnot able to sleep more than 6 hours of sleep sullhjko-dcq-wxzha acid-biotin 66.7-1,000 mcg tab Take by mouth. vitamin b complex(B COMPLETE TAB) Take one(1) tablet daily. methadone (DOLOPHINE) 5 mg tablet Take 1 tablet by mouth three times daily as needed for up to 30 days. Do not start before November 02, 2021. methadone (DOLOPHINE) 5 mg tablet Take 1 tablet by mouth three times daily as needed for up to 30 days. Do not start before December 02, 2021. celecoxib (CELEBREX) 200 mg capsule Take 1 capsule by mouth twice daily. gabapentin (NEURONTIN) 600 mg tablet Take 2 tablets by mouth twice daily for 180 days. methadone (DOLOPHINE) 5 mg tablet Take 1 tablet by mouth three times daily as needed for up to 30 days. Do not start before October 03, 2021. atenolol (TENORMIN) 100 mg tablet Take 1 tablet by mouth once daily. May also take 1 tablet once daily as needed (Extra dose as needed for breakthrough headache). hydrOXYzine HCl (ATARAX) 50 mg tablet Take 0.5-1 tablets by mouth every 4 hours as needed for itching/rash. lidocaine (LIDODERM) 5 % Apply 1 Patch as directed every 24 hours. Remove old patch after 12 hours prior to placing new patch. Location: back or leg furosemide (LASIX) 20 mg tablet Take 1 tablet by mouth once daily as needed (fluid retention and swelling). hydroCHLOROthiazide (HYDRODIURIL, ESIDRIX) 25 mg tablet Take 1 tablet by mouth once daily. as needed for swelling ketoconazole (NIZORAL) 2 % cream Apply 1 application to affected area twice daily. As directed desoximetasone (TOPICORT) 0.25 % Apply 1 application to affected area twice daily as needed. Amoxicillin 500 mg tablet TAKE 4 PILLS 1 HOUR PRIOR TO DENTAL PROCEDURE naloxone 4 mg/actuation nasal spray (NARCAN) Use 1 spray in one nostril. May repeat every 2 to 3 minutes as needed in alternating nostrils until medical assistance becomes available. lidocaine viscous (XYLOCAINE) 2 % solution Gargle and swallow 5 cc every 3 hours as needed for sorethroat. If 2% not available, okay to give 4% solution. mometasone (NASONEX) 50 mcg/actuation nasal spray Use 2 Sprays in the nose once daily. Rinse mouth after use. cetirizine (ZYRTEC) 10 mg tablet Takes 1 tab daily as needed melatonin 5 mg tablet Take 1 tablet by mouth daily at bedtime. diclofenac sodium (VOLTAREN) 1 % topical gel Apply 4 g to affected area four times daily. For knees Cholecalciferol, Vitamin D3, 5,000 unit cap Take 1 capsule by mouth once daily. No current facility-administered medications for this visit. Review of Systems Objective BP 134/88 Pulse 70 Wt 124.6 kg (274 lb 9.6 oz) LMP 02/10/2015 BMI 48.64 kg/m Last 5 Encounter Wt Readings: Date: Wt: 01/05/2022 124.6 kg (274 lb 9.6 oz) 10/03/2021 122.5 kg (270 lb) 02/07/2021 123.8 kg (273 lb) 05/26/2020 123.4 kg (272 lb) 07/14/2019 124.7 kg (275 lb) No waist measurement recorded Estimated body mass index is 48.64 kg/m as calculated from the following: Height as of 05/26/20: 160 cm (5' 3). Weight as of this encounter: 124.6 kg (274 lb 9.6 oz). Last 5 Encounter BP Readings: Date: BP: 01/05/2022 134/88 10/03/2021 132/90 02/07/2021 148/98 05/26/2020 136/90 07/14/2019 154/96 Physical Exam Constitutional: Appearance: Normal appearance. She is obese. HENT: Head: Normocephalic. Eyes: Conjunctiva/sclera: Conjunctivae normal. Cardiovascular: Rate and Rhythm: Normal rate and regular rhythm. Heart sounds: Normal heart sounds. Pulmonary: Effort: Pulmonary effort is normal. Breath sounds: Normal breath sounds. Feet: Comments: Right arch medially--swelling noted and tenderness to heel posteriorly Skin: General: Skin is warm and dry. Neurological: General: No focal deficit present. Mental Status: She is alert and oriented to person, place, and time. Psychiatric: Mood and Affect: Mood normal. Behavior: Behavior normal. Thought Content: Thought content normal. Judgment: Judgment normal. Assessment and Plan Encounter Diagnosis ICD-10-CM 1. Right foot pain M79.671 XR FOOT GENERAL 3V AP/LAT/OBL RIGHT 2. Generalized OA M15.9 methadone (DOLOPHINE) 5 mg tablet methadone (DOLOPHINE) 5 mg tablet methadone (DOLOPHINE) 5 mg tablet 3. Primary osteoarthritis of both knees M17.0 methadone (DOLOPHINE) 5 mg tablet methadone (DOLOPHINE) 5 mg tablet methadone (DOLOPHINE) 5 mg tablet 4. Morbid obesity with BMI of 45.0-49.9, adult ([facility]) E66.01 methadone (DOLOPHINE) 5 mg tablet Z68.42 methadone (DOLOPHINE) 5 mg tablet methadone (DOLOPHINE) 5 mg tablet contributing to back and knee and heel pain 5. Plantar fasciitis of right foot M72.2 methadone (DOLOPHINE) 5 mg tablet methadone (DOLOPHINE) 5 mg tablet methadone (DOLOPHINE) 5 mg tablet with pain into right calf 6. Chronic midline low back pain with bilateral sciatica M54.41 methadone (DOLOPHINE) 5 mg tablet M54.42 methadone (DOLOPHINE) 5 mg tablet G89.29 methadone (DOLOPHINE) 5 mg tablet Pain from rib cage level down to hips, not down legs Above issues addressed with patient. Stable with control of chronic pain. Medication continues to help her remain as active as able. At this time benefits outweigh risks. Continue to monitor for adverse effects and indications for decreasing dose or tapering off. No signs of diversion or abuse of medication(s); no adverse effects. Continue present management. Patient involved in shared decision making for management of medical issues. History and medications reviewed. Epic updated as needed Refills and/or prescriptions taken care of and meds adjusted as indicated after reviewed history, exam and labs. Health Maintenance reviewed. Updated record and/or ordered tests as recorded. Encouraged on efforts at healthy diet and regular exercise and adequate sleep. Anila Campos MD documented [facility] this [facility]07[facility]22 Miscellaneous Notes* Telephone Encounter - Priscilla Harris Ma - 12/04/2021 9:57 AM EDT Refills at pharmacy . documented in this encounterSam[facility]05-24-2022 History of Present illness Narrative* Anila Campos MD - 10/03/2021 3:12 PM EDT This note was created using Jobzellariter. Subjective Nimisha Beal is a 36 year old female. Patient presents with: Follow Up SUBJECTIVE: Nimisha Beal is a 36 year old year old lady here today for 2 month follow up appointment for review of medical conditions. Noted hat hair has been thinning. Seems like hair line receding on right compared to left. Gets clumps of hair sometimes. 1.5 years no bleaching or dyeing. Was taking biotin. Not sure if helping. Getting protein in diet. More meat protein instead of ground beef. At least 1 serving a day Yogurt Eating high protein cereal. BP fine at home. Weight coming down in the office.; some up from prior at home. 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 Depressive disorder, not elsewhere classified 01/28/2006 Encounter for insertion or removal of intrauterine contraceptive device 03/01/2003; 02/2008 Was replaced in 02/2008; due 2013 Generalized osteoarthrosis, unspecified site 05/18/2005 Kidney stone Migraine, unspecified, with intractable migraine, so stated, without mention of status migrainosus Migraine Morbid obesity with BMI of 45.0-49.9, adult (HCC) Obesity Paroxysmal supraventricular tachycardia (HCC) Supraventricular tachycardia PMH - PAST MEDICAL HISTORY OF Heel Spurs Sciatica 05/18/2005 Unspecified asthma(493.90) Current Outpatient Medications Medication Sig celecoxib (CELEBREX) 200 mg capsule Take 1 capsule by mouth twice daily. [START ON 10/06/2021] pregabalin (LYRICA) 100 mg capsule Take 1 capsule by mouth twice daily for 180days. Do not start before October 06, 2021. gabapentin (NEURONTIN) 600 mg tablet Take 2 tablets by mouth twice daily for 180 days. methadone (DOLOPHINE) 5 mg tablet Take 1 tablet by mouth three times daily as needed for up to 30 days. Do not start before October 03, 2021. atenolol (TENORMIN) 100 mg tablet Take 1 tablet by mouth once daily. May also take 1 tablet once daily as needed (Extra dose as needed for breakthrough headache). methadone (DOLOPHINE) 5 mg tablet Take 1 tablet by mouth three times daily as needed for up to 30 days. tiZANidine (ZANAFLEX) 4 mg tablet TAKE TWO TABLETS BY MOUTH DAILY AT BEDTIME, MAY TAKE 1/2-1 tabletTWICE DAILY during THE DAY max 24mg PER DAY hydrOXYzine HCl (ATARAX) 50 mg tablet Take 0.5-1 tablets by mouth every 4 hours as needed for itching/rash. lidocaine (LIDODERM) 5 % Apply 1 Patch as directed every 24 hours. Remove old patch after 12 hours prior to placing new patch. Location: back or leg buPROPion XL (WELLBUTRIN XL) 300 mg 24 hr tablet Take 1 tablet by mouth once daily. (Note: cannot take budeprion) furosemide (LASIX) 20 mg tablet Take 1 tablet by mouth once daily as needed (fluid retention and swelling). topiramate (TOPAMAX) 100 mg tablet Take 1 tablet by mouth daily at bedtime. zolpidem (AMBIEN) 10 mg Take 0.5-1 tablets by mouth at bedtime as needed for up to 30 days. Take ifnot able to sleep more than 6 hours of sleep omeprazole (PRILOSEC) 40 mg capsule Take 1 capsule by mouth once daily. sucralfate (CARAFATE) 1 gram tablet Take 1 tablet by mouth before meals and at bedtime. hydroCHLOROthiazide (HYDRODIURIL, ESIDRIX) 25 mg tablet Take 1 tablet by mouth once daily. as needed for swelling ketoconazole (NIZORAL) 2 % cream Apply 1 application to affected area twice daily. As directed desoximetasone (TOPICORT) 0.25 % Apply 1 application to affected area twice daily as needed. Amoxicillin 500 mg tablet TAKE 4 PILLS 1 HOUR PRIOR TO DENTAL PROCEDURE naloxone 4 mg/actuation nasal spray (NARCAN) Use 1 spray in one nostril. May repeat every 2 to 3 minutes as needed in alternating nostrils until medical assistance becomes available. lidocaine viscous (XYLOCAINE) 2 % solution Gargle and swallow 5 cc every 3 hours as needed for sorethroat. If 2% not available, okay to give 4% solution. mometasone (NASONEX) 50 mcg/actuation nasal spray Use 2 Sprays in the nose once daily. Rinse mouth after use. cetirizine (ZYRTEC) 10 mg tablet Takes 1 tab daily as needed melatonin 5 mg tablet Take 1 tablet by mouth daily at bedtime. diclofenac sodium (VOLTAREN) 1 % topical gel Apply 4 g to affected area four times daily. For knees fzppwwnx-lvs-ovkrx acid-biotin (HAIR,SKIN AND NAILS,FA-BIOTIN,) 66.7-1,000 mcg tab Take by mouth. Cholecalciferol, Vitamin D3, 5,000 unit cap Take 1 capsule by mouth once daily. vitamin b complex(B COMPLETE TAB) Take one(1) tablet daily. No current facility-administered medications for this visit. Review of Systems Objective BP 132/90 Pulse 76 Wt 122.5 kg (270 lb) LMP 02/10/2015 BMI 47.83 kg/m Last 5 Encounter Wt Readings: Date: Wt: 10/03/2021 122.5 kg (270 lb) 02/07/2021 123.8 kg (273 lb) 05/26/2020 123.4 kg (272 lb) 07/14/2019 124.7 kg (275 lb) 04/14/2019 124.3 kg (274 lb) No waist measurement recorded Estimated body mass index is 47.83 kg/m as calculated from the following: Height as of 05/26/20: 160 cm (5' 3). Weight as of this encounter: 122.5 kg (270 lb). Last 5 Encounter BP Readings: Date: BP: 10/03/2021 132/90 02/07/2021 148/98 05/26/2020 136/90 07/14/2019 154/96 04/14/2019 138/98[Checked 3 times amnd improved[ Physical Exam Constitutional: Appearance: Normal appearance. She is obese. HENT: Head: Normocephalic. Eyes: Conjunctiva/sclera: Conjunctivae normal. Cardiovascular: Rate and Rhythm: Normal rate and regular rhythm. Heart sounds: Normal heart sounds. Pulmonary: Effort: Pulmonary effort is normal. Breath sounds: Normal breath sounds. Skin: General: Skin is warm and dry. Neurological: General: No focal deficit present. Mental Status: She is alert and oriented to person, place, and time. Psychiatric: Mood and Affect: Mood normal. Behavior: Behavior normal. Thought Content: Thought content normal. Judgment: Judgment normal. Component Latest Ref Rng & Units 11/03/2009 06/29/2017 09/25/2017 08/14/2018 06/20/2021 Protein, Total 6.3 - 8.0 g/dL 7.7 Albumin 3.9 - 4.9 g/dL 4.6 Calcium 8.5 - 10.2 mg/dL 9.9 9.6 9.6 Bilirubin, Total 0.2 - 1.3 mg/dL 0.5 Alkaline Phosphatase 34 - 123 U/L 96 AST 13 - 35 U/L 18 Glucose 74 - 99 mg/dL 91 100 (H) 115 (H) BUN 7 - 21 mg/dL 17 18 22 (H) Creatinine 0.58 - 0.96 mg/dL 0.88 0.88 0.90 Sodium 136 - 144 mmol/L 141 138 141 Potassium 3.7 - 5.1 mmol/L 4.0 3.8 3.8 Chloride 97 - 105 mmol/L 104 104 106 (H) CO2 22 - 30 mmol/L 24 23 24 Anion Gap 9 - 18 mmol/L 13 11 11 ALT 7 - 38 U/L 23 eGFR- >60 >60 >60 eGFR-All Other Races . >60 >60 >60 Glucose, [place] 70 - 99 mg/dL 105 (H) BUN, [place] 7 - 18 mg/dL 12 Total Protein, [place] 6.4 - 8.2 g/dL 8.2 Albumin, [place] 3.4 - 5.0 g/dL 3.9 Globulin, [place] 1.5 - 4.5 g/dL 4.3 Bilirub, Tot, [place] 0.00 - 1.00 mg/dL 0.44 Sodium, [place] 136 - 145 mmol/L 140 Potassium, [place] 3.5 - 5.1 mmol/L 3.9 Chloride, [place] 98 - 107 mmol/L 104 CO2, [place] 21.0 - 32.0 mmol/L 26.0 Alk Phos, [place] 50 - 136 U/L 115 AST, [place] 15 - 37 U/L 22 ALT, [place] 30 - 65 U/L 43 Calcium, [place] 8.5 - 10.1 mg/dL 9.2 Creatinine, [place] 0.6 - 1.0 mg/dL 1.0 WBC 3.70 - 11.00 k/uL 9.70 RBC 3.90 - 5.20 m/uL 4.86 Hemoglobin 11.5 - 15.5 g/dL 13.4 Hematocrit 36.0 - 46.0 % 41.0 MCV 80.0 - 100.0 fL 84.4 MCH 26.0 - 34.0 pG 27.6 MCHC 30.5 - 36.0 g/dL 32.7 RDW-CV 11.5 - 15.0 % 13.4 Platelet Count 150 - 400 k/uL 324 MPV 9.0 - 12.7 fL 10.1 Absolute nRBC <0.01 k/uL <0.01 WBC, [place] 4.0 - 10.5 k/uL 8.1 RBC, [place] 4.2 - 5.4 m/uL 4.92 Hemoglobin, [place] 12.0 - 16.0 g/dL 13.9 Hematocrit, [place] 37.0 - 47.0 % 40.3 MCV, [place] 81 - 99 fL 81.9 MCH, [place] 27 - 31 pg 28.3 MCHC, [place] 33 - 37 g/dL 34.5 RDW, [place] 11.5 - 14.5 % 13.3 Platelet Cnt, [place] 130 - 400 k/uL 363 T4, [place] 4.9 - 11.0 ug/dL 7.3 TU, [place] 25 - 38 % 31 FTI, [place] 1.0 - 4.2 2.26 Hemoglobin A1C 4.3 - 5.6 % 5.5 Estimated Average Glucose mg/dL 111 Vitamin D 25 Hydroxy 31.0 - 80.0 ng/mL 21.5 (L) TSH, [place] 0.50 - 6.00 uIU/mL 3.75 Free T3 1.8 - 4.6 pg/mL 2.8 Assessment and Plan ASSESSMENT/PLAN: 1. Hair thinning - ICD9: 704.00, ICD10: L65.9 (primary diagnosis) Further evaluation and treatment as indicated. Discussed biotin and adequate protein. - COMP METABOLIC PANEL - CBC - VITAMIN D 25 HYDROXY - TSH BLD - T4 FREE/FREE THYROX - T3 FREE BLD 2. Encounter for long-term current use of medication - ICD9: V58.69, ICD10: Z79.899 - COMP METABOLIC PANEL - CBC - VITAMIN D 25 HYDROXY - TSH BLD - T4 FREE/FREE THYROX - T3 FREE BLD 3. Vitamin D deficiency - ICD9: 268.9, ICD10: E55.9 Further evaluation and treatment as indicated. - VITAMIN D 25 HYDROXY 4. Gastritis without bleeding, unspecified chronicity, unspecified gastritis type - ICD9: 535.50, ICD10: K29.70 - OMEPRAZOLE 40 MG CAPSULE,DELAYED RELEASE 5. Generalized OA - ICD9: 715.00, ICD10: M15.9 Stable with control of chronic pain. At this time benefits outweigh risks. Continue to monitor for adverse effects and indications for decreasing dose or tapering off. No signs of diversion or abuse of medication(s); no adverse effects. Continue present management. - METHADONE 5 MG TABLET - METHADONE 5 MG TABLET 6. Primary osteoarthritis of both knees - ICD9: 715.16, ICD10: M17.0 As above - METHADONE 5 MG TABLET - METHADONE 5 MG TABLET 7. Morbid obesity with BMI of 45.0-49.9, adult (HCC) - ICD9: 278.01, V85.42, ICD10: E66.01, Z68.42 Weight decreasing - Behavioral intervention - Needs to keep working on diet and exercise with lifestyle changes for effective weight loss as well as prevention of DM, and control of BP and lipids. - METHADONE 5 MG TABLET - METHADONE 5 MG TABLET 8. Plantar fasciitis of right foot - ICD9: 728.71, ICD10: M72.2 As above - METHADONE 5 MG TABLET - METHADONE 5 MG TABLET 9. Chronic midline low back pain with bilateral sciatica - ICD9: 724.2, 724.3, 338.29, ICD10: M54.41, M54.42, G89.29 As above Keep up weight loss efforts - METHADONE 5 MG TABLET - METHADONE 5 MG TABLET Anila Campos MD documented [facility] this encounter[facility]04-18-2022 Miscellaneous Notes* Telephone Encounter - Jude Moore APRN.SEBD TEACHER - 08/28/2021 4:38 PM EDT PDMP website checked and validated. All prescriptions have been APPROPRIATELY filled. No suspiciousactivity was identified. 08/28/2021 by Jude Moore APRN.SEBD TEACHER * Telephone Encounter - Alejandro Wyatt Ma - 08/28/2021 10:12 AM EDT BETSY: 07/07/2021 methadone Last refill: 08/06/2021 QTY: 85 Refills: 0 documented in this encounterSam[facility]06-17-[facility] History of Past illness Narrative* Problem Noted Date Resolved Date Migraine without aura, witho ut mention of intractable migraine without mention of status migrainosus 10/28/2007 010 Pain in limb 05/15/2006 11/03/2009 Spasm of muscle 05/18/2005 11/03/2009 Migraine without aura, with intractable migraine, so stated, without mention of status migrainosus 01/11/2005 11/03/2009 documented as of this encounter (statuses as of 08/28/2021) [facility] of Past illness Narrative* Problem Noted Date Resolved Date Migraine without aura, witho ut mention of intractable migraine without mention of status migrainosus 10/28/2007 010 Pain in limb 05/15/2006 11/03/2009 Spasm of muscle 05/18/2005 11/03/2009 Migraine without aura, with intractable migraine, so stated, without mention of status migrainosus 01/11/2005 11/03/2009 documented as of this encounter (statuses as of 08/28/2021) [facility] of Past illness Narrative* Problem Noted Date Resolved Date Migraine without aura, witho ut mention of intractable migraine without mention of status migrainosus 10/28/2007 010 Pain in limb 05/15/2006 11/03/2009 Spasm of muscle 05/18/2005 11/03/2009 Migraine without aura, with intractable migraine, so stated, without mention of status migrainosus 01/11/2005 11/03/2009 documented as of this encounter (statuses as of 10/28/2021) [facility] History of Past illness Narrative* Problem Noted Date Resolved Date Migraine without aura, witho ut mention of intractable migraine without mention of status migrainosus 10/28/2007 010 Pain in limb 05/15/2006 11/03/2009 Spasm of muscle 05/18/2005 11/03/2009 Migraine without aura, with intractable migraine, so stated, without mention of status migrainosus 01/11/2005 11/03/2009 documented as of this encounter (statuses as of 12/03/2021) [facility] History of Past illness Narrative* Problem Noted Date Resolved Date Migraine without aura, witho ut mention of intractable migraine without mention of status migrainosus 10/28/2007 010 Pain in limb 05/15/2006 11/03/2009 Spasm of muscle 05/18/2005 11/03/2009 Migraine without aura, with intractable migraine, so stated, without mention of status migrainosus 01/11/2005 11/03/2009 documented as of this encounter (statuses as of 12/04/2021) [facility] History of Past illness Narrative* Problem Noted Date Resolved Date Migraine without aura, witho ut mention of intractable migraine without mention of status migrainosus 10/28/2007 010 Pain in limb 05/15/2006 11/03/2009 Spasm of muscle 05/18/2005 11/03/2009 Migraine without aura, with intractable migraine, so stated, without mention of status migrainosus 01/11/2005 11/03/2009 documented as of this encounter (statuses as of 02/27/2022) [facility] History of Past illness Narrative* Problem Noted Date Resolved Date Migraine without aura, witho ut mention of intractable migraine without mention of status migrainosus 10/28/2007 010 Pain in limb 05/15/2006 11/03/2009 Spasm of muscle 05/18/2005 11/03/2009 Migraine without aura, with intractable migraine, so stated, without mention of status migrainosus 01/11/2005 11/03/2009 documented as of this encounter (statuses as of 03/06/2022) [facility] History of Past illness Narrative* Problem Noted Date Resolved Date Migraine without aura, witho ut mention of intractable migraine without mention of status migrainosus 10/28/2007 010 Pain in limb 05/15/2006 11/03/2009 Spasm of muscle 05/18/2005 11/03/2009 Migraine without aura, with intractable migraine, so stated, without mention of status migrainosus 01/11/2005 11/03/2009 documented as of this encounter (statuses as of 03/21/2022) [facility] History of Past illness Narrative* Problem Noted Date Resolved Date Migraine without aura, witho ut mention of intractable migraine without mention of status migrainosus 10/28/2007 010 Pain in limb 05/15/2006 11/03/2009 Spasm of muscle 05/18/2005 11/03/2009 Migraine without aura, with intractable migraine, so stated, without mention of status migrainosus 01/11/2005 11/03/2009 documented as of this encounter (statuses as of 03/26/2022) [facility] History of Past illness Narrative* Problem Noted Date Resolved Date Migraine without aura, witho ut mention of intractable migraine without mention of status migrainosus 10/28/2007 010 Pain in limb 05/15/2006 11/03/2009 Spasm of muscle 05/18/2005 11/03/2009 Migraine without aura, with intractable migraine, so stated, without mention of status migrainosus 01/11/2005 11/03/2009 documented as of this encounter (statuses as of 04/13/2022) [facility] History of Past illness Narrative* Problem Noted Date Resolved Date Migraine without aura, witho ut mention of intractable migraine without mention of status migrainosus 10/28/2007 010 Pain in limb 05/15/2006 11/03/2009 Spasm of muscle 05/18/2005 11/03/2009 Migraine without aura, with intractable migraine, so stated, without mention of status migrainosus 01/11/2005 11/03/2009 documented as of this encounter (statuses as of 04/13/2022) [facility] of Past illness Narrative* Problem Noted Date Resolved Date Migraine without aura, witho ut mention of intractable migraine without mention of status migrainosus 10/28/2007 010 Pain in limb 05/15/2006 11/03/2009 Spasm of muscle 05/18/2005 11/03/2009 Migraine without aura, with intractable migraine, so stated, without mention of status migrainosus 01/11/2005 11/03/2009 documented as of this encounter (statuses as of 04/19/2022) [facility] History of Past illness Narrative* Problem Noted Date Resolved Date Migraine without aura, witho ut mention of intractable migraine without mention of status migrainosus 10/28/2007 010 Pain in limb 05/15/2006 11/03/2009 Spasm of muscle 05/18/2005 11/03/2009 Migraine without aura, with intractable migraine, so stated, without mention of status migrainosus 01/11/2005 11/03/2009 documented as of this encounter (statuses as of 05/29/2022) [facility] History of Past illness Narrative* Problem Noted Date Resolved Date Migraine without aura, witho ut mention of intractable migraine without mention of status migrainosus 10/28/2007 010 Pain in limb 05/15/2006 11/03/2009 Spasm of muscle 05/18/2005 11/03/2009 Migraine without aura, with intractable migraine, so stated, without mention of status migrainosus 01/11/2005 11/03/2009 documented as of this encounter (statuses as of 06/04/2022) [facility] History of Past illness Narrative* Problem Noted Date Resolved Date Migraine without aura, witho ut mention of intractable migraine without mention of status migrainosus 10/28/2007 010 Pain in limb 05/15/2006 11/03/2009 Spasm of muscle 05/18/2005 11/03/2009 Migraine without aura, with intractable migraine, so stated, without mention of status migrainosus 01/11/2005 11/03/2009 documented as of this encounter (statuses as of 06/04/2022) [facility] History of Past illness Narrative* Problem Noted Date Resolved Date Migraine without aura, witho ut mention of intractable migraine without mention of status migrainosus 10/28/2007 010 Pain in limb 05/15/2006 11/03/2009 Spasm of muscle 05/18/2005 11/03/2009 Migraine without aura, with intractable migraine, so stated, without mention of status migrainosus 01/11/2005 11/03/2009 documented as of this encounter (statuses as of 07/02/2022) [facility] History of Past illness Narrative* Problem Noted Date Resolved Date Migraine without aura, witho ut mention of intractable migraine without mention of status migrainosus 10/28/2007 010 Pain in limb 05/15/2006 11/03/2009 Spasm of muscle 05/18/2005 11/03/2009 Migraine without aura, with intractable migraine, so stated, without mention of status migrainosus 01/11/2005 11/03/2009 documented as of this encounter (statuses as of 07/04/2022) [facility] History of Past illness Narrative* Problem Noted Date Resolved Date Migraine without aura, witho ut mention of intractable migraine without mention of status migrainosus 10/28/2007 010 Pain in limb 05/15/2006 11/03/2009 Spasm of muscle 05/18/2005 11/03/2009 Migraine without aura, with intractable migraine, so stated, without mention of status migrainosus 01/11/2005 11/03/2009 documented as of this encounter (statuses as of 07/05/2022) [facility] History of Past illness Narrative* Problem Noted Date Resolved Date Migraine without aura, witho ut mention of intractable migraine without mention of status migrainosus 10/28/2007 010 Pain in limb 05/15/2006 11/03/2009 Spasm of muscle 05/18/2005 11/03/2009 Migraine without aura, with intractable migraine, so stated, without mention of status migrainosus 01/11/2005 11/03/2009 documented as of this encounter (statuses as of 07/06/2022) [facility] History of Past illness Narrative* Problem Noted Date Resolved Date Migraine without aura, witho ut mention of intractable migraine without mention of status migrainosus 10/28/2007 010 Pain in limb 05/15/2006 11/03/2009 Spasm of muscle 05/18/2005 11/03/2009 Migraine without aura, with intractable migraine, so stated, without mention of status migrainosus 01/11/2005 11/03/2009 documented as of this encounter (statuses as of 07/09/2022) [facility] History of Past illness Narrative* Problem Noted Date Resolved Date Migraine without aura, witho ut mention of intractable migraine without mention of status migrainosus 10/28/2007 010 Pain in limb 05/15/2006 11/03/2009 Spasm of muscle 05/18/2005 11/03/2009 Migraine without aura, with intractable migraine, so stated, without mention of status migrainosus 01/11/2005 11/03/2009 documented as of this encounter (statuses as of 07/31/2022) [facility] History of Past illness Narrative* Problem Noted Date Resolved Date Migraine without aura, witho ut mention of intractable migraine without mention of status migrainosus 10/28/2007 010 Pain in limb 05/15/2006 11/03/2009 Spasm of muscle 05/18/2005 11/03/2009 Migraine without aura, with intractable migraine, so stated, without mention of status migrainosus 01/11/2005 11/03/2009 documented as of this encounter (statuses as of 08/08/2022) [facility] History of Past illness Narrative* Problem Noted Date Resolved Date Migraine without aura, witho ut mention of intractable migraine without mention of status migrainosus 10/28/2007 010 Pain in limb 05/15/2006 11/03/2009 Spasm of muscle 05/18/2005 11/03/2009 Migraine without aura, with intractable migraine, so stated, without mention of status migrainosus 01/11/2005 11/03/2009 documented as of this encounter (statuses as of 08/08/2022) [facility] History of Past illness Narrative* Problem Noted Date Resolved Date Migraine without aura, witho ut mention of intractable migraine without mention of status migrainosus 10/28/2007 010 Pain in limb 05/15/2006 11/03/2009 Spasm of muscle 05/18/2005 11/03/2009 Migraine without aura, with intractable migraine, so stated, without mention of status migrainosus 01/11/2005 11/03/2009 documented as of this encounter (statuses as of 08/20/2022) [facility] History of Past illness Narrative* Problem Noted Date Resolved Date Migraine without aura, witho ut mention of intractable migraine without mention of status migrainosus 10/28/2007 010 Pain in limb 05/15/2006 11/03/2009 Spasm of muscle 05/18/2005 11/03/2009 Migraine without aura, with intractable migraine, so stated, without mention of status migrainosus 01/11/2005 11/03/2009 documented as of this encounter (statuses as of 09/07/2022) [facility] History of Past illness Narrative* Problem Noted Date Resolved Date Migraine without aura, witho ut mention of intractable migraine without mention of status migrainosus 10/28/2007 010 Pain in limb 05/15/2006 11/03/2009 Spasm of muscle 05/18/2005 11/03/2009 Migraine without aura, with intractable migraine, so stated, without mention of status migrainosus 01/11/2005 11/03/2009 documented as of this encounter (statuses as of 09/11/2022) [facility] History of Past illness Narrative* Problem Noted Date Resolved Date Migraine without aura, witho ut mention of intractable migraine without mention of status migrainosus 10/28/2007 010 Pain in limb 05/15/2006 11/03/2009 Spasm of muscle 05/18/2005 11/03/2009 Migraine without aura, with intractable migraine, so stated, without mention of status migrainosus 01/11/2005 11/03/2009 documented as of this encounter (statuses as of 09/17/2022) [facility] History of Past illness Narrative* Problem Noted Date Resolved Date Migraine without aura, witho ut mention of intractable migraine without mention of status migrainosus 10/28/2007 010 Pain in limb 05/15/2006 11/03/2009 Spasm of muscle 05/18/2005 11/03/2009 Migraine without aura, with intractable migraine, so stated, without mention of status migrainosus 01/11/2005 11/03/2009 documented as of this encounter (statuses as of 09/17/2022) [facility] History of Past illness Narrative* Problem Noted Date Resolved Date Migraine without aura, witho ut mention of intractable migraine without mention of status migrainosus 10/28/2007 010 Pain in limb 05/15/2006 11/03/2009 Spasm of muscle 05/18/2005 11/03/2009 Migraine without aura, with intractable migraine, so stated, without mention of status migrainosus 01/11/2005 11/03/2009 documented as of this encounter (statuses as of 09/21/2022) [facility] History of Past illness Narrative* Problem Noted Date Resolved Date Migraine without aura, witho ut mention of intractable migraine without mention of status migrainosus 10/28/2007 010 Pain in limb 05/15/2006 11/03/2009 Spasm of muscle 05/18/2005 11/03/2009 Migraine without aura, with intractable migraine, so stated, without mention of status migrainosus 01/11/2005 11/03/2009 documented as of this encounter (statuses as of 10/17/2022) [facility] History of Past illness Narrative* Problem Noted Date Resolved Date Migraine without aura, witho ut mention of intractable migraine without mention of status migrainosus 10/28/2007 010 Pain in limb 05/15/2006 11/03/2009 Spasm of muscle 05/18/2005 11/03/2009 Migraine without aura, with intractable migraine, so stated, without mention of status migrainosus 01/11/2005 11/03/2009 documented as of this encounter (statuses as of 11/01/2022) [facility] History of Past illness Narrative* Problem Noted Date Diagnosed Date Resolved Date Migraine without aura, witho ut mention of intractable migraine without mention of status migrainosus 10/28/2007 11/03/2009 Pain in limb 05/15/2006 11/03/2009 Spasm of muscle 05/18/2005 11/03/2009 Migraine without aura, with intractable migraine, so stated, without mention of status migrainosus 01/11/2005 11/03/2009 documented as of this encounter (statuses as of 11/27/2022) [facility] History of Past illness Narrative* Problem Noted Date Diagnosed Date Resolved Date Migraine without aura, witho ut mention of intractable migraine without mention of status migrainosus 10/28/2007 11/03/2009 Pain in limb 05/15/2006 11/03/2009 Spasm of muscle 05/18/2005 11/03/2009 Migraine without aura, with intractable migraine, so stated, without mention of status migrainosus 01/11/2005 11/03/2009 documented as of this encounter (statuses as of 12/31/2022) [facility] History of Past illness Narrative* Problem Noted Date Diagnosed Date Resolved Date Migraine without aura, witho ut mention of intractable migraine without mention of status migrainosus 10/28/2007 11/03/2009 Pain in limb 05/15/2006 11/03/2009 Spasm of muscle 05/18/2005 11/03/2009 Migraine without aura, with intractable migraine, so stated, without mention of status migrainosus 01/11/2005 11/03/2009 documented as of this encounter (statuses as of 01/01/2023) [facility] History of Past illness Narrative* Problem Noted Date Diagnosed Date Resolved Date Migraine without aura, witho ut mention of intractable migraine without mention of status migrainosus 10/28/2007 11/03/2009 Pain in limb 05/15/2006 11/03/2009 Spasm of muscle 05/18/2005 11/03/2009 Migraine without aura, with intractable migraine, so stated, without mention of status migrainosus 01/11/2005 11/03/2009 documented as of this encounter (statuses as of 01/11/2023) [facility] History of Past illness Narrative* Problem Noted Date Diagnosed Date Resolved Date Migraine without aura, witho ut mention of intractable migraine without mention of status migrainosus 10/28/2007 11/03/2009 Pain in limb 05/15/2006 11/03/2009 Spasm of muscle 05/18/2005 11/03/2009 Migraine without aura, with intractable migraine, so stated, without mention of status migrainosus 01/11/2005 11/03/2009 documented as of this encounter (statuses as of 01/11/2023) [facility] History of Past illness Narrative* Problem Noted Date Diagnosed Date Resolved Date Migraine without aura, witho ut mention of intractable migraine without mention of status migrainosus 10/28/2007 11/03/2009 Pain in limb 05/15/2006 11/03/2009 Spasm of muscle 05/18/2005 11/03/2009 Migraine without aura, with intractable migraine, so stated, without mention of status migrainosus 01/11/2005 11/03/2009 documented as of this encounter (statuses as of 02/02/2023) [facility] History of Past illness Narrative* Problem Noted Date Diagnosed Date Resolved Date Migraine without aura, witho ut mention of intractable migraine without mention of status migrainosus 10/28/2007 11/03/2009 Pain in limb 05/15/2006 11/03/2009 Spasm of muscle 05/18/2005 11/03/2009 Migraine without aura, with intractable migraine, so stated, without mention of status migrainosus 01/11/2005 11/03/2009 documented as of this encounter (statuses as of 03/02/2023) [facility] of Past illness Narrative* Problem Noted Date Diagnosed Date Resolved Date Migraine without aura, witho ut mention of intractable migraine without mention of status migrainosus 10/28/2007 11/03/2009 Pain in limb 05/15/2006 11/03/2009 Spasm of muscle 05/18/2005 11/03/2009 Migraine without aura, with intractable migraine, so stated, without mention of status migrainosus 01/11/2005 11/03/2009 documented as of this encounter (statuses as of 03/10/2023) [facility] of Past illness Narrative* Problem Noted Date Diagnosed Date Resolved Date Migraine without aura, witho ut mention of intractable migraine without mention of status migrainosus 10/28/2007 11/03/2009 Pain in limb 05/15/2006 11/03/2009 Spasm of muscle 05/18/2005 11/03/2009 Migraine without aura, with intractable migraine, so stated, without mention of status migrainosus 01/11/2005 11/03/2009 documented as of this encounter (statuses as of 03/16/2023) [facility] of Past illness Narrative* Problem Noted Date Diagnosed Date Resolved Date Migraine without aura, witho ut mention of intractable migraine without mention of status migrainosus 10/28/2007 11/03/2009 Pain in limb 05/15/2006 11/03/2009 Spasm of muscle 05/18/2005 11/03/2009 Migraine without aura, with intractable migraine, so stated, without mention of status migrainosus 01/11/2005 11/03/2009 documented as of this encounter (statuses as of 03/16/2023) [facility] Past illness Narrative* Problem Noted Date Diagnosed Date Resolved Date Migraine without aura, witho ut mention of intractable migraine without mention of status migrainosus 10/28/2007 11/03/2009 Pain in limb 05/15/2006 11/03/2009 Spasm of muscle 05/18/2005 11/03/2009 Migraine without aura, with intractable migraine, so stated, without mention of status migrainosus 01/11/2005 11/03/2009 documented as of this encounter (statuses as of 03/16/2023) [facility] of Past illness Narrative* Problem Noted Date Diagnosed Date Resolved Date Migraine without aura, witho ut mention of intractable migraine without mention of status migrainosus 10/28/2007 11/03/2009 Pain in limb 05/15/2006 11/03/2009 Spasm of muscle 05/18/2005 11/03/2009 Migraine without aura, with intractable migraine, so stated, without mention of status migrainosus 01/11/2005 11/03/2009 documented as of this encounter (statuses as of 04/10/2023) [facility] History of Past illness Narrative* Problem Noted Date Diagnosed Date Resolved Date Migraine without aura, witho ut mention of intractable migraine without mention of status migrainosus 10/28/2007 11/03/2009 Pain in limb 05/15/2006 11/03/2009 Spasm of muscle 05/18/2005 11/03/2009 Migraine without aura, with intractable migraine, so stated, without mention of status migrainosus 01/11/2005 11/03/2009 documented as of this encounter (statuses as of 07/03/2023) [facility] of Past illness Narrative* Problem Noted Date Diagnosed Date Resolved Date Migraine without aura, witho ut mention of intractable migraine without mention of status migrainosus 10/28/2007 11/03/2009 Pain in limb 05/15/2006 11/03/2009 Spasm of muscle 05/18/2005 11/03/2009 Migraine without aura, with intractable migraine, so stated, without mention of status migrainosus 01/11/2005 11/03/2009 documented as of this encounter (statuses as of 07/31/2023) [facility] Past illness Narrative* Problem Noted Date Diagnosed Date Resolved Date Migraine without aura, witho ut mention of intractable migraine without mention of status migrainosus 10/28/2007 11/03/2009 Pain in limb 05/15/2006 11/03/2009 Spasm of muscle 05/18/2005 11/03/2009 Migraine without aura, with intractable migraine, so stated, without mention of status migrainosus 01/11/2005 11/03/2009 documented as of this encounter (statuses as of 07/31/2023) [facility] Past illness Narrative* Problem Noted Date Diagnosed Date Resolved Date Migraine without aura, witho ut mention of intractable migraine without mention of status migrainosus 10/28/2007 11/03/2009 Pain in limb 05/15/2006 11/03/2009 Spasm of muscle 05/18/2005 11/03/2009 Migraine without aura, with intractable migraine, so stated, without mention of status migrainosus 01/11/2005 11/03/2009 documented as of this encounter (statuses as of 07/31/2023) [facility] Past illness Narrative* Problem Noted Date Diagnosed Date Resolved Date Migraine without aura, witho ut mention of intractable migraine without mention of status migrainosus 10/28/2007 11/03/2009 Pain in limb 05/15/2006 11/03/2009 Spasm of muscle 05/18/2005 11/03/2009 Migraine without aura, with intractable migraine, so stated, without mention of status migrainosus 01/11/2005 11/03/2009 documented as of this encounter (statuses as of 08/05/2023) [facility] Past illness Narrative* Problem Noted Date Diagnosed Date Resolved Date Migraine without aura, witho ut mention of intractable migraine without mention of status migrainosus 10/28/2007 11/03/2009 Pain in limb 05/15/2006 11/03/2009 Spasm of muscle 05/18/2005 11/03/2009 Migraine without aura, with intractable migraine, so stated, without mention of status migrainosus 01/11/2005 11/03/2009 documented as of this encounter (statuses as of 08/05/2023) [facility] General[facility] OA Generalized osteoarthrosis, unspecified site Primary osteoarthritis of both knees Primary localized osteoarthrosis, lower leg Morbid obesity with BMI of 45.0-49.9, adult (HCC) Morbid obesity Plantar fasciitis of right foot 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 [facility] Diagnosis Hair thinning- Primary Alopecia, unspecified Encounter for long-term current use of medication Vitamin D deficiency Unspecified vitamin D deficiency Gastritis without bleeding, unspecified chronicity, unspecified gastritis type Generalized OA Generalized osteoarthrosis, unspecified site Primary osteoarthritis of both knees Primary localized osteoarthrosis, lower leg Morbid obesity with BMI of 45.0-49.9, adult (HCC) Morbid obesity Plantar fasciitis of right foot 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 [facility] Diagnosis Gastritis without bleeding, unspecified chronicity, unspecified gastritis type documented in this encounter [facility] Diagnosis Right foot pain- Primary Pain in limb Generalized OA Generalized osteoarthrosis, unspecified site Primary osteoarthritis of both knees Primary localized osteoarthrosis, lower leg Morbid obesity with BMI of 45.0-49.9, adult (HCC) Morbid obesity Plantar fasciitis of right foot 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 [facility] 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- Primary Osteoarthrosis, unspecified whether generalized or localized, shoulder region Generalized OA Generalized osteoarthrosis, unspecified site Primary osteoarthritis of both knees Primary localized osteoarthrosis, lower leg Morbid obesity with BMI of 45.0-49.9, adult ([facility]) Morbid obesity Plantar fasciitis of right foot 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 Migraine without aura and without status migrainosus, not intractable Migraine without aura, without mention of intractable migraine without mention of status migrainosus Depression, unspecified depression type Encounter for immunization Need for other specified prophylactic vaccination against single bacterial disease Elevated TSH Nonspecific abnormal results of thyroid function study Hair thinning Alopecia, unspecified Encounter for long-term current use of medication Vitamin D deficiency Unspecified vitamin D deficiency [facility] Diagnosis Generalized OA- Primary Generalized osteoarthrosis, unspecified site Primary osteoarthritis of both knees Primary localized osteoarthrosis, lower leg Morbid obesity with BMI of 45.0-49.9, adult ([facility]) Morbid obesity Chronic midline low back pain with bilateral sciatica Fibromyalgia Mylagia and myositis, unspecified documented [facility]* Diagnosis Generalized OA Generalized osteoarthrosis, unspecified site Depression, unspecified depression type Gastritis without bleeding, unspecified chronicity, unspecified gastritis type Primary osteoarthritis of both knees Primary localized osteoarthrosis, lower leg Chondromalacia of patella Morbid obesity with BMI of 45.0-49.9, adult ([facility]) Morbid obesity Plantar fasciitis of right foot 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 [facility] Diagnosis Diarrhea of presumed infectious origin- Primary Nausea Nausea alone Urinary urgency Urgency of urination [facility] Diagnosis Proteinuria, unspecified type- Primary [facility] Diagnosis Abdominal pain, unspecified abdominal location- Primary [facility]* Diagnosis Generalized OA Generalized osteoarthrosis, unspecified site [facility] Diagnosis Generalized OA Generalized osteoarthrosis, unspecified site Primary osteoarthritis of both knees Primary localized osteoarthrosis, lower leg Morbid obesity with BMI of 45.0-49.9, adult ([facility]) Morbid obesity Plantar fasciitis of right foot 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 documented in this encounter [facility] noteNo assessment information availableWSelect [facility] Work Phone: Evaluation note* Diagnosis Kidney stones- Primary Calculus of kidney documented [facility] this [facility]* Diagnosis Kidney stone- Primary Calculus of kidney Generalized OA Generalized osteoarthrosis, unspecified site Primary osteoarthritis of both knees Primary localized osteoarthrosis, lower leg Morbid obesity with BMI of 45.0-49.9, adult (HCC) Morbid obesity Plantar fasciitis of right foot 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 documented [facility] this [facility]* Diagnosis COVID-19- Primary Advice given about COVID-19 virus infection documented [facility] this [facility]* Diagnosis Generalized OA Generalized osteoarthrosis, unspecified site Primary osteoarthritis of both knees Primary localized osteoarthrosis, lower leg Morbid obesity with BMI of 45.0-49.9, adult (HCC) Morbid obesity Plantar fasciitis of right foot 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 Kidney stone Calculus of kidney documented [facility]* Diagnosis Generalized OA- Primary Generalized osteoarthrosis, unspecified site Post-COVID syndrome Acute bilateral low back pain without sciatica Anxiety Anxiety state, unspecified Primary insomnia Persistent disorder of initiating or maintaining sleep Elevated glucose Other abnormal glucose Encounter for long-term current use of medication Elevated TSH Nonspecific abnormal results of thyroid function study Vitamin D deficiency Unspecified vitamin D deficiency Class 3 severe obesity due to excess calories with body mass index (BMI) of 45.0 to 49.9 in adult, unspecified whether serious comorbidity present (HCC) documented [facility] this [facility]* Diagnosis Generalized OA Generalized osteoarthrosis, unspecified site Primary osteoarthritis of both knees Primary localized osteoarthrosis, lower leg Morbid obesity with BMI of 45.0-49.9, adult (HCC) Morbid obesity Plantar fasciitis of right foot 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 Kidney stone Calculus of kidney documented [facility] this [facility]* Diagnosis Abdominal pain, left lateral- Primary Abdominal pain, unspecified site [facility] Diagnosis Generalized OA Generalized osteoarthrosis, unspecified site Primary osteoarthritis of both knees Primary localized osteoarthrosis, lower leg Morbid obesity with BMI of 45.0-49.9, adult (HCC) Morbid obesity Plantar fasciitis of right foot 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 Kidney stone Calculus of kidney [facility]* Diagnosis Kidney stones- Primary Calculus of kidney [facility]* Diagnosis Generalized OA Generalized osteoarthrosis, unspecified site Primary osteoarthritis of both knees Primary localized osteoarthrosis, lower leg Morbid obesity with BMI of 45.0-49.9, adult (HCC) Morbid obesity Plantar fasciitis of right foot 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 Kidney stone Calculus of kidney [facility]* Diagnosis Anxiety Anxiety state, unspecified documented [facility]* Diagnosis Anxiety- Primary Anxiety state, unspecified Primary osteoarthritis of both knees Primary localized osteoarthrosis, lower leg Hair thinning Alopecia, unspecified Vitamin D deficiency Unspecified vitamin D deficiency Elevated TSH Nonspecific abnormal results of thyroid function study Elevated glucose Other abnormal glucose Generalized OA Generalized osteoarthrosis, unspecified site Morbid obesity with BMI of 45.0-49.9, adult (HCC) Morbid obesity Plantar fasciitis of right foot 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 Kidney stone Calculus of kidney Encounter for long-term current use of medication documented [facility] this [facility]* Diagnosis Abdominal pain, left lateral Abdominal pain, unspecified site documented in this [facility]* Diagnosis Abdominal pain, unspecified abdominal location Kidney stones Calculus of kidney [facility]* Diagnosis Anxiety Anxiety state, unspecified documented [facility]* Diagnosis Anxiety- Primary Anxiety state, unspecified Depression, unspecified depression type Generalized OA Generalized osteoarthrosis, unspecified site Primary osteoarthritis of both knees Primary localized osteoarthrosis, lower leg Morbid obesity with BMI of 45.0-49.9, adult (HCC) Morbid obesity Chronic midline low back pain with bilateral sciatica documented [facility] this [facility]* Diagnosis Generalized OA Generalized osteoarthrosis, unspecified site Primary osteoarthritis of both knees Primary localized osteoarthrosis, lower leg Morbid obesity with BMI of 45.0-49.9, adult (HCC) Morbid obesity Plantar fasciitis of right foot 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 Kidney stone Calculus of kidney [facility]* Diagnosis Fibromyalgia- Primary Mylagia and myositis, unspecified Generalized OA Generalized osteoarthrosis, unspecified site documented in this [facility]* Diagnosis Encounter for screening mammogram for breast cancer documented in this [facility]* Diagnosis Generalized OA Generalized osteoarthrosis, unspecified site Primary osteoarthritis of both knees Primary localized osteoarthrosis, lower leg Morbid obesity with BMI of 45.0-49.9, adult (HCC) Morbid obesity Plantar fasciitis of right foot 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 Kidney stone Calculus of kidney documented [facility]* Diagnosis Generalized OA Generalized osteoarthrosis, unspecified site Primary osteoarthritis of both knees Primary localized osteoarthrosis, lower leg Morbid obesity with BMI of 45.0-49.9, adult (HCC) Morbid obesity Plantar fasciitis of right foot 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 Kidney stone Calculus of kidney documented [facility] this [facility]* Diagnosis Generalized OA Generalized osteoarthrosis, unspecified site documented in this [facility]* Diagnosis Chronic midline low back pain with bilateral sciatica- Primary Generalized OA Generalized osteoarthrosis, unspecified site Primary osteoarthritis of both knees Primary localized osteoarthrosis, lower leg Elevated TSH Nonspecific abnormal results of thyroid function study Psychophysiological insomnia Persistent disorder of initiating or maintaining sleep Encounter for therapeutic drug monitoring [facility] this [facility]* Diagnosis Psychophysiological insomnia- Primary Persistent disorder of initiating or maintaining sleep Generalized OA Generalized osteoarthrosis, unspecified site Primary osteoarthritis of both knees Primary localized osteoarthrosis, lower leg Morbid obesity with BMI of 45.0-49.9, adult (HCC) Morbid obesity Plantar fasciitis of right foot 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 Kidney stone Calculus of kidney Class 3 severe obesity due to excess calories with body mass index (BMI) of 45.0 to 49.9 in adult, unspecified whether serious comorbidity present (HCC) [facility]* Diagnosis Elevated TSH- Primary Nonspecific abnormal results of thyroid function study Anxiety Anxiety state, unspecified documented [facility]* Diagnosis Generalized OA Generalized osteoarthrosis, unspecified site Primary osteoarthritis of both knees Primary localized osteoarthrosis, lower leg Morbid obesity with BMI of 45.0-49.9, adult (HCC) Morbid obesity Plantar fasciitis of right foot 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 Kidney stone Calculus of kidney documented [facility]* Diagnosis Generalized OA- Primary Generalized osteoarthrosis, unspecified site documented in this [facility]* Diagnosis Chronic midline low back pain with bilateral sciatica documented in this [facility]* Diagnosis Acute bilateral low back pain without sciatica documented in this [facility]* Diagnosis Right foot pain Pain in limb documented in this [facility]* Diagnosis Psychophysiological insomnia Persistent disorder of initiating or maintaining sleep documented in this [facility]* Diagnosis Chronic midline low back pain with bilateral sciatica- Primary Morbid obesity with BMI of 45.0-49.9, adult (HCC) Morbid obesity Rhinitis, unspecified type Plantar fasciitis of right foot Plantar fascial fibromatosis Kidney stone Calculus of kidney Primary osteoarthritis of both knees Primary localized osteoarthrosis, lower leg Generalized OA Generalized osteoarthrosis, unspecified site Need for influenza vaccination Need for prophylactic vaccination and inoculation against influenza documented [facility] this [facility]* Diagnosis Generalized OA Generalized osteoarthrosis, unspecified site Primary osteoarthritis of both knees Primary localized osteoarthrosis, lower leg Morbid obesity with BMI of 45.0-49.9, adult (HCC) Morbid obesity Plantar fasciitis of right foot 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 Kidney stone Calculus of kidney documented [facility]* Diagnosis Chronic midline thoracic back pain- Primary Lumbosacral spondylosis without myelopathy Spinal stenosis of lumbar region with neurogenic claudication Spinal stenosis, lumbar region, with neurogenic claudication documented in this [facility]* Diagnosis Chronic midline thoracic back pain Lumbosacral spondylosis without myelopathy documented in this [facility]* Diagnosis Chronic midline thoracic back pain- Primary Lumbosacral spondylosis without myelopathy Spinal stenosis of lumbar region with neurogenic claudication Spinal stenosis, lumbar region, with neurogenic claudication documented in this [facility]* Diagnosis Generalized OA Generalized osteoarthrosis, unspecified site Primary osteoarthritis of both knees Primary localized osteoarthrosis, lower leg Morbid obesity with BMI of 45.0-49.9, adult (HCC) Morbid obesity Plantar fasciitis of right foot 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 Kidney stone Calculus of kidney documented [facility]* Diagnosis Spinal stenosis of lumbar region with neurogenic claudication Spinal stenosis, lumbar region, with neurogenic claudication documented in this [facility]* Diagnosis Acute cough [facility] this [facility]* Diagnosis Pneumonia of right upper lobe due to infectious organism- Primary Depression, unspecified depression type Generalized OA Generalized osteoarthrosis, unspecified site Elevated TSH Nonspecific abnormal results of thyroid function study Gastritis without bleeding, unspecified chronicity, unspecified gastritis type Primary osteoarthritis of both knees Primary localized osteoarthrosis, lower leg Anxiety Anxiety state, unspecified Migraine without aura and without status migrainosus, not intractable Migraine without aura, without mention of intractable migraine without mention of status migrainosus Morbid obesity with BMI of 45.0-49.9, adult (HCC) Morbid obesity Plantar fasciitis of right foot 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 Kidney stone Calculus of kidney Epidural lipomatosis Lipoma of other specified sites documented [facility] this [facility]* Diagnosis Chronic midline thoracic back pain- Primary 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 or lower extremity pain Lumbosacral spondylosis without myelopathy documented [facility] this [facility]* Diagnosis Depression, unspecified depression type Gastritis without bleeding, unspecified chronicity, unspecified gastritis type Anxiety Anxiety state, unspecified documented [facility]* Diagnosis Generalized OA Generalized osteoarthrosis, unspecified site Primary osteoarthritis of both knees Primary localized osteoarthrosis, lower leg Morbid obesity with BMI of 45.0-49.9, adult (HCC) Morbid obesity Plantar fasciitis of right foot 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 Kidney stone Calculus of kidney documented [facility]* Diagnosis Lumbosacral spondylosis without myelopathy- Primary [facility] Diagnosis Lumbosacral spondylosis without myelopathy- Primary 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 or lower extremity pain Spinal stenosis of lumbar region with neurogenic claudication Spinal stenosis, lumbar region, with neurogenic claudication [facility] Diagnosis Lumbosacral spondylosis without myelopathy- Primary [facility] Diagnosis Spinal stenosis of lumbar region with neurogenic claudication- Primary Spinal stenosis, lumbar region, with neurogenic claudication 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 or lower extremity pain Lumbosacral spondylosis without myelopathy [facility]* Diagnosis Generalized OA Generalized osteoarthrosis, unspecified site [facility]* Diagnosis Encounter for screening mammogram for breast cancer [facility]* Diagnosis Not up to date with diphtheria-tetanus vaccination- Primary Abrasion of left hand, initial encounter [facility]* Diagnosis Routine medical exam- Primary Routine general medical examination at a health care facility Generalized OA Generalized osteoarthrosis, unspecified site Primary insomnia Persistent disorder of initiating or maintaining sleep Primary osteoarthritis of both knees Primary localized osteoarthrosis, lower leg Morbid obesity with BMI of 45.0-49.9, adult (HCC) Morbid obesity Plantar fasciitis of right foot 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 Kidney stone Calculus of kidney Chronic rhinitis Mass of upper inner quadrant of right breast Encounter for long-term current use of medication Elevated TSH Nonspecific abnormal results of thyroid function study Vitamin D deficiency Unspecified vitamin D deficiency [facility]* Diagnosis Spinal stenosis of lumbar region with neurogenic claudication- Primary Spinal stenosis, lumbar region, with neurogenic claudication [facility] Diagnosis Spinal stenosis of lumbar region with neurogenic claudication- Primary Spinal stenosis, lumbar region, with neurogenic claudication 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 or lower extremity pain Lumbosacral spondylosis without myelopathy [facility] Diagnosis Mass of upper inner quadrant of right breast [facility]* Diagnosis Mass of upper inner quadrant of right breast [facility] Diagnosis Brachial neuritis of left upper extremity- Primary Primary osteoarthritis of both knees Primary localized osteoarthrosis, lower leg Generalized OA Generalized osteoarthrosis, unspecified site Plantar fasciitis of right foot 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 Kidney stone Calculus of kidney Morbid obesity with BMI of 45.0-49.9, adult (HCC) Morbid obesity [facility]* Diagnosis UTI symptoms- Primary Other symptoms involving urinary system History of kidney stones Personal history of urinary calculi Acute left flank pain Abdominal pain, unspecified site Nausea Nausea alone Family history of kidney stone Family history of other kidney diseases [facility]* Diagnosis UTI symptoms Other symptoms involving urinary system History of kidney stones Personal history of urinary calculi Acute left flank pain Abdominal pain, unspecified site documented in this encounter [facility] for referral (narrative)* Diagnostic Procedure Only (Routine) - Closed Specialty Diagnoses / Procedures Referred By Santa anderson Referred To Contact XR IMAGING Diagnoses Right foot pain Procedures XR FOOT GENERAL 3V AP/LAT/OBL RIGHT RADEX FOOT COMPLETE MINIMUM 3 VIEWS Anila Campos MD [address] [place] [address] Xr Imaging Referral ID Status Reason Start Date Expiration Date V isits Requested Visits Authorized [id number] Closed Auto-Generate d Referral 01/05/2022 02/04/2023 1 1 [facility] for referral (narrative)* Diagnostic Procedure Only (Routine) - Pending Review Specialty Diagnoses / Procedures Referred By Santa anderson Referred To Contact US IMAGING Diagnoses Abdominal pain, unspecified abdominal location Procedures US ABD RT UPPER QUADRANT US ABDOMINAL REAL TIME W/IMAGE LIMITED Nadine Mcclain APRN.CNP [address] [phone] Us Imaging Referral ID Status Reason Start Date Expiration Date Visits Requested Visits Authorized [id number] Pending Review Auto-Generat ed Referral 07/02/2022 08/01/2023 1 1 [facility] for referral (narrative)* Diagnostic Procedure Only (Routine) - Pending Review Specialty Diagnoses / Procedures Referred By Contac t Referred To Contact XR IMAGING Diagnoses Acute bilateral low back pain without sciatica Procedures XR LUMBAR MOTION 4V AP/LAT/ FLEX/EXT RADEX SPINE LUMBOSACRAL MINIMUM 4 VIEWS Anila Campos MD [address] [place] [address] Xr Imaging Referral ID Status Reason Start Date Expiration Date Visits Requested Visits Authorized [id number] Pending Review Auto-Generat ed Referral 09/21/2022 10/21/2023 1 1 [facility] for referral (narrative)* Diagnostic Procedure Only (Routine) - Closed Specialty Diagnoses / Procedures Referred By Contac t Referred To Contact US IMAGING Diagnoses Abdominal pain, unspecified abdominal location Kidney stones Procedures US KIDNEY/BLADDER US RETROPERITONEAL REAL TIME W/IMAGE COMPLETE Nadine Mcclain APRN.CNP [address] [phone] Us Imaging [facility] Referral ID Status Reason Start Date Expiration Date V isits Requested Visits Authorized [id number] Closed Auto-Generate d Referral 07/11/2022 08/10/2023 1 1 [facility] for referral (narrative)* Diagnostic Procedure Only (Routine) - Pending Review Specialty Diagnoses / Procedures Referred By Contac t Referred To Contact BR IMAGING Diagnoses Encounter for screening mammogram for breast cancer Procedures SACHI SCREENING SCREENING MAMMOGRAPHY BI 2-VIEW BREAST INC CAD Anila Campos MD [address] [place] [address] Br Imaging [address] [place] [address] Referral ID Status Reason Start Date Expiration Date Visits Requested Visits Authorized [id number] Pending Review Auto-Generat ed Referral 07/31/2023 08/29/2024 1 1 [facility] for referral (narrative)* Diagnostic Procedure Only (Routine) - Closed Specialty Diagnoses / Procedures Referred By Contac t Referred To Contact XR IMAGING Diagnoses Chronic midline low back pain without sciatica Procedures XR LUMBAR GENERAL 3V AP/LAT/L5-S1 RADEX SPINE LUMBOSACRAL 2/3 VIEWS Nadine Mcclain APRN.PLATE MAKER [facility] [place] [address] [place] [address] Referral ID Status Reason Start Date Expiration Date V isits Requested Visits Authorized [id number] Closed Auto-Generate d Referral 04/30/2023 05/29/2024 1 1 * Diagnostic Procedure Only (Routine) - Closed Specialty Diagnoses / Procedures Referred By Contac t Referred To Contact XR IMAGING Diagnoses Chronic midline low back pain without sciatica Procedures XR THORACIC LIMITED 2V AP/LAT RADEX SPINE THORACIC 2 VIEWS Nadine Mcclain APRN.CNP [address] [place], [place] [id number] [place] [address] Referral ID Status Reason Start Date Expiration Date V isits Requested Visits Authorized [id number] Closed Auto-Generate d Referral 04/30/2023 05/29/2024 1 1 [facility] for referral (narrative)* Diagnostic Procedure Only (Routine) - Closed Specialty Diagnoses / Procedures Referred By Contac t Referred To Contact XR IMAGING Diagnoses Acute bilateral low back pain without sciatica Procedures XR LUMBAR MOTION 4V AP/LAT/ FLEX/EXT RADEX SPINE LUMBOSACRAL MINIMUM 4 VIEWS Anila Campos MD [address] [place] [address] [place] [address] Referral ID Status Reason Start Date Expiration Date V isits Requested Visits Authorized [id number] Closed Auto-Generate d Referral 09/21/2022 10/21/2023 1 1 [facility] for referral (narrative)* Diagnostic Procedure Only (Routine) - Closed Specialty Diagnoses / Procedures Referred By Contac t Referred To Contact XR IMAGING Diagnoses Right foot pain Procedures XR FOOT GENERAL 3V AP/LAT/OBL RIGHT RADEX FOOT COMPLETE MINIMUM 3 VIEWS Anila Campos MD [address] [place] [address] [place] [address] Referral ID Status Reason Start Date Expiration Date V isits Requested Visits Authorized [id number] Closed Auto-Generate d Referral 01/05/2022 02/04/2023 1 1 [facility] for visit Narrative* Diagnostic Procedure Only (Routine) - Closed Specialty Diagnoses / Procedures Referred By Contac t Referred To Contact XR IMAGING Diagnoses Chronic midline low back pain without sciatica Procedures XR LUMBAR GENERAL 3V AP/LAT/L5-S1 RADEX SPINE LUMBOSACRAL 2/3 VIEWS Nadine Mcclain APRN.PLATE MAKER [address] [place] [address] [place] [address] Referral ID Status Reason Start Date Expiration Date V isits Requested Visits Authorized [id number] Closed Auto-Generate d Referral 04/30/2023 05/29/2024 1 1 [facility] for visit Narrative* Diagnostic Procedure Only (Routine) - Closed Specialty Diagnoses / Procedures Referred By Contac t Referred To Contact XR IMAGING Diagnoses Acute bilateral low back pain without sciatica Procedures XR LUMBAR MOTION 4V AP/LAT/ FLEX/EXT RADEX SPINE LUMBOSACRAL MINIMUM 4 VIEWS Anila Campos MD [address] [place] [address] [place] [address] Referral ID Status Reason Start Date Expiration Date V isits Requested Visits Authorized [id number] Closed Auto-Generate d Referral 09/21/2022 10/21/2023 1 1 [facility] for visit Narrative* Diagnostic Procedure Only (Routine) - Closed Specialty Diagnoses / Procedures Referred By Contac t Referred To Contact XR IMAGING Diagnoses Right foot pain Procedures XR FOOT GENERAL 3V AP/LAT/OBL RIGHT RADEX FOOT COMPLETE MINIMUM 3 VIEWS Anila Campos MD [address] [place] [address] [place] [address] Referral ID Status Reason Start Date Expiration Date V isits Requested Visits Authorized [id number] Closed Auto-Generate d Referral 01/05/2022 02/04/2023 1 1 [facility] for visit Narrative* Diagnostic Procedure Only (Routine) - Closed Specialty Diagnoses / Procedures Referred By Contac t Referred To Contact XR IMAGING Diagnoses Lumbosacral spondylosis without myelopathy Procedures XR LUMBAR MOTION 4V AP/LAT/ FLEX/EXT RADEX SPINE LUMBOSACRAL MINIMUM 4 VIEWS Sandy Bhardwaj, SENIOR MAINFRAME PROGRAMMER ANALYST.[facility] [address] [place] [address] Xr Imaging [id number] Referral ID Status Reason Start Date Expiration Date V isits Requested Visits Authorized [id number] Closed Auto-Generate d Referral 03/31/2024 04/30/2025 1 1 [facility] for visit Narrative* Diagnostic Procedure Only (Routine) - Closed Specialty Diagnoses / Procedures Referred By Contac t Referred To Contact BR IMAGING Diagnoses Mass of upper inner quadrant of right breast Procedures SACHI DIAGNOSTIC RIGHT DIAGNOSTIC MAMMOGRAPHY COMPUTER-AIDED DETCJ UNI Anila Campos MD [address] [place] [address] Phone: tel: fax: BR IMAGING [address] [place] [address] Referral ID Status Reason Start Date Expiration Date V isits Requested Visits Authorized [id number] Closed Auto-Generate d Referral 07/28/2024 08/27/2025 1 1 [facility] for visit Narrative* Diagnostic Procedure Only (Routine) - Closed Specialty Diagnoses / Procedures Referred By Contac t Referred To Contact BR IMAGING Diagnoses Mass of upper inner quadrant of right breast Procedures US BREAST LTD RIGHT US BREAST UNI REAL TIME WITH IMAGE LIMITED Anila Campos MD [address] [place] [address] Phone: tel: fax: BR IMAGING [address] [place] [address] Referral ID Status Reason Start Date Expiration Date V isits Requested Visits Authorized [id number] Closed Auto-Generate d Referral 07/28/2024 08/27/2025 1 [facility] (Urgent) - Closed Specialty Diagnoses / Procedures Referred By Santa t Referred To Contact CT IMAGING Diagnoses UTI symptoms History of kidney stones Acute left flank pain Procedures CT FLANK WO IVCON CT ABD & PELVIS W/O CONTRAST Jude Moore, SENIOR MAINFRAME PROGRAMMER ANALYST.SEBD TEACHER [address] [place] [address] Phone: tel: fax: [place] [address] Referral ID Status Reason Start Date Expiration Date V isits Requested Visits Authorized [id number] Closed Auto-Generate d Referral 10/30/2024 11/29/2025 1 1 [facility] Summary Purpose Family History No Family History Records Found Relationship Condition Age at Onset Recorded Date/T jesika father Hypertension Unknown Arthritis Unknown mother Asthma Unknown Advance Directives No Advanced Directives Records Found Advance Directive Response Recorded Date/ Time Living Will No July 10, 2 023 3:08am Power of Burner Shaft No July 10, 2022 3:08am Reason for Referral Specialty Diagnoses / Procedures Referred By Santa anderson Referred To Contact Diagnoses Generalized OA Primary osteoarthritis of both knees Morbid obesity with BMI of 45.0-49.9, adult (HCC) Plantar fasciitis of right foot Chronic midline low back pain with bilateral sciatica Anila Campos MD [address] [place] [address] Referral ID Status Reason Start Date Expiration Date Visits Re quested Visits Authorized [id number] Closed 1 1 Referral ID Status Reason Start Date Expiration Date Visits Re quested Visits Authorized [id number] Closed 1 1 Referral ID Status Reason Start Date Expiration Date V isits Requested Visits Authorized [id number] Pending Review 1 1 Specialty Diagnoses / Procedures Referred By Santa t Referred To Contact Urology Diagnoses Kidney stones Procedures CONSULT TO UROLOGY OFFICE/OUTPATIENT [facility] MDM 60-74 MINUTES Nadine Mcclain, SENIOR MAINFRAME PROGRAMMER ANALYST.PLATE MAKER [address] [place] [address] Referral ID Status Reason Start Date Expiration Date Visits Requested Visits Authorized [id number] Authorized PCP Requested Referral 07/30/2022 07/30/2023 1 1 Specialty Diagnoses / Procedures Referred By Contac t Referred To Contact CT IMAGING Diagnoses Abdominal pain, left lateral Procedures CT ABD/PEL W IVCON CT ABD & PELVIS W/CONTRAST Jude Moore, SENIOR MAINFRAME PROGRAMMER ANALYST.[facility] [address] [place] [address] Ct Imaging Referral ID Status Reason Start Date Expiration Date Visits Requested Visits Authorized [id number] Authorized Auto-Generat ed Referral 11/01/2022 12/01/2023 1 1 Specialty Diagnoses / Procedures Referred By Contac t Referred To Contact Diagnoses Generalized OA Primary osteoarthritis of both knees Morbid obesity with BMI of 45.0-49.9, adult (HCC) Plantar fasciitis of right foot Chronic midline low back pain with bilateral sciatica Kidney stone Anila Campos MD [address] [place] [address] Referral ID Status Reason Start Date Expiration Date V isits Requested Visits Authorized [id number] Pending Review 1 1 Referral ID Status Reason Start Date Expiration Date Visits Re quested Visits Authorized [id number] Denied 1 1 Specialty Diagnoses / Procedures Referred By Contac t Referred To Contact CT IMAGING Diagnoses Abdominal pain, left lateral Procedures CT ABD/PEL W IVCON CT ABD & PELVIS W/CONTRAST Jude Moore, SENIOR MAINFRAME PROGRAMMER ANALYST.[address] [address] [place] [address] Referral ID Status Reason Start Date Expiration Date V isits Requested Visits Authorized [id number] Closed Auto-Generate d Referral 11/01/2022 12/01/2023 1 1 Specialty Diagnoses / Procedures Referred By Contac t Referred To Contact Anila Campos MD [address] [place] [address] Referral ID Status Reason Start Date Expiration Date V isits Requested Visits Authorized [id number] Authorized 09/30/2023 09/29/2024 1 1 Specialty Diagnoses / Procedures Referred By Contac t Referred To Contact Diagnoses Generalized OA Nadine Mcclain, SENIOR MAINFRAME PROGRAMMER ANALYST.PLATE MAKER [address] [place] [address] Referral ID Status Reason Start Date Expiration Date Visits Re quested Visits Authorized [id number] Closed 1 1 Specialty Diagnoses / Procedures Referred By Contac t Referred To Contact Pain Management Diagnoses Chronic midline low back pain with bilateral sciatica Procedures CONSULT TO PAIN MGT Anila Campos MD [address] [place] [address] Nolan Espinoza MD Referral ID Status Reason Start Date Expiration Date Visits Requested Visits Authorized [id number] Ref Not Required PCP Requested Referral 01/29/2024 01/28/2025 1 1 Referral ID Status Reason Start Date Expiration Date Visits Re quested Visits Authorized [id number] Denied 01/29/2024 03/29/2024 1 1 Referral ID Status Reason Start Date Expiration Date V isits Requested Visits Authorized [id number] Pending Review 03/19/2024 05/18/2024 1 1 Specialty Diagnoses / Procedures Referred By Contac t Referred To Contact [facility] Diagnoses Chronic midline thoracic back pain Lumbosacral spondylosis without myelopathy Spinal stenosis of lumbar region with neurogenic claudication Procedures CONSULT TO PHYSICAL THERAPY PHYSICAL THERAPY EVALUATION HIGH COMPLEX 45 MINS Sandy Bhardwaj, SENIOR MAINFRAME PROGRAMMER ANALYST.PLATE MAKER [address] [place] [address] [facility] [address] [address] Referral ID Status Reason Start Date Expiration Date Visits Requested Visits Authorized [id number] Pending Review Auto-Generat ed Referral 03/31/2025 1 1 Specialty Diagnoses / Procedures Referred By Contac t Referred To Contact MR IMAGING Diagnoses Spinal stenosis of lumbar region with neurogenic claudication Procedures MRI LUMBAR SPINE WO IVCON MRI SPINAL CANAL LUMBAR W/O CONTRAST MATERIAL Sandy Bhardwaj, SENIOR MAINFRAME PROGRAMMER ANALYST.PLATE MAKER [address] [place] [address] [place] [address] Referral ID Status Reason Start Date Expiration Date Visits Requested Visits Authorized [id number] New Request Auto-Generat ed Referral 4 04/30/2025 1 1 Specialty Diagnoses / Procedures Referred By Contac t Referred To Contact XR IMAGING Diagnoses Lumbosacral spondylosis without myelopathy Procedures XR LUMBAR MOTION 4V AP/LAT/ FLEX/EXT RADEX SPINE LUMBOSACRAL MINIMUM 4 VIEWS Sandy Bhardwaj, VERA.PLATE MAKER [address] [place] [address] [place] [address] Referral ID Status Reason Start Date Expiration Date Visits Requested Visits Authorized [id number] New Request Auto-Generat ed Referral 4 04/30/2025 1 1 Specialty Diagnoses / Procedures Referred By Contac t Referred To Contact XR IMAGING Diagnoses Chronic midline thoracic back pain Procedures XR THORACIC LIMITED 2V AP/LAT RADEX SPINE THORACIC 2 VIEWS Sandy Bhardwaj, VERA.PLATE MAKER [address] [place] [address] [place] [address] Referral ID Status Reason Start Date Expiration Date Visits Requested Visits Authorized [id number] New Request Auto-Generat ed Referral 4 04/30/2025 1 1 Referral ID Status Reason Start Date Expiration Date V isits Requested Visits Authorized [id number] Pending Review 04/23/2024 06/22/2024 1 1 Referral ID Status Reason Start Date Expiration Date V isits Requested Visits Authorized [id number] Closed Auto-Generate d Referral 03/31/2024 04/30/2025 1 1 Chief Complaint and Reason for Visit Chief Complaint abd pain Additional Source Comments INFORMATION SOURCE (unrecogn ized section and content) DATE CREATED AUTHOR 08/17/2018 [facility] DATE CREATED AUTHOR AUTHOR'S ORGANIZ ATION 09/02/2018 [facility] jesus Bowers DATE CREATED AUTHOR AUTHOR'S ORGANIZ ATION 09/15/2024 [facility] DATE CREATED AUTHOR AUTHOR'S ORGANIZ ATION 11/02/2024 [facility] DATE CREATED AUTHOR AUTHOR'S ORGANIZ ATION 11/02/2024 [facility] DATE CREATED AUTHOR AUTHOR'S ORGANIZ ATION 11/09/2024 [facility] Source Comments (unrecognize d section and content) In the event this informatio n is protected by the Federal Confidentiality of Alcohol and Drug Abuse Patient Records regulations: The Federal rules restrict any use of the information to criminally investigate or prosecute any alcohol or drug abuse patient.[facility] the event this information is protected by the Federal Confidentiality of Alcohol and Drug Abuse Patient Records regulations: The Federal rules restrict any use of the information to criminally investigate or prosecute any alcohol or drug abuse patient.[facility] the event this information is protected by the Federal Confidentiality of Alcohol and Drug Abuse Patient Records regulations: The Federal rules restrict any use of the information to criminally investigate or prosecute any alcohol or drug abuse patient.[facility] the event this information is protected by the Federal Confidentiality of Alcohol and Drug Abuse Patient Records regulations: The Federal rules restrict any use of the information to criminally investigate or prosecute any alcohol or drug abuse patient.[facility] the event this information is protected by the Federal Confidentiality of Alcohol and Drug Abuse Patient Records regulations: The Federal rules restrict any use of the information to criminally investigate or prosecute any alcohol or drug abuse patient.[facility] the event this information is protected by the Federal Confidentiality of Alcohol and Drug Abuse Patient Records regulations: The Federal rules restrict any use of the information to criminally investigate or prosecute any alcohol or drug abuse patient.[facility] the event this information is protected by the Federal Confidentiality of Alcohol and Drug Abuse Patient Records regulations: The Federal rules restrict any use of the information to criminally investigate or prosecute any alcohol or drug abuse patient.[facility] Center[facility] the event this information is protected by the Federal Confidentiality of Alcohol and Drug Abuse Patient Records regulations: The Federal rules restrict any use of the information to criminally investigate or prosecute any alcohol or drug abuse patient.[facility] Center[facility] the event this information is protected by the Federal Confidentiality of Alcohol and Drug Abuse Patient Records regulations: The Federal rules restrict any use of the information to criminally investigate or prosecute any alcohol or drug abuse patient.[facility] Center[facility] the event this information is protected by the Federal Confidentiality of Alcohol and Drug Abuse Patient Records regulations: The Federal rules restrict any use of the information to criminally investigate or prosecute any alcohol or drug abuse patient.[facility] Center[facility] the event this information is protected by the Federal Confidentiality of Alcohol and Drug Abuse Patient Records regulations: The Federal rules restrict any use of the information to criminally investigate or prosecute any alcohol or drug abuse patient.[facility] CenterIn the event this information is protected by the Federal Confidentiality of Alcohol and Drug Abuse Patient Records regulations: The Federal rules restrict any use of the information to criminally investigate or prosecute any alcohol or drug abuse patient.[facility] Center[facility] the event this information is protected by the Federal Confidentiality of Alcohol and Drug Abuse Patient Records regulations: The Federal rules restrict any use of the information to criminally investigate or prosecute any alcohol or drug abuse patient.[facility] Center[facility] the event this information is protected by the Federal Confidentiality of Alcohol and Drug Abuse Patient Records regulations: The Federal rules restrict any use of the information to criminally investigate or prosecute any alcohol or drug abuse patient.[facility] Center[facility] the event this information is protected by the Federal Confidentiality of Alcohol and Drug Abuse Patient Records regulations: The Federal rules restrict any use of the information to criminally investigate or prosecute any alcohol or drug abuse patient.[facility] CenterIn the event this information is protected by the Federal Confidentiality of Alcohol and Drug Abuse Patient Records regulations: The Federal rules restrict any use of the information to criminally investigate or prosecute any alcohol or drug abuse patient.[facility] CenterIn the event this information is protected by the Federal Confidentiality of Alcohol and Drug Abuse Patient Records regulations: The Federal rules restrict any use of the information to criminally investigate or prosecute any alcohol or drug abuse patient.[facility] CenterIn the event this information is protected by the Federal Confidentiality of Alcohol and Drug Abuse Patient Records regulations: The Federal rules restrict any use of the information to criminally investigate or prosecute any alcohol or drug abuse patient.[facility] CenterIn the event this information is protected by the Federal Confidentiality of Alcohol and Drug Abuse Patient Records regulations: The Federal rules restrict any use of the information to criminally investigate or prosecute any alcohol or drug abuse patient.[facility] CenterIn the event this information is protected by the Federal Confidentiality of Alcohol and Drug Abuse Patient Records regulations: The Federal rules restrict any use of the information to criminally investigate or prosecute any alcohol or drug abuse patient.[facility] CenterIn the event this information is protected by the Federal Confidentiality of Alcohol and Drug Abuse Patient Records regulations: The Federal rules restrict any use of the information to criminally investigate or prosecute any alcohol or drug abuse patient.[facility] CenterIn the event this information is protected by the Federal Confidentiality of Alcohol and Drug Abuse Patient Records regulations: The Federal rules restrict any use of the information to criminally investigate or prosecute any alcohol or drug abuse patient.[facility] CenterIn the event this information is protected by the Federal Confidentiality of Alcohol and Drug Abuse Patient Records regulations: The Federal rules restrict any use of the information to criminally investigate or prosecute any alcohol or drug abuse patient.[facility] CenterIn the event this information is protected by the Federal Confidentiality of Alcohol and Drug Abuse Patient Records regulations: The Federal rules restrict any use of the information to criminally investigate or prosecute any alcohol or drug abuse patient.[facility] CenterIn the event this information is protected by the Federal Confidentiality of Alcohol and Drug Abuse Patient Records regulations: The Federal rules restrict any use of the information to criminally investigate or prosecute any alcohol or drug abuse patient.[facility] CenterIn the event this information is protected by the Federal Confidentiality of Alcohol and Drug Abuse Patient Records regulations: The Federal rules restrict any use of the information to criminally investigate or prosecute any alcohol or drug abuse patient.[facility] CenterIn the event this information is protected by the Federal Confidentiality of Alcohol and Drug Abuse Patient Records regulations: The Federal rules restrict any use of the information to criminally investigate or prosecute any alcohol or drug abuse patient.[facility] CenterIn the event this information is protected by the Federal Confidentiality of Alcohol and Drug Abuse Patient Records regulations: The Federal rules restrict any use of the information to criminally investigate or prosecute any alcohol or drug abuse patient.[facility] CenterIn the event this information is protected by the Federal Confidentiality of Alcohol and Drug Abuse Patient Records regulations: The Federal rules restrict any use of the information to criminally investigate or prosecute any alcohol or drug abuse patient.[facility] CenterIn the event this information is protected by the Federal Confidentiality of Alcohol and Drug Abuse Patient Records regulations: The Federal rules restrict any use of the information to criminally investigate or prosecute any alcohol or drug abuse patient.[facility] CenterIn the event this information is protected by the Federal Confidentiality of Alcohol and Drug Abuse Patient Records regulations: The Federal rules restrict any use of the information to criminally investigate or prosecute any alcohol or drug abuse patient.[facility] CenterIn the event this information is protected by the Federal Confidentiality of Alcohol and Drug Abuse Patient Records regulations: The Federal rules restrict any use of the information to criminally investigate or prosecute any alcohol or drug abuse patient.[facility] CenterIn the event this information is protected by the Federal Confidentiality of Alcohol and Drug Abuse Patient Records regulations: The Federal rules restrict any use of the information to criminally investigate or prosecute any alcohol or drug abuse patient.[facility] CenterIn the event this information is protected by the Federal Confidentiality of Alcohol and Drug Abuse Patient Records regulations: The Federal rules restrict any use of the information to criminally investigate or prosecute any alcohol or drug abuse patient.[facility] CenterIn the event this information is protected by the Federal Confidentiality of Alcohol and Drug Abuse Patient Records regulations: The Federal rules restrict any use of the information to criminally investigate or prosecute any alcohol or drug abuse patient.[facility] CenterIn the event this information is protected by the Federal Confidentiality of Alcohol and Drug Abuse Patient Records regulations: The Federal rules restrict any use of the information to criminally investigate or prosecute any alcohol or drug abuse patient.[facility] CenterIn the event this information is protected by the Federal Confidentiality of Alcohol and Drug Abuse Patient Records regulations: The Federal rules restrict any use of the information to criminally investigate or prosecute any alcohol or drug abuse patient.[facility] CenterIn the event this information is protected by the Federal Confidentiality of Alcohol and Drug Abuse Patient Records regulations: The Federal rules restrict any use of the information to criminally investigate or prosecute any alcohol or drug abuse patient.[facility] CenterIn the event this information is protected by the Federal Confidentiality of Alcohol and Drug Abuse Patient Records regulations: The Federal rules restrict any use of the information to criminally investigate or prosecute any alcohol or drug abuse patient.[facility] CenterIn the event this information is protected by the Federal Confidentiality of Alcohol and Drug Abuse Patient Records regulations: The Federal rules restrict any use of the information to criminally investigate or prosecute any alcohol or drug abuse patient.[facility] CenterIn the event this information is protected by the Federal Confidentiality of Alcohol and Drug Abuse Patient Records regulations: The Federal rules restrict any use of the information to criminally investigate or prosecute any alcohol or drug abuse patient.[facility] CenterIn the event this information is protected by the Federal Confidentiality of Alcohol and Drug Abuse Patient Records regulations: The Federal rules restrict any use of the information to criminally investigate or prosecute any alcohol or drug abuse patient.[facility] CenterIn the event this information is protected by the Federal Confidentiality of Alcohol and Drug Abuse Patient Records regulations: The Federal rules restrict any use of the information to criminally investigate or prosecute any alcohol or drug abuse patient.[facility] CenterIn the event this information is protected by the Federal Confidentiality of Alcohol and Drug Abuse Patient Records regulations: The Federal rules restrict any use of the information to criminally investigate or prosecute any alcohol or drug abuse patient.[facility] CenterIn the event this information is protected by the Federal Confidentiality of Alcohol and Drug Abuse Patient Records regulations: The Federal rules restrict any use of the information to criminally investigate or prosecute any alcohol or drug abuse patient.[facility] CenterIn the event this information is protected by the Federal Confidentiality of Alcohol and Drug Abuse Patient Records regulations: The Federal rules restrict any use of the information to criminally investigate or prosecute any alcohol or drug abuse patient.[facility] CenterIn the event this information is protected by the Federal Confidentiality of Alcohol and Drug Abuse Patient Records regulations: The Federal rules restrict any use of the information to criminally investigate or prosecute any alcohol or drug abuse patient.[facility] CenterIn the event this information is protected by the Federal Confidentiality of Alcohol and Drug Abuse Patient Records regulations: The Federal rules restrict any use of the information to criminally investigate or prosecute any alcohol or drug abuse patient.[facility] CenterIn the event this information is protected by the Federal Confidentiality of Alcohol and Drug Abuse Patient Records regulations: The Federal rules restrict any use of the information to criminally investigate or prosecute any alcohol or drug abuse patient.[facility] CenterIn the event this information is protected by the Federal Confidentiality of Alcohol and Drug Abuse Patient Records regulations: The Federal rules restrict any use of the information to criminally investigate or prosecute any alcohol or drug abuse patient.[facility] CenterIn the event this information is protected by the Federal Confidentiality of Alcohol and Drug Abuse Patient Records regulations: The Federal rules restrict any use of the information to criminally investigate or prosecute any alcohol or drug abuse patient.[facility] CenterIn the event this information is protected by the Federal Confidentiality of Alcohol and Drug Abuse Patient Records regulations: The Federal rules restrict any use of the information to criminally investigate or prosecute any alcohol or drug abuse patient.[facility] CenterIn the event this information is protected by the Federal Confidentiality of Alcohol and Drug Abuse Patient Records regulations: The Federal rules restrict any use of the information to criminally investigate or prosecute any alcohol or drug abuse patient.[facility] CenterIn the event this information is protected by the Federal Confidentiality of Alcohol and Drug Abuse Patient Records regulations: The Federal rules restrict any use of the information to criminally investigate or prosecute any alcohol or drug abuse patient.[facility] CenterIn the event this information is protected by the Federal Confidentiality of Alcohol and Drug Abuse Patient Records regulations: The Federal rules restrict any use of the information to criminally investigate or prosecute any alcohol or drug abuse patient.[facility] CenterIn the event this information is protected by the Federal Confidentiality of Alcohol and Drug Abuse Patient Records regulations: The Federal rules restrict any use of the information to criminally investigate or prosecute any alcohol or drug abuse patient.[facility] CenterIn the event this information is protected by the Federal Confidentiality of Alcohol and Drug Abuse Patient Records regulations: The Federal rules restrict any use of the information to criminally investigate or prosecute any alcohol or drug abuse patient.[facility] CenterIn the event this information is protected by the Federal Confidentiality of Alcohol and Drug Abuse Patient Records regulations: The Federal rules restrict any use of the information to criminally investigate or prosecute any alcohol or drug abuse patient.[facility] CenterIn the event this information is protected by the Federal Confidentiality of Alcohol and Drug Abuse Patient Records regulations: The Federal rules restrict any use of the information to criminally investigate or prosecute any alcohol or drug abuse patient.[facility] CenterIn the event this information is protected by the Federal Confidentiality of Alcohol and Drug Abuse Patient Records regulations: The Federal rules restrict any use of the information to criminally investigate or prosecute any alcohol or drug abuse patient.[facility] CenterIn the event this information is protected by the Federal Confidentiality of Alcohol and Drug Abuse Patient Records regulations: The Federal rules restrict any use of the information to criminally investigate or prosecute any alcohol or drug abuse patient.[facility] CenterIn the event this information is protected by the Federal Confidentiality of Alcohol and Drug Abuse Patient Records regulations: The Federal rules restrict any use of the information to criminally investigate or prosecute any alcohol or drug abuse patient.[facility] CenterIn the event this information is protected by the Federal Confidentiality of Alcohol and Drug Abuse Patient Records regulations: The Federal rules restrict any use of the information to criminally investigate or prosecute any alcohol or drug abuse patient.[facility] CenterIn the event this information is protected by the Federal Confidentiality of Alcohol and Drug Abuse Patient Records regulations: The Federal rules restrict any use of the information to criminally investigate or prosecute any alcohol or drug abuse patient.[facility] CenterIn the event this information is protected by the Federal Confidentiality of Alcohol and Drug Abuse Patient Records regulations: The Federal rules restrict any use of the information to criminally investigate or prosecute any alcohol or drug abuse patient.[facility] CenterIn the event this information is protected by the Federal Confidentiality of Alcohol and Drug Abuse Patient Records regulations: The Federal rules restrict any use of the information to criminally investigate or prosecute any alcohol or drug abuse patient.[facility] CenterIn the event this information is protected by the Federal Confidentiality of Alcohol and Drug Abuse Patient Records regulations: The Federal rules restrict any use of the information to criminally investigate or prosecute any alcohol or drug abuse patient.[facility] CenterIn the event this information is protected by the Federal Confidentiality of Alcohol and Drug Abuse Patient Records regulations: The Federal rules restrict any use of the information to criminally investigate or prosecute any alcohol or drug abuse patient.[facility] CenterIn the event this information is protected by the Federal Confidentiality of Alcohol and Drug Abuse Patient Records regulations: The Federal rules restrict any use of the information to criminally investigate or prosecute any alcohol or drug abuse patient.[facility] CenterIn the event this information is protected by the Federal Confidentiality of Alcohol and Drug Abuse Patient Records regulations: The Federal rules restrict any use of the information to criminally investigate or prosecute any alcohol or drug abuse patient.[facility] CenterIn the event this information is protected by the Federal Confidentiality of Alcohol and Drug Abuse Patient Records regulations: The Federal rules restrict any use of the information to criminally investigate or prosecute any alcohol or drug abuse patient.[facility] CenterIn the event this information is protected by the Federal Confidentiality of Alcohol and Drug Abuse Patient Records regulations: The Federal rules restrict any use of the information to criminally investigate or prosecute any alcohol or drug abuse patient.[facility] CenterIn the event this information is protected by the Federal Confidentiality of Alcohol and Drug Abuse Patient Records regulations: The Federal rules restrict any use of the information to criminally investigate or prosecute any alcohol or drug abuse patient.[facility] CenterIn the event this information is protected by the Federal Confidentiality of Alcohol and Drug Abuse Patient Records regulations: The Federal rules restrict any use of the information to criminally investigate or prosecute any alcohol or drug abuse patient.[facility] CenterIn the event this information is protected by the Federal Confidentiality of Alcohol and Drug Abuse Patient Records regulations: The Federal rules restrict any use of the information to criminally investigate or prosecute any alcohol or drug abuse patient.[facility]In the event this information is protected by the Federal Confidentiality of Alcohol and Drug Abuse Patient Records regulations: The Federal rules restrict any use of the information to criminally investigate or prosecute any alcohol or drug abuse patient.[facility]In the event this information is protected by the Federal Confidentiality of Alcohol and Drug Abuse Patient Records regulations: The Federal rules restrict any use of the information to criminally investigate or prosecute any alcohol or drug abuse patient.[facility] CenterIn the event this information is protected by the Federal Confidentiality of Alcohol and Drug Abuse Patient Records regulations: The Federal rules restrict any use of the information to criminally investigate or prosecute any alcohol or drug abuse patient.[facility] CenterIn the event this information is protected by the Federal Confidentiality of Alcohol and Drug Abuse Patient Records regulations: The Federal rules restrict any use of the information to criminally investigate or prosecute any alcohol or drug abuse patient.[facility] CenterIn the event this information is protected by the Federal Confidentiality of Alcohol and Drug Abuse Patient Records regulations: The Federal rules restrict any use of the information to criminally investigate or prosecute any alcohol or drug abuse patient.[facility] CenterIn the event this information is protected by the Federal Confidentiality of Alcohol and Drug Abuse Patient Records regulations: The Federal rules restrict any use of the information to criminally investigate or prosecute any alcohol or drug abuse patient.[facility]In the event this information is protected by the Federal Confidentiality of Alcohol and Drug Abuse Patient Records regulations: The Federal rules restrict any use of the information to criminally investigate or prosecute any alcohol or drug abuse patient.[facility] CenterIn the event this information is protected by the Federal Confidentiality of Alcohol and Drug Abuse Patient Records regulations: The Federal rules restrict any use of the information to criminally investigate or prosecute any alcohol or drug abuse patient.[facility]In the event this information is protected by the Federal Confidentiality of Alcohol and Drug Abuse Patient Records regulations: The Federal rules restrict any use of the information to criminally investigate or prosecute any alcohol or drug abuse patient.[facility]In the event this information is protected by the Federal Confidentiality of Alcohol and Drug Abuse Patient Records regulations: The Federal rules restrict any use of the information to criminally investigate or prosecute any alcohol or drug abuse patient.[facility]In the event this information is protected by the Federal Confidentiality of Alcohol and Drug Abuse Patient Records regulations: The Federal rules restrict any use of the information to criminally investigate or prosecute any alcohol or drug abuse patient.[facility]In the event this information is protected by the Federal Confidentiality of Alcohol and Drug Abuse Patient Records regulations: The Federal rules restrict any use of the information to criminally investigate or prosecute any alcohol or drug abuse patient.[facility]In the event this information is protected by the Federal Confidentiality of Alcohol and Drug Abuse Patient Records regulations: The Federal rules restrict any use of the information to criminally investigate or prosecute any alcohol or drug abuse patient.[facility]In the event this information is protected by the Federal Confidentiality of Alcohol and Drug Abuse Patient Records regulations: The Federal rules restrict any use of the information to criminally investigate or prosecute any alcohol or drug abuse patient.[facility]In the event this information is protected by the Federal Confidentiality of Alcohol and Drug Abuse Patient Records regulations: The Federal rules restrict any use of the information to criminally investigate or prosecute any alcohol or drug abuse patient.[facility]In the event this information is protected by the Federal Confidentiality of Alcohol and Drug Abuse Patient Records regulations: The Federal rules restrict any use of the information to criminally investigate or prosecute any alcohol or drug abuse patient.[facility]In the event this information is protected by the Federal Confidentiality of Alcohol and Drug Abuse Patient Records regulations: The Federal rules restrict any use of the information to criminally investigate or prosecute any alcohol or drug abuse patient.[facility]In the event this information is protected by the Federal Confidentiality of Alcohol and Drug Abuse Patient Records regulations: The Federal rules restrict any use of the information to criminally investigate or prosecute any alcohol or drug abuse patient.[facility]In the event this information is protected by the Federal Confidentiality of Alcohol and Drug Abuse Patient Records regulations: The Federal rules restrict any use of the information to criminally investigate or prosecute any alcohol or drug abuse patient.[facility]In the event this information is protected by the Federal Confidentiality of Alcohol and Drug Abuse Patient Records regulations: The Federal rules restrict any use of the information to criminally investigate or prosecute any alcohol or drug abuse patient.[facility]In the event this information is protected by the Federal Confidentiality of Alcohol and Drug Abuse Patient Records regulations: The Federal rules restrict any use of the information to criminally investigate or prosecute any alcohol or drug abuse patient.[facility]In the event this information is protected by the Federal Confidentiality of Alcohol and Drug Abuse Patient Records regulations: The Federal rules restrict any use of the information to criminally investigate or prosecute any alcohol or drug abuse patient.[facility] CenterIn the event this information is protected by the Federal Confidentiality of Alcohol and Drug Abuse Patient Records regulations: The Federal rules restrict any use of the information to criminally investigate or prosecute any alcohol or drug abuse patient.[facility]In the event this information is protected by the Federal Confidentiality of Alcohol and Drug Abuse Patient Records regulations: The Federal rules restrict any use of the information to criminally investigate or prosecute any alcohol or drug abuse patient.[facility]In the event this information is protected by the Federal Confidentiality of Alcohol and Drug Abuse Patient Records regulations: The Federal rules restrict any use of the information to criminally investigate or prosecute any alcohol or drug abuse patient.[facility]In the event this information is protected by the Federal Confidentiality of Alcohol and Drug Abuse Patient Records regulations: The Federal rules restrict any use of the information to criminally investigate or prosecute any alcohol or drug abuse patient.[facility]In the event this information is protected by the Federal Confidentiality of Alcohol and Drug Abuse Patient Records regulations: The Federal rules restrict any use of the information to criminally investigate or prosecute any alcohol or drug abuse patient.[facility]In the event this information is protected by the Federal Confidentiality of Alcohol and Drug Abuse Patient Records regulations: The Federal rules restrict any use of the information to criminally investigate or prosecute any alcohol or drug abuse patient.[facility]In the event this information is protected by the Federal Confidentiality of Alcohol and Drug Abuse Patient Records regulations: The Federal rules restrict any use of the information to criminally investigate or prosecute any alcohol or drug abuse patient.[facility]In the event this information is protected by the Federal Confidentiality of Alcohol and Drug Abuse Patient Records regulations: The Federal rules restrict any use of the information to criminally investigate or prosecute any alcohol or drug abuse patient.[facility]In the event this information is protected by the Federal Confidentiality of Alcohol and Drug Abuse Patient Records regulations: The Federal rules restrict any use of the information to criminally investigate or prosecute any alcohol or drug abuse patient.[facility] CenterIn the event this information is protected by the Federal Confidentiality of Alcohol and Drug Abuse Patient Records regulations: The Federal rules restrict any use of the information to criminally investigate or prosecute any alcohol or drug abuse patient.[facility] Care Teams (unrecognized sec tion and content) Chief Investigator Relationship Specialty Start Date End Date Anila Campos MD [address] [place] [address] PCP - General 03/09/03 Chief Investigator Relationship Specialty Start Date End Date Anila Campos MD [facility] [place] [address] PCP - General 03/09/03 Chief Investigator Relationship Specialty Start Date End Date Anila Campos MD [address] [place] [address], [place] [address] PCP - General 03/09/03 Chief Investigator Relationship Specialty Start Date End Date Anila Campos MD [address] [place] [address], [place] [address] PCP - General 03/09/03 Chief Investigator Relationship Specialty Start Date End Date Anila Campos MD [address] [place] [address], [place] [address] PCP - General 03/09/03 Chief Investigator Relationship Specialty Start Date End Date Anila Campos MD [address] [place] [address], [place] [address] PCP - General 03/09/03 Chief Investigator Relationship Specialty Start Date End Date Anila Campos MD [address] [place] [address], [place] [address] PCP - General 03/09/03 Chief Investigator Relationship Specialty Start Date End Date Anila Campos MD [address] [place] [address], [place] [address] PCP - General 03/09/03 Chief Investigator Relationship Specialty Start Date End Date Anila Campos MD [address] [place] [address], [place] [address] PCP - General 03/09/03 Chief Investigator Relationship Specialty Start Date End Date Anila Campos MD [address] [place] [address], [place] [address] PCP - General 03/09/03 Chief Investigator Relationship Specialty Start Date End Date Anila Campos MD [address] [place] [address] PCP - General 03/09/03 Chief Investigator Relationship Specialty Start Date End Date Anila Campos MD [address] [place] [address], [place] [address] PCP - General 03/09/03 Chief Investigator Relationship Specialty Start Date End Date Anila Campos MD [address] [place] [address], [place] [address] PCP - General 03/09/03 Chief Investigator Relationship Specialty Start Date End Date Anila Campos MD [address] [place] [address], [place] [address] PCP - General 03/09/03 Chief Investigator Relationship Specialty Start Date End Date Anila Campos MD [facility] [place] [address] PCP - General 03/09/03 Chief Investigator Relationship Specialty Start Date End Date Anila Campos MD [address] [place] [address], [place] [address] PCP - General 03/09/03 Chief Investigator Relationship Specialty Start Date End Date Anila Campos MD [facility] [place] [address] PCP - General 03/09/03 Chief Investigator Relationship Specialty Start Date End Date Anila Campos MD [address] [place] [address], [place] [address] PCP - General 03/09/03 Team Status: Active Member Role Status Dates Dr. Anila Campos MD Family Provider Active Dr. Anila Campos MD Primary Care Provider Active Team Status: Inactive Member Role Status Dates Dr. Anila Campos MD Primary Care Provider Active Dr. Tone Rutledge MD Emergency Provider Active Chief Investigator Relationship Specialty Start Date End Date Anila Campos MD [address] [place] [address] PCP - General 03/09/03 Chief Investigator Relationship Specialty Start Date End Date Anila Campos MD [address] [place] [address] PCP - General 03/09/03 Chief Investigator Relationship Specialty Start Date End Date Anila Campos MD [address] [place] [address] PCP - General 03/09/03 Chief Investigator Relationship Specialty Start Date End Date Anila Campos MD [address] [place] [address] PCP - General 03/09/03 Chief Investigator Relationship Specialty Start Date End Date Anila Campos MD [address] [place] [address] PCP - General 03/09/03 Chief Investigator Relationship Specialty Start Date End Date Anila Campos MD [address] [place] [address] PCP - General 03/09/03 Chief Investigator Relationship Specialty Start Date End Date Anila Campos MD [address] [place] [address] PCP - General 03/09/03 Chief Investigator Relationship Specialty Start Date End Date Anila Campos MD [address] [place] [address] PCP - General 03/09/03 Chief Investigator Relationship Specialty Start Date End Date Anila Campos MD [address] [place] [address] PCP - General 03/09/03 Chief Investigator Relationship Specialty Start Date End Date Anila Campos MD [address] [place] [address] PCP - General 03/09/03 Chief Investigator Relationship Specialty Start Date End Date Anila Campos MD [address] [place] [address] PCP - General 03/09/03 Chief Investigator Relationship Specialty Start Date End Date Anila Campos MD [address] [place] [address] PCP - General 03/09/03 Chief Investigator Relationship Specialty Start Date End Date Anila Campos MD [address] [place] [address] PCP - General 03/09/03 Chief Investigator Relationship Specialty Start Date End Date Anila Campos MD [address] [place] [address] PCP - General 03/09/03 Chief Investigator Relationship Specialty Start Date End Date Anila Campos MD [address] [place] [address] PCP - General 03/09/03 Chief Investigator Relationship Specialty Start Date End Date Anila Campos MD [address] [place] [address] PCP - General 03/09/03 Chief Investigator Relationship Specialty Start Date End Date Anila Campos MD [address] [place] [address] PCP - General 03/09/03 Chief Investigator Relationship Specialty Start Date End Date Anila Campos MD [address] [place] [address] PCP - General 03/09/03 Chief Investigator Relationship Specialty Start Date End Date Anila Campos MD [address] [place] [address] PCP - General 03/09/03 Chief Investigator Relationship Specialty Start Date End Date Anila Campos MD [address] [place] [address] PCP - General 03/09/03 Chief Investigator Relationship Specialty Start Date End Date Anila Campos MD [address] [place] [address] PCP - General 03/09/03 Chief Investigator Relationship Specialty Start Date End Date Anila Campos MD [address] [place] [address] PCP - General 03/09/03 Chief Investigator Relationship Specialty Start Date End Date Anila Campos MD [address] [place] [address] PCP - General 03/09/03 Chief Investigator Relationship Specialty Start Date End Date Anila Campos MD [address] [place] [address] PCP - General 03/09/03 Chief Investigator Relationship Specialty Start Date End Date Anila Campos MD [address] [place] [address] PCP - General 03/09/03 Chief Investigator Relationship Specialty Start Date End Date Anila Campos MD [address] [place] [address] PCP - General 03/09/03 Chief Investigator Relationship Specialty Start Date End Date Anila Campos MD [address] [place] [address] PCP - General 03/09/03 Chief Investigator Relationship Specialty Start Date End Date Anila Campos MD [address] [place] [address] PCP - General 03/09/03 Chief Investigator Relationship Specialty Start Date End Date Anila Campos MD [address] [place] [address] PCP - General 03/09/03 Chief Investigator Relationship Specialty Start Date End Date Anila Campos MD [address] [place] [address] PCP - General 03/09/03 Chief Investigator Relationship Specialty Start Date End Date Anila Campos MD [address] [place] [address] PCP - General 03/09/03 Chief Investigator Relationship Specialty Start Date End Date Anila Campos MD [address] [place] [address] PCP - General 03/09/03 Chief Investigator Relationship Specialty Start Date End Date Anila Campos MD [address] [place] [address] PCP - General 03/09/03 Chief Investigator Relationship Specialty Start Date End Date Anila Campos MD [address] [place] [address] PCP - General 03/09/03 Chief Investigator Relationship Specialty Start Date End Date Anila Campos MD [address] [place] [address] PCP - General 03/09/03 Chief Investigator Relationship Specialty Start Date End Date Anila Campos MD [address] [place] [address] PCP - General 03/09/03 Chief Investigator Relationship Specialty Start Date End Date Anila Campos MD [address] [place] [address] PCP - General 03/09/03 Chief Investigator Relationship Specialty Start Date End Date Anila Campos MD [address] [place] [address] PCP - General 03/09/03 Jude Moore, SENIOR MAINFRAME PROGRAMMER ANALYST.SEBD TEACHER [address] [place] [address] [facility] 04/20/24 Nadine Mcclain, SENIOR MAINFRAME PROGRAMMER ANALYST.PLATE MAKER [address] [place] [address] [facility] 04/20/24 Chief Investigator Relationship Specialty Start Date End Date Anila Campos MD [address] [place] [address] PCP - General 03/09/03 Jude Moore, SENIOR MAINFRAME PROGRAMMER ANALYST.SEBD TEACHER [address] [place] [address] [facility] 04/20/24 Nadine Mcclain SENIOR MAINFRAME PROGRAMMER ANALYST.PLATE MAKER [address] [place] [address] [facility] Internal Medicine 04/20/24 Chief Investigator Relationship Specialty Start Date End Date Anila Campos MD [address] [place] [address] PCP - General 03/09/03 Jude Moore, SENIOR MAINFRAME PROGRAMMER ANALYST.SEBD TEACHER [address] [place] [address] [facility] 04/20/24 Nadine Mcclain, SENIOR MAINFRAME PROGRAMMER ANALYST.PLATE MAKER [address] [place] [address] [facility] Internal Medicine 04/20/24 Chief Investigator Relationship Specialty Start Date End Date Anila Campos MD [address] [place] [address] PCP - General 03/09/03 Jude Moore, SENIOR MAINFRAME PROGRAMMER ANALYST.SEBD TEACHER [address] [place] [address] [facility] 04/20/24 Nadine Mcclain SENIOR MAINFRAME PROGRAMMER ANALYST.PLATE MAKER [address] [place] [address] [facility] Internal Medicine 04/20/24 Chief Investigator Relationship Specialty Start Date End Date Anila Campos MD [address] [place] [address] PCP - General 03/09/03 Jude Moore, SENIOR MAINFRAME PROGRAMMER ANALYST.SEBD TEACHER [address] [place] [address] [facility] Internal Medicine 04/20/24 Nadine Mcclain SENIOR MAINFRAME PROGRAMMER ANALYST.PLATE MAKER [address] [place] [address] [facility] Internal Medicine 04/20/24 Chief Investigator Relationship Specialty Start Date End Date Anila Campos MD [address] [place] [address] PCP - General 03/09/03 Jude Moore, SENIOR MAINFRAME PROGRAMMER ANALYST.SEBD TEACHER [address] [place] [address] [facility] Internal Medicine 04/20/24 Nadine Mcclain SENIOR MAINFRAME PROGRAMMER ANALYST.PLATE MAKER [address] [place] [address] [facility] Internal Medicine 04/20/24 Chief Investigator Relationship Specialty Start Date End Date Anila Campos MD [address] [place] [address] PCP - General 03/09/03 Jude Moore, SENIOR MAINFRAME PROGRAMMER ANALYST.SEBD TEACHER [address] [place] [address] [facility] 04/20/24 Nadine Mcclain APRN.PLATE MAKER [address] [place] [address] [facility] 04/20/24 Chief Investigator Relationship Specialty Start Date End Date Anila Campos MD [address] [place] [address] PCP - General 03/09/03 Jude Moore APRN.SEBD TEACHER [address] [place] [address] [facility] 04/20/24 Nadine Mcclain APRN.PLATE MAKER [address] [place] [address] [facility] 04/20/24 Chief Investigator Relationship Specialty Start Date End Date Anila Campos MD [address] [place] [address] PCP - General 03/09/03 Jude Moore APRN.SEBD TEACHER [address] [place] [address] [facility] 04/20/24 Nadine Mcclain APRN.PLATE MAKER [address] [place] [address] [facility] 04/20/24 Chief Investigator Relationship Specialty Start Date End Date Anila Campos MD [address] [place] [address] PCP - General 03/09/03 Jude Moore, SENIOR MAINFRAME PROGRAMMER ANALYST.SEBD TEACHER [address] [place] [address] [facility] 04/20/24 Nadine Mcclain, SENIOR MAINFRAME PROGRAMMER ANALYST.PLATE MAKER [address] [place] [address] [facility] 04/20/24 Chief Investigator Relationship Specialty Start Date End Date Anila Campos MD [address] [place] [address] PCP - General 03/09/03 Jude Moore, SENIOR MAINFRAME PROGRAMMER ANALYST.SEBD TEACHER [address] [place] [address] [facility] 04/20/24 Nadine Mcclain SENIOR MAINFRAME PROGRAMMER ANALYST.PLATE MAKER [address] [place] [address] [facility] 04/20/24 Chief Investigator Relationship Specialty Start Date End Date Anila Campos MD [address] [place] [address] PCP - General 03/09/03 Jude Moore, SENIOR MAINFRAME PROGRAMMER ANALYST.SEBD TEACHER [address] [place] [address] [facility] 04/20/24 Nadine Mcclain, SENIOR MAINFRAME PROGRAMMER ANALYST.PLATE MAKER [address] [place] [address] [facility] 04/20/24 Chief Investigator Relationship Specialty Start Date End Date Anila Campos MD [address] [place] [address] PCP - General 03/09/03 Jude Moore, SENIOR MAINFRAME PROGRAMMER ANALYST.SEBD TEACHER [address] [place] [address] [facility] 04/20/24 Nadine Mcclain SENIOR MAINFRAME PROGRAMMER ANALYST.PLATE MAKER [address] [facility] [place] [address] [facility] 04/20/24 Chief Investigator Relationship Specialty Start Date End Date Anila Campos MD [address] [place] [address] PCP - General 03/09/03 Jude Moore, SENIOR MAINFRAME PROGRAMMER ANALYST.SEBD TEACHER [address] [place] [address] [facility] 04/20/24 Nadine Mcclain SENIOR MAINFRAME PROGRAMMER ANALYST.PLATE MAKER [address] [place] [address] [facility] 04/20/24 Chief Investigator Relationship Specialty Start Date End Date Anila Campos MD [address] [place] [address] PCP - General 03/09/03 Jude Moore, SENIOR MAINFRAME PROGRAMMER ANALYST.SEBD TEACHER [address] [place] [address] [facility] 04/20/24 Nadine Mcclain SENIOR MAINFRAME PROGRAMMER ANALYST.PLATE MAKER [address] [place] [address] [facility] 04/20/24 Chief Investigator Relationship Specialty Start Date End Date Anila Campos MD [address] [place] [address] PCP - General 03/09/03 Jude Moore, SENIOR MAINFRAME PROGRAMMER ANALYST.SEBD TEACHER [address] [place] [address] [facility] 04/20/24 Nadine Mcclain SENIOR MAINFRAME PROGRAMMER ANALYST.PLATE MAKER [address] [facility] [place] [address] [facility] 04/20/24 Chief Investigator Relationship Specialty Start Date End Date Anila Campos MD [address] [place] [address] PCP - General 03/09/03 Jude Moore, SENIOR MAINFRAME PROGRAMMER ANALYST.SEBD TEACHER [address] [place] [address] [facility] 04/20/24 Nadine Mcclain, SENIOR MAINFRAME PROGRAMMER ANALYST.PLATE MAKER [address] [facility] [place] [place] [address] [facility] 04/20/24 Chief Investigator Relationship Specialty Start Date End Date Anila Campos MD [address] [facility] [place] [address] PCP - General 03/09/03 Jude Moore, SENIOR MAINFRAME PROGRAMMER ANALYST.SEBD TEACHER [address] [place] [address] [facility] 04/20/24 Nadine Mcclain APRN.PLATE MAKER [address] [place] [address] [facility] Internal Medicine 04/20/24 07/31/24 Nadine Mcclain APRN.PLATE MAKER [address] [place] [address] [facility] Internal Medicine 08/04/24 Chief Investigator Relationship Specialty Start Date End Date Anila Campos MD [address] [place] [address] PCP - General 03/09/03 Jude oMore APRN.SEBD TEACHER [address] [place] [address] [facility] Internal Medicine 04/20/24 Nadine Mcclain APRN.PLATE MAKER [address] [place] [address] [facility] Internal Medicine 08/04/24 Chief Investigator Relationship Specialty Start Date End Date Anila Campos MD [address] [place] [address] PCP - General 03/09/03 Jude Moore SENIOR MAINFRAME PROGRAMMER ANALYST.SEBD TEACHER [address] [place] [address] [facility] Internal Medicine 04/20/24 Nadine Mcclain APRN.PLATE MAKER [address] [place] [address] [facility] Internal Medicine 04/20/24 07/31/24 Chief Investigator Relationship Specialty Start Date End Date Anila Campos MD [address] [place] [address] PCP - General 03/09/03 Jude Moore, SENIOR MAINFRAME PROGRAMMER ANALYST.SEBD TEACHER [address] [place] [address] [facility] 04/20/24 Nadine Mcclain SENIOR MAINFRAME PROGRAMMER ANALYST.PLATE MAKER [address] [place] [address] [facility] 08/04/24 Chief Investigator Relationship Specialty Start Date End Date Anila Campos MD [address] [address] PCP - General 03/09/03 Jude Moore, SENIOR MAINFRAME PROGRAMMER ANALYST.SEBD TEACHER [address] [place] [address] [facility] 04/20/24 Nadine Mcclain SENIOR MAINFRAME PROGRAMMER ANALYST.PLATE MAKER [address] [place] [address] [facility] 08/04/24 Chief Investigator Relationship Specialty Start Date End Date Anila Campos MD [address] [place] [address] PCP - General 03/09/03 Jude Moore, SENIOR MAINFRAME PROGRAMMER ANALYST.SEBD TEACHER [address] [place] [address] [facility] 04/20/24 Nadine Mcclain SENIOR MAINFRAME PROGRAMMER ANALYST.PLATE MAKER [address] [facility] [place] [place] [address] [facility] 08/04/24 Chief Investigator Relationship Specialty Start Date End Date Anila Campos MD [address] [place] [address] PCP - General 03/09/03 Jude Moore, SENIOR MAINFRAME PROGRAMMER ANALYST.SEBD TEACHER [address] [facility] [place] [place] [address] [facility] 04/20/24 Nadine Mcclain SENIOR MAINFRAME PROGRAMMER ANALYST.PLATE MAKER [address] [facility] [place] [address] [facility] 08/04/24 Chief Investigator Relationship Specialty Start Date End Date Anila Campos MD [address] [facility] [place] [place] [address] PCP - General 03/09/03 Nadine Mcclain SENIOR MAINFRAME PROGRAMMER ANALYST.PLATE MAKER [address] [facility] [place] [address] [facility] 08/04/24 Jude Moore, SENIOR MAINFRAME PROGRAMMER ANALYST.SEBD TEACHER [address] [facility] [place] [place] [address] [facility] 09/30/24 Chief Investigator Relationship Specialty Start Date End Date Anila Campos MD [address] [facility] [place] [address] PCP - General 03/09/03 Nadine Mcclain SENIOR MAINFRAME PROGRAMMER ANALYST.PLATE MAKER [address] [place] [address] [facility] 08/04/24 Jude Moore, SENIOR MAINFRAME PROGRAMMER ANALYST.SEBD TEACHER [address] [place] [address] [facility] Internal Medicine 09/30/24 Chief Investigator Relationship Specialty Start Date End Date Anila Campos MD [address] [place] [address] PCP - General 03/09/03 Nadine Mcclain SENIOR MAINFRAME PROGRAMMER ANALYST.PLATE MAKER [address] [place] [address] [facility] Internal Medicine 08/04/24 Jude Moore, SENIOR MAINFRAME PROGRAMMER ANALYST.SEBD TEACHER [address] [place] [address] [facility] Internal Medicine 09/30/24 Chief Investigator Relationship Specialty Start Date End Date Anila Campos MD [address] [place] [address] PCP - General 03/09/03 Nadine Mcclain APRN.PLATE MAKER [address] [place] [address] [facility] Internal Medicine 08/04/24 Jude Moore, SENIOR MAINFRAME PROGRAMMER ANALYST.SEBD TEACHER [address] [place] [address] [facility] Internal Medicine 09/30/24 Chief Investigator Relationship Specialty Start Date End Date Anila Campos MD [address] [place] [address] PCP - General 03/09/03 Nadine Mcclain APRN.PLATE MAKER [address] [place] [address] [facility] Internal Medicine 08/04/24 Jude Moore, SENIOR MAINFRAME PROGRAMMER ANALYST.SEBD TEACHER [address] [facility] [place] [address] [facility] Internal Medicine 09/30/24 Reason for Visit (unrecogniz ed section and content) Reason Comments Radiology CT Specialty Diagnoses / Procedures Referred By Contac t Referred To Contact CT IMAGING Diagnoses Abdominal pain, left lateral Procedures CT ABD/PEL W IVCON CT ABD & PELVIS W/CONTRAST Jude Moore, VERA.SEBD TEACHER [address] [place] [address] [place] [address] Referral ID Status Reason Start Date Expiration Date V isits Requested Visits Authorized [id number] Closed Auto-Generate d Referral 11/01/2022 12/01/2023 1 1 Reason Onset Date Comments Refill Request 08/28/2021 Reason Comments Follow Up Reason Onset Date Comments Refill Request 12/03/2021 Reason Comments Insurance Authorization Reason Comments Follow Up Reason Comments Follow Up Reason Onset Date Comments Refill Request 05/29/2022 Reason Comments Diarrhea Pt reported N/V, bod y aches x1 day, Hx illness x1 wk, nasal congestion. Reason Comments Patient Update Reason Onset Date Comments Refill Request 07/04/2022 Reason Onset Date Comments Refill Request 06/20/2022 Refill Request 07/06/2022 Reason Comments Insurance Authorization Methadone Reason Onset Date Comments Refill Request 08/08/2022 Reason Comments Covid19 Concern Reason Comments Orders Reason Onset Date Comments Refill Request 09/14/2022 Reason Comments Follow Up Medication/routine Reason Onset Date Comments Refill Request 10/17/2022 Reason Comments Abdominal Pain Reason Onset Date Comments Refill Request 11/25/2022 Reason Onset Date Comments Refill Request 12/29/2022 Reason Comments Anxiety Reason Comments Recheck 3 month follow up Reason Comments Radiology US Specialty Diagnoses / Procedures Referred By Contac t Referred To Contact US IMAGING Diagnoses Abdominal pain, unspecified abdominal location Kidney stones Procedures US KIDNEY/BLADDER US RETROPERITONEAL REAL TIME W/IMAGE COMPLETE Johny, Nadine, SENIOR MAINFRAME PROGRAMMER ANALYST.PLATE MAKER [address] [place] [address] Us Imaging [id number] Referral ID Status Reason Start Date Expiration Date V isits Requested Visits Authorized [id number] Closed Auto-Generate d Referral 07/11/2022 08/10/2023 1 1 Reason Onset Date Comments Refill Request 04/10/2023 Reason Onset Date Comments Refill Request 07/30/2023 Reason Onset Date Comments Refill Request 09/12/2023 Reason Onset Date Comments Refill Request 09/25/2023 Reason Comments Anxiety/Insomnia Reason Onset Date Comments Refill Request 10/12/2023 Reason Comments F/U 3 Month Reason Comments Follow Up anxiety and insomnia Reason Comments Results Reason Onset Date Comments Refill Request 11/05/2023 Reason Onset Date Comments Refill Request 01/01/2024 Reason Comments Medication Question Reason Onset Date Comments Refill Request 02/25/2024 Reason Onset Date Comments Recheck medication follo w up Immunizations 01/29/2024 Flu vaccination Reason Onset Date Comments Refill Request 03/18/2024 Reason Comments New Patient Evaluation Low Back Pain Reason Comments Appointment Reason Comments Follow Up Back Pain Reason Onset Date Comments Refill Request 04/22/2024 Specialty Diagnoses / Procedures Referred By Contac t Referred To Contact MR IMAGING Diagnoses Spinal stenosis of lumbar region with neurogenic claudication Procedures MRI LUMBAR SPINE WO IVCON MRI SPINAL CANAL LUMBAR W/O CONTRAST MATERIAL Sandy Bhardwaj, SENIOR MAINFRAME PROGRAMMER ANALYST.PLATE MAKER [address] [place] [address] [place] [address] Referral ID Status Reason Start Date Expiration Date V isits Requested Visits Authorized [id number] Closed Auto-Generate d Referral 03/31/2024 04/30/2025 1 1 Reason Comments Follow Up Low Back Pain Reason Comments Injections Questions Reason Onset Date Comments Refill Request 05/04/2024 Reason Onset Date Comments Refill Request 2024 Reason Comments Procedure MBB Specialty Diagnoses / Procedures Referred By Contac t Referred To Contact Pain Management / PAIN MANAGEMENT Diagnoses Spondylosis without myelopathy or radiculopathy, lumbosacral region Medial Branch Block (Diagnostic only, NO STEROIDS) under fluoroscopic guidance BILATERAL SIDES at L3-4 and L4-5 Procedures NJX DX/THER AGT PVRT FACET JT LMBR/SAC 1 LEVEL PROCEDURE 20 PreGuera montea, SENIOR MAINFRAME PROGRAMMER ANALYST.PLATE MAKER [address] [address] Phone: tel: fax: Meek Li MD [address] [address] Phone: tel: fax: Referral ID Status Reason Start Date Expiration Date Visits Re quested Visits Authorized [id number] Closed 06/29/2024 07/10/2024 1 1 Reason Comments Established Patient Follow Up Patient states the i t took a long time for the MBB to kick in. Reason Comments Procedure Follow Up MBB Reason Comments Procedure MBB L3-4 4-5 Specialty Diagnoses / Procedures Referred By Contac t Referred To Contact Pain Management / PAIN MANAGEMENT Diagnoses Spondylosis without myelopathy or radiculopathy, lumbosacral region Medial Branch Block (Diagnostic only, NO STEROIDS) under fluoroscopic guidance BILATERAL SIDES at L3-4 and L4-5 Procedures NJX DX/THER AGT PVRT FACET JT LMBR/SAC 1 LEVEL NJX DX/THER AGT PVRT FACET JT LMBR/SAC 2ND LEVEL PROCEDURE 20 Bonnie Ricks, SENIOR MAINFRAME PROGRAMMER ANALYST.PLATE MAKER [address] [address] Phone: tel: fax: Meek Li MD [address] [address] Phone: tel: fax: Referral ID Status Reason Start Date Expiration Date Visits Re quested Visits Authorized [id number] Closed 07/13/2024 07/24/2024 1 1 Reason Comments Injections Reason Comments Follow Up Mbb #2 fu - did not have much relief Back Pain Lower - bilateral - right is worse Reason Comments Med Change Request Reason Comments Laceration left hand with selvin metal x 1 day, last tetanus 04/23 Reason Comments Physical F/U 3 Month Reason Comments Procedure ilesi Back Pain Lower - bilateral - left is worse Specialty Diagnoses / Procedures Referred By Contac t Referred To Contact Pain Management / PAIN MANAGEMENT Diagnoses Spinal stenosis, lumbar region with neurogenic claudication ILESI w fluoro NONE at L4-5 Procedures NJX DX/THER SBST INTRLMNR LMBR/SAC W/IMG GDN PROCEDURE Prelavell, VERA Nicole.PLATE MAKER [address] [place] [address] Phone: tel: fax: Meek Li MD [address] [facility] [address] [place] [address] Phone: tel: fax: Referral ID Status Reason Start Date Expiration Date Visits Re quested Visits Authorized [id number] Closed 08/24/2024 09/04/2024 1 1 Reason Comments Follow Up post procedure Reason Comments F/U 3 months Rx Refills Reason Comments UTI Reason Comments uti symptoms Goals (unrecognized section and content) Goals may be documented in a n alternate section FOR RECORDS PERTAINING TO PATIENTS WHO ARE OR HAVE BEEN ENROLLED IN A CHEMICAL DEPENDENCY/SUBSTANCEABUSE PROGRAM, SOME INFORMATION MAY BE OMITTED. This clinical summary was aggregated from multiple sources. Caution should be exercised in using it in the provision of clinical care. This summary normalizes information from multiple sources, and as a consequence, information in this document may materially change the coding, format and clinical context of patient data. In addition, data may be omitted in some cases. CLINICAL DECISIONS SHOULD BE BASED ON THE PRIMARY CLINICAL RECORDS. [employer] provides no warranty or guarantee of the accuracy or completeness of information in this document.
[2024-11-09 01:52] LABS: Internal QC Validated? YES +Cl - CLEAR BKGD; Pregnancy, Serum, hCG Quali. NEGATIVE Negative
[2024-11-09 02:00] LABS: Anion Gap 12 (5-15); BUN 17 mg/dL (4-19); BUN/Creat Ratio 18.7 RATIO (10-20); Calcium,Total 9.6 mg/dL (7.6-11.0); Carbon Dioxide 21.7 mmol/L (21.0-32.0); Chloride 106 mmol/L (98-108); EST Glomerular Filtration Rate 82 (>60); Estimated Creatinine Clearance 103.99 ml/min (50-250); Glucose 123 mg/dL (70-99); Potassium 3.8 mmol/L (3.3-5.1); Sodium Level 139 mmol/L (133-145)
[2024-11-09 02:10] LABS: Bacteria 3+ /hpf (None Seen); Mucous, Urine 4+ /hpf (<or=2+); Red Blood Cells-Urine > 100 SEEN /hpf (0-5); Squamous Epithelial Cells - UA 10-25 SEEN /hpf (5-10); White Blood Cells 10-25 SEEN /hpf (0-5)
[2024-11-09 02:11] LABS: Calcium Oxalate Crystals Ur 3+ /hpf (<or=2+)
[2024-11-09 02:34] VITALS: BP 129/75; PULSE 68; RESP 18; TEMP 36.6; O2SAT 98
[2024-11-09] MEDS: Smz/Tmp Ds Tablet 1 TABLET PO (02:43)
== END 2024-11-09 02:44 | disposition home or self-care (01) ==
PROVIDERS: Emergency Provider Emergency Medicine; PCP Internal Medicine; Visit Provider Emergency Medicine
DX: N13.2 Hydronephrosis with renal and ureteral calculous obstruction (principal); Z79.899 Other long term (current) drug therapy
CPT/HCPCS: 74176; 80048; 81001; 84703; 85025; 87086; 96361; 96374; 96375; 96376; 99283; A4216; J2405